=== PATIENT | female | born 1930 | race Caucasian/White ===

== ENCOUNTER → 2016-04-16 | Outpatient (CLI) | payer MEDICARE, OTHER ==
--- NOTE | 2016-04-16 16:33 | CT ---
EXAMINATION TYPE: CT chest wo con DATE OF EXAM: 04/16/2016 3:50 PM COMPARISON: Chest CT November 30, 2013 HISTORY: Patient complains of shortness of breath and fluid retention. CT DLP: 239.90 mGycm. Automated Exposure Control for Dose Reduction was Utilized. TECHNIQUE: CT scan of the thorax is performed without IV contrast. FINDINGS: LUNGS: Some posterior apical scarring bilaterally is redemonstrated. There is additional linear sca rring in the posterior aspect right upper lobe with some involvement of the right middle lobe redemon strated. No suspicious groundglass opacification or focal consolidation is seen. No pleural effusion or pneumothorax is seen bilaterally. There is no pleural effusion or pneumothorax seen. The tracheob ronchial tree is patent. MEDIASTINUM: Lack of IV contrast is noted to limit evaluation for mediastinal and especially hilar ad enopathy. There are no definitive greater than 1 cm noncalcified hilar or mediastinal lymph nodes. Th ere are calcified subcarinal subcentimeter lymph nodes redemonstrated Heart size is stable and upper limits of normal. There is tiny pericardial effusion or thickening redemonstrated felt stable. Focal coronary artery calcification proximal LAD on axial image 34 is redemonstrated. Mild calcified plaque in aortic arch and descending aorta is noted. OTHER: There is heterogeneous prominent right thyroid lobe with substernal extension redemonstrated. Left thyroid lobe is suspected surgically absent. Cortical thinning in both kidneys is seen. Cholecys tectomy clips are noted. Postsurgical change upper lumbar spine is partially imaged. IMPRESSION: Chronic parenchymal fibrosis bilaterally felt stable. No acute pulmonary process is evide nt.
== END ==
LOC: RADCTMAIN 15:21
PROVIDERS: ATTEND Internal Medicine Sleep Medicine
DX: J84.10 Pulmonary fibrosis, unspecified (principal)
CPT/HCPCS: 71250

== ENCOUNTER → 2016-04-17 | Outpatient (CLI) | payer MEDICARE, OTHER ==
--- NOTE | 2016-04-18 09:35 | P.ARTDOP ---
Arterial Doppler LOWER EXTREMITY ARTERIAL DOPPLER: DATE OF SERVICE: 04/17/2016 Reason for study: Bilateral leg swelling. Doppler waveforms: Multiphasic bilaterally throughout. Pulse volume recording: Normal configuration. Pressure gradients: None. Ankle-brachial indices: Greater than 1 bilaterally. Toe pressures: 126 on the right, 84 on the left Impression: Normal study.
== END | disposition home or self-care (01) ==
LOC: RADUSWWP 10:42
PROVIDERS: ATTEND Podiatrist Foot & Ankle Surgery
DX: I73.9 Peripheral vascular disease, unspecified (principal)
CPT/HCPCS: 93923

== ENCOUNTER → 2016-10-22 | Outpatient (CLI) | payer MEDICARE, OTHER ==
--- NOTE | 2016-10-22 15:02 | XR ---
EXAMINATION TYPE: XR forearm LT DATE OF EXAM: 10/22/2016 COMPARISON: NONE HISTORY: Pain the distal forearm Two views of the forearm demonstrate that the osseous structures appear to be intact and the joint sp aces appear to be preserved. There is no acute fracture or dislocation. There is severe narrowing o f the trapezial scaphoid joint. Narrowing the first carpal metacarpal joint. Diffuse osteopenia noted . Vascular calcification noted. IMPRESSION: 1. No acute fracture or dislocation
== END ==
LOC: RADXRMAIN 14:45
PROVIDERS: ATTEND Internal Medicine
DX: M79.672 Pain in left foot (principal)

== ENCOUNTER → 2016-11-08 | Outpatient (CLI) | payer MEDICARE, OTHER ==
[2016-11-08 13:30] LABS: Non-African American GFR(MDRD) 53 (>60 ml/min/1.73 sqM)
--- NOTE | 2016-11-08 17:05 | MR ---
EXAMINATION TYPE: MR lumbar spine wo/w con DATE OF EXAM: 11/08/2016 COMPARISON: 06/26/2013 HISTORY: back/sherrie hip pain TECHNIQUE: Multiplanar, multisequence images of the lumbar spine were acquired utilizing 7.0 mL intravenous Gada vist gadolinium contrast. Again susceptibility artifact from fusion hardware of the L1-L5 vertebra obscures visualization and l imits evaluation. Pedicular screws, fixation rods, laminectomy defects and spinous process resection are seen throughout the lumbar spine. Conus medullaris is obscured by susceptibility artifact. T1/T2 hyperintense sacral vertebral body hemangiomas are seen as well as vertebral body hemangioma T12. L1-L2: There appears to be a broad-based disc bulge resulting in at least mild bilateral neural david inal narrowing. L2-L3: A right eccentric broad-based disc bulge is seen creating moderate right and mild left neural foraminal narrowing. L3-L4: Right eccentric disc bulge create moderate right neural foraminal narrowing and mild left neur al foraminal narrowing. L4-L5: Intervertebral disc space cage is seen without disc space narrowing. L5-S1: Intervertebral disc spacer is thought to be present although partially obscured by susceptibil ity artifact. A recurrent right paracentral disc herniation extrudes caudally 6 mm and extends into t he right lateral recess and neural foramen creating severe neural foraminal narrowing. At least moder ate left neural foraminal narrowing is also seen. Enhancing epidural fibrosis extends from the L4-L5 interspace to the inferior portion of S1 measuring 1.2 x 4.1 x 2.2 cm in anterior posterior by craniocaudal by transverse dimension. This impresses upo n the distal nerve roots and distal thecal sac creating severe spinal canal stenosis at the level of L5-S1. It is difficult to appreciate whether this surrounds adjacent nerve roots due to obscuration b y susceptibility artifact. Moderate atrophy of the paraspinal musculature becomes more severe inferio rly. IMPRESSION: Limited exam due to extensive susceptibility artifact from fusion hardware throughout the lumbar spine. 1. Enhancing epidural fibrosis from the L4-L5 disc space to the inferior portion of S1 along the vent ral aspect of the thecal sac creating impression upon the distal nerve roots and thecal sac resulting in severe spinal canal stenosis at L5-S1. There is inability to determine whether this surrounds exi ting nerve roots as extensive susceptibility artifact is seen. 2. Recurrent right paracentral disc herniation at L5-S1 extrudes caudally 6 mm and extends into the r ight neural foramen creating severe neural foraminal stenosis impinging the L5 exiting nerve root. 3. Multilevel degenerative disc disease creating variable degrees of neural foraminal narrowing as de scribed above.
== END | disposition home or self-care (01) ==
LOC: RADMRIMAIN 12:52
PROVIDERS: ATTEND Internal Medicine
DX: M48.06 Spinal stenosis, lumbar region (principal); M99.73 Connective tissue and disc stenosis of intervertebral foramina of lumbar region; M51.27 Other intervertebral disc displacement, lumbosacral region; M51.36 Other intervertebral disc degeneration, lumbar region
CPT/HCPCS: 82565; 72158; 36415; A9581

== ENCOUNTER 2017-04-17 15:40 | Inpatient (IN) | payer MEDICARE, OTHER ==
[2017-04-17] MEDS ORDERED: SODIUM CHLORIDE 0.9% 500 ML IV STA (16:20)
[2017-04-17] MEDS ORDERED: ACETAMINOPHEN TAB 500 MG TAB PO STA (16:20)
[2017-04-17 16:33] LABS: Basophils # (A) 0.1 k/uL (0-0.2); Basophils % (A) 1 %; Eosinophils # (A) 0.3 k/uL (0-0.7); Eosinophils % (A) 2 %; HGB 12.5 gm/dL (11.4-16.0); Hypochromasia Slight; Lymphocytes % (A) 7 %; MCH 27.4 pg (25.0-35.0); Mean Platelet Volume 7.4; Monocytes # (A) 0.3 k/uL (0-1.0); Monocytes % (A) 2 %; Neutrophils # (A) 13.4 k/uL (1.3-7.7); Neutrophils % (A) 88 %; Platelet Count 497 k/uL (150-450); Poikilocytosis Slight; RBC 4.57 m/uL (3.80-5.40); WBC 15.2 k/uL (3.8-10.6)
[2017-04-17 16:42] LABS: Partial Thromboplastin Time 21.3 sec (22.0-30.0)
[2017-04-17 16:46] LABS: Albumin 3.4 g/dL (3.5-5.0); Calcium 9.6 mg/dL (8.4-10.2); Potassium 3.7 mmol/L (3.5-5.1); Total Bilirubin 0.6 mg/dL (0.2-1.3); Total Protein 6.7 g/dL (6.3-8.2)
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
[2017-04-17 17:09] LABS: Appearance,Urine Clear (Clear); Bilirubin,Urine Negative (Negative); Blood,Urine Negative (Negative); Color,Urine Yellow; Glucose,Urine (UA) Negative (Negative); Ketones,Urine Trace (Negative); Leukocyte Esterase,Urine Negative (Negative); Nitrite,Urine Negative (Negative); PH, Urine 6.5 (5.0-8.0); Protein,Urine Negative (Negative); Specific Gravity,Urine 1.006 (1.001-1.035); Urobilinogen,Urine <2.0 mg/dL (<2.0)
--- NOTE | 2017-04-17 17:30 | XR ---
EXAMINATION TYPE: XR chest 2V DATE OF EXAM: 04/17/2017 COMPARISON: Chest x-ray March 20, 2017 and older studies HISTORY: Chest pain per order. Weakness possible sepsis. TECHNIQUE: Frontal and lateral views of the chest are obtained. FINDINGS: Patient is rotated to right on current study making evaluation slightly suboptimal. There i s no new suspicious focal air space opacity, pleural effusion, or pneumothorax seen. The cardiac letty houette size is stable and mildly enlarged. There is partial visualization of surgical change in the lumbar spine. IMPRESSION: Mild cardiomegaly without acute pulmonary process. No significant change from most recent x-ray.
[2017-04-17] MEDS ORDERED: KETOROLAC 30 MG/ML 1 ML VIAL IVP STA (18:19)
--- NOTE | 2017-04-17 19:52 | CT ---
EXAMINATION TYPE: CT abdomen pelvis wo con DATE OF EXAM: 04/17/2017 HISTORY: Weakness and fever. CT DLP: 792 mGycm. Automated Exposure Control for Dose Reduction was Utilized. TECHNIQUE: CT scan of the abdomen and pelvis is performed without oral or IV contrast. COMPARISON: CT abdomen and pelvis August 06, 2013 FINDINGS: Within the limitations of a non-contrast study, the following observations are made. LUNG BASES: There is new patchy right basilar atelectasis. LIVER/GB: Cholecystectomy clips are redemonstrated. PANCREAS: No significant abnormality is seen. SPLEEN: No significant abnormality is seen. ADRENALS: No significant abnormality is seen. KIDNEYS: Some cortical thinning in both kidneys is seen. Concepcion catheter within bladder is present. BOWEL: Evaluation bowel suboptimal secondary to lack of enteric contrast. There is no suspicious smal l or large bowel dilatation. There are surgical sutures from proximal partial colectomy redemonstrate d. There is now irregular wall thickening near sutures at this level axial image 38 with suspected ad jacent adenopathy coronal image 27. Recurrent neoplasm needs to BE considered. Inflammatory change at this process is not excluded. Some diverticula are seen in the sigmoid colon. There is fluid noted i n the rectum. GENITAL ORGANS: Uterus is surgically absent. Scattered pelvic phleboliths are seen. LYMPH NODES: No greater than 1cm abdominal or pelvic lymph nodes are appreciated. Suspicious lymph no ping near colectomy changes. OSSEOUS STRUCTURES: There is redemonstration of long segment surgical change in the lumbar spine post erior interpedicular rods and screws. There are laminectomy defects and multilevel spinous process re section. OTHER: There is moderate to severe atherosclerotic change of aorta extending into small pelvic branch vessels. IMPRESSION: 1. At site of prior partial colectomy there is new irregular wall thickening with mild fat stranding and suspicious adjacent adenopathy, acute infectious process at this level or colitis could have this appearance. 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
[2017-04-17] MEDS ORDERED: cefTRIAXone IN SWFI 1,000 MG/10 ML SYRINGE IVP STA (20:53)
[2017-04-17] MEDS ORDERED: metroNIDAZOLE-NS PMX 500 MG in SALINE 1 100ML.BAG IVPB STA (20:54)
[2017-04-17] MEDS ORDERED: NALOXONE 0.4 MG/ML 1 ML VIAL IV PRN (21:07)
[2017-04-17] MEDS: SODIUM CHLORIDE 0.9% 1,000 ML IV SCH (21:17)
[2017-04-17 23:53] LABS: Glucose,Whole Blood 110 mg/dL (75-99)
[2017-04-18] MEDS: ACETAMINOPHEN TAB 325 MG TAB PO PRN ×3 (03:07→16:16)
[2017-04-18] MEDS: metroNIDAZOLE-NS PMX 500 MG in SALINE 1 100ML.BAG IVPB SCH ×3 (05:47→17:08)
[2017-04-18 07:31] LABS: Glucose,Whole Blood 95 mg/dL (75-99)
[2017-04-18] MEDS: cefTRIAXone IN SWFI 1,000 MG/10 ML SYRINGE IVP SCH (09:13)
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
[2017-04-18] MEDS: SODIUM CHLORIDE 0.9% 1,000 ML IV SCH (12:17)
[2017-04-18 12:43] LABS: Glucose,Whole Blood 98 mg/dL (75-99)
[2017-04-18] MEDS ORDERED: DIAZEPAM 5 MG TAB PO PRN (14:16)
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
[2017-04-18] MEDS: ONDANSETRON 4 MG/2 ML VIAL IVP PRN (17:08)
[2017-04-18] MEDS: INSULIN ASPART 100 UNIT/ML 1 ML 10 ML VIAL SQ SCH ×2 (17:18→22:45)
[2017-04-18 17:23] LABS: Glucose,Whole Blood 109 mg/dL (75-99)
[2017-04-18] MEDS ORDERED: BISACODYL 5 MG TABLET.DR PO STA (18:54)
[2017-04-18] MEDS ORDERED: PEG 3350-NA SULF,BICARB,CL/KCL 4,000 ML BOTTLE PO ONE (18:54)
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
[2017-04-18] MEDS: BUDESONIDE 0.25 MG/2 ML NEBU INHALATION SCH (19:27)
[2017-04-18] MEDS: FORMOTEROL FUMARATE 20 MCG/2 ML NEBU INHALATION SCH (19:27)
[2017-04-18] MEDS: HEPARIN SODIUM,PORCINE 5,000 UNIT/ML 1 ML VIAL SQ SCH (20:52)
[2017-04-18 21:41] LABS: Glucose,Whole Blood 83 mg/dL (75-99)
[2017-04-19] MEDS: ACETAMINOPHEN TAB 325 MG TAB PO PRN ×4 (00:35→23:06)
[2017-04-19] MEDS: metroNIDAZOLE-NS PMX 500 MG in SALINE 1 100ML.BAG IVPB SCH ×4 (01:36→18:57)
[2017-04-19] MEDS: DEXTROSE 5%-0.45% NACL 1,000 ML IV SCH ×2 (01:37→12:11)
[2017-04-19] MEDS: SODIUM CHLORIDE 0.9% 1,000 ML IV SCH ×2 (01:38→11:59)
[2017-04-19 05:49] LABS: Glucose,Whole Blood 104 mg/dL (75-99)
[2017-04-19 07:21] LABS: Glucose,Whole Blood 109 mg/dL (75-99)
[2017-04-19] MEDS: FORMOTEROL FUMARATE 20 MCG/2 ML NEBU INHALATION SCH ×2 (07:49→21:02)
[2017-04-19] MEDS: BUDESONIDE 0.25 MG/2 ML NEBU INHALATION SCH ×2 (07:49→21:01)
[2017-04-19 09:07] LABS: Anisocytosis Slight; Basophils % (A) 1 %; Eosinophils # (A) 0.3 k/uL (0-0.7); Eosinophils % (A) 5 %; HCT 28.6 % (34.0-46.0); Hypochromasia Slight; Lymphocytes # (A) 1.2 k/uL (1.0-4.8); Lymphocytes % (A) 17 %; MCH 27.6 pg (25.0-35.0); MCHC 32.7 g/dL (31.0-37.0); MCV 84.2 fL (80.0-100.0); Mean Platelet Volume 7.7; Monocytes # (A) 0.5 k/uL (0-1.0); Monocytes % (A) 7 %; Neutrophils # (A) 4.8 k/uL (1.3-7.7); Neutrophils % (A) 69 %; Platelet Count 355 k/uL (150-450); RDW 16.1 % (11.5-15.5); WBC 6.9 k/uL (3.8-10.6)
[2017-04-19 09:08] LABS: HGB 9.4 gm/dL (11.4-16.0)
[2017-04-19] MEDS: INSULIN ASPART 100 UNIT/ML 1 ML 10 ML VIAL SQ SCH ×4 (09:08→22:03)
[2017-04-19] MEDS: FUROSEMIDE 20 MG TAB PO SCH (09:12)
[2017-04-19] MEDS: PANTOPRAZOLE 40 MG TABLET PO SCH (09:12)
[2017-04-19] MEDS: HEPARIN SODIUM,PORCINE 5,000 UNIT/ML 1 ML VIAL SQ SCH ×2 (09:12→21:57)
[2017-04-19] MEDS: DICYCLOMINE 20 MG TAB PO SCH (09:12)
[2017-04-19] MEDS: MONTELUKAST 10 MG TAB PO SCH ×2 (09:12→09:18)
[2017-04-19] MEDS: METOPROLOL TARTRATE 12.5 MG TAB PO SCH (09:12)
[2017-04-19] MEDS: FOLIC ACID 1 MG TAB PO SCH ×2 (09:12→09:18)
[2017-04-19] MEDS: METHOTREXATE SODIUM 2.5 MG TAB PO SCH ×2 (09:12→09:14)
[2017-04-19] MEDS: cefTRIAXone IN SWFI 1,000 MG/10 ML SYRINGE IVP SCH (09:13)
[2017-04-19 09:41] LABS: ALT 26 U/L (9-52); AST 24 U/L (14-36); Albumin 2.2 g/dL (3.5-5.0); Alkaline Phosphatase 47 U/L (38-126); Anion Gap 5 mmol/L; Blood Urea Nitrogen 5 mg/dL (7-17); Calcium 8.2 mg/dL (8.4-10.2); Carbon Dioxide 25 mmol/L (22-30); Chloride 106 mmol/L (98-107); Glucose 101 mg/dL (74-99); Potassium 3.1 mmol/L (3.5-5.1); Sodium 136 mmol/L (137-145); Total Bilirubin 0.2 mg/dL (0.2-1.3); Total Protein 4.8 g/dL (6.3-8.2)
[2017-04-19] MEDS ORDERED: Potassium Replacement Protocol 1 EACH MISC MISCELLANE PRN (11:55)
[2017-04-19 12:17] LABS: Glucose,Whole Blood 165 mg/dL (75-99)
--- NOTE | 2017-04-19 13:46 | P.PN ---
Subjective Progress Note Date: 04/19/17 [facility] is covering for Dr. Lopez Patient is being seen examined and evaluated today on rounds. This patient is currently being worked up for her colitis and she does have a significant history for COPD and pulmonary fibrosis. Apparently she has had been having flares of her colitis more recently over the past few months. On examination the patient's resting in bed on room air. Patient does become short of breath with exertion and activity. She denies any cough or congestion at this time. Family is at bedside and is updated on plan of care. Patient is supposed to go for a colonoscopy today with surgical services. She continues on Rocephin and Flagyl. Her potassium this morning was noted to be 3.1 and has been replaced. Currently she is hemodynamically stable. Objective - Vital Signs Vital signs: Vital Signs Temp 99.0 F 04/19/17 07:00 Pulse 92 04/19/17 08:00 Resp 16 04/19/17 07:00 BP 137/62 04/19/17 07:00 Pulse Ox 94 L 04/19/17 07:00 Intake & Output 04/18/17 04/19/17 04/19/17 18:59 06:59 18:59 Output Total 500 Balance -500 Weight 59.5 kg Output: Urine 500 Other: Voiding Method Indwelling Catheter Indwelling Catheter # Voids 0 1 # Bowel Movements 2 - Exam GENERAL EXAM: Alert, comfortable in no apparent distress. HEAD: Normocephalic. EYES: Normal reaction of pupils, equal size. NOSE: Clear with pink turbinates. THROAT: No erythema or exudates. NECK: No masses, no JVD. CHEST: No chest wall deformity. LUNGS: Equal air entry with no crackles, wheeze, rhonchi or dullness. CVS: S1 and S2 normal with no audible mumurs, regular rhythm. ABDOMEN: No hepatosplenomegaly, normal bowel sounds, mild tenderness to palpitation EXTREMITIES: Trace edema noted, pedal pulses palpable. CENTRAL NERVOUS SYSTEM: No focal deficits, tone is normal in all 4 extremities. - Labs CBC & Chem 7: 04/19/17 08:24 04/19/17 08:24 Labs: Abnormal Lab Results - Last 24 Hours (Table) 04/18/17 04/19/17 04/19/17 Range/Units 17:09 05:47 07:18 RBC (3.80-5.40) m/uL Hgb (11.4-16.0) gm/dL Hct (34.0-46.0) % RDW (11.5-15.5) % Sodium (137-145) mmol/L Potassium (3.5-5.1) mmol/L BUN (7-17) mg/dL Glucose (74-99) mg/dL POC Glucose (mg/dL) 109 H 104 H 109 H (75-99) mg/dL Calcium (8.4-10.2) mg/dL Total Protein (6.3-8.2) g/dL Albumin (3.5-5.0) g/dL 04/19/17 04/19/17 04/19/17 Range/Units 08:24 08:24 12:10 RBC 3.40 L (3.80-5.40) m/uL Hgb 9.4 L D (11.4-16.0) gm/dL Hct 28.6 L (34.0-46.0) % RDW 16.1 H (11.5-15.5) % Sodium 136 L (137-145) mmol/L Potassium 3.1 L (3.5-5.1) mmol/L BUN 5 L (7-17) mg/dL Glucose 101 H (74-99) mg/dL POC Glucose (mg/dL) 165 H (75-99) mg/dL Calcium 8.2 L (8.4-10.2) mg/dL Total Protein 4.8 L (6.3-8.2) g/dL Albumin 2.2 L (3.5-5.0) g/dL Microbiology - Last 24 Hours (Table) 04/18/17 22:58 Stool Culture - Preliminary Stool 04/17/17 17:00 Urine Culture - Final Urine,Voided 04/17/17 16:20 Blood Culture - Preliminary Blood No Growth after 24 hours Assessment and Plan Assessment: Assessment Intermittent abdominal discomfort and pain and evidence of colitis versus mucosal wall thickening likely infectious or neoplastic process with prior history of colectomy Infectious colitis/C. difficile colitis, stool is been sent for C. difficile results are pending Neoplastic process/colon cancer workup and his progress patient has been recommended a colonoscopy she has Severe COPD related to chronic severe persistent asthma overall stable Chronic cough related to above and chronic asthma Advanced rheumatoid arthritis with some component of rheumatoid lung related to pulmonary fibrosis/interstitial lung disease Plan Patient will be going for colonoscopy today with surgical services. Medications have been reviewed and will be continued as ordered. Continue with pulmonary hygiene, coughing and deep breathing exercises, and supportive care. Supplemental oxygen to maintain oxygen saturations of 92% or better. Continue to monitor and replace electrolytes. Continue nebulizer treatments. GI and DVT prophylaxis. We will continue to monitor labs/results and adjust treatment as necessary. Further recommendations pending. We are covering for Dr. Lopez I performed an examination of the patient and discussed their management with the nurse practitioner. I have reviewed the nurse practitioner's note and agree with the documented findings and plan of care.
[2017-04-19] MEDS ORDERED: LACTATED RINGERS 1,000 ML IV ONE (13:54)
--- NOTE | 2017-04-19 13:55 | P.PN ---
Subjective Progress Note Date: 04/19/17 This is a 86-year-old female with a known past medical history of site COPD, diabetes mellitus, rheumatoid arthritis, lower extremity DVT, GERD, C. diff, recurrent episodes of urinary retention, diverticulosis and a recent admission at [facility] about 3 weeks ago for colitis. At that time she was treated with Flagyl. History was obtained from patient's daughter. Who reports that patient had shown improvement but once she finished the Flagyl her symptoms worsened again. She has been having journalized weakness nausea decrease in appetite and diarrhea. She also has been having fevers at home. She came back into the hospital for further evaluation. She was found have a temp of 102 white count 15.2 started on Rocephin and Flagyl. Computed tomography scan of the abdomen and pelvis shows at the site of prior partial colectomy there is new irregular wall thickening with mild fat stranding and suspicious adjacent adenopathy, acute infectious process at this level or colitis could have this appearance. 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 Per daughter patient does not have any prior history of cancer. She has had a bowel resection for a perforated diverticulitis. Dr. Silveira has been consulted for further evaluation. We'll check stool studies. Patient also is having evidence of urinary retention and Concepcion catheter was reinserted in the emergency room. She had recently been to see Dr. Murphy for the urinary retention at that time for catheter was removed. 04/19/2017 patient is scheduled for colonoscopy today with Dr. Silveira. Denies any nausea or vomiting. No blood in the stools. Denies any chest pain or shortness of breath. Does have some bruising and minimal swelling noted along the left arm from an old IV site. No hematoma. No tenderness. Objective - Vital Signs Vital signs: Vital Signs Temp 99.0 F 04/19/17 07:00 Pulse 92 04/19/17 08:00 Resp 16 04/19/17 07:00 BP 137/62 04/19/17 07:00 Pulse Ox 94 L 04/19/17 07:00 Intake & Output 04/18/17 04/19/17 04/19/17 18:59 06:59 18:59 Output Total 500 Balance -500 Weight 59.5 kg Output: Urine 500 Other: Voiding Method Indwelling Catheter Indwelling Catheter # Voids 0 1 # Bowel Movements 2 - Exam Head normocephalic Neck supple Lungs clear to auscultation bilaterally no wheezing or crackles Heart regular rate and rhythm S1-S2, no rub or gallop Abdomen is soft nontender nondistended positive bowel sounds no hepatosplenomegaly Extremities no edema of the lower extremities. Left arm minimal bruising and mild swelling at old IV site. Neuro alert and orientated to 3 - Labs CBC & Chem 7: 04/19/17 08:24 04/19/17 08:24 Labs: Abnormal Lab Results - Last 24 Hours (Table) 04/18/17 04/19/17 04/19/17 Range/Units 17:09 05:47 07:18 RBC (3.80-5.40) m/uL Hgb (11.4-16.0) gm/dL Hct (34.0-46.0) % RDW (11.5-15.5) % Sodium (137-145) mmol/L Potassium (3.5-5.1) mmol/L BUN (7-17) mg/dL Glucose (74-99) mg/dL POC Glucose (mg/dL) 109 H 104 H 109 H (75-99) mg/dL Calcium (8.4-10.2) mg/dL Total Protein (6.3-8.2) g/dL Albumin (3.5-5.0) g/dL 04/19/17 04/19/17 04/19/17 Range/Units 08:24 08:24 12:10 RBC 3.40 L (3.80-5.40) m/uL Hgb 9.4 L D (11.4-16.0) gm/dL Hct 28.6 L (34.0-46.0) % RDW 16.1 H (11.5-15.5) % Sodium 136 L (137-145) mmol/L Potassium 3.1 L (3.5-5.1) mmol/L BUN 5 L (7-17) mg/dL Glucose 101 H (74-99) mg/dL POC Glucose (mg/dL) 165 H (75-99) mg/dL Calcium 8.2 L (8.4-10.2) mg/dL Total Protein 4.8 L (6.3-8.2) g/dL Albumin 2.2 L (3.5-5.0) g/dL Microbiology - Last 24 Hours (Table) 04/18/17 22:58 Stool Culture - Preliminary Stool 04/17/17 17:00 Urine Culture - Final Urine,Voided 04/17/17 16:20 Blood Culture - Preliminary Blood No Growth after 24 hours Assessment and Plan Assessment: 1. Acute colitis with Abdominal pain with nausea, diarrhea, decreased appetite : Computed tomography scan of the abdomen showing evidence of at site of prior partial colectomy there is new irregular wall thickening with mild fat stranding and suspicious adjacent adenopathy acute infectious process at this level or colitis have this appearance. Also suspicion of neoplasm is suspected and follow-up colonoscopy after treatment is advised as noted on CAT scan. Dr. Silveira has been consulted. Patient has been started on Rocephin and Flagyl. Stool studies pending. Stool for C. diff negative. Patient had recent hospitalization at [facility] and had been on Flagyl treatment for about 12 days. Last colonoscopy in 2008 2. Sepsis with possible colitis present on admission. Patient is febrile with elevated white count. Continue with IV fluids and antibiotics. Blood culture negative so far 3. 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 Rheumatoid arthritis currently on methotrexate 5. Urinary retention Concepcion catheter reinserted in ER 6. Diabetes mellitus type 2: Poor oral intake blood sugars have been on the lower side. Hold oral hypoglycemics and place patient on sliding scale coverage 7. 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 I have reviewed the Physician General Duty Nurse's notes and agree with the documented findings and plan of care
[2017-04-19] MEDS ORDERED: PROPOFOL 10 MG/ML 20 ML VIAL IV ONE (14:13)
[2017-04-19] MEDS: POTASSIUM CHLORIDE 10 MEQ in SODIUM CHLORIDE 0.9% 100 ML IVPB SCH ×2 (15:11→18:28)
--- NOTE | 2017-04-19 15:15 | P.PCN ---
Date of Procedure: 04/19/17 Procedure(s) Performed: PREOPERATIVE DIAGNOSIS: Transverse colon lesion POSTOPERATIVE DIAGNOSIS: Transverse colon mass PROCEDURE: Colonoscopy with biopsy ANESTHESIA: MAC SURGEON: Mikie Silveira M.D. SPECIMENS: transverse colon mass ENDOSCOPIC PROCEDURE: The patient was placed on the endoscopy table in the left decubitus position. The Olympus colonoscope was inserted into the anus and passed under direct visualization to the ileocolonic anastomosis. As expected there was a neoplastic process in that location. It was difficult to say whether this was causing obstruction of the anastomotic site. Several biopsies of this neoplastic-appearing mass took place. The remainder of the transverse descending sigmoid and rectum appeared normal. There was mild left- sided diverticulosis. Digital rectal examination was normal. The patient was taken to the recovery room in stable condition per anesthesia guidelines. RECOMMENDATIONS: endoscopic findings discussed with the patient's family. They will consider operative resection.
[2017-04-19] MEDS ORDERED: LIDOCAINE 2% INJ 20 MG/ML SQ ONE (15:45)
--- NOTE | 2017-04-19 16:05 | IR ---
EXAMINATION TYPE: IR cvc insert >=5 years DATE OF EXAM: 04/19/2017 COMPARISON: NONE CLINICAL HISTORY: Needs long-term intravenous access for total parenteral nutrition PROCEDURE: After informed consent, the skin overlying the left basilic vein was localized with ultrasound and no robert to be compressible and patent. An ultrasound image was obtained and submitted on the patient's c duval. The overlying skin was prepped and draped and Lidocaine was used for local anesthesia. A skin romina was made with a scalpel. Access was gained to the vein under ultrasound guidance with a 21 gau ge needle and a 0.018 inch wire was advanced. Access site was dilated with Peel-Away sheath and cath eter tailored to the appropriate length and advanced such that the distal tip is at the cavoatrial ju nction. Spot image was obtained verifying placement. Catheter was fixed to the skin with suture and a sterile dressing was placed following hemostasis. Catheter was aspirated and flushed with saline. Patient was discharged in stable condition without complication. Maximal barrier technique is utili zed. Ultrasound image is documented on the chart. Ultrasound used with sterile technique. Fluoro time and fluoroscopic images submitted to document procedure: 33 intraoperative image, 0.3 min utes fluoroscopy time IMPRESSION: STATUS POST ULTRASOUND AND FLUOROSCOPIC GUIDED PICC LINE PLACEMENT, READY FOR USE. THIS PROCEDURE WAS PERFORMED BY THE UNDERSIGNED.
[2017-04-19] MEDS ORDERED: ALVIMOPAN 12 MG CAPSULE PO ONE (17:17)
[2017-04-19] MEDS ORDERED: Antibiotics per Pharmacy 1 EACH MISC MISCELLANE PRN (17:17)
[2017-04-19 17:21] LABS: Glucose,Whole Blood 84 mg/dL (75-99)
[2017-04-19] MEDS ORDERED: metroNIDAZOLE-NS PMX 500 MG in SALINE 1 100ML.BAG IVPB ONE (17:30)
[2017-04-19] MEDS ORDERED: ceFAZolin IN SWFI 2 GM/20 ML SYRINGE IVP ONE (17:30)
[2017-04-19 22:11] LABS: Glucose,Whole Blood 116 mg/dL (75-99)
[2017-04-19] MEDS ORDERED: NEOMYCIN 500 MG TAB PO SCH (23:00)
[2017-04-20] MEDS: metroNIDAZOLE-NS PMX 500 MG in SALINE 1 100ML.BAG IVPB SCH ×5 (00:51→22:59)
[2017-04-20] MEDS: SODIUM CHLORIDE 0.9% 1,000 ML IV SCH ×2 (04:07→18:20)
[2017-04-20] MEDS: DEXTROSE 5%-0.45% NACL 1,000 ML IV SCH (05:44)
[2017-04-20] MEDS: ACETAMINOPHEN TAB 325 MG TAB PO PRN ×3 (06:50→22:16)
[2017-04-20 07:24] LABS: Glucose,Whole Blood 103 mg/dL (75-99)
[2017-04-20 08:43] LABS: Anisocytosis Slight; Basophils # (A) 0.1 k/uL (0-0.2); Basophils % (A) 1 %; Eosinophils # (A) 0.4 k/uL (0-0.7); Eosinophils % (A) 8 %; HCT 30.7 % (34.0-46.0); HGB 9.6 gm/dL (11.4-16.0); Hypochromasia Slight; Lymphocytes # (A) 1.1 k/uL (1.0-4.8); Lymphocytes % (A) 22 %; MCH 26.6 pg (25.0-35.0); MCHC 31.3 g/dL (31.0-37.0); MCV 84.7 fL (80.0-100.0); Mean Platelet Volume 7.6; Monocytes # (A) 0.4 k/uL (0-1.0); Monocytes % (A) 9 %; Neutrophils # (A) 2.8 k/uL (1.3-7.7); Neutrophils % (A) 57 %; Platelet Count 341 k/uL (150-450); RBC 3.62 m/uL (3.80-5.40); RDW 16.1 % (11.5-15.5); WBC 4.8 k/uL (3.8-10.6)
[2017-04-20] MEDS: DICYCLOMINE 20 MG TAB PO SCH (08:48)
[2017-04-20] MEDS: HEPARIN SODIUM,PORCINE 5,000 UNIT/ML 1 ML VIAL SQ SCH ×2 (08:49→20:17)
[2017-04-20] MEDS: FOLIC ACID 1 MG TAB PO SCH (08:49)
[2017-04-20] MEDS: METOPROLOL TARTRATE 12.5 MG TAB PO SCH (08:49)
[2017-04-20] MEDS: PANTOPRAZOLE 40 MG TABLET PO SCH (08:49)
[2017-04-20] MEDS: INSULIN ASPART 100 UNIT/ML 1 ML 10 ML VIAL SQ SCH ×4 (08:49→23:03)
[2017-04-20] MEDS: FUROSEMIDE 20 MG TAB PO SCH (08:49)
[2017-04-20] MEDS: BUDESONIDE 0.25 MG/2 ML NEBU INHALATION SCH ×2 (08:50→20:39)
[2017-04-20] MEDS: FORMOTEROL FUMARATE 20 MCG/2 ML NEBU INHALATION SCH ×2 (08:51→20:39)
[2017-04-20] MEDS: MONTELUKAST 10 MG TAB PO SCH (08:52)
[2017-04-20 08:58] LABS: ALT 19 U/L (9-52); AST 18 U/L (14-36); Albumin 2.2 g/dL (3.5-5.0); Alkaline Phosphatase 44 U/L (38-126); Anion Gap 8 mmol/L; Blood Urea Nitrogen 3 mg/dL (7-17); Calcium 8.1 mg/dL (8.4-10.2); Carbon Dioxide 24 mmol/L (22-30); Chloride 107 mmol/L (98-107); Glucose 109 mg/dL (74-99); Potassium 3.3 mmol/L (3.5-5.1); Sodium 139 mmol/L (137-145); Total Bilirubin 0.2 mg/dL (0.2-1.3); Total Protein 4.9 g/dL (6.3-8.2)
[2017-04-20] MEDS: cefTRIAXone IN SWFI 1,000 MG/10 ML SYRINGE IVP SCH (08:58)
[2017-04-20 09:34] LABS: Phosphorus 3.1 mg/dL (2.5-4.5)
[2017-04-20] MEDS: POTASSIUM CHLORIDE 10 MEQ in SODIUM CHLORIDE 0.9% 100 ML IV SCH ×3 (10:23→13:13)
--- NOTE | 2017-04-20 12:25 | P.PN ---
Subjective Progress Note Date: 04/20/17 Patient is an 86-year-old white female who is status post colonoscopy by Dr. Henderson on04/19. She was noted to have a neoplastic process at the ileocolonic anastomosis. After discussion with the family she is being scheduled by Dr. Henderson for colon resection. At this time the patient is resting comfortably. Her daughter is at the bedside. Objective - Vital Signs Vital signs: Vital Signs Temp 97.0 F L 04/20/17 07:00 Pulse 74 04/20/17 07:00 Resp 18 04/20/17 08:00 BP 150/73 04/20/17 07:00 Pulse Ox 93 L 04/20/17 07:00 Intake & Output 04/19/17 04/20/17 04/20/17 18:59 06:59 18:59 Intake Total 200 200 540 Output Total 900 1802 Balance -700 -1602 540 Weight 59.5 kg Intake: IV 200 Oral 200 540 Output: Urine 900 1800 Straight 900 Stool 2 Other: Voiding Method Indwelling Catheter Indwelling Catheter Indwelling Catheter # Voids 0 # Bowel Movements 0 - Constitutional General appearance: Present: obese - Respiratory Details: Decreased breath sounds at the bases - Cardiovascular Rhythm: regular Heart sounds: normal: S1, S2 - Gastrointestinal General gastrointestinal: Present: normal bowel sounds, soft - Psychiatric Psychiatric: Present: A&O x's 3, appropriate affect - Labs CBC & Chem 7: 04/20/17 07:58 04/20/17 07:58 Labs: Abnormal Lab Results - Last 24 Hours (Table) 04/19/17 04/20/17 04/20/17 Range/Units 21:57 07:11 07:58 RBC 3.62 L (3.80-5.40) m/uL Hgb 9.6 L (11.4-16.0) gm/dL Hct 30.7 L (34.0-46.0) % RDW 16.1 H (11.5-15.5) % Potassium (3.5-5.1) mmol/L BUN (7-17) mg/dL Glucose (74-99) mg/dL POC Glucose (mg/dL) 116 H 103 H (75-99) mg/dL Calcium (8.4-10.2) mg/dL Total Protein (6.3-8.2) g/dL Albumin (3.5-5.0) g/dL 04/20/17 Range/Units 07:58 RBC (3.80-5.40) m/uL Hgb (11.4-16.0) gm/dL Hct (34.0-46.0) % RDW (11.5-15.5) % Potassium 3.3 L (3.5-5.1) mmol/L BUN 3 L (7-17) mg/dL Glucose 109 H (74-99) mg/dL POC Glucose (mg/dL) (75-99) mg/dL Calcium 8.1 L (8.4-10.2) mg/dL Total Protein 4.9 L (6.3-8.2) g/dL Albumin 2.2 L (3.5-5.0) g/dL Microbiology - Last 24 Hours (Table) 04/17/17 16:20 Blood Culture - Preliminary Blood No Growth after 48 hours 04/18/17 22:58 Stool for WBCs - Final Stool 04/18/17 22:58 Stool Culture - Preliminary Stool Assessment and Plan Assessment: The patient/plan: 1. 86-year-old with a newly diagnosed neoplasia at your with ileocolonic anastomosis 2. COPD 3. Rheumatoid arthritis 4. Diabetes type 2 Plan: Probable operative resection by Dr. Henderson in the near future.
--- NOTE | 2017-04-20 12:27 | P.PN ---
Subjective Progress Note Date: 04/20/17 This is a 86-year-old female with a known past medical history of site COPD, diabetes mellitus, rheumatoid arthritis, lower extremity DVT, GERD, C. diff, recurrent episodes of urinary retention, diverticulosis and a recent admission at [facility] about 3 weeks ago for colitis. At that time she was treated with Flagyl. History was obtained from patient's daughter. Who reports that patient had shown improvement but once she finished the Flagyl her symptoms worsened again. She has been having journalized weakness nausea decrease in appetite and diarrhea. She also has been having fevers at home. She came back into the hospital for further evaluation. She was found have a temp of 102 white count 15.2 started on Rocephin and Flagyl. Computed tomography scan of the abdomen and pelvis shows at the site of prior partial colectomy there is new irregular wall thickening with mild fat stranding and suspicious adjacent adenopathy, acute infectious process at this level or colitis could have this appearance. 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 Per daughter patient does not have any prior history of cancer. She has had a bowel resection for a perforated diverticulitis. Dr. Silveira has been consulted for further evaluation. We'll check stool studies. Patient also is having evidence of urinary retention and Concepcion catheter was reinserted in the emergency room. She had recently been to see Dr. Murphy for the urinary retention at that time for catheter was removed. 04/19/2017 patient is scheduled for colonoscopy today with Dr. Silveira. Denies any nausea or vomiting. No blood in the stools. Denies any chest pain or shortness of breath. Does have some bruising and minimal swelling noted along the left arm from an old IV site. No hematoma. No tenderness. On 04/20/2017 patient is alert and oriented 3 she is kept nothing by mouth patient and her daughter are aware of bronchoscopy results which revealed transverse colon mass, plan is for surgery on Saturday. Patient denies any nausea or vomiting no abdominal pain no diarrhea or constipation no blood in her stools at this time. Objective - Vital Signs Vital signs: Vital Signs Temp 97.0 F L 04/20/17 07:00 Pulse 74 04/20/17 07:00 Resp 18 04/20/17 08:00 BP 150/73 04/20/17 07:00 Pulse Ox 93 L 04/20/17 07:00 Intake & Output 04/19/17 04/20/17 04/20/17 18:59 06:59 18:59 Intake Total 200 200 540 Output Total 900 1802 Balance -700 -1602 540 Weight 59.5 kg Intake: IV 200 Oral 200 540 Output: Urine 900 1800 Straight 900 Stool 2 Other: Voiding Method Indwelling Catheter Indwelling Catheter Indwelling Catheter # Voids 0 # Bowel Movements 0 - Exam Head normocephalic and atraumatic Neck supple no JVD no goiter Lungs clear to auscultation bilaterally no wheezing or crackles Heart regular rate and rhythm S1-S2, no rub or gallop Abdomen is soft nontender nondistended positive bowel sounds no hepatosplenomegaly Extremities no edema of the lower extremities. Left arm minimal bruising and mild swelling at old IV site. Neuro alert and orientated to 3 - Labs CBC & Chem 7: 04/20/17 07:58 04/20/17 07:58 Labs: Abnormal Lab Results - Last 24 Hours (Table) 04/19/17 04/20/17 04/20/17 Range/Units 21:57 07:11 07:58 RBC 3.62 L (3.80-5.40) m/uL Hgb 9.6 L (11.4-16.0) gm/dL Hct 30.7 L (34.0-46.0) % RDW 16.1 H (11.5-15.5) % Potassium (3.5-5.1) mmol/L BUN (7-17) mg/dL Glucose (74-99) mg/dL POC Glucose (mg/dL) 116 H 103 H (75-99) mg/dL Calcium (8.4-10.2) mg/dL Total Protein (6.3-8.2) g/dL Albumin (3.5-5.0) g/dL 04/20/17 Range/Units 07:58 RBC (3.80-5.40) m/uL Hgb (11.4-16.0) gm/dL Hct (34.0-46.0) % RDW (11.5-15.5) % Potassium 3.3 L (3.5-5.1) mmol/L BUN 3 L (7-17) mg/dL Glucose 109 H (74-99) mg/dL POC Glucose (mg/dL) (75-99) mg/dL Calcium 8.1 L (8.4-10.2) mg/dL Total Protein 4.9 L (6.3-8.2) g/dL Albumin 2.2 L (3.5-5.0) g/dL Microbiology - Last 24 Hours (Table) 04/17/17 16:20 Blood Culture - Preliminary Blood No Growth after 48 hours 04/18/17 22:58 Stool for WBCs - Final Stool 04/18/17 22:58 Stool Culture - Preliminary Stool Assessment and Plan Assessment: 1. Acute colitis with Abdominal pain with nausea, diarrhea, decreased appetite : Computed tomography scan of the abdomen showing evidence of at site of prior partial colectomy there is new irregular wall thickening with mild fat stranding and suspicious adjacent adenopathy acute infectious process at this level or colitis have this appearance. Also suspicion of neoplasm is suspected and follow-up colonoscopy after treatment is advised as noted on CAT scan. Dr. Silveira has been consulted. Patient has been started on Rocephin and Flagyl. Stool studies pending. Stool for C. diff negative. Patient had recent hospitalization at [facility] and had been on Flagyl treatment for about 12 days. Colonoscopy yesterday by Dr. Silveira reveals transvers colon mass, plan is for surgery on Saturday 2. Sepsis with possible colitis present on admission. Patient is febrile with elevated white count. Continue with IV fluids and antibiotics. Blood culture negative so far 3. 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 Rheumatoid arthritis currently on methotrexate 5. Urinary retention Concepcion catheter reinserted in ER 6. Diabetes mellitus type 2: Poor oral intake blood sugars have been on the lower side. Hold oral hypoglycemics and place patient on sliding scale coverage 7. 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 PICC line was inserted and patient will start on TPN GI and DVT prophylaxis Pepcid and subcu heparin
[2017-04-20 12:34] LABS: Glucose,Whole Blood 265 mg/dL (75-99)
[2017-04-20] MEDS: MVI, ADULT NO.4 WITH VIT K 10 ML, TRACE (CONC-1ML/DOSE) 1 ML in AMIN 3.3%/DEX 9.8%/LIPI... IV SCH ×3 (13:15)
--- NOTE | 2017-04-20 17:25 | PN ---
PROGRESS NOTE DATE OF SERVICE: 04/20/2017 This patient continues to have some shortness of breath and wheezing and was diagnosed to have colon cancer, for which surgery is being considered on her at this time. On physical examination, blood pressure is 129/57, respiratory rate of 18, pulse rate of 72, temperature 96.1. Oxygen saturation on room air is 99%. HEENT is unremarkable. Chest reveals expiratory wheeze. Cardiovascular system reveals an S1, S2. Abdomen is soft. There is no edema. White count is 4.8, hemoglobin 9.6, sodium 139, potassium 3.3, chloride 107, bicarb 24, BUN 3, creatinine 0.62. IMPRESSION AT THIS TIME: 1. Colon cancer. 2. Chronic obstructive pulmonary disease. 3. Pulmonary fibrosis. 4. Rheumatoid arthritis. Continue on her current medications and breathing and nebulize treatments, which were reviewed. She may need perioperative steroids. We will follow her closely during her hospital stay. LESLEY / TEAGAN: [id number] /
[2017-04-20 18:06] LABS: Glucose,Whole Blood 233 mg/dL (75-99)
[2017-04-20 23:30] LABS: Glucose,Whole Blood 178 mg/dL (75-99)
[2017-04-21] MEDS: metroNIDAZOLE-NS PMX 500 MG in SALINE 1 100ML.BAG IVPB SCH ×3 (05:48→19:43)
[2017-04-21] MEDS: INSULIN ASPART 100 UNIT/ML 1 ML 10 ML VIAL SQ SCH ×3 (06:05→19:10)
[2017-04-21] MEDS: SODIUM CHLORIDE 0.9% 1,000 ML IV SCH ×2 (06:06→22:37)
[2017-04-21 06:23] LABS: Glucose,Whole Blood 179 mg/dL (75-99)
[2017-04-21] MEDS: BUDESONIDE 0.25 MG/2 ML NEBU INHALATION SCH ×2 (09:13→21:38)
[2017-04-21] MEDS: FORMOTEROL FUMARATE 20 MCG/2 ML NEBU INHALATION SCH ×2 (09:13→21:38)
[2017-04-21 10:09] LABS: Anisocytosis Slight; Basophils % (A) 0 %; Eosinophils # (A) 0.4 k/uL (0-0.7); Eosinophils % (A) 7 %; HCT 31.4 % (34.0-46.0); HGB 9.8 gm/dL (11.4-16.0); Hypochromasia Moderate; Lymphocytes # (A) 1.1 k/uL (1.0-4.8); Lymphocytes % (A) 17 %; MCH 26.5 pg (25.0-35.0); MCHC 31.3 g/dL (31.0-37.0); MCV 84.9 fL (80.0-100.0); Mean Platelet Volume 7.7; Monocytes # (A) 0.5 k/uL (0-1.0); Monocytes % (A) 7 %; Neutrophils # (A) 4.4 k/uL (1.3-7.7); Neutrophils % (A) 67 %; Platelet Count 332 k/uL (150-450); Poikilocytosis Slight; RDW 16.4 % (11.5-15.5); WBC 6.6 k/uL (3.8-10.6)
[2017-04-21 10:17] LABS: ALT 21 U/L (9-52); AST 16 U/L (14-36); Albumin 2.3 g/dL (3.5-5.0); Alkaline Phosphatase 52 U/L (38-126); Anion Gap 8 mmol/L; Blood Urea Nitrogen 3 mg/dL (7-17); Calcium 8.1 mg/dL (8.4-10.2); Carbon Dioxide 23 mmol/L (22-30); Chloride 107 mmol/L (98-107); Glucose 165 mg/dL (74-99); Magnesium 1.7 mg/dL (1.6-2.3); Phosphorus 2.6 mg/dL (2.5-4.5); Sodium 138 mmol/L (137-145); Total Bilirubin 0.1 mg/dL (0.2-1.3); Total Protein 5.1 g/dL (6.3-8.2)
[2017-04-21] MEDS: PANTOPRAZOLE 40 MG TABLET PO SCH (10:34)
[2017-04-21] MEDS: FOLIC ACID 1 MG TAB PO SCH (10:34)
[2017-04-21] MEDS: cefTRIAXone IN SWFI 1,000 MG/10 ML SYRINGE IVP SCH (10:34)
[2017-04-21] MEDS: METOPROLOL TARTRATE 12.5 MG TAB PO SCH (10:34)
[2017-04-21] MEDS: FUROSEMIDE 20 MG TAB PO SCH (10:34)
[2017-04-21] MEDS: MONTELUKAST 10 MG TAB PO SCH (10:34)
[2017-04-21] MEDS: DICYCLOMINE 20 MG TAB PO SCH (10:34)
[2017-04-21] MEDS: HEPARIN SODIUM,PORCINE 5,000 UNIT/ML 1 ML VIAL SQ SCH ×3 (10:36→20:50)
[2017-04-21] MEDS: ACETAMINOPHEN TAB 325 MG TAB PO PRN ×2 (10:40→19:14)
[2017-04-21] MEDS ORDERED: MAGNESIUM CITRATE 296 ML BOTTLE PO ONE ×2 (12:00)
[2017-04-21 12:13] LABS: Glucose,Whole Blood 209 mg/dL (75-99)
--- NOTE | 2017-04-21 12:46 | P.PN ---
Subjective Progress Note Date: 04/21/17 Patient is an 86-year-old white female who is status post colonoscopy by Dr. Henderson on04/19. She was noted to have a neoplastic process at the ileocolonic anastomosis. After discussion with the family she is being scheduled by Dr. Henderson for colon resection. At this time the patient is resting comfortably. Her son and [id number] are at the bedside. Objective - Vital Signs Vital signs: Vital Signs Temp 98.7 F 04/20/17 23:00 Pulse 92 04/21/17 09:32 Resp 20 04/20/17 23:00 BP 149/68 04/20/17 23:00 Pulse Ox 95 04/20/17 23:00 Intake & Output 04/20/17 04/21/17 04/21/17 17:59 06:59 18:59 Intake Total Output Total 500 Balance -500 Weight Intake: Oral Output: Urine 500 Straight Other: Voiding Method # Voids # Bowel Movements - Constitutional General appearance: Present: obese - Respiratory Details: Decreased breath sounds at the bases - Cardiovascular Heart sounds: normal: S1, S2 - Gastrointestinal General gastrointestinal: Present: normal bowel sounds, soft - Psychiatric Psychiatric: Present: appropriate affect - Labs CBC & Chem 7: 04/21/17 08:55 04/21/17 08:55 Labs: Abnormal Lab Results - Last 24 Hours (Table) 04/20/17 04/20/17 04/20/17 Range/Units 07:58 12:29 18:04 RBC (3.80-5.40) m/uL Hgb (11.4-16.0) gm/dL Hct (34.0-46.0) % RDW (11.5-15.5) % Potassium (3.5-5.1) mmol/L BUN (7-17) mg/dL Glucose (74-99) mg/dL POC Glucose (mg/dL) 265 H 233 H (75-99) mg/dL Calcium (8.4-10.2) mg/dL Total Bilirubin (0.2-1.3) mg/dL Total Protein (6.3-8.2) g/dL Albumin (3.5-5.0) g/dL Carcinoembryonic Ag 31.6 H (0.0-4.9) ng/mL 04/20/17 04/21/1718 Range/Units 22:55 06:01 08:55 RBC 3.70 L (3.80-5.40) m/uL Hgb 9.8 L (11.4-16.0) gm/dL Hct 31.4 L (34.0-46.0) % RDW 16.4 H (11.5-15.5) % Potassium (3.5-5.1) mmol/L BUN (7-17) mg/dL Glucose (74-99) mg/dL POC Glucose (mg/dL) 178 H 179 H (75-99) mg/dL Calcium (8.4-10.2) mg/dL Total Bilirubin (0.2-1.3) mg/dL Total Protein (6.3-8.2) g/dL Albumin (3.5-5.0) g/dL Carcinoembryonic Ag (0.0-4.9) ng/mL 04/21/17 04/21/17 Range/Units 08:55 12:05 RBC (3.80-5.40) m/uL Hgb (11.4-16.0) gm/dL Hct (34.0-46.0) % RDW (11.5-15.5) % Potassium 3.0 L* (3.5-5.1) mmol/L BUN 3 L (7-17) mg/dL Glucose 165 H (74-99) mg/dL POC Glucose (mg/dL) 209 H (75-99) mg/dL Calcium 8.1 L (8.4-10.2) mg/dL Total Bilirubin 0.1 L (0.2-1.3) mg/dL Total Protein 5.1 L (6.3-8.2) g/dL Albumin 2.3 L (3.5-5.0) g/dL Carcinoembryonic Ag (0.0-4.9) ng/mL Microbiology - Last 24 Hours (Table) 04/17/17 16:20 Blood Culture - Preliminary Blood No Growth after 72 hours 04/18/17 22:58 Stool Culture - Preliminary Stool Stacey albicans Assessment and Plan Assessment: The patient/plan: 1. 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 COPD 3. Rheumatoid arthritis 4. Diabetes type 2 Plan: Probable operative resection by Dr. Henderson in the near future.
--- NOTE | 2017-04-21 15:53 | P.PN ---
Subjective Progress Note Date: 04/21/17 This is a 86-year-old female with a known past medical history of site COPD, diabetes mellitus, rheumatoid arthritis, lower extremity DVT, GERD, C. diff, recurrent episodes of urinary retention, diverticulosis and a recent admission at [facility] about 3 weeks ago for colitis. At that time she was treated with Flagyl. History was obtained from patient's daughter. Who reports that patient had shown improvement but once she finished the Flagyl her symptoms worsened again. She has been having journalized weakness nausea decrease in appetite and diarrhea. She also has been having fevers at home. She came back into the hospital for further evaluation. She was found have a temp of 102 white count 15.2 started on Rocephin and Flagyl. Computed tomography scan of the abdomen and pelvis shows at the site of prior partial colectomy there is new irregular wall thickening with mild fat stranding and suspicious adjacent adenopathy, acute infectious process at this level or colitis could have this appearance. 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 Per daughter patient does not have any prior history of cancer. She has had a bowel resection for a perforated diverticulitis. Dr. Silveira has been consulted for further evaluation. We'll check stool studies. Patient also is having evidence of urinary retention and Concepcion catheter was reinserted in the emergency room. She had recently been to see Dr. Murphy for the urinary retention at that time for catheter was removed. 04/19/2017 patient is scheduled for colonoscopy today with Dr. Silveira. Denies any nausea or vomiting. No blood in the stools. Denies any chest pain or shortness of breath. Does have some bruising and minimal swelling noted along the left arm from an old IV site. No hematoma. No tenderness. On 04/20/2017 patient is alert and oriented 3 she is kept nothing by mouth patient and her daughter are aware of colonoscopy results which revealed transverse colon mass, plan is for surgery on Saturday. Patient denies any nausea or vomiting no abdominal pain no diarrhea or constipation no blood in her stools at this time. 04/21/2017 patient is alert and oriented 3 she is kept nothing by mouth patient and her daughter are aware of colonoscopy results which revealed transverse colon mass, plan is for surgery on Saturday. Patient is maintained on TPN, potassium is low at 3 today and this will be adjusted Objective - Vital Signs Vital signs: Vital Signs Temp 98.7 F 04/20/17 23:00 Pulse 92 04/21/17 09:32 Resp 20 04/20/17 23:00 BP 149/68 04/20/17 23:00 Pulse Ox 95 04/20/17 23:00 Intake & Output 04/20/17 04/21/17 04/21/17 17:59 06:59 18:59 Intake Total 240 Output Total 800 Balance -560 Weight Intake: Oral 240 Output: Urine 800 Straight Other: Voiding Method # Voids # Bowel Movements - Exam Head normocephalic and atraumatic Neck supple no JVD no goiter Lungs clear to auscultation bilaterally no wheezing or crackles Heart regular rate and rhythm S1-S2, no rub or gallop Abdomen is soft nontender nondistended positive bowel sounds no hepatosplenomegaly Extremities no edema of the lower extremities. Left arm minimal bruising and mild swelling at old IV site. Neuro alert and orientated to 3 - Labs CBC & Chem 7: 04/21/17 08:55 04/21/17 08:55 Labs: Abnormal Lab Results - Last 24 Hours (Table) 04/20/17 04/20/17 04/20/17 Range/Units 07:58 18:04 22:55 RBC (3.80-5.40) m/uL Hgb (11.4-16.0) gm/dL Hct (34.0-46.0) % RDW (11.5-15.5) % Potassium (3.5-5.1) mmol/L BUN (7-17) mg/dL Glucose (74-99) mg/dL POC Glucose (mg/dL) 233 H 178 H (75-99) mg/dL Calcium (8.4-10.2) mg/dL Total Bilirubin (0.2-1.3) mg/dL Total Protein (6.3-8.2) g/dL Albumin (3.5-5.0) g/dL Carcinoembryonic Ag 31.6 H (0.0-4.9) ng/mL 04/21/17 04/21/17 04/21/17 Range/Units 06:01 08:55 08:55 RBC 3.70 L (3.80-5.40) m/uL Hgb 9.8 L (11.4-16.0) gm/dL Hct 31.4 L (34.0-46.0) % RDW 16.4 H (11.5-15.5) % Potassium 3.0 L* (3.5-5.1) mmol/L BUN 3 L (7-17) mg/dL Glucose 165 H (74-99) mg/dL POC Glucose (mg/dL) 179 H (75-99) mg/dL Calcium 8.1 L (8.4-10.2) mg/dL Total Bilirubin 0.1 L (0.2-1.3) mg/dL Total Protein 5.1 L (6.3-8.2) g/dL Albumin 2.3 L (3.5-5.0) g/dL Carcinoembryonic Ag (0.0-4.9) ng/mL 04/21/17 Range/Units 12:05 RBC (3.80-5.40) m/uL Hgb (11.4-16.0) gm/dL Hct (34.0-46.0) % RDW (11.5-15.5) % Potassium (3.5-5.1) mmol/L BUN (7-17) mg/dL Glucose (74-99) mg/dL POC Glucose (mg/dL) 209 H (75-99) mg/dL Calcium (8.4-10.2) mg/dL Total Bilirubin (0.2-1.3) mg/dL Total Protein (6.3-8.2) g/dL Albumin (3.5-5.0) g/dL Carcinoembryonic Ag (0.0-4.9) ng/mL Microbiology - Last 24 Hours (Table) 04/18/17 22:58 Stool Culture - Preliminary Stool Stacey albicans 04/17/17 16:20 Blood Culture - Preliminary Blood No Growth after 72 hours Assessment and Plan Assessment: 1. Acute colitis with Abdominal pain with nausea, diarrhea, decreased appetite : Computed tomography scan of the abdomen showing evidence of at site of prior partial colectomy there is new irregular wall thickening with mild fat stranding and suspicious adjacent adenopathy acute infectious process at this level or colitis have this appearance. Also suspicion of neoplasm is suspected and follow-up colonoscopy after treatment is advised as noted on CAT scan. Dr. Silveira has been consulted. Patient has been started on Rocephin and Flagyl. Stool studies pending. Stool for C. diff negative. Patient had recent hospitalization at [facility] and had been on Flagyl treatment for about 12 days. Colonoscopy yesterday by Dr. Silveira reveals transvers colon mass, plan is for surgery on Saturday 2. Sepsis with possible colitis present on admission. Patient is febrile with elevated white count. Continue with IV fluids and antibiotics. Blood culture negative so far 3. 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 Rheumatoid arthritis currently on methotrexate 5. Urinary retention Concepcion catheter reinserted in ER 6. Diabetes mellitus type 2: Poor oral intake blood sugars have been on the lower side. Hold oral hypoglycemics and place patient on sliding scale coverage 7. 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 PICC line was inserted and patient will start on TPN GI and DVT prophylaxis Pepcid and subcu heparin
[2017-04-21] MEDS: MVI, ADULT NO.4 WITH VIT K 10 ML, TRACE (CONC-1ML/DOSE) 1 ML in AMIN 3.3%/DEX 9.8%/LIPI... IV SCH ×6 (16:59→17:22)
[2017-04-21] MEDS: POTASSIUM CHLORIDE 20 MEQ in SODIUM CHLORIDE 0.9% 100 ML IV SCH ×3 (17:03→22:37)
[2017-04-21] MEDS: MAGNESIUM SULFATE-D5W PMX 1 GM in DEXTROSE/WATER 1 100ML.BAG IVPB SCH ×2 (17:04→20:44)
[2017-04-21 17:56] LABS: Glucose,Whole Blood 265 mg/dL (75-99)
[2017-04-21] MEDS: NEOMYCIN 500 MG TAB PO SCH ×3 (19:09→22:41)
--- NOTE | 2017-04-21 21:59 | PN ---
PROGRESS NOTE DATE OF SERVICE: 04/21/17 She was seen on April 21, 2017. She continues to have shortness of breath and some wheezing. She is being prepped for possible colectomy. On physical examination her blood pressure is 113/59, respiratory rate of 16, pulse rate 83, temperature 99.2. HEENT is unremarkable. Chest reveals expiratory wheeze. Cardiovascular system reveals S1, S2. Abdomen is soft. There is no edema. White count of 6.6, hemoglobin 9.8. Sodium 138, potassium 3, chloride 107, bicarb 23, BUN 3, creatinine of 0.6. IMPRESSION: At this time is: 1. Colon cancer. 2. Chronic obstructive pulmonary disease and asthma with exacerbation. 3. Pulmonary fibrosis. 4. Rheumatoid arthritis. Continue nebulized medications. She may require perioperative steroids, but declines any at this time. Depending on how she does, we should make further changes to her care. We will follow closely during the perioperative period. MMAMANDAL / IJN: [id number] /
[2017-04-21] MEDS: ONDANSETRON 4 MG/2 ML VIAL IVP PRN (22:37)
[2017-04-22 00:11] LABS: Glucose,Whole Blood 265 mg/dL (75-99)
[2017-04-22] MEDS: metroNIDAZOLE-NS PMX 500 MG in SALINE 1 100ML.BAG IVPB SCH ×5 (00:13→23:49)
[2017-04-22] MEDS: INSULIN ASPART 100 UNIT/ML 1 ML 10 ML VIAL SQ SCH ×5 (00:14→20:45)
[2017-04-22] MEDS: POTASSIUM CHLORIDE 20 MEQ in SODIUM CHLORIDE 0.9% 100 ML IV SCH (02:47)
[2017-04-22 05:36] LABS: Glucose,Whole Blood 239 mg/dL (75-99)
[2017-04-22] MEDS ORDERED: ALVIMOPAN 12 MG CAPSULE PO ONE (06:00)
[2017-04-22] MEDS ORDERED: ceFAZolin IN SWFI 2 GM/20 ML SYRINGE IVP ONE (06:00)
[2017-04-22] MEDS: FORMOTEROL FUMARATE 20 MCG/2 ML NEBU INHALATION SCH ×2 (07:28→21:52)
[2017-04-22] MEDS: BUDESONIDE 0.25 MG/2 ML NEBU INHALATION SCH ×2 (07:28→21:52)
[2017-04-22 07:59] LABS: Anisocytosis Slight; Basophils % (A) 0 %; Eosinophils # (A) 0.5 k/uL (0-0.7); Eosinophils % (A) 6 %; HCT 30.1 % (34.0-46.0); HGB 9.9 gm/dL (11.4-16.0); Hypochromasia Slight; Lymphocytes # (A) 1.4 k/uL (1.0-4.8); Lymphocytes % (A) 17 %; MCH 27.7 pg (25.0-35.0); MCHC 32.8 g/dL (31.0-37.0); MCV 84.4 fL (80.0-100.0); Mean Platelet Volume 7.4; Monocytes # (A) 0.5 k/uL (0-1.0); Monocytes % (A) 6 %; Neutrophils # (A) 5.6 k/uL (1.3-7.7); Neutrophils % (A) 68 %; Platelet Count 331 k/uL (150-450); Poikilocytosis Slight; RBC 3.56 m/uL (3.80-5.40); RDW 16.5 % (11.5-15.5); WBC 8.2 k/uL (3.8-10.6)
[2017-04-22 08:14] LABS: ALT 20 U/L (9-52); AST 12 U/L (14-36); Albumin 2.2 g/dL (3.5-5.0); Alkaline Phosphatase 47 U/L (38-126); Anion Gap 5 mmol/L; Blood Urea Nitrogen 3 mg/dL (7-17); Calcium 8.2 mg/dL (8.4-10.2); Carbon Dioxide 24 mmol/L (22-30); Chloride 108 mmol/L (98-107); Glucose 243 mg/dL (74-99); Magnesium 2.7 mg/dL (1.6-2.3); Phosphorus 1.8 mg/dL (2.5-4.5); Potassium 3.5 mmol/L (3.5-5.1); Sodium 137 mmol/L (137-145); Total Bilirubin 0.2 mg/dL (0.2-1.3)
[2017-04-22] MEDS: ACETAMINOPHEN TAB 325 MG TAB PO PRN (08:43)
[2017-04-22] MEDS: PANTOPRAZOLE 40 MG TABLET PO SCH (08:45)
[2017-04-22] MEDS: FUROSEMIDE 20 MG TAB PO SCH (08:45)
[2017-04-22] MEDS: MONTELUKAST 10 MG TAB PO SCH (08:46)
[2017-04-22] MEDS: HEPARIN SODIUM,PORCINE 5,000 UNIT/ML 1 ML VIAL SQ SCH ×2 (08:46→11:58)
[2017-04-22] MEDS: METOPROLOL TARTRATE 12.5 MG TAB PO SCH (08:46)
[2017-04-22] MEDS: DICYCLOMINE 20 MG TAB PO SCH (08:47)
[2017-04-22] MEDS: FOLIC ACID 1 MG TAB PO SCH (08:48)
--- NOTE | 2017-04-22 10:28 | US ---
EXAMINATION TYPE: US venous doppler duplex UE LT DATE OF EXAM: 04/22/2017 COMPARISON: NONE CLINICAL HISTORY: Swelling. Swelling and discoloration in left arm for 1 week SIDE PERFORMED: Left *Scanned patient upright* Left Arm: Echogenic internal debris noted throughout proximal and mid subclavian vein around PICC krys e, diminished flow seen on the left. Axillary vein demonstrates compressibility and vascular flow. B rachial veins also appear patent with vascular flow and compressibility as to this the cephalic vein and basilic vein. Pulmonary veins are also unremarkable. Limited visibility of proximal subclavian vein and IJV due to positioning. Note is made of left upper extremity subcutaneous edema. IMPRESSION: Incompletely occlusive left deep venous thrombosis within the proximal and mid subclavian vein surrou nding the PICC line with upper extremity subcutaneous edema.
[2017-04-22] MEDS ORDERED: POTASSIUM CHLORIDE 20 MEQ in SODIUM CHLORIDE 0.9% 100 ML IVPB ONE ×2 (11:00→14:00)
--- NOTE | 2017-04-22 11:16 | P.PN ---
Subjective Progress Note Date: 04/22/17 This is a 86-year-old female with a known past medical history of site COPD, diabetes mellitus, rheumatoid arthritis, lower extremity DVT, GERD, C. diff, recurrent episodes of urinary retention, diverticulosis and a recent admission at [facility] about 3 weeks ago for colitis. At that time she was treated with Flagyl. History was obtained from patient's daughter. Who reports that patient had shown improvement but once she finished the Flagyl her symptoms worsened again. She has been having journalized weakness nausea decrease in appetite and diarrhea. She also has been having fevers at home. She came back into the hospital for further evaluation. She was found have a temp of 102 white count 15.2 started on Rocephin and Flagyl. Computed tomography scan of the abdomen and pelvis shows at the site of prior partial colectomy there is new irregular wall thickening with mild fat stranding and suspicious adjacent adenopathy, acute infectious process at this level or colitis could have this appearance. 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 Per daughter patient does not have any prior history of cancer. She has had a bowel resection for a perforated diverticulitis. Dr. Silveira has been consulted for further evaluation. We'll check stool studies. Patient also is having evidence of urinary retention and Concepcion catheter was reinserted in the emergency room. She had recently been to see Dr. Murphy for the urinary retention at that time for catheter was removed. 04/19/2017 patient is scheduled for colonoscopy today with Dr. Silveira. Denies any nausea or vomiting. No blood in the stools. Denies any chest pain or shortness of breath. Does have some bruising and minimal swelling noted along the left arm from an old IV site. No hematoma. No tenderness. 04/22/2017 patient is status post colonoscopy which had revealed a transverse colon mass. She is followed closely by surgery and is scheduled for bowel resection today. However, patient was found to have swelling in her left upper arm where the PICC line was placed on Saturday for TPN. She has some evidence of possible cellulitis near the PICC line site with's beginning of streaking down the back of her left arm. PICC line will be removed and tip will be sent for culture. Infectious disease consulted. Doppler exam to rule out DVT ordered. Surgical service has been notified. Patient is afebrile. White count normal. She denies any chest pain or shortness of breath. Denies any nausea or vomiting. Concepcion catheter in place Objective - Vital Signs Vital signs: Vital Signs Temp 98.3 F 04/22/17 07:00 Pulse 100 04/22/17 07:00 Resp 16 04/22/17 07:00 BP 151/76 04/22/17 07:00 Pulse Ox 95 04/22/17 07:00 Intake & Output 04/21/17 04/22/17 04/22/17 18:59 06:59 18:59 Intake Total 240 1644 Output Total 804 800 Balance -564 844 Weight 58 kg Intake: IV 1644 Magnesium Sulfate-D5w Pmx 100 1 gm In Dextrose/Water 1 100ml.bag @ 100 mls/hr IVPB Q1H KEITH Rx#: [id number] Mvi, Adult No.4 with Vit 744 K 10 ml Trace (Conc-1Ml/ Dose) 1 ml In Brandon 3.3%/ Dex 9.8%/Lipid/Lytes 1, 540 ml @ 62 mls/hr IV . Q24H KEITH Rx#:[id number] Potassium Chloride 20 meq 200 In Sodium Chloride 0.9% 100 ml @ 55 mls/hr IV Q2H KEITH Rx#:[id number] Potassium Chloride 20 meq 100 In Sodium Chloride 0.9% 100 ml @ 55 mls/hr IV Q2H KEITH Rx#:[id number] Sodium Chloride 0.9% 1, 300 000 ml @ 75 mls/hr IV . [id number] KEITH Rx#:[id number] metroNIDAZOLE-NS PMX 500 200 mg In Saline 1 100ml.bag @ 100 mls/hr IVPB Q6HR KEITH Rx#:[id number] Intake, IV Titration 0 Amount Mvi, Adult No.4 with Vit 0 K 10 ml Trace (Conc-1Ml/ Dose) 1 ml In Brandon 3.3%/ Dex 9.8%/Lipid/Lytes 1, 540 ml @ 30 mls/hr IV . Q24H KEITH Rx#:[id number] Oral 240 Output: Urine 800 800 Stool 4 Other: Voiding Method Indwelling Catheter Indwelling Catheter - Exam Head normocephalic Neck supple Lungs clear to auscultation bilaterally no wheezing or crackles Heart regular rate and rhythm S1-S2, no rub or gallop Abdomen is soft nontender nondistended positive bowel sounds no hepatosplenomegaly Extremities no edema of the lower extremities. Swelling of the left arm upper arm all he down to the hand. New PICC line there is some redness possible cellulitis-like changes and red streak down the back of the left arm. No drainage or pus noted at PICC site. Pitting edema Neuro alert and orientated to 3 - Labs CBC & Chem 7: 04/22/17 07:01 04/22/17 07:01 Labs: Abnormal Lab Results - Last 24 Hours (Table) 04/21/17 04/21/17 04/21/17 Range/Units 12:05 17:13 20:05 RBC (3.80-5.40) m/uL Hgb (11.4-16.0) gm/dL Hct (34.0-46.0) % RDW (11.5-15.5) % Potassium 3.0 L* (3.5-5.1) mmol/L Chloride (98-107) mmol/L BUN (7-17) mg/dL Glucose (74-99) mg/dL POC Glucose (mg/dL) 209 H 265 H (75-99) mg/dL Calcium (8.4-10.2) mg/dL Phosphorus (2.5-4.5) mg/dL Magnesium (1.6-2.3) mg/dL AST (14-36) U/L Total Protein (6.3-8.2) g/dL Albumin (3.5-5.0) g/dL 04/22/17 04/22/17 04/22/17 Range/Units 00:08 05:32 07:01 RBC 3.56 L (3.80-5.40) m/uL Hgb 9.9 L (11.4-16.0) gm/dL Hct 30.1 L (34.0-46.0) % RDW 16.5 H (11.5-15.5) % Potassium (3.5-5.1) mmol/L Chloride (98-107) mmol/L BUN (7-17) mg/dL Glucose (74-99) mg/dL POC Glucose (mg/dL) 265 H 239 H (75-99) mg/dL Calcium (8.4-10.2) mg/dL Phosphorus (2.5-4.5) mg/dL Magnesium (1.6-2.3) mg/dL AST (14-36) U/L Total Protein (6.3-8.2) g/dL Albumin (3.5-5.0) g/dL 04/22/17 Range/Units 07:01 RBC (3.80-5.40) m/uL Hgb (11.4-16.0) gm/dL Hct (34.0-46.0) % RDW (11.5-15.5) % Potassium (3.5-5.1) mmol/L Chloride 108 H (98-107) mmol/L BUN 3 L (7-17) mg/dL Glucose 243 H (74-99) mg/dL POC Glucose (mg/dL) (75-99) mg/dL Calcium 8.2 L (8.4-10.2) mg/dL Phosphorus 1.8 L (2.5-4.5) mg/dL Magnesium 2.7 H (1.6-2.3) mg/dL AST 12 L (14-36) U/L Total Protein 5.0 L (6.3-8.2) g/dL Albumin 2.2 L (3.5-5.0) g/dL Microbiology - Last 24 Hours (Table) 04/17/17 16:20 Blood Culture - Preliminary Blood No Growth after 96 hours 04/18/17 22:58 Stool Culture - Preliminary Stool Stacey albicans Assessment and Plan Assessment: 1. Acute colitis with Abdominal pain with nausea, diarrhea, decreased appetite : Computed tomography scan of the abdomen showing evidence of at site of prior partial colectomy there is new irregular wall thickening with mild fat stranding and suspicious adjacent adenopathy acute infectious process at this level or colitis have this appearance. Also suspicion of neoplasm is suspected and follow-up colonoscopy after treatment is advised as noted on CAT scan. Dr. Silveira has been consulted. Patient has been started on Rocephin and Flagyl. Stool culture is growing Stacey albicans. Stool for C. diff negative. Patient had recent hospitalization at [facility] and had been on Flagyl treatment for about 12 days. Last colonoscopy in 2008 Status post colonoscopy with concerns of a transverse colon mass. Patient is scheduled for surgery today 2. Sepsis with possible colitis present on admission. Patient is febrile with elevated white count. Continue with IV fluids and antibiotics. Blood culture negative so far 3. 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 Rheumatoid arthritis currently on methotrexate 5. Urinary retention Concepcion catheter reinserted in ER 6. Diabetes mellitus type 2: Continue sliding scale coverage 7. Hypokalemia: Resolved 8. Chronic pulmonary fibrosis followed by pulmonary service 9. Left arm swelling and possible cellulitis at PICC line site. PICC line removed. Tip sent for culture. Infectious disease consulted. Surgical service has been notified to see if bowel surgery needs to be placed on hold. Check Doppler of the upper extremity rule out DVT 10. Nutrition support. Patient will be switched over to PPN GI and DVT prophylaxis Pepcid and subcu heparin I performed an examination of the patient and discussed their management with the physician Certified Fire Investigator. I have reviewed the Physician Certified Fire Investigator's notes and agree with the documented findings and plan of care
[2017-04-22] MEDS: cefTRIAXone IN SWFI 1,000 MG/10 ML SYRINGE IVP SCH (11:48)
[2017-04-22 11:53] LABS: Glucose,Whole Blood 181 mg/dL (75-99)
[2017-04-22] MEDS ORDERED: VANCOMYCIN IV PER PHARMACY 1 EACH MISC MISCELLANE PRN (11:56)
[2017-04-22] MEDS ORDERED: SODIUM PHOSPHATE 10 MMOL in SODIUM CHLORIDE 0.9% 100 ML IVPB SCH (12:00)
--- NOTE | 2017-04-22 12:32 | P.PN ---
<Conchita Mckeonstewart Monsivais - Last Filed: 04/22/17 12:23> Subjective Progress Note Date: 04/22/17 86-year-old female seen and examined this morning. Nursing reports patient developed left upper arm swelling with redness positive tenderness warm to the touch onset past 48 hours patient is scheduled today for a bowel resection after a colonoscopy showed a transverse colon mass. Patient had a PICC line inserted on Saturday for TPN support. PICC line since has been removed ultrasound Doppler study left upper arm in summary the report reviewed indicated incompletely occlusive left DVT within the proximal and mid subclavian vein surrounding the PICC line insertion site with upper extremity subcutaneous edema Objective - Vital Signs Vital signs: Vital Signs Temp 98.3 F 04/22/17 07:00 Pulse 100 04/22/17 07:00 Resp 16 04/22/17 08:00 BP 151/76 04/22/17 07:00 Pulse Ox 95 04/22/17 07:00 Intake & Output 04/21/17 04/22/17 04/22/17 18:59 06:59 18:59 Intake Total 240 1644 Output Total 804 800 2 Balance -564 844 -2 Weight 58 kg Intake: IV 1644 Magnesium Sulfate-D5w Pmx 100 1 gm In Dextrose/Water 1 100ml.bag @ 100 mls/hr IVPB Q1H [facility] Rx#: [id number] Mvi, Adult No.4 with Vit 744 K 10 ml Trace (Conc-1Ml/ Dose) 1 ml In [place] 3.3%/ Dex 9.8%/Lipid/Lytes 1, 540 ml @ 62 mls/hr IV . Q24H [facility] Rx#:[id number] Potassium Chloride 20 meq 200 In Sodium Chloride 0.9% 100 ml @ 55 mls/hr IV Q2H [facility] Rx#:[id number] Potassium Chloride 20 meq 100 In Sodium Chloride 0.9% 100 ml @ 55 mls/hr IV Q2H [facility] Rx#:[id number] Sodium Chloride 0.9% 1, 300 000 ml @ 75 mls/hr IV . [id number] [facility] Rx#:[id number] metroNIDAZOLE-NS PMX 500 200 mg In Saline 1 100ml.bag @ 100 mls/hr IVPB Q6HR [facility] Rx#:[id number] Intake, IV Titration 0 Amount Mvi, Adult No.4 with Vit 0 K 10 ml Trace (Conc-1Ml/ Dose) 1 ml In Brandon 3.3%/ Dex 9.8%/Lipid/Lytes 1, 540 ml @ 30 mls/hr IV . Q24H [facility] Rx#:[id number] Oral 240 Output: Urine 800 800 Stool 4 2 Other: Voiding Method Indwelling Catheter Indwelling Catheter Indwelling Catheter - Constitutional Constitutional Comment(s): Physical exam 86-year-old female resting in bed states is anxious to have bowel surgery Lungs anterior diminished at the bases otherwise no wheezing rales or rhonchi no cough Heart S1-S2 audible and regular Abdomen soft nontender bowel tones present no nausea no vomiting Extremities the left upper extremity edematous warm positive tenderness streak noted in the back of the left arm. Palpable radial pulse. Lower extremities trace pedal edema - Labs CBC & Chem 7: 04/22/17 07:01 04/22/17 07:01 Labs: Abnormal Lab Results - Last 24 Hours (Table) 04/21/17 04/21/17 04/22/17 Range/Units 17:13 20:05 00:08 RBC (3.80-5.40) m/uL Hgb (11.4-16.0) gm/dL Hct (34.0-46.0) % RDW (11.5-15.5) % Potassium 3.0 L* (3.5-5.1) mmol/L Chloride (98-107) mmol/L BUN (7-17) mg/dL Glucose (74-99) mg/dL POC Glucose (mg/dL) 265 H 265 H (75-99) mg/dL Calcium (8.4-10.2) mg/dL Phosphorus (2.5-4.5) mg/dL Magnesium (1.6-2.3) mg/dL AST (14-36) U/L Total Protein (6.3-8.2) g/dL Albumin (3.5-5.0) g/dL 04/22/17 04/22/17 04/22/17 Range/Units 05:32 07:01 07:01 RBC 3.56 L (3.80-5.40) m/uL Hgb 9.9 L (11.4-16.0) gm/dL Hct 30.1 L (34.0-46.0) % RDW 16.5 H (11.5-15.5) % Potassium (3.5-5.1) mmol/L Chloride 108 H (98-107) mmol/L BUN 3 L (7-17) mg/dL Glucose 243 H (74-99) mg/dL POC Glucose (mg/dL) 239 H (75-99) mg/dL Calcium 8.2 L (8.4-10.2) mg/dL Phosphorus 1.8 L (2.5-4.5) mg/dL Magnesium 2.7 H (1.6-2.3) mg/dL AST 12 L (14-36) U/L Total Protein 5.0 L (6.3-8.2) g/dL Albumin 2.2 L (3.5-5.0) g/dL 04/22/17 Range/Units 11:47 RBC (3.80-5.40) m/uL Hgb (11.4-16.0) gm/dL Hct (34.0-46.0) % RDW (11.5-15.5) % Potassium (3.5-5.1) mmol/L Chloride (98-107) mmol/L BUN (7-17) mg/dL Glucose (74-99) mg/dL POC Glucose (mg/dL) 181 H (75-99) mg/dL Calcium (8.4-10.2) mg/dL Phosphorus (2.5-4.5) mg/dL Magnesium (1.6-2.3) mg/dL AST (14-36) U/L Total Protein (6.3-8.2) g/dL Albumin (3.5-5.0) g/dL Microbiology - Last 24 Hours (Table) 04/17/17 16:20 Blood Culture - Preliminary Blood No Growth after 96 hours 04/18/17 22:58 Stool Culture - Preliminary Stool Stacey albicans Assessment and Plan Assessment: Impression Present on admission abdominal pain nausea vomiting diarrhea suspect due to acute colitis Status post colonoscopy transverse colon mass noted History of severe COPD no evidence of an exacerbation Present on admission sepsis likely due to colitis New-onset left upper arm swelling possible DVT per ultrasound report Plan consult vascular for recommendations regarding left upper arm possible DVT We'll hold on starting IV heparin for now Further surgical recommendations pending after discussion with Dr. Yovany Keep nothing by mouth until decision is made will follow with you The above impression and plan of care have been discussed and directed by signing physician. Jalyn Mckeon nurse practitioner acting as scribe for signing physician. <Mikie Silveira - Last Filed: 04/22/17 15:17> Objective - Vital Signs Vital signs: Vital Signs Temp 98.3 F 04/22/17 07:00 Pulse 100 04/22/17 07:00 Resp 16 04/22/17 08:00 BP 151/76 04/22/17 07:00 Pulse Ox 95 04/22/17 07:00 Intake & Output 04/21/17 04/22/17 04/22/17 18:59 06:59 18:59 Intake Total 240 1644 100 Output Total 804 800 2 Balance -564 844 98 Weight 58 kg Intake: IV 1644 100 Magnesium Sulfate-D5w Pmx 100 1 gm In Dextrose/Water 1 100ml.bag @ 100 mls/hr IVPB Q1H [facility] Rx#: [id number] Mvi, Adult No.4 with Vit 744 K 10 ml Trace (Conc-1Ml/ Dose) 1 ml In [place] 3.3%/ Dex 9.8%/Lipid/Lytes 1, 540 ml @ 62 mls/hr IV . Q24H [facility] Rx#:[id number] Potassium Chloride 20 meq 200 In Sodium Chloride 0.9% 100 ml @ 55 mls/hr IV Q2H [facility] Rx#:[id number] Potassium Chloride 20 meq 100 In Sodium Chloride 0.9% 100 ml @ 55 mls/hr IV Q2H [facility] Rx#:[id number] Sodium Chloride 0.9% 1, 300 000 ml @ 75 mls/hr IV . [id number] [facility] Rx#:[id number] metroNIDAZOLE-NS PMX 500 200 100 mg In Saline 1 100ml.bag @ 100 mls/hr IVPB Q6HR [facility] Rx#:[id number] Intake, IV Titration 0 Amount Mvi, Adult No.4 with Vit 0 K 10 ml Trace (Conc-1Ml/ Dose) 1 ml In [place] 3.3%/ Dex 9.8%/Lipid/Lytes 1, 540 ml @ 30 mls/hr IV . Q24H [facility] Rx#:[id number] Oral 240 Output: Urine 800 800 Stool 4 2 Other: Voiding Method Indwelling Catheter Indwelling Catheter Indwelling Catheter - Labs CBC & Chem 7: 04/22/17 07:01 04/22/17 07:01 Labs: Abnormal Lab Results - Last 24 Hours (Table) 04/21/17 04/21/17 04/22/17 Range/Units 17:13 20:05 00:08 RBC (3.80-5.40) m/uL Hgb (11.4-16.0) gm/dL Hct (34.0-46.0) % RDW (11.5-15.5) % Potassium 3.0 L* (3.5-5.1) mmol/L Chloride (98-107) mmol/L BUN (7-17) mg/dL Glucose (74-99) mg/dL POC Glucose (mg/dL) 265 H 265 H (75-99) mg/dL Calcium (8.4-10.2) mg/dL Phosphorus (2.5-4.5) mg/dL Magnesium (1.6-2.3) mg/dL AST (14-36) U/L Total Protein (6.3-8.2) g/dL Albumin (3.5-5.0) g/dL 04/22/17 04/22/17 04/22/17 Range/Units 05:32 07:01 07:01 RBC 3.56 L (3.80-5.40) m/uL Hgb 9.9 L (11.4-16.0) gm/dL Hct 30.1 L (34.0-46.0) % RDW 16.5 H (11.5-15.5) % Potassium (3.5-5.1) mmol/L Chloride 108 H (98-107) mmol/L BUN 3 L (7-17) mg/dL Glucose 243 H (74-99) mg/dL POC Glucose (mg/dL) 239 H (75-99) mg/dL Calcium 8.2 L (8.4-10.2) mg/dL Phosphorus 1.8 L (2.5-4.5) mg/dL Magnesium 2.7 H (1.6-2.3) mg/dL AST 12 L (14-36) U/L Total Protein 5.0 L (6.3-8.2) g/dL Albumin 2.2 L (3.5-5.0) g/dL 04/22/17 Range/Units 11:47 RBC (3.80-5.40) m/uL Hgb (11.4-16.0) gm/dL Hct (34.0-46.0) % RDW (11.5-15.5) % Potassium (3.5-5.1) mmol/L Chloride (98-107) mmol/L BUN (7-17) mg/dL Glucose (74-99) mg/dL POC Glucose (mg/dL) 181 H (75-99) mg/dL Calcium (8.4-10.2) mg/dL Phosphorus (2.5-4.5) mg/dL Magnesium (1.6-2.3) mg/dL AST (14-36) U/L Total Protein (6.3-8.2) g/dL Albumin (3.5-5.0) g/dL Microbiology - Last 24 Hours (Table) 04/18/17 22:58 Stool Culture - Final Stool Stacey albicans 04/17/17 16:20 Blood Culture - Preliminary Blood No Growth after 96 hours Assessment and Plan Assessment: As above. Patient was found to have increased swelling left arm. Ultrasound was evaluated to rule out DVT and unfortunately does reveal a acute DVT in the proximal and mid subclavian vein. Her symptoms have improved since her arm has been elevated. Apparently her catheter was removed prior that because of concern for infection. Vascular surgery has been consulted. They're advising to hold off on our scheduled partial colectomy today. This was discussed with the patient and her daughter in detail. They are obviously somewhat discouraged by this. The patient currently states that she would like to go home and avoid any further treatment of her DVT or suspected colonic neoplasm. At this time will resume diet. Begin IV heparin. Await formal consultation by vascular and also hematology has been consulted. We'll follow. (1) Colitis Current Visit: Yes Status: Acute Code(s): K52.9 - NONINFECTIVE GASTROENTERITIS AND COLITIS, UNSPECIFIED SNOMED Code(s): 72674553
[2017-04-22] MEDS: MVI, ADULT NO.4 WITH VIT K 10 ML, TRACE (CONC-1ML/DOSE) 1 ML in AMIN 3.3%/DEX 9.8%/LIPI... IV SCH ×3 (12:42)
[2017-04-22] MEDS ORDERED: VANCOMYCIN 1,250 MG in SODIUM CHLORIDE 0.9% 250 ML IVPB ONE ×2 (13:00→14:00)
[2017-04-22] MEDS ORDERED: HEPARIN SODIUM,PORCINE 10,000 UNIT/ML 1 ML VIAL IV ONE (15:28)
[2017-04-22] MEDS ORDERED: HEPARIN SODIUM,PORCINE 5,000 UNIT/ML 1 ML VIAL IV PRN (15:28)
--- NOTE | 2017-04-22 15:33 | P.PN ---
Subjective Progress Note Date: 04/22/17 [facility] is covering for Dr. Lopez 04/19/17- Patient is being seen examined and evaluated today on rounds. This patient is currently being worked up for her colitis and she does have a significant history for COPD and pulmonary fibrosis. Apparently she has had been having flares of her colitis more recently over the past few months. On examination the patient's resting in bed on room air. Patient does become short of breath with exertion and activity. She denies any cough or congestion at this time. Family is at bedside and is updated on plan of care. Patient is supposed to go for a colonoscopy today with surgical services. She continues on Rocephin and Flagyl. Her potassium this morning was noted to be 3.1 and has been replaced. Currently she is hemodynamically stable. 04/20/17-04/21/17- Please see Dr. Samaria Singh notes 04/22/17- patient is being seen examined and evaluated on rounds. Patient is resting up in bed in room air. Did have a Left upper extremity US that showed an incomplete occlusive left DVT in the proximal and mid subclavian vein surrounding the PICC line. Vascular and hemo is on consult for the DVT. She did have a colonoscopy that did reveal a transverse colon mass and will possibly undergo surgery for removal and biopsy with Dr. Silveira, in the future. She is afebrile, no further complaints. Objective - Vital Signs Vital signs: Vital Signs Temp 98.3 F 04/22/17 07:00 Pulse 100 04/22/17 07:00 Resp 16 04/22/17 08:00 BP 151/76 04/22/17 07:00 Pulse Ox 95 04/22/17 07:00 Intake & Output 04/21/17 04/22/17 04/22/17 18:59 06:59 18:59 Intake Total 240 1644 100 Output Total 804 800 2 Balance -564 844 98 Weight 58 kg Intake: IV 1644 100 Magnesium Sulfate-D5w Pmx 100 1 gm In Dextrose/Water 1 100ml.bag @ 100 mls/hr IVPB Q1H [facility] Rx#: [id number] Mvi, Adult No.4 with Vit 744 K 10 ml Trace (Conc-1Ml/ Dose) 1 ml In [place] 3.3%/ Dex 9.8%/Lipid/Lytes 1, 540 ml @ 62 mls/hr IV . Q24H [facility] Rx#:[id number] Potassium Chloride 20 meq 200 In Sodium Chloride 0.9% 100 ml @ 55 mls/hr IV Q2H [facility] Rx#:[id number] Potassium Chloride 20 meq 100 In Sodium Chloride 0.9% 100 ml @ 55 mls/hr IV Q2H [facility] Rx#:[id number] Sodium Chloride 0.9% 1, 300 000 ml @ 75 mls/hr IV . [id number] [facility] Rx#:[id number] metroNIDAZOLE-NS PMX 500 200 100 mg In Saline 1 100ml.bag @ 100 mls/hr IVPB Q6HR [facility] Rx#:[id number] Intake, IV Titration 0 Amount Mvi, Adult No.4 with Vit 0 K 10 ml Trace (Conc-1Ml/ Dose) 1 ml In [place] 3.3%/ Dex 9.8%/Lipid/Lytes 1, 540 ml @ 30 mls/hr IV . Q24H [facility] Rx#:[id number] Oral 240 Output: Urine 800 800 Stool 4 2 Other: Voiding Method Indwelling Catheter Indwelling Catheter Indwelling Catheter - Exam GENERAL EXAM: Alert, comfortable in no apparent distress. HEAD: Normocephalic. EYES: Normal reaction of pupils, equal size. NOSE: Clear with pink turbinates. THROAT: No erythema or exudates. NECK: No masses, no JVD. CHEST: No chest wall deformity. LUNGS: Equal air entry with faint expiratory wheezes. Bases diminished CVS: S1 and S2 normal with no audible mumurs, regular rhythm. ABDOMEN: No hepatosplenomegaly, normal bowel sounds, mild tenderness to palpitation EXTREMITIES: Trace edema noted, pedal pulses palpable. LUE- edema and redness improving CENTRAL NERVOUS SYSTEM: No focal deficits, tone is normal in all 4 extremities. - Labs CBC & Chem 7: 04/22/17 07:01 04/22/17 07:01 Labs: Abnormal Lab Results - Last 24 Hours (Table) 04/21/17 04/21/17 04/22/17 Range/Units 17:13 20:05 00:08 RBC (3.80-5.40) m/uL Hgb (11.4-16.0) gm/dL Hct (34.0-46.0) % RDW (11.5-15.5) % Potassium 3.0 L* (3.5-5.1) mmol/L Chloride (98-107) mmol/L BUN (7-17) mg/dL Glucose (74-99) mg/dL POC Glucose (mg/dL) 265 H 265 H (75-99) mg/dL Calcium (8.4-10.2) mg/dL Phosphorus (2.5-4.5) mg/dL Magnesium (1.6-2.3) mg/dL AST (14-36) U/L Total Protein (6.3-8.2) g/dL Albumin (3.5-5.0) g/dL 04/22/17 04/22/17 04/22/17 Range/Units 05:32 07:01 07:01 RBC 3.56 L (3.80-5.40) m/uL Hgb 9.9 L (11.4-16.0) gm/dL Hct 30.1 L (34.0-46.0) % RDW 16.5 H (11.5-15.5) % Potassium (3.5-5.1) mmol/L Chloride 108 H (98-107) mmol/L BUN 3 L (7-17) mg/dL Glucose 243 H (74-99) mg/dL POC Glucose (mg/dL) 239 H (75-99) mg/dL Calcium 8.2 L (8.4-10.2) mg/dL Phosphorus 1.8 L (2.5-4.5) mg/dL Magnesium 2.7 H (1.6-2.3) mg/dL AST 12 L (14-36) U/L Total Protein 5.0 L (6.3-8.2) g/dL Albumin 2.2 L (3.5-5.0) g/dL 04/22/17 Range/Units 11:47 RBC (3.80-5.40) m/uL Hgb (11.4-16.0) gm/dL Hct (34.0-46.0) % RDW (11.5-15.5) % Potassium (3.5-5.1) mmol/L Chloride (98-107) mmol/L BUN (7-17) mg/dL Glucose (74-99) mg/dL POC Glucose (mg/dL) 181 H (75-99) mg/dL Calcium (8.4-10.2) mg/dL Phosphorus (2.5-4.5) mg/dL Magnesium (1.6-2.3) mg/dL AST (14-36) U/L Total Protein (6.3-8.2) g/dL Albumin (3.5-5.0) g/dL Microbiology - Last 24 Hours (Table) 04/18/17 22:58 Stool Culture - Final Stool Stacey albicans 04/17/17 16:20 Blood Culture - Preliminary Blood No Growth after 96 hours Assessment and Plan Assessment: Assessment Intermittent abdominal discomfort and pain and evidence of colitis versus mucosal wall thickening likely infectious or neoplastic process with prior history of colectomy Infectious colitis/C. difficile colitis, stool is been sent for C. 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 Patient refuses steroids at this time. Continue with pulmonary hygiene, coughing and deep breathing exercises, and supportive care. Supplemental oxygen to maintain oxygen saturations of 92% or better. Continue to monitor and replace electrolytes. Continue nebulizer treatments. GI and DVT prophylaxis. Vascular, hematology, and general surgical services on consult and appreciate recommendations. We will continue to monitor labs/results and adjust treatment as necessary. Further recommendations pending. We are covering for Dr. Lopez I performed an examination of the patient and discussed their management with the nurse practitioner. I have reviewed the nurse practitioner's note and agree with the documented findings and plan of care.
[2017-04-22 16:00] LABS: Anisocytosis Slight; Basophils % (A) 1 %; Eosinophils # (A) 0.6 k/uL (0-0.7); Eosinophils % (A) 7 %; HGB 9.7 gm/dL (11.4-16.0); Hypochromasia Moderate; Lymphocytes # (A) 1.8 k/uL (1.0-4.8); Lymphocytes % (A) 21 %; MCH 26.8 pg (25.0-35.0); MCHC 31.2 g/dL (31.0-37.0); MCV 85.7 fL (80.0-100.0); Mean Platelet Volume 7.6; Monocytes # (A) 0.7 k/uL (0-1.0); Monocytes % (A) 8 %; Neutrophils % (A) 59 %; Platelet Count 315 k/uL (150-450); Poikilocytosis Slight; RBC 3.62 m/uL (3.80-5.40); RDW 16.7 % (11.5-15.5); WBC 8.5 k/uL (3.8-10.6)
[2017-04-22 16:06] LABS: INR 1.1 (<1.2); Partial Thromboplastin Time 22.7 sec (22.0-30.0); Prothrombin Time 10.6 sec (9.0-12.0)
[2017-04-22] MEDS: SODIUM CHLORIDE 0.9% 1,000 ML IV SCH (16:20)
--- NOTE | 2017-04-22 16:34 | P.PCN ---
Description of Procedure: Diabetic ulcer left foot plantar aspect measurement is 0.8 x 1 x 0.1 Placement of total contact cast patient placed in supine position left foot ulcer has cleaned and area measurement is 0.8 x 1 x 0.1 silver supple applied to the wound and covered by the dressing which was secured with the tape then we placed a Brown socks covering the foot and the lower extremity for that today Placed covering the both medial and lateral malleoli and foot and the lower extremity which was also secured by the tape after that we placed a mesh stocking covering the foot and lower extremity and we removed the total cast which was emerged in water for then patient was placed in prone position and foot was kept at 90 starting from the foot and and covering the lower extremity when the cast was hardened we placed a walking shoe and patient are to the procedure well
[2017-04-22] MEDS: HEPARIN SOD,PORK IN 0.45% NACL 25,000 UNIT in 0.45% NACL 1 500ML.BAG IV SCH (17:14)
[2017-04-22 17:45] LABS: Glucose,Whole Blood 123 mg/dL (75-99)
[2017-04-22] MEDS: NYSTATIN 100,000 UNIT/ML SUSP 500,000 UNIT/5 ML CUP PO SCH (20:25)
[2017-04-22 20:38] LABS: Glucose,Whole Blood 149 mg/dL (75-99)
[2017-04-22] MEDS: SODIUM PHOSPHATE 10 MMOL in SODIUM CHLORIDE 0.9% 100 ML IVPB SCH ×2 (21:39→23:05)
[2017-04-22] MEDS: IPRATROPIUM-ALBUTEROL 3 ML NEB INHALATION SCH (22:12)
--- NOTE | 2017-04-22 23:15 | CONS ---
DATE OF CONSULTATION: 04/22/2017 This is a 86-year-old female, she has been admitted to Dr. 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 The patient was seen by Dr. Rosendo Silveira. The patient had a PICC line placed on the left arm and the patient developed some swelling of the left arm. Had a venous ultrasound showed partial occlusive disease involving the DVT of the left subclavian vein. The PICC line has been removed. EXAMINATION: Patient was seen in her room. The patient has mild left forearm cellulitis but there is no evidence of any vascular compromise. The brachial radial pulses are present. PLAN: Patient should be on heparin and left arm elevation. At this point, there is no role of tPA because there is no vascular compromise. I have discussed options in detail with Dr. Rosendo Silveira. If he wants to proceed with early surgery, then patient heparin should be stopped and postop we will continue with the heparin. I have discussed in detail with the daughter. Thank very much for this consult. MMODL / IJN: [id number] / ZEFERINO
--- NOTE | 2017-04-23 00:30 | CONS ---
CONSULTATION DATE OF SERVICE: 04/22/2017. REASON FOR CONSULTATION: Left upper extremity cellulitis and possible PICC line infection. HISTORY OF PRESENT ILLNESS: The patient is an 86-year-old female with a past medical history significant for COPD, diabetes, C difficile colitis was recently admitted at [facility] with symptoms of abdominal pain, nausea, vomiting. At that time, the patient had a CT abdomen and pelvis that did show some abnormality of the colon for which she was advised colonoscopy. However, the patient refused. Subsequently discharged home on oral antibiotic therapy. The patient presenting now to the [facility] ER on 04/17/2017 with symptoms of weakness. The pain has been going on for 2 days. The home care nurse noted the patient did have fever. The patient is also complaining of some suprapubic abdominal pain. With these symptoms, the patient was evaluated by the ER physician. CT of the abdomen and pelvis was done which did show any of the sutures at this level with adjacent adenopathy. General surgery has seen the patient and the patient did have a colonoscopy on the , which did show evidence of a transverse colon mass. Labs currently pending. She did have a PICC line placed for TPN this morning. She was noticed to have more swelling of her left upper extremity with some red streaks from the PICC line site with concern for the PICC line infection. The PICC line was discontinued, sample was sent for the culture. Infectious Disease was consulted for further recommendation regarding antibiotic therapy. The patient did mention that she had an IV placed on the dorsum of the left hand while she was in the ER and since then the area of the left arm is getting more swollen and red and after they placed the PICC line it has become more swollen with gradual swelling of the left arm over the last 2-3 days with more worsening today. She did have some pain associated with this swelling, more of a dull aching pain 3-4 out of 10 and no radiation. The patient denies any high-grade fever, rigors and chills. REVIEW OF SYSTEMS: Constitutional: Positive for weakness. However no fever has been recorded this admission. The patient did have fever of 101 to 102 on admission. Eyes: No complaint. ENT no complaint. Respiratory: Some shortness of breath. Cardiovascular no complaint. Genitourinary no complaint. GASTROINTESTINAL: As per HPI. Musculoskeletal no complaint. INTEGUMENTARY: As per HPI. Psychological: No complaint. Endocrine: No complaint. Neurological no complaint. PAST MEDICAL HISTORY: Significant for COPD, diabetes mellitus, asthma, gastroesophageal reflux disease, DVT, rheumatoid arthritis, osteoarthritis, pneumonia, hypothyroidism, hiatal hernia, C difficile colitis. PAST SURGICAL HISTORY: Appendectomy, back surgery, bowel resection, cholecystectomy, hysterectomy, bilateral cataract surgery. SOCIAL HISTORY: Remote history of smoking. Quit back in 1996. No drinking or drug use. FAMILY HISTORY: Mother with history of cancer. ALLERGIES: TO IODINATED CONTRAST, LEVOFLOXACIN, PENICILLIN, AND PROPOXYPHENE. MEDICATION: Medications include the patient currently on: 1. TPN. 2. She is on Protonix. 3. Zofran. 4. Nystatin oral suspension. 5. Narcan. 6. Singulair. 7. Flagyl. 8. Lopressor. 9. Methotrexate. 10.Lasix. 11.Folic acid. 12.Bentyl. 13.Rocephin 1 g daily. 14.Pulmicort. 15.DuoNeb. 16.Tylenol. PHYSICAL EXAMINATION: Blood pressure is 152/70 with a pulse of 69, temperature 98.2 she is 97% on room air. General description is an elderly female, lying in bed in no distress. No tachypnea or accessory muscle of respiration use. HEENT: Shows pallor, no scleral icterus. Oral mucosa membranes are moist. Neck: No significant erythema or thrush. Neck: Trachea central. No thyromegaly. Lungs unlabored breathing. Decreased breath sounds in the bases. No wheeze or crackle. Heart S1, S2. Regular rate and rhythm. ABDOMEN: Soft, mildly tender right lower quadrant area. No guarding. No rigidity. No organomegaly. Extremities are no edema of feet. Skin exam no rash or mass palpable. Examination left upper extremity system shows swelling compared to the right. Did have some bruises slightly warm, but no definite redness was noted. Neurological: The patient is awake, alert, oriented times three. Mood and affect normal. LABS: Hemoglobin is 9.7, white count of 8.5. BUN of 3, creatinine 0.85. Blood cultures this admission has been negative so far. Stool with Stacey albicans. DIAGNOSTIC IMPRESSION AND PLAN: 1. Patient with left upper extremity swelling and redness, could be more likely to underlying deep vein thrombosis. Clinical suspicion is low for underlying PICC line infection as the PICC line has been there almost two weeks, more of a mechanical obstruction seems to be like and no significant redness was noticed on examination. However, high side the patient for the PIC was discontinued infectious currently he gram-positive for not excluded though less likely in the process turning the hospital need to cover for the MRSA. 2. Patient admitted to the hospital with a fever with abdominal pain with concern for possible colitis. Pressure right now with evidence of transcolon mass for which the patient needs to have surgery. PLAN: 1. Blood cultures will be obtained to make sure no evidence of any bacteremia. 2. Vanc will be added while waiting for the culture to finalize. However, if the culture negative, we will of the vancomycin. 3. For possible intraabdominal source with initial presentation. Seems to be responding to Rocephin slightly, which will continue watching her clinical course closely. Plan of care discussed with the daughter as well as the nurse practitioner for the primary team. MMAMANDAL / DEEJAYN: [id number] /
[2017-04-23] MEDS: SODIUM PHOSPHATE 10 MMOL in SODIUM CHLORIDE 0.9% 100 ML IVPB SCH (01:28)
[2017-04-23] MEDS: SODIUM CHLORIDE 0.9% 1,000 ML IV SCH ×2 (03:19→12:02)
[2017-04-23] MEDS: metroNIDAZOLE-NS PMX 500 MG in SALINE 1 100ML.BAG IVPB SCH ×3 (05:51→17:59)
[2017-04-23] MEDS: VANCOMYCIN 1,000 MG in SODIUM CHLORIDE 0.9% 250 ML IVPB SCH ×2 (06:46→19:44)
[2017-04-23 06:58] LABS: Glucose,Whole Blood 116 mg/dL (75-99)
[2017-04-23] MEDS: INSULIN ASPART 100 UNIT/ML 1 ML 10 ML VIAL SQ SCH ×4 (07:29→21:35)
[2017-04-23] MEDS: ACETAMINOPHEN TAB 325 MG TAB PO PRN ×2 (07:34→16:03)
[2017-04-23] MEDS: PANTOPRAZOLE 40 MG TABLET PO SCH (07:34)
[2017-04-23] MEDS: NYSTATIN 100,000 UNIT/ML SUSP 500,000 UNIT/5 ML CUP PO SCH ×4 (07:34→21:36)
[2017-04-23] MEDS: MONTELUKAST 10 MG TAB PO SCH (07:34)
[2017-04-23] MEDS: FOLIC ACID 1 MG TAB PO SCH (07:35)
[2017-04-23] MEDS: FUROSEMIDE 20 MG TAB PO SCH (07:35)
[2017-04-23] MEDS: DICYCLOMINE 20 MG TAB PO SCH (07:35)
[2017-04-23] MEDS: METOPROLOL TARTRATE 12.5 MG TAB PO SCH (07:35)
[2017-04-23 08:34] LABS: Anion Gap 6 mmol/L; Blood Urea Nitrogen 3 mg/dL (7-17); Carbon Dioxide 25 mmol/L (22-30); Chloride 106 mmol/L (98-107); Glucose 116 mg/dL (74-99); Magnesium 2.2 mg/dL (1.6-2.3); Phosphorus 3.6 mg/dL (2.5-4.5); Potassium 3.4 mmol/L (3.5-5.1); Sodium 137 mmol/L (137-145)
[2017-04-23 08:38] LABS: Anisocytosis Slight; Basophils # (A) 0.1 k/uL (0-0.2); Basophils % (A) 1 %; Eosinophils # (A) 0.7 k/uL (0-0.7); Eosinophils % (A) 8 %; HGB 9.3 gm/dL (11.4-16.0); Hypochromasia Moderate; Lymphocytes # (A) 1.6 k/uL (1.0-4.8); Lymphocytes % (A) 18 %; MCH 26.7 pg (25.0-35.0); MCHC 31.2 g/dL (31.0-37.0); MCV 85.8 fL (80.0-100.0); Mean Platelet Volume 8.1; Monocytes # (A) 0.6 k/uL (0-1.0); Monocytes % (A) 7 %; Neutrophils # (A) 5.7 k/uL (1.3-7.7); Neutrophils % (A) 65 %; Platelet Count 323 k/uL (150-450); Poikilocytosis Slight; RDW 16.7 % (11.5-15.5); WBC 8.8 k/uL (3.8-10.6)
[2017-04-23] MEDS: IPRATROPIUM-ALBUTEROL 3 ML NEB INHALATION SCH ×3 (08:50→19:52)
[2017-04-23] MEDS: BUDESONIDE 0.25 MG/2 ML NEBU INHALATION SCH ×2 (08:50→19:52)
[2017-04-23] MEDS: FORMOTEROL FUMARATE 20 MCG/2 ML NEBU INHALATION SCH ×2 (08:50→19:52)
[2017-04-23] MEDS: cefTRIAXone IN SWFI 1,000 MG/10 ML SYRINGE IVP SCH (09:54)
[2017-04-23] MEDS ORDERED: POTASSIUM CHLORIDE ER 20 MEQ TAB.ER PO STA (10:42)
--- NOTE | 2017-04-23 10:45 | P.PN ---
Subjective Progress Note Date: 04/23/17 This is a 86-year-old female with a known past medical history of site COPD, diabetes mellitus, rheumatoid arthritis, lower extremity DVT, GERD, C. diff, recurrent episodes of urinary retention, diverticulosis and a recent admission at [facility] about 3 weeks ago for colitis. At that time she was treated with Flagyl. History was obtained from patient's daughter. Who reports that patient had shown improvement but once she finished the Flagyl her symptoms worsened again. She has been having journalized weakness nausea decrease in appetite and diarrhea. She also has been having fevers at home. She came back into the hospital for further evaluation. She was found have a temp of 102 white count 15.2 started on Rocephin and Flagyl. Computed tomography scan of the abdomen and pelvis shows at the site of prior partial colectomy there is new irregular wall thickening with mild fat stranding and suspicious adjacent adenopathy, acute infectious process at this level or colitis could have this appearance. 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 Per daughter patient does not have any prior history of cancer. She has had a bowel resection for a perforated diverticulitis. Dr. Silveira has been consulted for further evaluation. We'll check stool studies. Patient also is having evidence of urinary retention and Concepcion catheter was reinserted in the emergency room. She had recently been to see Dr. Murphy for the urinary retention at that time for catheter was removed. 04/19/2017 patient is scheduled for colonoscopy today with Dr. Silveira. Denies any nausea or vomiting. No blood in the stools. Denies any chest pain or shortness of breath. Does have some bruising and minimal swelling noted along the left arm from an old IV site. No hematoma. No tenderness. 04/22/2017 patient is status post colonoscopy which had revealed a transverse colon mass. She is followed closely by surgery and is scheduled for bowel resection today. However, patient was found to have swelling in her left upper arm where the PICC line was placed on Saturday for TPN. She has some evidence of possible cellulitis near the PICC line site with's beginning of streaking down the back of her left arm. PICC line will be removed and tip will be sent for culture. Infectious disease consulted. Doppler exam to rule out DVT ordered. Surgical service has been notified. Patient is afebrile. White count normal. She denies any chest pain or shortness of breath. Denies any nausea or vomiting. Concepcion catheter in place 04/23/2017 patient started on IV heparin yesterday for left arm DVT. PICC line was removed due to it causing cellulitis. PICC line tip culture and blood culture pending. Seen by infectious disease and they've added IV vancomycin. Her left arm is still swollen and red. Patient's abdominal surgery for the colon mass was canceled. At this time patient is stating she doesn't want anything further done. However, she is willing to listen to the consulting physicians further recommendations and then will decide if she wants anything else done. Objective - Vital Signs Vital signs: Vital Signs Temp 98.7 F 04/23/17 07:00 Pulse 88 04/23/17 09:07 Resp 16 04/23/17 07:00 BP 158/69 04/23/17 07:00 Pulse Ox 94 L 04/23/17 07:00 Intake & Output 04/22/17 04/23/17 04/23/17 18:59 06:59 18:59 Intake Total 100 1717 329.556 Output Total 902 400 Balance -802 1317 329.556 Weight 68.5 kg 68.5 kg Intake: IV 100 567 Heparin Sod,Pork in 0.45% 167 NaCl 25,000 unit In 0.45 % NaCl 1 500ml.bag @ 18 UNITS/KG/HR 20.88 mls/hr IV .[id number] KEITH Rx#: [id number] Sodium Phosphate 10 mmol 100 In Sodium Chloride 0.9% 100 ml @ 50 mls/hr IVPB Q2H KEITH Rx#:[id number] Sodium Phosphate 10 mmol 100 In Sodium Chloride 0.9% 100 ml @ 50 mls/hr IVPB Q2H KEITH Rx#:[id number] metroNIDAZOLE-NS PMX 500 100 200 mg In Saline 1 100ml.bag @ 100 mls/hr IVPB Q6HR KEITH Rx#:[id number] Intake, IV Titration 329.556 Amount Heparin Sod,Pork in 0.45% 329.556 NaCl 25,000 unit In 0.45 % NaCl 1 500ml.bag @ 18 UNITS/KG/HR 20.88 mls/hr IV .[id number] KEITH Rx#: [id number] Oral 1150 Output: Urine 900 400 Straight 900 400 Stool 2 Other: Voiding Method Indwelling Catheter Indwelling Catheter Indwelling Catheter # Voids 1 - Exam Head normocephalic Neck supple Lungs clear to auscultation bilaterally no wheezing or crackles Heart regular rate and rhythm S1-S2, no rub or gallop Abdomen is soft nontender nondistended positive bowel sounds no hepatosplenomegaly Extremities no edema of the lower extremities. Left arm is still swollen from bicep down to her fingertips. Arm is also warm to touch there is erythema noted along the biceps and into the forearm Neuro alert and orientated to 3 - Labs CBC & Chem 7: 04/23/17 07:55 04/23/17 07:55 Labs: Abnormal Lab Results - Last 24 Hours (Table) 04/22/17 04/22/17 04/22/17 Range/Units 11:47 15:37 17:40 RBC 3.62 L (3.80-5.40) m/uL Hgb 9.7 L (11.4-16.0) gm/dL Hct 31.0 L (34.0-46.0) % RDW 16.7 H (11.5-15.5) % APTT (22.0-30.0) sec Potassium (3.5-5.1) mmol/L BUN (7-17) mg/dL Glucose (74-99) mg/dL POC Glucose (mg/dL) 181 H 123 H (75-99) mg/dL Calcium (8.4-10.2) mg/dL 04/22/17 04/22/17 04/23/17 Range/Units 20:37 23:40 06:56 RBC (3.80-5.40) m/uL Hgb (11.4-16.0) gm/dL Hct (34.0-46.0) % RDW (11.5-15.5) % APTT 67.1 H (22.0-30.0) sec Potassium (3.5-5.1) mmol/L BUN (7-17) mg/dL Glucose (74-99) mg/dL POC Glucose (mg/dL) 149 H 116 H (75-99) mg/dL Calcium (8.4-10.2) mg/dL 03/04/23/17 04/23/17 Range/Units 07:55 07:55 07:55 RBC 3.50 L (3.80-5.40) m/uL Hgb 9.3 L (11.4-16.0) gm/dL Hct 30.0 L (34.0-46.0) % RDW 16.7 H (11.5-15.5) % APTT 51.1 H (22.0-30.0) sec Potassium 3.4 L (3.5-5.1) mmol/L BUN 3 L (7-17) mg/dL Glucose 116 H (74-99) mg/dL POC Glucose (mg/dL) (75-99) mg/dL Calcium 8.0 L (8.4-10.2) mg/dL Microbiology - Last 24 Hours (Table) 04/22/17 10:50 Catheter Tip Culture - Preliminary Catheter Tip 04/17/17 16:20 Blood Culture - Preliminary Blood No Growth after 120 hours 04/18/17 22:58 Stool Culture - Final Stool Stacey albicans Assessment and Plan Assessment: 1. Acute colitis with Abdominal pain with nausea, diarrhea, decreased appetite : Computed tomography scan of the abdomen showing evidence of at site of prior partial colectomy there is new irregular wall thickening with mild fat stranding and suspicious adjacent adenopathy acute infectious process at this level or colitis have this appearance. Also suspicion of neoplasm is suspected and follow-up colonoscopy after treatment is advised as noted on CAT scan. Dr. Silveira has been consulted. Patient has been started on Rocephin and Flagyl. Stool culture is growing Stacey albicans. Stool for C. diff negative. Patient had recent hospitalization at [facility] and had been on Flagyl treatment for about 12 days. Last colonoscopy in 2008 Status post colonoscopy with concerns of a transverse colon mass. Patient's surgery canceled yesterday due to developing a left arm DVT. CEA is elevated at 31.6. We'll await further surgical recommendations 2. Sepsis with possible colitis present on admission. Continue antibiotics 3. 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 Rheumatoid arthritis currently on methotrexate 5. Urinary retention Concepcion catheter reinserted in ER 6. Diabetes mellitus type 2: Continue sliding scale coverage 7. Hypokalemia: Resolved 8. Chronic pulmonary fibrosis followed by pulmonary service 9. New DVT of the left arm: Continue IV heparin. Patient has been seen by vascular service. Hematology also been consulted. Patient has had prior history of DVT in the leg. And issues with anemia while on anticoagulation 10. Nutrition support. Patient will be switched over to PPN 11. Potassium will give K-Dur 20 milliequivalents by mouth 1 12. Hypophosphatemia improved with supplement 13. Left arm cellulitis secondary to PICC line. Blood culture and PICC line tip culture pending. Seen by infectious disease and has been started on IV vancomycin GI and DVT prophylaxis Pepcid and subcu heparin I performed an examination of the patient and discussed their management with the physician Counter Clerk. I have reviewed the Physician Counter Clerk's notes and agree with the documented findings and plan of care
--- NOTE | 2017-04-23 10:46 | PN ---
PROGRESS NOTE DATE OF SERVICE: 04/23/2017. HISTORY: She has been hemodynamically stable. She has no chest pain. Her left arm continues to remain swollen. She has less shortness of breath. She has abdominal pain. PHYSICAL EXAMINATION: Her respiratory rate is 16, pulse rate 87, temperature 98.7, blood pressure 158/60, and O2 saturation on room air is 94%. HEENT reveals no new changes. Chest reveals occasional wheeze only on forced expiration. Cardiovascular, there is swelling of her left upper extremity. Cardiovascular system is S1, S2. Abdomen is soft. There is no pedal edema. Left arm shows occlusive left DVT within the proximal and mid subclavian vein surrounding the PICC line within the upper extremity with edema. IMPRESSION: 1. Asthma with recent exacerbation. 2. Left upper extremity deep venous thrombosis. 3. Colon cancer. The patient did not have a colectomy because of the around the PICC line. Continue her on her current medications which were reviewed. Her prognosis at this time is fair. MMODL / IJN: [id number] /
[2017-04-23 11:32] LABS: Glucose,Whole Blood 317 mg/dL (75-99)
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
--- NOTE | 2017-04-23 15:19 | P.PN ---
<Jalyn Mckeon Yodit - Last Filed: 04/23/17 15:07> Subjective Progress Note Date: 04/23/17 56-year-old female seen and examined. Daughter at bedside. The left arm elevated on a pillow less swelling noted. Patient stating she doesn't want to have any further workup done she is not interested in pursuing surgery at this time. She states she is tired and wants to go home. Patient is denying any abdominal pain . States no nausea vomiting bowel movement this morning IV heparin infusing Objective - Vital Signs Vital signs: Vital Signs Temp 98.7 F 04/23/17 07:00 Pulse 88 04/23/17 09:07 Resp 16 04/23/17 07:00 BP 158/69 04/23/17 07:00 Pulse Ox 94 L 04/23/17 07:00 Intake & Output 04/22/17 04/23/17 04/23/17 18:59 06:59 18:59 Intake Total 100 1717 329.556 Output Total 902 400 Balance -802 1317 329.556 Weight 68.5 kg 68.5 kg Intake: IV 100 567 Heparin Sod,Pork in 0.45% 167 NaCl 25,000 unit In 0.45 % NaCl 1 500ml.bag @ 18 UNITS/KG/HR 20.88 mls/hr IV .[id number] [facility] Rx#: [id number] Sodium Phosphate 10 mmol 100 In Sodium Chloride 0.9% 100 ml @ 50 mls/hr IVPB Q2H [facility] Rx#:[id number] Sodium Phosphate 10 mmol 100 In Sodium Chloride 0.9% 100 ml @ 50 mls/hr IVPB Q2H [facility] Rx#:[id number] metroNIDAZOLE-NS PMX 500 100 200 mg In Saline 1 100ml.bag @ 100 mls/hr IVPB Q6HR [facility] Rx#:[id number] Intake, IV Titration 329.556 Amount Heparin Sod,Pork in 0.45% 329.556 NaCl 25,000 unit In 0.45 % NaCl 1 500ml.bag @ 18 UNITS/KG/HR 20.88 mls/hr IV .[id number] [facility] Rx#: [id number] Oral 1150 Output: Urine 900 400 Straight 900 400 Stool 2 Other: Voiding Method Indwelling Catheter Indwelling Catheter Indwelling Catheter # Voids 1 - Exam Exam 86 -year-old female resting in bed pleasant oriented 3 Lungs adequate air movement bilaterally no shortness of breath Heart S1-S2 audible regular Abdomen soft not distended no facial grimacing with palpitation to the abdominal wall no nausea no vomiting indwelling Concepcion catheter in place Bowel tones present states no appetite Extremities the left upper arm elevated on a pillow palpable radial pulse warm to touch decrease edema noted bilateral lower extremities a trace pedal edema - Labs CBC & Chem 7: 04/23/17 07:55 04/23/17 07:55 Labs: Abnormal Lab Results - Last 24 Hours (Table) 04/22/17 04/22/17 04/22/17 Range/Units 15:37 17:40 20:37 RBC 3.62 L (3.80-5.40) m/uL Hgb 9.7 L (11.4-16.0) gm/dL Hct 31.0 L (34.0-46.0) % RDW 16.7 H (11.5-15.5) % APTT (22.0-30.0) sec Potassium (3.5-5.1) mmol/L BUN (7-17) mg/dL Glucose (74-99) mg/dL POC Glucose (mg/dL) 123 H 149 H (75-99) mg/dL Calcium (8.4-10.2) mg/dL 04/22/17 04/23/17 04/23/17 Range/Units 23:40 06:56 07:55 RBC (3.80-5.40) m/uL Hgb (11.4-16.0) gm/dL Hct (34.0-46.0) % RDW (11.5-15.5) % APTT 67.1 H (22.0-30.0) sec Potassium 3.4 L (3.5-5.1) mmol/L BUN 3 L (7-17) mg/dL Glucose 116 H (74-99) mg/dL POC Glucose (mg/dL) 116 H (75-99) mg/dL Calcium 8.0 L (8.4-10.2) mg/dL 04/23/17 04/23/17 04/23/17 Range/Units 07:55 07:55 11:29 RBC 3.50 L (3.80-5.40) m/uL Hgb 9.3 L (11.4-16.0) gm/dL Hct 30.0 L (34.0-46.0) % RDW 16.7 H (11.5-15.5) % APTT 51.1 H (22.0-30.0) sec Potassium (3.5-5.1) mmol/L BUN (7-17) mg/dL Glucose (74-99) mg/dL POC Glucose (mg/dL) 317 H (75-99) mg/dL Calcium (8.4-10.2) mg/dL Microbiology - Last 24 Hours (Table) 04/22/17 12:10 Blood Culture - Preliminary Blood No Growth after 24 hours 04/22/17 12:36 Blood Culture - Preliminary Blood No Growth after 24 hours 04/18/17 22:58 Stool Culture - Final Stool Stacey albicans 04/22/17 10:50 Catheter Tip Culture - Preliminary Catheter Tip 04/17/17 16:20 Blood Culture - Preliminary Blood No Growth after 120 hours Assessment and Plan Assessment: Impression Present on admission abdominal pain nausea vomiting diarrhea suspect due to acute colitis Status post colonoscopy transverse colon mass noted History of severe COPD no evidence of an exacerbation Present on admission sepsis likely due to colitis New-onset left upper arm swelling possible DVT per ultrasound report Plan Continue recommendations by hematology oncology Continue IV heparin drip Further surgical recommendations pending Follow-up on path report Await patient's decision and treatment options will follow with you The above impression and plan of care have been discussed and directed by signing physician. Jalyn Mckeon nurse practitioner acting as scribe for signing physician. <Mikie Silveira - Last Filed: 04/23/17 22:23> Objective - Vital Signs Vital signs: Vital Signs Temp 99.1 F 04/23/17 15:00 Pulse 84 04/23/17 20:06 Resp 18 04/23/17 15:00 BP 136/66 04/23/17 15:00 Pulse Ox 98 04/23/17 15:00 Intake & Output 04/23/17 04/23/17 04/24/17 06:59 18:59 06:59 Intake Total 1717 1266.400 Output Total 400 1000 Balance 1317 266.400 Weight 68.5 kg 68.5 kg Intake: IV 567 766.4 Heparin Sod,Pork in 0.45% 167 166.4 NaCl 25,000 unit In 0.45 % NaCl 1 500ml.bag @ 18 UNITS/KG/HR 20.88 mls/hr IV .[id number] [facility] Rx#: [id number] Sodium Chloride 0.9% 1, 600 000 ml @ 75 mls/hr IV . [id number] [facility] Rx#:[id number] Sodium Phosphate 10 mmol 100 In Sodium Chloride 0.9% 100 ml @ 50 mls/hr IVPB Q2H [facility] Rx#:[id number] Sodium Phosphate 10 mmol 100 In Sodium Chloride 0.9% 100 ml @ 50 mls/hr IVPB Q2H [facility] Rx#:[id number] metroNIDAZOLE-NS PMX 500 200 mg In Saline 1 100ml.bag @ 100 mls/hr IVPB Q6HR [facility] Rx#:[id number] Intake, IV Titration 500.000 Amount Heparin Sod,Pork in 0.45% 500.000 NaCl 25,000 unit In 0.45 % NaCl 1 500ml.bag @ 18 UNITS/KG/HR 20.88 mls/hr IV .[id number] [facility] Rx#: [id number] Oral 1150 Output: Urine 400 1000 Straight 400 Other: Voiding Method Indwelling Catheter Indwelling Catheter # Voids 1 - Labs CBC & Chem 7: 04/23/17 07:55 04/23/17 07:55 Labs: Abnormal Lab Results - Last 24 Hours (Table) 04/22/17 04/22/17 04/23/17 Range/Units 15:45 23:40 06:56 RBC (3.80-5.40) m/uL Hgb (11.4-16.0) gm/dL Hct (34.0-46.0) % RDW (11.5-15.5) % APTT 67.1 H (22.0-30.0) sec Potassium (3.5-5.1) mmol/L BUN (7-17) mg/dL Glucose (74-99) mg/dL POC Glucose (mg/dL) 116 H (75-99) mg/dL Calcium (8.4-10.2) mg/dL Stool Occult Blood Positive H (Negative) 04/23/17 04/23/17 04/23/17 Range/Units 07:55 07:55 07:55 RBC 3.50 L (3.80-5.40) m/uL Hgb 9.3 L (11.4-16.0) gm/dL Hct 30.0 L (34.0-46.0) % RDW 16.7 H (11.5-15.5) % APTT 51.1 H (22.0-30.0) sec Potassium 3.4 L (3.5-5.1) mmol/L BUN 3 L (7-17) mg/dL Glucose 116 H (74-99) mg/dL POC Glucose (mg/dL) (75-99) mg/dL Calcium 8.0 L (8.4-10.2) mg/dL Stool Occult Blood (Negative) 04/23/17 04/23/17 04/23/17 Range/Units 11:29 17:11 20:30 RBC (3.80-5.40) m/uL Hgb (11.4-16.0) gm/dL Hct (34.0-46.0) % RDW (11.5-15.5) % APTT (22.0-30.0) sec Potassium (3.5-5.1) mmol/L BUN (7-17) mg/dL Glucose (74-99) mg/dL POC Glucose (mg/dL) 317 H 225 H 227 H (75-99) mg/dL Calcium (8.4-10.2) mg/dL Stool Occult Blood (Negative) Microbiology - Last 24 Hours (Table) 04/17/17 16:20 Blood Culture - Final Blood No Growth after 144 hours 04/22/17 12:10 Blood Culture - Preliminary Blood No Growth after 24 hours 04/22/17 12:36 Blood Culture - Preliminary Blood No Growth after 24 hours 04/18/17 22:58 Stool Culture - Final Stool Stacey albicans 04/22/17 10:50 Catheter Tip Culture - Preliminary Catheter Tip Assessment and Plan Assessment: As above. Left arm is improving. She is tolerating diet currently. Transition from IV heparin to either oral anticoagulation or Lovenox. We'll continue to discuss options of partial colectomy in the next 1-2 weeks with the patient and family. Currently the patient is refusing any surgical intervention. (1) Colitis Current Visit: Yes Status: Acute Code(s): K52.9 - NONINFECTIVE GASTROENTERITIS AND COLITIS, UNSPECIFIED SNOMED Code(s): 68905478
[2017-04-23] MEDS: HEPARIN SOD,PORK IN 0.45% NACL 25,000 UNIT in 0.45% NACL 1 500ML.BAG IV SCH ×2 (16:02→19:31)
--- NOTE | 2017-04-23 16:10 | PN ---
PROGRESS NOTE DATE OF SERVICE: 04/23/2017. REASON FOR FOLLOW UP: 1. Left upper extremity cellulitis. 2. Possible colitis. INTERVAL HISTORY: The patient is afebrile. She is to be slightly upset as her surgery has been postponed because of the DVT in the left lower extremity. The patient denies having any chest pain, shortness of breath or cough. Some swelling in the left arm though redness slightly decreased. EXAMINATION: Blood pressure 158/69 with a pulse of 87, temperature 98.7, she is 94% on room air. General description is an elderly female lying in bed in no distress. RESPIRATORY SYSTEM: Unlabored breathing. Clear to auscultation anteriorly. HEART: S1, S2. Regular rate and rhythm. ABDOMEN: Soft, no tenderness. LEFT UPPER EXTREMITY: Some swelling. Very minimal redness. No drainage. LABS: Hemoglobin 9.8, white count 8.8 with a BUN of 30, creatinine 0.60. DIAGNOSTIC IMPRESSION AND PLAN: 1. Patient with left upper extremity swelling with minimal redness and concern for possible trach site infection. Clinically doubt the symptoms are mostly related to her DVT and the PICC line has been discontinued. Plan is to keep the patient on vancomycin while waiting for the culture to finalize. 2. Patient who did have a possible colitis on Rocephin and Flagyl to continue. Daughter present at bedside. Questions answered. MMODL / IJN: [id number] /
[2017-04-23 17:14] LABS: Glucose,Whole Blood 225 mg/dL (75-99)
[2017-04-23 20:31] LABS: Glucose,Whole Blood 227 mg/dL (75-99)
[2017-04-24] MEDS: metroNIDAZOLE-NS PMX 500 MG in SALINE 1 100ML.BAG IVPB SCH ×4 (00:26→17:56)
[2017-04-24] MEDS: ACETAMINOPHEN TAB 325 MG TAB PO PRN ×3 (02:41→22:31)
[2017-04-24 07:13] LABS: Glucose,Whole Blood 122 mg/dL (75-99)
[2017-04-24] MEDS: INSULIN ASPART 100 UNIT/ML 1 ML 10 ML VIAL SQ SCH ×4 (07:21→20:48)
[2017-04-24] MEDS: VANCOMYCIN 1,000 MG in SODIUM CHLORIDE 0.9% 250 ML IVPB SCH ×2 (07:31→19:29)
[2017-04-24 08:47] LABS: Anion Gap 6 mmol/L; Blood Urea Nitrogen 3 mg/dL (7-17); Calcium 8.2 mg/dL (8.4-10.2); Carbon Dioxide 22 mmol/L (22-30); Chloride 111 mmol/L (98-107); Glucose 115 mg/dL (74-99); Magnesium 1.9 mg/dL (1.6-2.3); Phosphorus 3.1 mg/dL (2.5-4.5); Potassium 3.2 mmol/L (3.5-5.1); Sodium 139 mmol/L (137-145)
[2017-04-24] MEDS: FUROSEMIDE 20 MG TAB PO SCH ×2 (08:48→08:49)
[2017-04-24] MEDS: DICYCLOMINE 20 MG TAB PO SCH (08:48)
[2017-04-24] MEDS: NYSTATIN 100,000 UNIT/ML SUSP 500,000 UNIT/5 ML CUP PO SCH ×4 (08:49→22:09)
[2017-04-24] MEDS: PANTOPRAZOLE 40 MG TABLET PO SCH (08:49)
[2017-04-24] MEDS: METOPROLOL TARTRATE 12.5 MG TAB PO SCH (08:49)
[2017-04-24] MEDS: FOLIC ACID 1 MG TAB PO SCH (08:49)
[2017-04-24] MEDS: MONTELUKAST 10 MG TAB PO SCH (08:50)
[2017-04-24 09:05] LABS: Anisocytosis Slight; Basophils % (A) 1 %; Eosinophils # (A) 0.5 k/uL (0-0.7); Eosinophils % (A) 8 %; HGB 8.9 gm/dL (11.4-16.0); Hypochromasia Moderate; Lymphocytes # (A) 1.6 k/uL (1.0-4.8); Lymphocytes % (A) 24 %; MCH 26.5 pg (25.0-35.0); MCHC 30.8 g/dL (31.0-37.0); MCV 86.1 fL (80.0-100.0); Mean Platelet Volume 8.1; Monocytes # (A) 0.8 k/uL (0-1.0); Monocytes % (A) 13 %; Neutrophils # (A) 3.4 k/uL (1.3-7.7); Neutrophils % (A) 52 %; Platelet Count 344 k/uL (150-450); Poikilocytosis Slight; RBC 3.36 m/uL (3.80-5.40); RDW 16.7 % (11.5-15.5); WBC 6.5 k/uL (3.8-10.6)
[2017-04-24] MEDS ORDERED: HEPARIN SODIUM,PORCINE 5,000 UNIT/ML 1 ML VIAL IV PRN ×2 (10:05→10:56)
--- NOTE | 2017-04-24 11:02 | P.PN ---
Subjective Progress Note Date: 04/24/17 This is a 86-year-old female with a known past medical history of site COPD, diabetes mellitus, rheumatoid arthritis, lower extremity DVT, GERD, C. diff, recurrent episodes of urinary retention, diverticulosis and a recent admission at [facility] about 3 weeks ago for colitis. At that time she was treated with Flagyl. History was obtained from patient's daughter. Who reports that patient had shown improvement but once she finished the Flagyl her symptoms worsened again. She has been having journalized weakness nausea decrease in appetite and diarrhea. She also has been having fevers at home. She came back into the hospital for further evaluation. She was found have a temp of 102 white count 15.2 started on Rocephin and Flagyl. Computed tomography scan of the abdomen and pelvis shows at the site of prior partial colectomy there is new irregular wall thickening with mild fat stranding and suspicious adjacent adenopathy, acute infectious process at this level or colitis could have this appearance. 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 Per daughter patient does not have any prior history of cancer. She has had a bowel resection for a perforated diverticulitis. Dr. Silveira has been consulted for further evaluation. We'll check stool studies. Patient also is having evidence of urinary retention and Concepcion catheter was reinserted in the emergency room. She had recently been to see Dr. Murphy for the urinary retention at that time for catheter was removed. 04/19/2017 patient is scheduled for colonoscopy today with Dr. Silveira. Denies any nausea or vomiting. No blood in the stools. Denies any chest pain or shortness of breath. Does have some bruising and minimal swelling noted along the left arm from an old IV site. No hematoma. No tenderness. On 04/20/2017 patient is alert and oriented 3 she is kept nothing by mouth patient and her daughter are aware of colonoscopy results which revealed transverse colon mass, plan is for surgery on Saturday. Patient denies any nausea or vomiting no abdominal pain no diarrhea or constipation no blood in her stools at this time. 04/21/2017 patient is alert and oriented 3 she is kept nothing by mouth patient and her daughter are aware of colonoscopy results which revealed transverse colon mass, plan is for surgery on Saturday. Patient is maintained on TPN, potassium is low at 3 today and this will be adjusted 04/22/2017 patient is status post colonoscopy which had revealed a transverse colon mass. She is followed closely by surgery and is scheduled for bowel resection today. However, patient was found to have swelling in her left upper arm where the PICC line was placed on Saturday for TPN. She has some evidence of possible cellulitis near the PICC line site with's beginning of streaking down the back of her left arm. PICC line will be removed and tip will be sent for culture. Infectious disease consulted. Doppler exam to rule out DVT ordered. Surgical service has been notified. Patient is afebrile. White count normal. She denies any chest pain or shortness of breath. Denies any nausea or vomiting. Concepcion catheter in place 04/23/2017 patient started on IV heparin yesterday for left arm DVT. PICC line was removed due to it causing cellulitis. PICC line tip culture and blood culture pending. Seen by infectious disease and they've added IV vancomycin. Her left arm is still swollen and red. Patient's abdominal surgery for the colon mass was canceled. At this time patient is stating she doesn't want anything further done. However, she is willing to listen to the consulting physicians further recommendations and then will decide if she wants anything else done. 04/24/2017 patient on IV heparin for left arm DVT. PICC line was removed. PICC line tip culture and blood culture pending. Seen by infectious disease and they 've added IV vancomycin. Her left arm is still swollen and red. Patient's abdominal surgery for the colon mass is being discussed between patient , her family and multiple specialist wi possible date on Saturday. Objective - Vital Signs Vital signs: Vital Signs Temp 98.9 F 04/24/17 07:00 Pulse 96 04/24/17 07:00 Resp 32 H 04/24/17 07:00 BP 175/64 04/24/17 07:00 Pulse Ox 94 L 04/24/17 07:00 Intake & Output 04/23/17 04/24/17 04/24/17 18:59 06:59 18:59 Intake Total 6240.197 4853 300.324 Output Total 1000 3900 Balance 266.400 -2550 300.324 Weight 68.5 kg 68.7 kg Intake: IV 766.4 760 Heparin Sod,Pork in 0.45% 166.4 160 NaCl 25,000 unit In 0.45 % NaCl 1 500ml.bag @ 18 UNITS/KG/HR 20.88 mls/hr IV .[id number] [facility] Rx#: [id number] Sodium Chloride 0.9% 1, 600 600 000 ml @ 75 mls/hr IV . [id number] [facility] Rx#:[id number] Intake, IV Titration 500.000 300.324 Amount Heparin Sod,Pork in 0.45% 500.000 300.324 NaCl 25,000 unit In 0.45 % NaCl 1 500ml.bag @ 18 UNITS/KG/HR 20.88 mls/hr IV .[id number] [facility] Rx#: [id number] Oral 590 Output: Urine 1000 3900 Straight 2600 Other: Voiding Method Indwelling Catheter Indwelling Catheter # Bowel Movements 1 - Exam Head normocephalic and atraumatic Neck supple no JVD no goiter Lungs clear to auscultation bilaterally no wheezing or crackles Heart regular rate and rhythm S1-S2, no rub or gallop Abdomen is soft nontender nondistended positive bowel sounds no hepatosplenomegaly Extremities no edema of the lower extremities. Left arm minimal bruising and mild swelling at old IV site. Neuro alert and orientated to 3 - Labs CBC & Chem 7: 04/24/17 07:59 04/24/17 07:59 Labs: Abnormal Lab Results - Last 24 Hours (Table) 04/22/17 04/23/17 04/23/17 Range/Units 15:45 11:29 17:11 RBC (3.80-5.40) m/uL Hgb (11.4-16.0) gm/dL Hct (34.0-46.0) % MCHC (31.0-37.0) g/dL RDW (11.5-15.5) % Potassium (3.5-5.1) mmol/L Chloride (98-107) mmol/L BUN (7-17) mg/dL Glucose (74-99) mg/dL POC Glucose (mg/dL) 317 H 225 H (75-99) mg/dL Calcium (8.4-10.2) mg/dL Stool Occult Blood Positive H (Negative) 04/23/17 04/24/17 04/24/17 Range/Units 20:30 07:12 07:59 RBC (3.80-5.40) m/uL Hgb (11.4-16.0) gm/dL Hct (34.0-46.0) % MCHC (31.0-37.0) g/dL RDW (11.5-15.5) % Potassium 3.2 L (3.5-5.1) mmol/L Chloride 111 H (98-107) mmol/L BUN 3 L (7-17) mg/dL Glucose 115 H (74-99) mg/dL POC Glucose (mg/dL) 227 H 122 H (75-99) mg/dL Calcium 8.2 L (8.4-10.2) mg/dL Stool Occult Blood (Negative) 04/24/17 Range/Units 07:59 RBC 3.36 L (3.80-5.40) m/uL Hgb 8.9 L (11.4-16.0) gm/dL Hct 29.0 L (34.0-46.0) % MCHC 30.8 L (31.0-37.0) g/dL RDW 16.7 H (11.5-15.5) % Potassium (3.5-5.1) mmol/L Chloride (98-107) mmol/L BUN (7-17) mg/dL Glucose (74-99) mg/dL POC Glucose (mg/dL) (75-99) mg/dL Calcium (8.4-10.2) mg/dL Stool Occult Blood (Negative) Microbiology - Last 24 Hours (Table) 04/17/17 16:20 Blood Culture - Final Blood No Growth after 144 hours 04/22/17 12:10 Blood Culture - Preliminary Blood No Growth after 24 hours 04/22/17 12:36 Blood Culture - Preliminary Blood No Growth after 24 hours 04/18/17 22:58 Stool Culture - Final Stool Stacey albicans 04/22/17 10:50 Catheter Tip Culture - Preliminary Catheter Tip Assessment and Plan Plan: 1. Acute colitis with Abdominal pain with nausea, diarrhea, decreased appetite : Computed tomography scan of the abdomen showing evidence of at site of prior partial colectomy there is new irregular wall thickening with mild fat stranding and suspicious adjacent adenopathy acute infectious process at this level or colitis have this appearance. Also suspicion of neoplasm is suspected and follow-up colonoscopy after treatment is advised as noted on CAT scan. Dr. Silveira has been consulted. Patient has been started on Rocephin and Flagyl. Stool culture is growing Stacey albicans. Stool for C. diff negative. Patient had recent hospitalization at [facility] and had been on Flagyl treatment for about 12 days. Last colonoscopy in 2008 Status post colonoscopy with concerns of a transverse colon mass. Patient's surgery canceled yesterday due to developing a left arm DVT. CEA is elevated at 31.6. We'll await further surgical recommendations and decision reguarding surgery. 2. Sepsis with possible colitis present on admission. Continue antibiotics 3. 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 Rheumatoid arthritis currently on methotrexate 5. Urinary retention Concepcion catheter reinserted in ER 6. Diabetes mellitus type 2: Continue sliding scale coverage 7. Hypokalemia: Resolved 8. Chronic pulmonary fibrosis followed by pulmonary service 9. New DVT of the left arm: Continue IV heparin. Patient has been seen by vascular service. Hematology also been consulted. Patient has had prior history of DVT in the leg. And issues with anemia while on anticoagulation 10. Nutrition support. Patient will be switched over to PPN 11. Potassium will give K-Dur 20 milliequivalents by mouth 1 12. Hypophosphatemia improved with supplement 13. Left arm cellulitis secondary to PICC line. Blood culture and PICC line tip culture pending. Seen by infectious disease and has been started on IV vancomycin GI and DVT prophylaxis Pepcid and IV heparin
[2017-04-24] MEDS: cefTRIAXone IN SWFI 1,000 MG/10 ML SYRINGE IVP SCH (11:07)
[2017-04-24] MEDS: FORMOTEROL FUMARATE 20 MCG/2 ML NEBU INHALATION SCH ×2 (11:14→22:06)
[2017-04-24] MEDS: BUDESONIDE 0.25 MG/2 ML NEBU INHALATION SCH ×2 (11:14→22:05)
[2017-04-24] MEDS: IPRATROPIUM-ALBUTEROL 3 ML NEB INHALATION SCH ×3 (11:14→22:06)
[2017-04-24 11:24] LABS: Glucose,Whole Blood 143 mg/dL (75-99)
--- NOTE | 2017-04-24 14:04 | P.PN ---
Subjective Progress Note Date: 04/24/17 [facility] is covering for Dr. Lopez 04/19/17- Patient is being seen examined and evaluated today on rounds. This patient is currently being worked up for her colitis and she does have a significant history for COPD and pulmonary fibrosis. Apparently she has had been having flares of her colitis more recently over the past few months. On examination the patient's resting in bed on room air. Patient does become short of breath with exertion and activity. She denies any cough or congestion at this time. Family is at bedside and is updated on plan of care. Patient is supposed to go for a colonoscopy today with surgical services. She continues on Rocephin and Flagyl. Her potassium this morning was noted to be 3.1 and has been replaced. Currently she is hemodynamically stable. 04/20/17-04/21/17- Please see Dr. Samaria Singh notes 04/22/17- patient is being seen examined and evaluated on rounds. Patient is resting up in bed in room air. Did have a Left upper extremity US that showed an incomplete occlusive left DVT in the proximal and mid subclavian vein surrounding the PICC line. Vascular and hemo is on consult for the DVT. She did have a colonoscopy that did reveal a transverse colon mass and will possibly undergo surgery for removal and biopsy with Dr. Silveira, in the future. She is afebrile, no further complaints. 04/23/17- Please see Dr. Suzi Singh notes 04/24/17- patient is being seen examined and evaluated today on rounds. Patient is resting up in bed on room air. Denies any shortness of breath cough or congestion at this time. Currently the patient is debating on whether she would like to go forth with the surgery or not. At this time no surgery is definitely planned. Patient continues on IV heparin for her left arm DVT. Her PICC line was removed and cultures are pending. Objective - Vital Signs Vital signs: Vital Signs Temp 98.9 F 04/24/17 07:00 Pulse 92 04/24/17 13:09 Resp 32 H 04/24/17 08:00 BP 175/64 04/24/17 07:00 Pulse Ox 94 L 04/24/17 07:00 Intake & Output 04/23/17 04/24/17 04/24/17 18:59 06:59 18:59 Intake Total 9063.103 2548 300.324 Output Total 1000 3900 1100 Balance 266.400 -2550 -799.676 Weight 68.5 kg 68.7 kg Intake: IV 766.4 760 Heparin Sod,Pork in 0.45% 166.4 160 NaCl 25,000 unit In 0.45 % NaCl 1 500ml.bag @ 18 UNITS/KG/HR 20.88 mls/hr IV .[id number] [facility] Rx#: [id number] Sodium Chloride 0.9% 1, 600 600 000 ml @ 75 mls/hr IV . [id number] [facility] Rx#:[id number] Intake, IV Titration 500.000 300.324 Amount Heparin Sod,Pork in 0.45% 500.000 300.324 NaCl 25,000 unit In 0.45 % NaCl 1 500ml.bag @ 18 UNITS/KG/HR 20.88 mls/hr IV .[id number] [facility] Rx#: [id number] Oral 590 Output: Urine 1000 3900 1100 Straight 2600 1100 Other: Voiding Method Indwelling Catheter Indwelling Catheter Indwelling Catheter # Bowel Movements 1 - Exam GENERAL EXAM: Alert, comfortable in no apparent distress. HEAD: Normocephalic. EYES: Normal reaction of pupils, equal size. NOSE: Clear with pink turbinates. THROAT: No erythema or exudates. NECK: No masses, no JVD. CHEST: No chest wall deformity. LUNGS: Equal air entry with few faint expiratory wheezes. Bases diminished CVS: S1 and S2 normal with no audible mumurs, regular rhythm. ABDOMEN: No hepatosplenomegaly, normal bowel sounds, mild tenderness to palpitation EXTREMITIES: Trace edema noted, pedal pulses palpable. LUE- edema and redness improving CENTRAL NERVOUS SYSTEM: No focal deficits, tone is normal in all 4 extremities. - Labs CBC & Chem 7: 04/24/17 07:59 04/24/17 07:59 Labs: Abnormal Lab Results - Last 24 Hours (Table) 04/22/17 04/23/17 04/23/17 Range/Units 15:45 17:11 20:30 RBC (3.80-5.40) m/uL Hgb (11.4-16.0) gm/dL Hct (34.0-46.0) % MCHC (31.0-37.0) g/dL RDW (11.5-15.5) % Potassium (3.5-5.1) mmol/L Chloride (98-107) mmol/L BUN (7-17) mg/dL Glucose (74-99) mg/dL POC Glucose (mg/dL) 225 H 227 H (75-99) mg/dL Calcium (8.4-10.2) mg/dL Stool Occult Blood Positive H (Negative) 04/24/17 04/24/17 04/24/17 Range/Units 07:12 07:59 07:59 RBC 3.36 L (3.80-5.40) m/uL Hgb 8.9 L (11.4-16.0) gm/dL Hct 29.0 L (34.0-46.0) % MCHC 30.8 L (31.0-37.0) g/dL RDW 16.7 H (11.5-15.5) % Potassium 3.2 L (3.5-5.1) mmol/L Chloride 111 H (98-107) mmol/L BUN 3 L (7-17) mg/dL Glucose 115 H (74-99) mg/dL POC Glucose (mg/dL) 122 H (75-99) mg/dL Calcium 8.2 L (8.4-10.2) mg/dL Stool Occult Blood (Negative) 04/24/17 Range/Units 11:23 RBC (3.80-5.40) m/uL Hgb (11.4-16.0) gm/dL Hct (34.0-46.0) % MCHC (31.0-37.0) g/dL RDW (11.5-15.5) % Potassium (3.5-5.1) mmol/L Chloride (98-107) mmol/L BUN (7-17) mg/dL Glucose (74-99) mg/dL POC Glucose (mg/dL) 143 H (75-99) mg/dL Calcium (8.4-10.2) mg/dL Stool Occult Blood (Negative) Microbiology - Last 24 Hours (Table) 04/17/17 16:20 Blood Culture - Final Blood No Growth after 144 hours 04/22/17 12:10 Blood Culture - Preliminary Blood No Growth after 24 hours 04/22/17 12:36 Blood Culture - Preliminary Blood No Growth after 24 hours 04/18/17 22:58 Stool Culture - Final Stool Stacey albicans 04/22/17 10:50 Catheter Tip Culture - Preliminary Catheter Tip Assessment and Plan Assessment: Assessment Intermittent abdominal discomfort and pain and evidence of colitis versus mucosal wall thickening likely infectious or neoplastic process with prior history of colectomy Infectious colitis/C. difficile colitis, stool is been sent for C. 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 We will sign off on the patient and will follow as needed. Please do not hesitate to contact us with any pulmonary issues. Medications have been reviewed and will be continued as ordered. Patient refuses steroids at this time. Continue with pulmonary hygiene , coughing and deep breathing exercises, and supportive care. Supplemental oxygen to maintain oxygen saturations of 92% or better. C Continue nebulizer treatments. GI and DVT prophylaxis. Vascular, hematology, and general surgical services on consult and appreciate recommendations. Patient is currently on decided on whether she would like to go forth with a possible surgery. From a pulmonary standpoint the patient is stable. We will sign off at this time and will follow-up with the patient only on an as-needed basis. We are covering for Dr. Lopez I performed an examination of the patient and discussed their management with the nurse practitioner. I have reviewed the nurse practitioner's note and agree with the documented findings and plan of care.
--- NOTE | 2017-04-24 17:12 | P.PN ---
Subjective Progress Note Date: 04/24/17 Principal diagnosis: Mixed adenoneuroendocrine carcinoma of the colon Patient seen today in follow-up, and daughter is at bedside. Patient's left upper extremity continues to be swollen, patient is able to move it with some discomfort, patient is not currently complaining of nausea, hunger, need to go to the bathroom or uncontrolled pain. Objective - Vital Signs Vital signs: Vital Signs Temp 98.9 F 04/24/17 07:00 Pulse 96 04/24/17 15:41 Resp 32 H 04/24/17 15:41 BP 175/64 04/24/17 07:00 Pulse Ox 94 L 04/24/17 07:00 Intake & Output 04/23/17 04/24/17 04/24/17 18:59 06:59 18:59 Intake Total 3110.875 6151 1175.324 Output Total 1000 3900 2100 Balance 266.400 -2991 -924.676 Weight 68.5 kg 68.7 kg Intake: IV 766.4 760 625 Heparin Sod,Pork in 0.45% 166.4 160 NaCl 25,000 unit In 0.45 % NaCl 1 500ml.bag @ 18 UNITS/KG/HR 20.88 mls/hr IV .[id number] [facility] Rx#: [id number] Sodium Chloride 0.9% 1, 600 600 525 000 ml @ 75 mls/hr IV . [id number] [facility] Rx#:[id number] metroNIDAZOLE-NS PMX 500 100 mg In Saline 1 100ml.bag @ 100 mls/hr IVPB Q6HR [facility] Rx#:[id number] Intake, IV Titration 500.000 550.324 Amount Heparin Sod,Pork in 0.45% 500.000 300.324 NaCl 25,000 unit In 0.45 % NaCl 1 500ml.bag @ 18 UNITS/KG/HR 20.88 mls/hr IV .[id number] [facility] Rx#: [id number] Vancomycin 1,000 mg In 250 Sodium Chloride 0.9% 250 ml @ 125 mls/hr IVPB Q12H [facility] Rx#:[id number] Oral 590 Output: Urine 1000 3900 2100 Straight 2600 2100 Other: Voiding Method Indwelling Catheter Indwelling Catheter Indwelling Catheter # Bowel Movements 1 - Constitutional General appearance: Present: no acute distress, obese - Integumentary Integumentary: Present: pale - Neurologic Neurologic: Present: CNII-XII intact - Musculoskeletal Musculoskeletal: Present: generalized weakness - Psychiatric Psychiatric Comment(s): patient is irritable, suspicious, accusatory, she does not appear to be appropriately processing the facts of her situation Psychiatric: Present: A&O x's 3 - Labs CBC & Chem 7: 04/24/17 07:59 04/24/17 07:59 Labs: Abnormal Lab Results - Last 24 Hours (Table) 04/22/17 04/23/17 04/23/17 Range/Units 15:45 17:11 20:30 RBC (3.80-5.40) m/uL Hgb (11.4-16.0) gm/dL Hct (34.0-46.0) % MCHC (31.0-37.0) g/dL RDW (11.5-15.5) % Potassium (3.5-5.1) mmol/L Chloride (98-107) mmol/L BUN (7-17) mg/dL Glucose (74-99) mg/dL POC Glucose (mg/dL) 225 H 227 H (75-99) mg/dL Calcium (8.4-10.2) mg/dL Stool Occult Blood Positive H (Negative) 04/24/17 04/24/17 04/24/17 Range/Units 07:12 07:59 07:59 RBC 3.36 L (3.80-5.40) m/uL Hgb 8.9 L (11.4-16.0) gm/dL Hct 29.0 L (34.0-46.0) % MCHC 30.8 L (31.0-37.0) g/dL RDW 16.7 H (11.5-15.5) % Potassium 3.2 L (3.5-5.1) mmol/L Chloride 111 H (98-107) mmol/L BUN 3 L (7-17) mg/dL Glucose 115 H (74-99) mg/dL POC Glucose (mg/dL) 122 H (75-99) mg/dL Calcium 8.2 L (8.4-10.2) mg/dL Stool Occult Blood (Negative) 04/24/17 Range/Units 11:23 RBC (3.80-5.40) m/uL Hgb (11.4-16.0) gm/dL Hct (34.0-46.0) % MCHC (31.0-37.0) g/dL RDW (11.5-15.5) % Potassium (3.5-5.1) mmol/L Chloride (98-107) mmol/L BUN (7-17) mg/dL Glucose (74-99) mg/dL POC Glucose (mg/dL) 143 H (75-99) mg/dL Calcium (8.4-10.2) mg/dL Stool Occult Blood (Negative) Microbiology - Last 24 Hours (Table) 04/22/17 12:10 Blood Culture - Preliminary Blood No Growth after 48 hours 04/22/17 12:36 Blood Culture - Preliminary Blood No Growth after 48 hours 04/22/17 10:50 Catheter Tip Culture - Final Catheter Tip 04/17/17 16:20 Blood Culture - Final Blood No Growth after 144 hours Assessment and Plan (1) Deep vein thrombosis (DVT) of left upper extremity Narrative/Plan: patient currently remains on a heparin drip. Current Visit: Yes Status: Acute Priority: High Code(s): I82.622 - ACUTE EMBOLISM AND THROMBOSIS OF DEEP VEINS OF L UP EXTREM SNOMED Code(s): 795931961 (2) Colonic mass Current Visit: Yes Status: Acute Priority: High Code(s): K63.9 - DISEASE OF INTESTINE, UNSPECIFIED SNOMED Code(s): 040106880 (3) Adenocarcinoma with neuroendocrine differentiation Narrative/Plan: Malignant diagnosis of adenoneuroendocrine carcinoma was discussed with patient and her daughter. Recommendation is for patient to proceed with resection as these types of tumors are typically slow growing and can many times be cured with just surgery. Patient is feeling very frustrated that surgery that was planned for Saturday has been delayed. It was explained to patient that the delay was due to the new finding of a blood clot and the need for anticoagulation immediately for treatment. Patient is at this time refusing surgery. If patient chooses against surgery Dr. Richter discussed complications of not treating the tumor including, but not limited to, progressive/symptomatic anemia, bowel obstruction, or bowel perforation. He also would recommend not anticoagulating for her blood clot if she does not proceed with surgery as she will be at a significantly high risk of bleeding from the tumor. If patient opts out of surgery it was recommended to her and her daughter that she be discharged under the care of hospice since patient does not want to be hospitalized. All of their questions were answered to the best of Dr. Dann correa. Patient and her family will make further decisions and communicate them to the medical staff. Current Visit: Yes Status: Acute Priority: High Code(s): C7A.1 - MALIGNANT POORLY DIFFERENTIATED NEUROENDOCRINE TUMORS SNOMED Code(s): 882546943
[2017-04-24 17:18] LABS: Glucose,Whole Blood 162 mg/dL (75-99)
--- NOTE | 2017-04-24 17:22 | P.PN ---
Subjective Progress Note Date: 04/24/17 Principal diagnosis: Colon mass Patient appears better today. Denies abdominal pain. Tolerating some diet although not eating much currently. 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 No nausea or vomiting. Left arm swelling improved. Remains on IV heparin. She was seen by oncology today. She is now more agreeable to the option of surgical resection. Objective - Vital Signs Vital signs: Vital Signs Temp 98.9 F 04/24/17 07:00 Pulse 96 04/24/17 15:41 Resp 32 H 04/24/17 15:41 BP 175/64 04/24/17 07:00 Pulse Ox 94 L 04/24/17 07:00 Intake & Output 04/23/17 04/24/17 04/24/17 18:59 06:59 18:59 Intake Total 3281.282 7942 1175.324 Output Total 1000 3900 2100 Balance 266.400 -255 -924.676 Weight 68.5 kg 68.7 kg Intake: IV 766.4 760 625 Heparin Sod,Pork in 0.45% 166.4 160 NaCl 25,000 unit In 0.45 % NaCl 1 500ml.bag @ 18 UNITS/KG/HR 20.88 mls/hr IV .[id number] [facility] Rx#: [id number] Sodium Chloride 0.9% 1, 600 600 525 000 ml @ 75 mls/hr IV . [id number] [facility] Rx#:[id number] metroNIDAZOLE-NS PMX 500 100 mg In Saline 1 100ml.bag @ 100 mls/hr IVPB Q6HR [facility] Rx#:[id number] Intake, IV Titration 500.000 550.324 Amount Heparin Sod,Pork in 0.45% 500.000 300.324 NaCl 25,000 unit In 0.45 % NaCl 1 500ml.bag @ 18 UNITS/KG/HR 20.88 mls/hr IV .[id number] [facility] Rx#: [id number] Vancomycin 1,000 mg In 250 Sodium Chloride 0.9% 250 ml @ 125 mls/hr IVPB Q12H [facility] Rx#:[id number] Oral 590 Output: Urine 1000 3900 2100 Straight 2600 2100 Other: Voiding Method Indwelling Catheter Indwelling Catheter Indwelling Catheter # Bowel Movements 1 - Exam Abdomen: Soft, nontender, nondistended - Labs CBC & Chem 7: 04/24/17 07:59 04/24/17 07:59 Labs: Abnormal Lab Results - Last 24 Hours (Table) 04/22/17 04/23/17 04/24/17 Range/Units 15:45 20:30 07:12 RBC (3.80-5.40) m/uL Hgb (11.4-16.0) gm/dL Hct (34.0-46.0) % MCHC (31.0-37.0) g/dL RDW (11.5-15.5) % Potassium (3.5-5.1) mmol/L Chloride (98-107) mmol/L BUN (7-17) mg/dL Glucose (74-99) mg/dL POC Glucose (mg/dL) 227 H 122 H (75-99) mg/dL Calcium (8.4-10.2) mg/dL Stool Occult Blood Positive H (Negative) 04/24/17 04/24/17 04/24/17 Range/Units 07:59 07:59 11:23 RBC 3.36 L (3.80-5.40) m/uL Hgb 8.9 L (11.4-16.0) gm/dL Hct 29.0 L (34.0-46.0) % MCHC 30.8 L (31.0-37.0) g/dL RDW 16.7 H (11.5-15.5) % Potassium 3.2 L (3.5-5.1) mmol/L Chloride 111 H (98-107) mmol/L BUN 3 L (7-17) mg/dL Glucose 115 H (74-99) mg/dL POC Glucose (mg/dL) 143 H (75-99) mg/dL Calcium 8.2 L (8.4-10.2) mg/dL Stool Occult Blood (Negative) Microbiology - Last 24 Hours (Table) 04/22/17 12:10 Blood Culture - Preliminary Blood No Growth after 48 hours 04/22/17 12:36 Blood Culture - Preliminary Blood No Growth after 48 hours 04/22/17 10:50 Catheter Tip Culture - Final Catheter Tip 04/17/17 16:20 Blood Culture - Final Blood No Growth after 144 hours Assessment and Plan (1) Adenocarcinoma with neuroendocrine differentiation Narrative/Plan: Pathology findings discussed with the patient and family. The patient is now agreeable to proceeding with surgery if it is performed this coming Saturday. I informed the patient and her daughter that I am out of town after tomorrow afternoon. The patient is agreeable to having the surgery performed by a different general surgeon. I spoke with Dr. Blanca who agreed to schedule her for surgical resection on Saturday. We'll start clear liquids tomorrow. Will start bowel prep tomorrow. Risks of the surgery were again discussed in detail with the added risk at this time of pulmonary embolism and respiratory failure as a result of the recent findings of acute DVT. Additionally there will be a slightly increased risk of bleeding given the fact she will be placed back on anticoagulation postoperatively. They're agreeable and wish to proceed. Current Visit: Yes Status: Acute Priority: High Code(s): C7A.1 - MALIGNANT POORLY DIFFERENTIATED NEUROENDOCRINE TUMORS SNOMED Code(s): 626345656
[2017-04-24] MEDS ORDERED: VANCOMYCIN TROUGH DUE 1 EACH MISC MISCELLANE ONE (18:00)
[2017-04-24] MEDS: ONDANSETRON 4 MG/2 ML VIAL IVP PRN (19:29)
[2017-04-24 20:34] LABS: Glucose,Whole Blood 123 mg/dL (75-99)
--- NOTE | 2017-04-24 21:38 | PN ---
PROGRESS NOTE DATE OF SERVICE: 04/24/2017 REASON FOR FOLLOWUP: 1. Left lower extremity cellulitis. 2. Colitis. INTERVAL HISTORY: The patient is afebrile. She is breathing comfortably. Left arm swelling and redness have improved. Denies having any chest pain, shortness of breath or cough. No abdominal pain or diarrhea. PHYSICAL EXAMINATION: Blood pressure 175/64 with a pulse of 96, temperature of 98.9. She is 94% on room air. General description is an elderly female up in the chair in no distress. RESPIRATORY SYSTEM: Unlabored breathing. Clear to auscultation. No wheeze or crackle. HEART: S1, S2. Regular rate and rhythm. ABDOMEN: Soft. No tenderness. Left arm has some swelling but no redness. LABS: Hemoglobin 8.9, white count 6.5. BUN of 3, creatinine 0.58. Blood culture has been negative. Catheter tip culture so far negative. DIAGNOSTIC IMPRESSION AND PLAN: 1. Patient with left arm swelling and redness, multifactorial underlying DVT cellulitis, overall responding to the vancomycin. The cultures remain negative. Will discontinue vancomycin after 5 days' dose. 2. Patient with evidence of colitis with a question of possible malignancy, for surgery on Saturday. Currently on Rocephin and Flagyl. That will be continued. Continue supportive care. Daughter was present at the bedside. Her questions were answered. MMODL / IJN: [id number] /
[2017-04-25] MEDS: metroNIDAZOLE-NS PMX 500 MG in SALINE 1 100ML.BAG IVPB SCH ×4 (00:37→17:47)
[2017-04-25] MEDS: HEPARIN SOD,PORK IN 0.45% NACL 25,000 UNIT in 0.45% NACL 1 500ML.BAG IV SCH (02:00)
[2017-04-25] MEDS: SODIUM CHLORIDE 0.9% 1,000 ML IV SCH ×3 (05:35→12:53)
[2017-04-25] MEDS: IPRATROPIUM-ALBUTEROL 3 ML NEB INHALATION SCH ×2 (06:54→13:12)
[2017-04-25] MEDS: FORMOTEROL FUMARATE 20 MCG/2 ML NEBU INHALATION SCH ×2 (06:54→19:26)
[2017-04-25] MEDS: BUDESONIDE 0.25 MG/2 ML NEBU INHALATION SCH ×2 (06:54→19:26)
[2017-04-25 07:16] LABS: Glucose,Whole Blood 106 mg/dL (75-99)
[2017-04-25 07:46] LABS: Anisocytosis Slight; Basophils % (A) 1 %; Eosinophils # (A) 0.5 k/uL (0-0.7); Eosinophils % (A) 7 %; HCT 28.7 % (34.0-46.0); HGB 9.2 gm/dL (11.4-16.0); Hypochromasia Slight; Lymphocytes # (A) 1.8 k/uL (1.0-4.8); Lymphocytes % (A) 28 %; MCHC 32.1 g/dL (31.0-37.0); MCV 83.9 fL (80.0-100.0); Mean Platelet Volume 7.6; Monocytes # (A) 0.7 k/uL (0-1.0); Monocytes % (A) 12 %; Neutrophils # (A) 3.1 k/uL (1.3-7.7); Neutrophils % (A) 49 %; Platelet Count 372 k/uL (150-450); Poikilocytosis Slight; RBC 3.43 m/uL (3.80-5.40); RDW 16.4 % (11.5-15.5); WBC 6.4 k/uL (3.8-10.6)
[2017-04-25] MEDS: VANCOMYCIN 1,000 MG in SODIUM CHLORIDE 0.9% 250 ML IVPB SCH ×2 (07:47→20:06)
[2017-04-25] MEDS: INSULIN ASPART 100 UNIT/ML 1 ML 10 ML VIAL SQ SCH ×4 (07:53→21:15)
[2017-04-25] MEDS: ACETAMINOPHEN TAB 325 MG TAB PO PRN (08:00)
[2017-04-25] MEDS: PANTOPRAZOLE 40 MG TABLET PO SCH (08:01)
[2017-04-25] MEDS: NYSTATIN 100,000 UNIT/ML SUSP 500,000 UNIT/5 ML CUP PO SCH ×4 (08:01→21:19)
[2017-04-25] MEDS: DICYCLOMINE 20 MG TAB PO SCH (08:01)
[2017-04-25] MEDS: METOPROLOL TARTRATE 12.5 MG TAB PO SCH (08:01)
[2017-04-25] MEDS: MONTELUKAST 10 MG TAB PO SCH (08:01)
[2017-04-25] MEDS: FOLIC ACID 1 MG TAB PO SCH (08:01)
[2017-04-25 08:25] LABS: Anion Gap 6 mmol/L; Blood Urea Nitrogen 3 mg/dL (7-17); Calcium 8.4 mg/dL (8.4-10.2); Carbon Dioxide 26 mmol/L (22-30); Chloride 107 mmol/L (98-107); Glucose 101 mg/dL (74-99); Magnesium 1.9 mg/dL (1.6-2.3); Phosphorus 3.1 mg/dL (2.5-4.5); Sodium 139 mmol/L (137-145)
[2017-04-25 08:30] LABS: Potassium 2.9 mmol/L (3.5-5.1)
[2017-04-25] MEDS: cefTRIAXone IN SWFI 1,000 MG/10 ML SYRINGE IVP SCH (10:25)
[2017-04-25] MEDS: traMADol 50 MG TAB PO PRN (11:16)
--- NOTE | 2017-04-25 11:27 | P.PN ---
Subjective Progress Note Date: 04/25/17 This is a 86-year-old female with a known past medical history of site COPD, diabetes mellitus, rheumatoid arthritis, lower extremity DVT, GERD, C. diff, recurrent episodes of urinary retention, diverticulosis and a recent admission at [facility] about 3 weeks ago for colitis. At that time she was treated with Flagyl. History was obtained from patient's daughter. Who reports that patient had shown improvement but once she finished the Flagyl her symptoms worsened again. She has been having journalized weakness nausea decrease in appetite and diarrhea. She also has been having fevers at home. She came back into the hospital for further evaluation. She was found have a temp of 102 white count 15.2 started on Rocephin and Flagyl. Computed tomography scan of the abdomen and pelvis shows at the site of prior partial colectomy there is new irregular wall thickening with mild fat stranding and suspicious adjacent adenopathy, acute infectious process at this level or colitis could have this appearance. 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 Per daughter patient does not have any prior history of cancer. She has had a bowel resection for a perforated diverticulitis. Dr. Silveira has been consulted for further evaluation. We'll check stool studies. Patient also is having evidence of urinary retention and Concepcion catheter was reinserted in the emergency room. She had recently been to see Dr. Murphy for the urinary retention at that time for catheter was removed. 04/19/2017 patient is scheduled for colonoscopy today with Dr. Silveira. Denies any nausea or vomiting. No blood in the stools. Denies any chest pain or shortness of breath. Does have some bruising and minimal swelling noted along the left arm from an old IV site. No hematoma. No tenderness. 04/22/2017 patient is status post colonoscopy which had revealed a transverse colon mass. She is followed closely by surgery and is scheduled for bowel resection today. However, patient was found to have swelling in her left upper arm where the PICC line was placed on Saturday for TPN. She has some evidence of possible cellulitis near the PICC line site with's beginning of streaking down the back of her left arm. PICC line will be removed and tip will be sent for culture. Infectious disease consulted. Doppler exam to rule out DVT ordered. Surgical service has been notified. Patient is afebrile. White count normal. She denies any chest pain or shortness of breath. Denies any nausea or vomiting. Concepcion catheter in place 04/23/2017 patient started on IV heparin yesterday for left arm DVT. PICC line was removed due to it causing cellulitis. PICC line tip culture and blood culture pending. Seen by infectious disease and they've added IV vancomycin. Her left arm is still swollen and red. Patient's abdominal surgery for the colon mass was canceled. At this time patient is stating she doesn't want anything further done. However, she is willing to listen to the consulting physicians further recommendations and then will decide if she wants anything else done. 04/25/2017 patient is complaining of left ankle pain. She denies any injury. She doesn't may be her rheumatoid arthritis. She does have Ultram if needed. She is scheduled for surgery regarding the colon mass tomorrow. She reports having bowel movements. Denies any chest pain or shortness of breath. She is very weak and requires assistance to get to the restroom Objective - Vital Signs Vital signs: Vital Signs Temp 99.3 F 04/25/17 07:00 Pulse 87 04/25/17 07:00 Resp 16 04/25/17 07:00 BP 169/74 04/25/17 07:00 Pulse Ox 92 L 04/25/17 07:00 Intake & Output 04/24/17 04/25/17 04/25/17 18:59 06:59 18:59 Intake Total 1368.364 596.636 125.667 Output Total 2100 2201 Balance -731.636 -1604.364 125.667 Weight 68.6 kg Intake: IV 625 Sodium Chloride 0.9% 1, 525 000 ml @ 75 mls/hr IV . [id number] KEITH Rx#:[id number] metroNIDAZOLE-NS PMX 500 100 mg In Saline 1 100ml.bag @ 100 mls/hr IVPB Q6HR KEITH Rx#:[id number] Intake, IV Titration 743.364 6.636 125.667 Amount Heparin Sod,Pork in 0.45% 493.364 6.636 125.667 NaCl 25,000 unit In 0.45 % NaCl 1 500ml.bag @ 18 UNITS/KG/HR 20.88 mls/hr IV .[id number] KEITH Rx#: [id number] Vancomycin 1,000 mg In 250 Sodium Chloride 0.9% 250 ml @ 125 mls/hr IVPB Q12H KEITH Rx#:[id number] Oral 590 Output: Urine 2100 2200 Straight 2100 1300 Stool 1 Other: Voiding Method Indwelling Catheter Indwelling Catheter Indwelling Catheter - Exam Head normocephalic Neck supple Lungs clear to auscultation bilaterally no wheezing or crackles Heart regular rate and rhythm S1-S2, no rub or gallop Abdomen is soft nontender nondistended positive bowel sounds no hepatosplenomegaly Extremities no edema of the lower extremities. Left arm swelling and redness decreasing. Left ankle no redness minimal swelling noted. No tenderness with palpation Neuro alert and orientated to 3 - Labs CBC & Chem 7: 04/25/17 06:56 04/25/17 06:56 Labs: Abnormal Lab Results - Last 24 Hours (Table) 04/24/17 04/24/17 04/24/17 Range/Units 11:23 17:16 17:50 RBC (3.80-5.40) m/uL Hgb (11.4-16.0) gm/dL Hct (34.0-46.0) % RDW (11.5-15.5) % APTT 80.4 H (22.0-30.0) sec Potassium (3.5-5.1) mmol/L BUN (7-17) mg/dL Glucose (74-99) mg/dL POC Glucose (mg/dL) 143 H 162 H (75-99) mg/dL 04/24/17 04/25/17 04/25/17 Range/Units 20:33 01:20 06:56 RBC (3.80-5.40) m/uL Hgb (11.4-16.0) gm/dL Hct (34.0-46.0) % RDW (11.5-15.5) % APTT 56.5 H (22.0-30.0) sec Potassium 2.9 L* (3.5-5.1) mmol/L BUN 3 L (7-17) mg/dL Glucose 101 H (74-99) mg/dL POC Glucose (mg/dL) 123 H (75-99) mg/dL 04/25/17 04/25/17 04/25/17 Range/Units 06:56 06:56 07:14 RBC 3.43 L (3.80-5.40) m/uL Hgb 9.2 L (11.4-16.0) gm/dL Hct 28.7 L (34.0-46.0) % RDW 16.4 H (11.5-15.5) % APTT 58.4 H (22.0-30.0) sec Potassium (3.5-5.1) mmol/L BUN (7-17) mg/dL Glucose (74-99) mg/dL POC Glucose (mg/dL) 106 H (75-99) mg/dL Microbiology - Last 24 Hours (Table) 04/22/17 12:10 Blood Culture - Preliminary Blood No Growth after 48 hours 04/22/17 12:36 Blood Culture - Preliminary Blood No Growth after 48 hours 04/22/17 10:50 Catheter Tip Culture - Final Catheter Tip Assessment and Plan Assessment: 1. Acute colitis with Abdominal pain with nausea, diarrhea, decreased appetite : Computed tomography scan of the abdomen showing evidence of at site of prior partial colectomy there is new irregular wall thickening with mild fat stranding and suspicious adjacent adenopathy acute infectious process at this level or colitis have this appearance. Also suspicion of neoplasm is suspected and follow-up colonoscopy after treatment is advised as noted on CAT scan. Dr. Silveira has been consulted. Patient has been started on Rocephin and Flagyl. Stool culture is growing Stacey albicans. Stool for C. diff negative. Patient had recent hospitalization at [facility] and had been on Flagyl treatment for about 12 days. Last colonoscopy in 2008 Status post colonoscopy with concerns of a transverse colon mass. CEA is elevated at 31.6. Patient is scheduled for surgery tomorrow regarding the colon mass 2. Sepsis with possible colitis present on admission. Continue antibiotics 3. 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 Rheumatoid arthritis currently on methotrexate 5. Urinary retention Concepcion catheter reinserted in ER 6. Diabetes mellitus type 2: Continue sliding scale coverage 7. Hypokalemia: Resolved 8. Chronic pulmonary fibrosis followed by pulmonary service 9. New DVT of the left arm: Continue IV heparin. Patient seen by vascular surgery and hematology 10. Nutrition support. Patient will be switched over to PPN 11. Potassium will give K-Dur 20 milliequivalents by mouth 1 12. Hypophosphatemia improved with supplement 13. Left arm cellulitis secondary to PICC line. Blood culture and PICC line tip culture are negative. Continue IV vancomycin. Infectious disease following 14. Left ankle pain check uric acid level. Continue with the Ultram as needed GI and DVT prophylaxis Pepcid and IV heparin I performed an examination of the patient and discussed their management with the physician [employer]. I have reviewed the Physician [employer]'s notes and agree with the documented findings and plan of care
[2017-04-25 11:31] LABS: Glucose,Whole Blood 121 mg/dL (75-99)
[2017-04-25] MEDS ORDERED: Potassium Replacement Protocol 1 EACH MISC MISCELLANE PRN (12:30)
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
[2017-04-25] MEDS ORDERED: PEG 3350-NA SULF,BICARB,CL/KCL 4,000 ML BOTTLE PO ONE (14:00)
[2017-04-25] MEDS: POTASSIUM CHLORIDE ER 20 MEQ TAB.ER PO SCH ×4 (14:09→22:23)
[2017-04-25] MEDS ORDERED: POTASSIUM CHLORIDE ER 20 MEQ TAB.ER PO STA (14:52)
--- NOTE | 2017-04-25 16:02 | P.PN ---
Subjective Progress Note Date: 04/25/17 Principal diagnosis: Colon mass Patient without new complaints. Tolerating diet. Starting her bowel prep today. Potassium was noted to be low today and is being supplemented. Repeat potassium later today. Objective - Vital Signs Vital signs: Vital Signs Temp 99.3 F 04/25/17 07:00 Pulse 87 04/25/17 07:00 Resp 16 04/25/17 07:00 BP 169/74 04/25/17 07:00 Pulse Ox 92 L 04/25/17 07:00 Intake & Output 04/24/17 04/25/17 04/25/17 18:59 06:59 18:59 Intake Total 1368.364 596.636 125.667 Output Total 2100 2201 1000 Balance -731.636 -1604.364 -874.333 Weight 68.6 kg Intake: IV 625 Sodium Chloride 0.9% 1, 525 000 ml @ 75 mls/hr IV . [id number] KEITH Rx#:[id number] metroNIDAZOLE-NS PMX 500 100 mg In Saline 1 100ml.bag @ 100 mls/hr IVPB Q6HR KEITH Rx#:[id number] Intake, IV Titration 743.364 6.636 125.667 Amount Heparin Sod,Pork in 0.45% 493.364 6.636 125.667 NaCl 25,000 unit In 0.45 % NaCl 1 500ml.bag @ 18 UNITS/KG/HR 20.88 mls/hr IV .[id number] KEITH Rx#: [id number] Vancomycin 1,000 mg In 250 Sodium Chloride 0.9% 250 ml @ 125 mls/hr IVPB Q12H KEITH Rx#:[id number] Oral 590 Output: Urine 2100 2200 1000 Straight 2100 1300 1000 Stool 1 Other: Voiding Method Indwelling Catheter Indwelling Catheter Indwelling Catheter - Exam Abdomen: Soft, nontender, nondistended - Labs CBC & Chem 7: 04/25/17 06:56 04/25/17 06:56 Labs: Abnormal Lab Results - Last 24 Hours (Table) 04/24/17 04/24/17 04/24/17 Range/Units 17:16 17:50 20:33 RBC (3.80-5.40) m/uL Hgb (11.4-16.0) gm/dL Hct (34.0-46.0) % RDW (11.5-15.5) % APTT 80.4 H (22.0-30.0) sec Potassium (3.5-5.1) mmol/L BUN (7-17) mg/dL Glucose (74-99) mg/dL POC Glucose (mg/dL) 162 H 123 H (75-99) mg/dL Uric Acid (3.7-7.4) mg/dL 04/25/17 04/25/17 04/25/17 Range/Units 01:20 06:56 06:56 RBC 3.43 L (3.80-5.40) m/uL Hgb 9.2 L (11.4-16.0) gm/dL Hct 28.7 L (34.0-46.0) % RDW 16.4 H (11.5-15.5) % APTT 56.5 H (22.0-30.0) sec Potassium 2.9 L* (3.5-5.1) mmol/L BUN 3 L (7-17) mg/dL Glucose 101 H (74-99) mg/dL POC Glucose (mg/dL) (75-99) mg/dL Uric Acid (3.7-7.4) mg/dL 04/25/17 04/25/17 04/25/17 Range/Units 06:56 06:56 07:14 RBC (3.80-5.40) m/uL Hgb (11.4-16.0) gm/dL Hct (34.0-46.0) % RDW (11.5-15.5) % APTT 58.4 H (22.0-30.0) sec Potassium (3.5-5.1) mmol/L BUN (7-17) mg/dL Glucose (74-99) mg/dL POC Glucose (mg/dL) 106 H (75-99) mg/dL Uric Acid 2.2 L (3.7-7.4) mg/dL 04/25/17 Range/Units 11:17 RBC (3.80-5.40) m/uL Hgb (11.4-16.0) gm/dL Hct (34.0-46.0) % RDW (11.5-15.5) % APTT (22.0-30.0) sec Potassium (3.5-5.1) mmol/L BUN (7-17) mg/dL Glucose (74-99) mg/dL POC Glucose (mg/dL) 121 H (75-99) mg/dL Uric Acid (3.7-7.4) mg/dL Microbiology - Last 24 Hours (Table) 04/22/17 12:10 Blood Culture - Preliminary Blood No Growth after 72 hours 04/22/17 12:36 Blood Culture - Preliminary Blood No Growth after 72 hours 04/22/17 10:50 Catheter Tip Culture - Final Catheter Tip Assessment and Plan (1) Adenocarcinoma with neuroendocrine differentiation Narrative/Plan: Bowel prep today. Dr. Blanca Will proceed with partial colonic resection tomorrow. Repeat potassium later today. Current Visit: Yes Status: Acute Priority: High Code(s): C7A.1 - MALIGNANT POORLY DIFFERENTIATED NEUROENDOCRINE TUMORS SNOMED Code(s): 457933731
[2017-04-25 17:28] LABS: Glucose,Whole Blood 110 mg/dL (75-99)
--- NOTE | 2017-04-25 19:03 | PN ---
PROGRESS NOTE DATE OF SERVICE: 04/25/2017. REASON FOR FOLLOWUP: 1. Left lower extremity cellulitis. 2. Colitis. INTERVAL HISTORY: The patient is afebrile. Overall redness to left upper extremity much improved. Did have some swelling though swelling has decreased as well. Denies any pain in left lower extremity. No chest pain, shortness of breath or cough. Abdominal pain has improved. No nausea, vomiting, or any diarrhea. EXAMINATION: Blood pressure 155/93 with a pulse of 85, temperature of 99. She is 95% on room air. General description is an elderly female up in the bed in no distress. RESPIRATORY SYSTEM: Unlabored breathing. Clear to auscultation. No wheeze or crackle. HEART: S1, S2. Regular rate and rhythm: Left upper extremity with some swelling, but no redness. LAB: Blood cultures have been negative. Catheter culture negative. DIAGNOSTIC IMPRESSION AND PLAN: 1. Patient with a left upper extremity swelling and a question of mild cellulitis adequately treated. Blood culture negative. Discontinue the vancomycin to decrease risk of nephrotoxicity. 2. Patient with colitis. Surgery is tomorrow. Continue patient on Rocephin and Flagyl at this point. Continue supportive care. MMODL / IJN: [id number] /
[2017-04-25] MEDS: ONDANSETRON 4 MG/2 ML VIAL IVP PRN (20:07)
[2017-04-25 21:04] LABS: Glucose,Whole Blood 118 mg/dL (75-99)
[2017-04-26] MEDS ORDERED: POTASSIUM CHLORIDE ER 20 MEQ TAB.ER PO STA (00:32)
[2017-04-26] MEDS: metroNIDAZOLE-NS PMX 500 MG in SALINE 1 100ML.BAG IVPB SCH ×5 (01:09→23:59)
[2017-04-26] MEDS: SODIUM CHLORIDE 0.9% 1,000 ML IV SCH ×2 (01:10→08:30)
[2017-04-26] MEDS: HEPARIN SOD,PORK IN 0.45% NACL 25,000 UNIT in 0.45% NACL 1 500ML.BAG IV SCH (06:15)
[2017-04-26 07:23] LABS: Anisocytosis Slight; HCT 29.8 % (34.0-46.0); HGB 9.7 gm/dL (11.4-16.0); Hypochromasia Moderate; MCH 27.2 pg (25.0-35.0); MCHC 32.4 g/dL (31.0-37.0); Mean Platelet Volume 7.7; Platelet Count 382 k/uL (150-450); Poikilocytosis Slight; RBC 3.55 m/uL (3.80-5.40); RDW 16.4 % (11.5-15.5); WBC 6.6 k/uL (3.8-10.6)
[2017-04-26 07:54] LABS: Glucose,Whole Blood 87 mg/dL (75-99)
[2017-04-26 08:02] LABS: Anion Gap 8 mmol/L; Blood Urea Nitrogen 3 mg/dL (7-17); Calcium 8.4 mg/dL (8.4-10.2); Carbon Dioxide 23 mmol/L (22-30); Chloride 108 mmol/L (98-107); Glucose 85 mg/dL (74-99); Magnesium 1.7 mg/dL (1.6-2.3); Phosphorus 2.6 mg/dL (2.5-4.5); Sodium 139 mmol/L (137-145)
[2017-04-26] MEDS: INSULIN ASPART 100 UNIT/ML 1 ML 10 ML VIAL SQ SCH ×4 (08:03→22:52)
[2017-04-26] MEDS: VANCOMYCIN 1,000 MG in SODIUM CHLORIDE 0.9% 250 ML IVPB SCH (08:15)
[2017-04-26] MEDS: cefTRIAXone IN SWFI 1,000 MG/10 ML SYRINGE IVP SCH (08:27)
[2017-04-26] MEDS: DICYCLOMINE 20 MG TAB PO SCH (08:30)
[2017-04-26] MEDS: FOLIC ACID 1 MG TAB PO SCH (08:30)
[2017-04-26] MEDS: PANTOPRAZOLE 40 MG TABLET PO SCH (08:30)
[2017-04-26] MEDS: FUROSEMIDE 20 MG TAB PO SCH (08:30)
[2017-04-26] MEDS: METOPROLOL TARTRATE 12.5 MG TAB PO SCH (08:31)
[2017-04-26] MEDS: NYSTATIN 100,000 UNIT/ML SUSP 500,000 UNIT/5 ML CUP PO SCH ×4 (08:32→23:54)
[2017-04-26] MEDS: MONTELUKAST 10 MG TAB PO SCH (08:32)
[2017-04-26] MEDS: BUDESONIDE 0.25 MG/2 ML NEBU INHALATION SCH ×2 (09:21→20:16)
[2017-04-26] MEDS: FORMOTEROL FUMARATE 20 MCG/2 ML NEBU INHALATION SCH ×2 (09:22→20:16)
[2017-04-26 10:00] LABS: Lymphocytes # (M) 1.39 k/uL (1.0-4.8); Monocytes # (M) 0.86 k/uL (0-1.0); Neutrophils # (M) 4.16 k/uL (1.3-7.7); Neutrophils % (M) 63 %; Nucleated Red Blood Cells 0 /100 WBC (0-0); Total Cells Counted 100
[2017-04-26 10:01] LABS: Polychromasia Present
--- NOTE | 2017-04-26 10:42 | P.PN ---
Subjective Progress Note Date: 04/26/17 This is a 86-year-old female with a known past medical history of site COPD, diabetes mellitus, rheumatoid arthritis, lower extremity DVT, GERD, C. diff, recurrent episodes of urinary retention, diverticulosis and a recent admission at [facility] about 3 weeks ago for colitis. At that time she was treated with Flagyl. History was obtained from patient's daughter. Who reports that patient had shown improvement but once she finished the Flagyl her symptoms worsened again. She has been having journalized weakness nausea decrease in appetite and diarrhea. She also has been having fevers at home. She came back into the hospital for further evaluation. She was found have a temp of 102 white count 15.2 started on Rocephin and Flagyl. Computed tomography scan of the abdomen and pelvis shows at the site of prior partial colectomy there is new irregular wall thickening with mild fat stranding and suspicious adjacent adenopathy, acute infectious process at this level or colitis could have this appearance. 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 Per daughter patient does not have any prior history of cancer. She has had a bowel resection for a perforated diverticulitis. Dr. Silveira has been consulted for further evaluation. We'll check stool studies. Patient also is having evidence of urinary retention and Concepcion catheter was reinserted in the emergency room. She had recently been to see Dr. Murphy for the urinary retention at that time for catheter was removed. 04/19/2017 patient is scheduled for colonoscopy today with Dr. Silveira. Denies any nausea or vomiting. No blood in the stools. Denies any chest pain or shortness of breath. Does have some bruising and minimal swelling noted along the left arm from an old IV site. No hematoma. No tenderness. 04/22/2017 patient is status post colonoscopy which had revealed a transverse colon mass. She is followed closely by surgery and is scheduled for bowel resection today. However, patient was found to have swelling in her left upper arm where the PICC line was placed on Saturday for TPN. She has some evidence of possible cellulitis near the PICC line site with's beginning of streaking down the back of her left arm. PICC line will be removed and tip will be sent for culture. Infectious disease consulted. Doppler exam to rule out DVT ordered. Surgical service has been notified. Patient is afebrile. White count normal. She denies any chest pain or shortness of breath. Denies any nausea or vomiting. Concepcion catheter in place 04/23/2017 patient started on IV heparin yesterday for left arm DVT. PICC line was removed due to it causing cellulitis. PICC line tip culture and blood culture pending. Seen by infectious disease and they've added IV vancomycin. Her left arm is still swollen and red. Patient's abdominal surgery for the colon mass was canceled. At this time patient is stating she doesn't want anything further done. However, she is willing to listen to the consulting physicians further recommendations and then will decide if she wants anything else done. 04/25/2017 patient is complaining of left ankle pain. She denies any injury. She doesn't may be her rheumatoid arthritis. She does have Ultram if needed. She is scheduled for surgery regarding the colon mass tomorrow. She reports having bowel movements. Denies any chest pain or shortness of breath. She is very weak and requires assistance to get to the restroom 04/26/2017 patient lying in bed comfortably. No new complaints. She is scheduled for surgery this afternoon. Hemoglobin is up to 9.7. Potassium was corrected yesterday. Infectious disease has discontinue the IV vancomycin. Denies any chest pain or shortness breath. Denies any nausea vomiting. Reports having bowel movements. Objective - Vital Signs Vital signs: Vital Signs Temp 98.0 F 04/26/17 07:00 Pulse 82 04/26/17 09:41 Resp 18 04/26/17 07:00 BP 183/84 04/26/17 07:00 Pulse Ox 94 L 04/26/17 09:24 Intake & Output 04/25/17 04/26/17 04/26/17 18:59 06:59 18:59 Intake Total 735.408 1804.333 Output Total 1000 1300 600 Balance -136.333 314.333 -600 Weight 69.5 kg Intake: IV 738 450 Heparin Sod,Pork in 0.45% 138 NaCl 25,000 unit In 0.45 % NaCl 1 500ml.bag @ 18 UNITS/KG/HR 20.88 mls/hr IV .[id number] [facility] Rx#: [id number] Sodium Chloride 0.9% 1, 600 450 000 ml @ 75 mls/hr IV . [id number] [facility] Rx#:[id number] Intake, IV Titration 125.667 374.333 Amount Heparin Sod,Pork in 0.45% 125.667 374.333 NaCl 25,000 unit In 0.45 % NaCl 1 500ml.bag @ 18 UNITS/KG/HR 20.88 mls/hr IV .[id number] [facility] Rx#: [id number] Oral 590 Lipid 200 metroNIDAZOLE-NS PMX 500 200 mg In Saline 1 100ml.bag @ 100 mls/hr IVPB Q6HR [facility] Rx#:[id number] Output: Urine 1000 1300 600 Straight 1000 600 Other: Voiding Method Indwelling Catheter Indwelling Catheter # Bowel Movements 5 - Exam Head normocephalic Neck supple Lungs clear to auscultation bilaterally no wheezing or crackles Heart regular rate and rhythm S1-S2, no rub or gallop Abdomen is soft nontender nondistended positive bowel sounds no hepatosplenomegaly Extremities no edema of the lower extremities. Left arm swelling and redness decreasing. Left ankle no redness minimal swelling noted. No tenderness with palpation Neuro alert and orientated to 3 - Labs CBC & Chem 7: 04/26/17 06:48 04/26/17 06:48 Labs: Abnormal Lab Results - Last 24 Hours (Table) 04/25/17 04/25/17 04/25/17 Range/Units 06:56 11:17 17:26 RBC (3.80-5.40) m/uL Hgb (11.4-16.0) gm/dL Hct (34.0-46.0) % RDW (11.5-15.5) % APTT (22.0-30.0) sec Potassium (3.5-5.1) mmol/L Chloride (98-107) mmol/L BUN (7-17) mg/dL POC Glucose (mg/dL) 121 H 110 H (75-99) mg/dL Uric Acid 2.2 L (3.7-7.4) mg/dL 04/25/17 04/25/17 04/26/17 Range/Units 19:51 21:02 06:48 RBC (3.80-5.40) m/uL Hgb (11.4-16.0) gm/dL Hct (34.0-46.0) % RDW (11.5-15.5) % APTT (22.0-30.0) sec Potassium 3.1 L (3.5-5.1) mmol/L Chloride 108 H (98-107) mmol/L BUN 3 L (7-17) mg/dL POC Glucose (mg/dL) 118 H (75-99) mg/dL Uric Acid (3.7-7.4) mg/dL 04/26/17 04/26/17 Range/Units 06:48 06:48 RBC 3.55 L (3.80-5.40) m/uL Hgb 9.7 L (11.4-16.0) gm/dL Hct 29.8 L (34.0-46.0) % RDW 16.4 H (11.5-15.5) % APTT 50.1 H (22.0-30.0) sec Potassium (3.5-5.1) mmol/L Chloride (98-107) mmol/L BUN (7-17) mg/dL POC Glucose (mg/dL) (75-99) mg/dL Uric Acid (3.7-7.4) mg/dL Microbiology - Last 24 Hours (Table) 04/22/17 12:10 Blood Culture - Preliminary Blood No Growth after 72 hours 04/22/17 12:36 Blood Culture - Preliminary Blood No Growth after 72 hours Assessment and Plan Assessment: 1. Acute colitis with Abdominal pain with nausea, diarrhea, decreased appetite : Computed tomography scan of the abdomen showing evidence of at site of prior partial colectomy there is new irregular wall thickening with mild fat stranding and suspicious adjacent adenopathy acute infectious process at this level or colitis have this appearance. Also suspicion of neoplasm is suspected and follow-up colonoscopy after treatment is advised as noted on CAT scan. Dr. Silveira has been consulted. Patient has been started on Rocephin and Flagyl. Stool culture is growing Stacey albicans. Stool for C. diff negative. Patient had recent hospitalization at [facility] and had been on Flagyl treatment for about 12 days. Last colonoscopy in 2008 Status post colonoscopy with concerns of a transverse colon mass. CEA is elevated at 31.6. Patient is scheduled for surgery today 2. Sepsis with possible colitis present on admission. Continue antibiotics with Rocephin and Flagyl. Infectious disease following 3. 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 Rheumatoid arthritis currently on methotrexate 5. Urinary retention Concepcion catheter reinserted in ER 6. Diabetes mellitus type 2: Continue sliding scale coverage 7. Hypokalemia: Resolved 8. Chronic pulmonary fibrosis followed by pulmonary service 9. New DVT of the left arm: Continue IV heparin. Patient seen by vascular surgery and hematology 10. Left arm cellulitis secondary to PICC line. Blood culture and PICC line tip culture are negative. Seen by infectious disease. IV vancomycin discontinued. Cellulitis is improving 14. Left ankle pain. Uric acid level checked low. Continue ultram. Likely related to her rheumatoid arthritis. No new injury. GI and DVT prophylaxis Pepcid and IV heparin I performed an examination of the patient and discussed their management with the physician Computer Systems Support Specialist. I have reviewed the Physician Computer Systems Support Specialist's notes and agree with the documented findings and plan of care
[2017-04-26 11:30] LABS: Glucose,Whole Blood 105 mg/dL (75-99)
--- NOTE | 2017-04-26 13:56 | PN ---
PROGRESS NOTE DATE OF SERVICE: 04/26/2017 REASON FOR FOLLOWUP: 1. Colitis. 2. Left upper extremity cellulitis. INTERVAL HISTORY: The patient is afebrile. She is breathing comfortably. She is currently waiting for surgery this afternoon. No chest pain, shortness of breath or cough. PHYSICAL EXAMINATION: On examination, blood pressure is 164/76, pulse of 82, temperature of 98.7. She is 94% on room air. General description is an elderly female, lying in bed in no distress. RESPIRATORY SYSTEM: Unlabored breathing, clear to auscultation anteriorly. HEART: S1, S2. Regular rate and rhythm. ABDOMEN: Soft. There is no tenderness. LABS: Hemoglobin is 9.7, white count 6.6 with a BUN of 30, creatinine 0.61. Blood culture has been negative. Catheter tip culture negative. DIAGNOSTIC IMPRESSION AND PLAN: 1. Patient left upper extremity cellulitis with no evidence of any bacteremia or a PICC line infection that has been discontinued. Vancomycin was discontinued yesterday. We will monitor patient closely. Keep the left arm elevated. 2. Patient with colitis, possible , for surgery this afternoon. Keep the patient on Rocephin and Flagyl. Family present at bedside. Their questions were answered. MMODL / IJN: [id number] /
[2017-04-26] MEDS ORDERED: IV FLUID CONTINUATION 1,000 ML IV ONE (14:31)
[2017-04-26] MEDS: ONDANSETRON 4 MG/2 ML VIAL IVP PRN (14:43)
[2017-04-26] MEDS ORDERED: SODIUM CHLORIDE 0.9% 1,000 ML IV ONE (15:06)
[2017-04-26] MEDS ORDERED: SUCCINYLCHOLINE CHLORIDE 100 MG/5 ML SYR IV ONE (16:02)
[2017-04-26] MEDS ORDERED: LIDOCAINE 1% INJ 10MG/ML (20 ML MDV) ONE (16:02)
[2017-04-26] MEDS ORDERED: fentaNYL (PF) 50 MCG/ML 2 ML AMP ONE (16:02)
[2017-04-26] MEDS ORDERED: ROCURONIUM BROMIDE 10 MG/ML 10 ML VIAL IV ONE (16:02)
[2017-04-26] MEDS ORDERED: NEOSTIGMINE 1 MG/ML 10 ML VIAL ONE (16:02)
[2017-04-26] MEDS ORDERED: ePHEDrine SULFATE/0.9% NACL/PF 50 MG/5 ML SYRINGE IV ONE (16:02)
[2017-04-26] MEDS ORDERED: PROPOFOL 10 MG/ML 20 ML VIAL IV ONE (16:02)
[2017-04-26] MEDS ORDERED: GLYCOPYRROLATE 0.2 MG/ML 2 ML VIAL ONE (16:02)
--- NOTE | 2017-04-26 17:02 | P.OP ---
Date of Procedure: 04/26/17 Preoperative Diagnosis: Colonic tumor Postoperative Diagnosis: Transverse colon tumor pathology pending Procedure(s) Performed: Repair of incarcerated incisional hernia Transverse colectomy with ileocolonic stenosis Partial omentectomy Anesthesia: BENEDICTO Surgeon: Helder Blanca Estimated Blood Loss (ml): 50 Pathology: other (Ileocolonic anastomosis, mesentery, omentum) Description of Procedure: Patient's placed on the operating table in the supine position. She received general anesthesia. Her abdomen was prepped and draped usual sterile fashion. The abdomen was entered through a midline incision. At the umbilicus there is evidence of a incisional hernia. The hernia contained some incarcerated omentum. This was transected with the LigaSure device. The abdomen was explored and there was a large mass in the mid transverse colon at the previous ileocolonic anastomosis. The mass was penetrating towards the mesentery and there was some small bowel adherent to this. The small bowel was dissected free. At this point the ileum was transected GI stapler. And then the transverse colon was transected with a GI stapler. Using LigaSure device the mesentery of the colon and small bowel was divided. And then a [id number] functional end-to-end stapled anastomosis was created using the LISA and TA stapler. A 3-0 GI silk suture was placed the crotch stitch. The abdomen was irrigated there is no bleeding seen. The fascia was closed with looped #1 PDS suture. Skin was closed priti. The prevena dressing was applied
[2017-04-26 17:24] LABS: Glucose,Whole Blood 95 mg/dL (75-99)
[2017-04-26] MEDS ORDERED: ONDANSETRON 4 MG/2 ML VIAL IVP ONE (17:49)
[2017-04-26] MEDS ORDERED: MORPHINE SULFATE 4 MG/ML SYRINGE IVP ONE (17:50)
[2017-04-26] MEDS ORDERED: fentaNYL (PF) 50 MCG/ML 2 ML AMP IVP ONE (18:17)
[2017-04-26] MEDS: D5-0.45% NACL WITH KCL 20MEQ/L 1,000 ML IV SCH (19:13)
[2017-04-26 19:59] LABS: Glucose,Whole Blood 103 mg/dL (75-99)
[2017-04-26] MEDS: MORPHINE SULFATE 4 MG/ML SYRINGE IV PRN (20:04)
[2017-04-27] MEDS: MORPHINE SULFATE 4 MG/ML SYRINGE IV PRN ×2 (05:14→08:26)
[2017-04-27] MEDS: metroNIDAZOLE-NS PMX 500 MG in SALINE 1 100ML.BAG IVPB SCH ×4 (05:16→23:44)
[2017-04-27 07:17] LABS: Glucose,Whole Blood 259 mg/dL (75-99)
[2017-04-27] MEDS: FORMOTEROL FUMARATE 20 MCG/2 ML NEBU INHALATION SCH ×2 (07:40→20:33)
[2017-04-27] MEDS: BUDESONIDE 0.25 MG/2 ML NEBU INHALATION SCH ×2 (07:40→20:33)
[2017-04-27] MEDS: METHOTREXATE SODIUM 2.5 MG TAB PO SCH (07:50)
[2017-04-27] MEDS: DICYCLOMINE 20 MG TAB PO SCH (07:53)
[2017-04-27] MEDS: ALVIMOPAN 12 MG CAPSULE PO SCH ×3 (07:53→22:26)
[2017-04-27] MEDS: MONTELUKAST 10 MG TAB PO SCH (07:53)
[2017-04-27] MEDS: FUROSEMIDE 20 MG TAB PO SCH (07:53)
[2017-04-27] MEDS: METOPROLOL TARTRATE 12.5 MG TAB PO SCH (07:53)
[2017-04-27] MEDS: FOLIC ACID 1 MG TAB PO SCH (07:53)
[2017-04-27] MEDS: NYSTATIN 100,000 UNIT/ML SUSP 500,000 UNIT/5 ML CUP PO SCH ×4 (07:54→22:26)
[2017-04-27] MEDS: PANTOPRAZOLE 40 MG TABLET PO SCH (07:55)
[2017-04-27] MEDS: cefTRIAXone IN SWFI 1,000 MG/10 ML SYRINGE IVP SCH (07:55)
[2017-04-27] MEDS: SODIUM CHLORIDE 0.9% 1,000 ML IV SCH ×2 (07:56→11:46)
[2017-04-27] MEDS: INSULIN ASPART 100 UNIT/ML 1 ML 10 ML VIAL SQ SCH ×4 (08:09→22:25)
[2017-04-27] MEDS ORDERED: MORPHINE SULFATE 4 MG/ML SYRINGE IVP PRN (10:14)
--- NOTE | 2017-04-27 10:37 | P.PN ---
Progress Note - Text Progress Note Date: 04/27/17 The patient is postoperative day 1 from exploratory laparotomy with partial colectomy and ileocolonic anastomosis for recurrent colon cancer. The patient is resting comfortably in bed. She does not appear to be in any distress. On exam her vital signs appear stable. Her abdomen soft incision site is clean dry and intact. Status post partial colectomy. Patient will remain on clear liquid diet.
[2017-04-27 11:17] LABS: Glucose,Whole Blood 270 mg/dL (75-99)
[2017-04-27] MEDS: D5-0.45% NACL WITH KCL 20MEQ/L 1,000 ML IV SCH ×3 (13:23→18:10)
--- NOTE | 2017-04-27 14:23 | P.PN ---
Subjective Progress Note Date: 04/27/17 Patient is awake and alert. Her pain is well-controlled. She was able to tolerate liquid diet with no difficulty. Objective - Vital Signs Vital signs: Vital Signs Temp 100.0 F H 04/27/17 08:15 Pulse 110 H 04/27/17 08:15 Resp 16 04/27/17 08:15 BP 164/83 04/27/17 08:15 Pulse Ox 96 04/27/17 08:15 Intake & Output 04/26/17 04/27/17 04/27/17 18:59 06:59 18:59 Intake Total 1400 Output Total 1454 736 3485 Balance 225 -300 -1300 Weight 69.5 kg 69.2 kg Intake: IV 1150 Sodium Chloride 0.9% 1, 150 000 ml @ 75 mls/hr IV . [id number] [facility] Rx#:[id number] Intake, IV Titration 250 Amount Vancomycin 1,000 mg In 250 Sodium Chloride 0.9% 250 ml @ 125 mls/hr IVPB Q12H [facility] Rx#:[id number] Output: Urine 3872 414 3466 Straight 600 300 300 Estimated Blood Loss 50 Other: Voiding Method Indwelling Catheter Indwelling Catheter Indwelling Catheter - Exam General: The patient is awake and alert, in no distress Eye: there is normal conjunctiva bilaterally. Neck: The neck is supple, there is no JVD. Cardiovascular: Normal S1-S2, no S3-S4, no murmurs. Respiratory: Lungs clear to auscultation bilaterally Gastrointestinal: Abdomen is soft, nontender Musculoskeletal: There is no pedal edema. Neurological:. Speech is normal. Skin: Skin is warm and dry - Labs CBC & Chem 7: 04/26/17 06:48 04/26/17 06:48 Labs: Abnormal Lab Results - Last 24 Hours (Table) 04/26/17 04/26/17 04/27/17 Range/Units 06:48 19:58 07:15 POC Glucose (mg/dL) 103 H 259 H (75-99) mg/dL Albumin 2.1 L (3.5-5.0) g/dL 04/27/17 Range/Units 11:16 POC Glucose (mg/dL) 270 H (75-99) mg/dL Albumin (3.5-5.0) g/dL Microbiology - Last 24 Hours (Table) 04/22/17 12:10 Blood Culture - Preliminary Blood No Growth after 96 hours 04/22/17 12:36 Blood Culture - Preliminary Blood No Growth after 96 hours Assessment and Plan Assessment: 1. Acute colitis with Abdominal pain: Status post repair of incarcerated incisional hernia, transverse colectomy, and partial omentectomy on 04/26/17. Continue postoperative care. Gen. surgery following closely. Maintained on broad-spectrum antibiotic. Infectious disease. Status post colonoscopy with concerns of a transverse colon mass. CEA is elevated at 31.6. Pathology pending 2. Sepsis with possible colitis present on admission. Continue antibiotics with Rocephin and Flagyl. Infectious disease following 3. 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 Rheumatoid arthritis currently on methotrexate 5. Urinary retention Concepcion catheter reinserted in ER 6. Diabetes mellitus type 2: Continue sliding scale coverage 7. Hypokalemia: Resolved 8. Chronic pulmonary fibrosis followed by pulmonary service 9. New DVT of the left arm: Continue IV heparin. Patient seen by vascular surgery and hematology 10. Left arm cellulitis secondary to PICC line. Blood culture and PICC line tip culture are negative. Seen by infectious disease. IV vancomycin discontinued. Cellulitis is improving
[2017-04-27] MEDS: HEPARIN SOD,PORK IN 0.45% NACL 25,000 UNIT in 0.45% NACL 1 500ML.BAG IV SCH (16:59)
[2017-04-27 17:18] LABS: Glucose,Whole Blood 255 mg/dL (75-99)
[2017-04-27 20:16] LABS: Glucose,Whole Blood 245 mg/dL (75-99)
--- NOTE | 2017-04-27 21:41 | PN ---
PROGRESS NOTE DATE OF SERVICE: 04/27/2017. REASON FOR FOLLOWUP: 1. Postop fevers. 2. Left upper extremity cellulitis. INTERVAL HISTORY: The patient has been taken to OR yesterday afternoon, where the patient did have a laparotomy. She is status post colectomy and colonic anastomosis and repair of incarcerated abdominal hernia. The patient had tolerated the procedure; however, has been running low-grade fever this morning of 100 with 100.7 in the evening. The patient seemed to be slightly lethargic, but hemodynamically stable. No nausea, no vomiting or any worsening abdominal pain. EXAMINATION: Showed blood pressure 141/56 with a pulse of 110, temperature of 100.7 axillary. She is 100% on 4L nasal cannula. General description is an elderly female lying in bed in no distress. RESPIRATORY SYSTEM: Unlabored breathing. Decreased breath sounds in the bases. No wheeze. HEART: S1, S2. Regular rate and rhythm. ABDOMEN: Soft, slightly distended. No guarding or rigidity. LEFT LOWER EXTREMITY: Swelling, but no redness. LABS: Hemoglobin 9.8, white count of 6.6. BUN of 3, creatinine 0.61. DIAGNOSTIC IMPRESSION AND PLAN: 1. Patient with left lower extremity cellulitis, adequately treated. 2. Patient now with a postoperative fever in a patient who was noticed to have incarcerated incisional hernia, status post repair with a large transverse colon tumor, had anastomosis tried penetrating to the mesentery, status post transverse colectomy with a question of possible secondary peritonitis at this time. 3. We will obtain blood cultures, check a urine culture and antibiotic by addition of cefepime and discontinuation of Rocephin. Continue the Flagyl suggesting clinical response as well as culture. Continue supportive care. MMODL / IJN: [id number] /
[2017-04-27] MEDS: CEFEPIME 2 GM in SODIUM CHLORIDE 0.9% 50 ML IVPB SCH (22:24)
[2017-04-27] MEDS: MORPHINE SULFATE 4 MG/ML SYRINGE IVP PRN (23:13)
[2017-04-28] MEDS ORDERED: HEPARIN SODIUM,PORCINE 5,000 UNIT/ML 1 ML VIAL IV PRN (02:05)
[2017-04-28 02:59] LABS: Anisocytosis Slight; Basophils # (A) 0.1 k/uL (0-0.2); Basophils % (A) 0 %; Eosinophils # (A) 0.1 k/uL (0-0.7); Eosinophils % (A) 1 %; HCT 31.7 % (34.0-46.0); HGB 10.1 gm/dL (11.4-16.0); Hypochromasia Moderate; Lymphocytes # (A) 1.2 k/uL (1.0-4.8); Lymphocytes % (A) 9 %; MCH 27.1 pg (25.0-35.0); MCHC 31.9 g/dL (31.0-37.0); MCV 84.7 fL (80.0-100.0); Mean Platelet Volume 7.7; Monocytes % (A) 7 %; Neutrophils # (A) 11.3 k/uL (1.3-7.7); Neutrophils % (A) 80 %; Platelet Count 388 k/uL (150-450); Poikilocytosis Slight; RBC 3.74 m/uL (3.80-5.40); RDW 16.5 % (11.5-15.5); WBC 14.1 k/uL (3.8-10.6)
[2017-04-28 03:05] LABS: INR 1.4 (<1.2); Prothrombin Time 13.5 sec (9.0-12.0)
[2017-04-28 03:10] LABS: ALT 15 U/L (9-52); AST 9 U/L (14-36); Albumin 2.1 g/dL (3.5-5.0); Alkaline Phosphatase 41 U/L (38-126); Anion Gap 6 mmol/L; Blood Urea Nitrogen 3 mg/dL (7-17); Calcium 8.6 mg/dL (8.4-10.2); Carbon Dioxide 24 mmol/L (22-30); Chloride 102 mmol/L (98-107); Glucose 250 mg/dL (74-99); Potassium 3.4 mmol/L (3.5-5.1); Sodium 132 mmol/L (137-145); Total Bilirubin 0.3 mg/dL (0.2-1.3); Total Protein 4.9 g/dL (6.3-8.2)
[2017-04-28] MEDS: MORPHINE SULFATE 4 MG/ML SYRINGE IVP PRN ×4 (03:42→17:07)
[2017-04-28 04:04] LABS: Appearance,Urine Cloudy (Clear); Bacteria,Urine Occasional /hpf; Bilirubin,Urine Negative (Negative); Blood,Urine Negative (Negative); Budding Yeast,Urine Moderate /hpf; Color,Urine Yellow; Glucose,Urine (UA) 4+ (Negative); Granular Casts,Urine 357 /lpf (0); Hyaline Casts,Urine 10 /lpf (0-2); Ketones,Urine Trace (Negative); Leukocyte Esterase,Urine Negative (Negative); Mucus,Urine Few /hpf; Nitrite,Urine Negative (Negative); Protein,Urine Trace (Negative); RBC,Urine 1 /hpf (0-5); Specific Gravity,Urine 1.016 (1.001-1.035); Urobilinogen,Urine <2.0 mg/dL (<2.0); WBC,Urine 3 /hpf (0-5)
[2017-04-28] MEDS: metroNIDAZOLE-NS PMX 500 MG in SALINE 1 100ML.BAG IVPB SCH ×3 (06:13→17:05)
[2017-04-28 07:14] LABS: Glucose,Whole Blood 252 mg/dL (75-99)
[2017-04-28] MEDS: FORMOTEROL FUMARATE 20 MCG/2 ML NEBU INHALATION SCH ×2 (07:26→19:10)
[2017-04-28] MEDS: BUDESONIDE 0.25 MG/2 ML NEBU INHALATION SCH ×2 (07:26→19:10)
[2017-04-28] MEDS: ACETAMINOPHEN TAB 325 MG TAB PO PRN (08:23)
[2017-04-28] MEDS ORDERED: ACETAMINOPHEN SUPPOSITORY 650 MG SUPP RECTAL STA (08:29)
[2017-04-28] MEDS: CEFEPIME 2 GM in SODIUM CHLORIDE 0.9% 50 ML IVPB SCH ×2 (09:00→20:28)
[2017-04-28] MEDS: FOLIC ACID 1 MG TAB PO SCH (09:26)
[2017-04-28] MEDS: PANTOPRAZOLE 40 MG TABLET PO SCH (09:26)
[2017-04-28] MEDS: METOPROLOL TARTRATE 12.5 MG TAB PO SCH (09:27)
[2017-04-28] MEDS: NYSTATIN 100,000 UNIT/ML SUSP 500,000 UNIT/5 ML CUP PO SCH ×4 (09:27→20:28)
[2017-04-28] MEDS: MONTELUKAST 10 MG TAB PO SCH (09:27)
[2017-04-28] MEDS: FUROSEMIDE 20 MG TAB PO SCH (09:27)
[2017-04-28] MEDS: ALVIMOPAN 12 MG CAPSULE PO SCH ×2 (09:27→20:28)
[2017-04-28] MEDS: traMADol 50 MG TAB PO PRN (09:28)
[2017-04-28] MEDS: D5-0.45% NACL WITH KCL 20MEQ/L 1,000 ML IV SCH ×2 (10:41→10:50)
[2017-04-28] MEDS ORDERED: LACTATED RINGERS 1,000 ML IV SCH (10:45)
[2017-04-28] MEDS: INSULIN ASPART 100 UNIT/ML 1 ML 10 ML VIAL SQ SCH ×4 (10:45→20:44)
--- NOTE | 2017-04-28 11:23 | P.PN ---
Subjective Progress Note Date: 04/28/17 Principal diagnosis: Colon cancer The patient's complaints of incisional pain. Apparently her morphine was causing significant sedation. The patient morphine was decreased to 1 mg every 3 hours. Objective - Vital Signs Vital signs: Vital Signs Temp 101.3 F H 04/28/17 08:34 Pulse 114 H 04/28/17 08:34 Resp 16 04/28/17 08:34 BP 170/86 04/28/17 08:34 Pulse Ox 98 04/28/17 08:34 Intake & Output 04/27/17 04/28/17 04/28/17 18:59 06:59 18:59 Intake Total 0.387 218.4 Output Total 1501 200 Balance -1500.613 18.4 Weight 69 kg Intake: Intake, IV Titration 0.387 218.4 Amount Heparin Sod,Pork in 0.45% 0.387 218.4 NaCl 25,000 unit In 0.45 % NaCl 1 500ml.bag @ 18 UNITS/KG/HR 20.88 mls/hr IV .[id number] [facility] Rx#: [id number] Output: Urine 1500 200 Straight 500 200 Stool 1 Other: Voiding Method Indwelling Catheter - Constitutional General appearance: Present: cooperative - Cardiovascular Rhythm: regular - Gastrointestinal Gastrointestinal Comment(s): Abdomen soft. Incision sites clean dry and intact. - Labs CBC & Chem 7: 04/28/17 02:50 04/28/17 02:50 Labs: Abnormal Lab Results - Last 24 Hours (Table) 04/27/17 04/27/17 04/27/17 Range/Units 17:15 20:05 23:08 WBC (3.8-10.6) k/uL RBC (3.80-5.40) m/uL Hgb (11.4-16.0) gm/dL Hct (34.0-46.0) % RDW (11.5-15.5) % Neutrophils # (1.3-7.7) k/uL PT (9.0-12.0) sec INR (<1.2) APTT 39.0 H (22.0-30.0) sec Sodium (137-145) mmol/L Potassium (3.5-5.1) mmol/L BUN (7-17) mg/dL Glucose (74-99) mg/dL POC Glucose (mg/dL) 255 H 245 H (75-99) mg/dL AST (14-36) U/L Total Protein (6.3-8.2) g/dL Albumin (3.5-5.0) g/dL Urine Appearance (Clear) Urine Protein (Negative) Urine Glucose (UA) (Negative) Urine Ketones (Negative) Urine Bacteria (None) /hpf Hyaline Casts (0-2) /lpf Urine Mucus (None) /hpf Urine Yeast (Budding) (None) /hpf 04/28/17 04/28/17 04/28/17 Range/Units 02:50 02:50 02:50 WBC 14.1 H (3.8-10.6) k/uL RBC 3.74 L (3.80-5.40) m/uL Hgb 10.1 L (11.4-16.0) gm/dL Hct 31.7 L (34.0-46.0) % RDW 16.5 H (11.5-15.5) % Neutrophils # 11.3 H (1.3-7.7) k/uL PT 13.5 H (9.0-12.0) sec INR 1.4 H (<1.2) APTT 45.0 H (22.0-30.0) sec Sodium 132 L (137-145) mmol/L Potassium 3.4 L (3.5-5.1) mmol/L BUN 3 L (7-17) mg/dL Glucose 250 H (74-99) mg/dL POC Glucose (mg/dL) (75-99) mg/dL AST 9 L (14-36) U/L Total Protein 4.9 L (6.3-8.2) g/dL Albumin 2.1 L (3.5-5.0) g/dL Urine Appearance (Clear) Urine Protein (Negative) Urine Glucose (UA) (Negative) Urine Ketones (Negative) Urine Bacteria (None) /hpf Hyaline Casts (0-2) /lpf Urine Mucus (None) /hpf Urine Yeast (Budding) (None) /hpf 04/28/17 04/28/17 04/28/17 Range/Units 03:53 07:13 09:05 WBC (3.8-10.6) k/uL RBC (3.80-5.40) m/uL Hgb (11.4-16.0) gm/dL Hct (34.0-46.0) % RDW (11.5-15.5) % Neutrophils # (1.3-7.7) k/uL PT (9.0-12.0) sec INR (<1.2) APTT 49.1 H (22.0-30.0) sec Sodium (137-145) mmol/L Potassium (3.5-5.1) mmol/L BUN (7-17) mg/dL Glucose (74-99) mg/dL POC Glucose (mg/dL) 252 H (75-99) mg/dL AST (14-36) U/L Total Protein (6.3-8.2) g/dL Albumin (3.5-5.0) g/dL Urine Appearance Cloudy H (Clear) Urine Protein Trace H (Negative) Urine Glucose (UA) 4+ H (Negative) Urine Ketones Trace H (Negative) Urine Bacteria Occasional H (None) /hpf Hyaline Casts 10 H (0-2) /lpf Urine Mucus Few H (None) /hpf Urine Yeast (Budding) Moderate H (None) /hpf Microbiology - Last 24 Hours (Table) 04/22/17 12:10 Blood Culture - Preliminary Blood No Growth after 120 hours 04/22/17 12:36 Blood Culture - Preliminary Blood No Growth after 120 hours Assessment and Plan Assessment: Status post exploratory laparotomy with partial colectomy and ileocolonic anastomosis. Patient will have her morphine increased slightly. She has a low- grade temperature. I have been asked the nurses to encourage pulmonary toilet. She'll be watched closely.
[2017-04-28] MEDS: ONDANSETRON 4 MG/2 ML VIAL IVP PRN (14:30)
--- NOTE | 2017-04-28 15:01 | P.PN ---
Subjective Patient is still complaining of abdominal pain today. She appeared to be uncomfortable. Her daughter is concerned about her getting high doses of morphine as patient is getting knocked out. She is having poor by mouth intake. No other events overnight. Objective - Vital Signs Vital signs: Vital Signs Temp 99.6 F 04/28/17 12:00 Pulse 114 H 04/28/17 08:34 Resp 16 04/28/17 08:34 BP 156/62 04/28/17 12:00 Pulse Ox 98 04/28/17 08:34 Intake & Output 04/27/17 04/28/17 04/28/17 18:59 06:59 18:59 Intake Total 0.387 218.4 Output Total 1501 200 1 Balance -1500.613 18.4 -1 Weight 69 kg Intake: Intake, IV Titration 0.387 218.4 Amount Heparin Sod,Pork in 0.45% 0.387 218.4 NaCl 25,000 unit In 0.45 % NaCl 1 500ml.bag @ 18 UNITS/KG/HR 20.88 mls/hr IV .[id number] [facility] Rx#: [id number] Output: Urine 1500 200 Straight 500 200 Stool 1 1 Other: Voiding Method Indwelling Catheter Indwelling Catheter - Exam General: The patient is awake and alert, in no distress Eye: there is normal conjunctiva bilaterally. Neck: The neck is supple, there is no JVD. Cardiovascular: Normal S1-S2, no S3-S4, no murmurs. Respiratory: Lungs clear to auscultation bilaterally Gastrointestinal: Abdomen is soft, there is moderate tenderness to palpation throughout the abdomen Musculoskeletal: There is no pedal edema. Neurological:. Speech is normal. Skin: Skin is warm and dry - Labs CBC & Chem 7: 04/28/17 02:50 04/28/17 02:50 Labs: Abnormal Lab Results - Last 24 Hours (Table) 04/27/17 04/27/17 04/27/17 Range/Units 17:15 20:05 23:08 WBC (3.8-10.6) k/uL RBC (3.80-5.40) m/uL Hgb (11.4-16.0) gm/dL Hct (34.0-46.0) % RDW (11.5-15.5) % Neutrophils # (1.3-7.7) k/uL PT (9.0-12.0) sec INR (<1.2) APTT 39.0 H (22.0-30.0) sec Sodium (137-145) mmol/L Potassium (3.5-5.1) mmol/L BUN (7-17) mg/dL Glucose (74-99) mg/dL POC Glucose (mg/dL) 255 H 245 H (75-99) mg/dL AST (14-36) U/L Total Protein (6.3-8.2) g/dL Albumin (3.5-5.0) g/dL Urine Appearance (Clear) Urine Protein (Negative) Urine Glucose (UA) (Negative) Urine Ketones (Negative) Urine Bacteria (None) /hpf Hyaline Casts (0-2) /lpf Urine Mucus (None) /hpf Urine Yeast (Budding) (None) /hpf 04/28/17 04/28/17 04/28/17 Range/Units 02:50 02:50 02:50 WBC 14.1 H (3.8-10.6) k/uL RBC 3.74 L (3.80-5.40) m/uL Hgb 10.1 L (11.4-16.0) gm/dL Hct 31.7 L (34.0-46.0) % RDW 16.5 H (11.5-15.5) % Neutrophils # 11.3 H (1.3-7.7) k/uL PT 13.5 H (9.0-12.0) sec INR 1.4 H (<1.2) APTT 45.0 H (22.0-30.0) sec Sodium 132 L (137-145) mmol/L Potassium 3.4 L (3.5-5.1) mmol/L BUN 3 L (7-17) mg/dL Glucose 250 H (74-99) mg/dL POC Glucose (mg/dL) (75-99) mg/dL AST 9 L (14-36) U/L Total Protein 4.9 L (6.3-8.2) g/dL Albumin 2.1 L (3.5-5.0) g/dL Urine Appearance (Clear) Urine Protein (Negative) Urine Glucose (UA) (Negative) Urine Ketones (Negative) Urine Bacteria (None) /hpf Hyaline Casts (0-2) /lpf Urine Mucus (None) /hpf Urine Yeast (Budding) (None) /hpf 04/28/17 04/28/17 04/28/17 Range/Units 03:53 07:13 09:05 WBC (3.8-10.6) k/uL RBC (3.80-5.40) m/uL Hgb (11.4-16.0) gm/dL Hct (34.0-46.0) % RDW (11.5-15.5) % Neutrophils # (1.3-7.7) k/uL PT (9.0-12.0) sec INR (<1.2) APTT 49.1 H (22.0-30.0) sec Sodium (137-145) mmol/L Potassium (3.5-5.1) mmol/L BUN (7-17) mg/dL Glucose (74-99) mg/dL POC Glucose (mg/dL) 252 H (75-99) mg/dL AST (14-36) U/L Total Protein (6.3-8.2) g/dL Albumin (3.5-5.0) g/dL Urine Appearance Cloudy H (Clear) Urine Protein Trace H (Negative) Urine Glucose (UA) 4+ H (Negative) Urine Ketones Trace H (Negative) Urine Bacteria Occasional H (None) /hpf Hyaline Casts 10 H (0-2) /lpf Urine Mucus Few H (None) /hpf Urine Yeast (Budding) Moderate H (None) /hpf Microbiology - Last 24 Hours (Table) 04/22/17 12:10 Blood Culture - Final Blood No Growth after 144 hours 04/22/17 12:36 Blood Culture - Final Blood No Growth after 144 hours 04/28/17 03:53 Urine Culture - Preliminary Urine,Catheterized Assessment and Plan Assessment: 1. Acute colitis with Abdominal pain: Status post repair of incarcerated incisional hernia, transverse colectomy, and partial omentectomy on 04/26/17. Continue postoperative care. Gen. surgery following closely. Maintained on broad-spectrum antibiotic. Infectious disease. Status post colonoscopy with concerns of a transverse colon mass. CEA is elevated at 31.6. Pathology pending 2. Sepsis with possible colitis present on admission. Continue antibiotics with Rocephin and Flagyl. Infectious disease following 3. 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 Rheumatoid arthritis currently on methotrexate 5. Urinary retention Concepcion catheter reinserted in ER 6. Diabetes mellitus type 2: Continue sliding scale coverage 7. Hypokalemia: Resolved 8. Chronic pulmonary fibrosis followed by pulmonary service 9. New DVT of the left arm: Continue IV heparin. Patient seen by vascular surgery and hematology 10. Left arm cellulitis secondary to PICC line. Blood culture and PICC line tip culture are negative. Seen by infectious disease. IV vancomycin discontinued. Cellulitis is improving
[2017-04-28] MEDS: HEPARIN SOD,PORK IN 0.45% NACL 25,000 UNIT in 0.45% NACL 1 500ML.BAG IV SCH (16:14)
[2017-04-28] MEDS ORDERED: FUROSEMIDE 10 MG/ML 2 ML VIAL IV STA (16:18)
[2017-04-28] MEDS: LACTATED RINGERS 1,000 ML IV SCH (17:04)
[2017-04-28] MEDS ORDERED: MORPHINE SULFATE/PF 10MG/10ML VL IVP PRN ×2 (17:39→17:40)
[2017-04-28] MEDS: FLUCONAZOLE IN NACL,ISO-OSM 200 MG in SALINE 1 100ML.BAG IVPB SCH (17:56)
[2017-04-28] MEDS ORDERED: WARFARIN 5 MG TAB PO ONE (18:00)
[2017-04-28 18:29] LABS: Glucose,Whole Blood 226 mg/dL (75-99)
[2017-04-28 20:18] LABS: Glucose,Whole Blood 210 mg/dL (75-99)
--- NOTE | 2017-04-28 23:00 | PN ---
PROGRESS NOTE DATE OF SERVICE: 04/28/2017. REASON FOR FOLLOWUP: Postop fever, possible UTI. INTERVAL HISTORY: The patient did spike a fever of 101.3 degrees Fahrenheit this morning. The patient has been complaining of some incisional pain for which her pain medication has been adjusted. The patient is breathing comfortably. No cough. No nausea, vomiting. EXAMINATION: Blood pressure 144/79 with a pulse of 88, temperature 97.2, T-max 101.3, she is 98% 3 L nasal cannula. GENERAL DESCRIPTION: An elderly female lying in bed in no distress. RESPIRATORY SYSTEM: Unlabored breathing with decreased breath sounds at the bases. No wheeze. HEART: S1, S2 regular rate and rhythm. ABDOMEN: Soft no distention, no guarding or rigidity. She did have a wound VAC on the incision. EXTREMITIES: Trace edema of feet. LABS: Hemoglobin is 10.1, white count 14.1 with BUN of 3, creatinine 0.60. Urine did show some moderate yeast. DIAGNOSTIC IMPRESSION AND PLAN: Patient with postop fever, question related to her catheter, which is supposed to be discontinued later this evening after she received a dose of Lasix. Urine showing a yeast. Diflucan will be added. Continue the patient on cefepime and Flagyl while waiting for the condition to stabilize and cultures to finalize. Daughter was present at bedside. Questions answered. MMODL / IJN: [id number] /
[2017-04-29] MEDS: metroNIDAZOLE-NS PMX 500 MG in SALINE 1 100ML.BAG IVPB SCH ×5 (00:24→23:11)
[2017-04-29] MEDS: traMADol 50 MG TAB PO PRN ×3 (00:24→23:11)
[2017-04-29 07:49] LABS: Glucose,Whole Blood 139 mg/dL (75-99)
[2017-04-29] MEDS: CEFEPIME 2 GM in SODIUM CHLORIDE 0.9% 50 ML IVPB SCH ×2 (07:49→21:17)
[2017-04-29 07:55] LABS: Anisocytosis Slight; Basophils # (A) 0.1 k/uL (0-0.2); Basophils % (A) 1 %; Eosinophils # (A) 0.5 k/uL (0-0.7); Eosinophils % (A) 4 %; HCT 28.1 % (34.0-46.0); HGB 8.9 gm/dL (11.4-16.0); Hypochromasia Moderate; Lymphocytes # (A) 1.6 k/uL (1.0-4.8); Lymphocytes % (A) 14 %; MCH 26.5 pg (25.0-35.0); MCHC 31.6 g/dL (31.0-37.0); Mean Platelet Volume 7.6; Monocytes % (A) 9 %; Neutrophils # (A) 8.2 k/uL (1.3-7.7); Neutrophils % (A) 70 %; Platelet Count 350 k/uL (150-450); Poikilocytosis Slight; RBC 3.34 m/uL (3.80-5.40); RDW 16.6 % (11.5-15.5); WBC 11.8 k/uL (3.8-10.6)
[2017-04-29 07:57] LABS: ALT 19 U/L (9-52); AST 12 U/L (14-36); Alkaline Phosphatase 36 U/L (38-126); Anion Gap 6 mmol/L; Blood Urea Nitrogen 7 mg/dL (7-17); Calcium 8.5 mg/dL (8.4-10.2); Carbon Dioxide 27 mmol/L (22-30); Chloride 101 mmol/L (98-107); Glucose 146 mg/dL (74-99); Sodium 134 mmol/L (137-145); Total Bilirubin 0.3 mg/dL (0.2-1.3); Total Protein 4.6 g/dL (6.3-8.2)
[2017-04-29] MEDS ORDERED: POTASSIUM CHLORIDE ER 20 MEQ TAB.ER PO STA (08:23)
[2017-04-29] MEDS: ALVIMOPAN 12 MG CAPSULE PO SCH ×2 (08:57→21:21)
[2017-04-29] MEDS: PANTOPRAZOLE 40 MG TABLET PO SCH (08:57)
[2017-04-29] MEDS: FLUCONAZOLE IN NACL,ISO-OSM 200 MG in SALINE 1 100ML.BAG IVPB SCH (08:57)
[2017-04-29] MEDS: FORMOTEROL FUMARATE 20 MCG/2 ML NEBU INHALATION SCH ×2 (09:19→20:40)
[2017-04-29] MEDS: BUDESONIDE 0.25 MG/2 ML NEBU INHALATION SCH ×2 (09:20→20:25)
[2017-04-29] MEDS: INSULIN ASPART 100 UNIT/ML 1 ML 10 ML VIAL SQ SCH ×4 (09:55→21:17)
--- NOTE | 2017-04-29 10:33 | P.PN ---
Subjective Progress Note Date: 04/29/17 86 show female seen and examined this morning daughter at bedside patient had an episode urinary retention last evening Concepcion catheter reinserted. Daughter states that the patient's passing gas heparin drip infusing Provera wound system to surgical site. Patient is arousable to verbal stimuli this morning daughter states that she feels sedation is contributed to the morphine. 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 pathology pending Objective - Vital Signs Vital signs: Vital Signs Temp 97.8 F 04/28/17 23:03 Pulse 88 04/29/17 09:29 Resp 18 04/29/17 09:19 BP 130/65 04/28/17 23:03 Pulse Ox 97 04/29/17 09:19 Intake & Output 04/28/17 04/29/17 04/29/17 18:59 06:59 18:59 Intake Total 281.213 Output Total 1027 2500 Balance -745.787 -2500 Weight 74.5 kg Intake: Intake, IV Titration 281.213 Amount Heparin Sod,Pork in 0.45% 281.213 NaCl 25,000 unit In 0.45 % NaCl 1 500ml.bag @ 18 UNITS/KG/HR 20.88 mls/hr IV .[id number] [facility] Rx#: [id number] Output: Urine 1025 2500 Straight 1300 Stool 2 Other: Voiding Method Indwelling Catheter Indwelling Catheter Indwelling Catheter # Voids 1 - Exam Physical exam 86-year-old female open size to verbal stimuli cooperative Lungs diminished at the bases otherwise adequate air movement Heart S1-S2 audible regular Abdomen surgical incision sites dry Provera wound system in place soft not distended few hypoactive bowel tones noted indwelling Concepcion catheter in place no stool Extremities bilateral arms elevated on pillow decrease edema. Venodyne's on to bilateral lower extremities will move the lower extremities to simple commands - Labs CBC & Chem 7: 04/29/17 06:59 04/29/17 06:59 Labs: Abnormal Lab Results - Last 24 Hours (Table) 04/28/17 04/28/17 04/29/17 Range/Units 18:28 20:16 06:59 WBC 11.8 H (3.8-10.6) k/uL RBC 3.34 L (3.80-5.40) m/uL Hgb 8.9 L (11.4-16.0) gm/dL Hct 28.1 L (34.0-46.0) % RDW 16.6 H (11.5-15.5) % Neutrophils # 8.2 H (1.3-7.7) k/uL APTT (22.0-30.0) sec Sodium (137-145) mmol/L Potassium (3.5-5.1) mmol/L Glucose (74-99) mg/dL POC Glucose (mg/dL) 226 H 210 H (75-99) mg/dL AST (14-36) U/L Alkaline Phosphatase (38-126) U/L Total Protein (6.3-8.2) g/dL Albumin (3.5-5.0) g/dL 04/29/17 04/29/17 04/29/17 Range/Units 06:59 06:59 07:44 WBC (3.8-10.6) k/uL RBC (3.80-5.40) m/uL Hgb (11.4-16.0) gm/dL Hct (34.0-46.0) % RDW (11.5-15.5) % Neutrophils # (1.3-7.7) k/uL APTT 37.6 H (22.0-30.0) sec Sodium 134 L (137-145) mmol/L Potassium 3.0 L* (3.5-5.1) mmol/L Glucose 146 H (74-99) mg/dL POC Glucose (mg/dL) 139 H (75-99) mg/dL AST 12 L (14-36) U/L Alkaline Phosphatase 36 L (38-126) U/L Total Protein 4.6 L (6.3-8.2) g/dL Albumin 2.0 L (3.5-5.0) g/dL Microbiology - Last 24 Hours (Table) 04/27/17 23:08 Blood Culture - Preliminary Blood No Growth after 24 hours 04/27/17 22:33 Blood Culture - Preliminary Blood No Growth after 24 hours 04/22/17 12:10 Blood Culture - Final Blood No Growth after 144 hours 04/22/17 12:36 Blood Culture - Final Blood No Growth after 144 hours 04/28/17 03:53 Urine Culture - Preliminary Urine,Catheterized Assessment and Plan Assessment: Impression Present on admission abdominal pain nausea vomiting diarrhea suspect due to acute colitis Status post colonoscopy transverse colon mass noted History of severe COPD no evidence of an exacerbation Present on admission sepsis likely due to colitis New-onset left upper arm swelling possible DVT per ultrasound report Debilitated Postop April 26 repair of incarcerated incisional hernia, transverse colectomy with ileocolonic stenosis, partial omentectomy for transverse colon tumor Postop urinary retention and indwelling Concepcion catheter reinserted Poor caloric intake Plan Continue postop surgical care PT OT eval Continue recommendations by hematology oncology Continue IV heparin drip Further surgical recommendations pending Follow-up on path report will follow with you Start PPN Progress note dictated for Dr. gu The above impression and plan of care have been discussed and directed by signing physician. Jalyn Mckeon nurse practitioner acting as scribe for signing physician.
[2017-04-29] MEDS: MONTELUKAST 10 MG TAB PO SCH (10:47)
[2017-04-29] MEDS: NYSTATIN 100,000 UNIT/ML SUSP 500,000 UNIT/5 ML CUP PO SCH ×4 (10:47→21:21)
[2017-04-29] MEDS: FUROSEMIDE 20 MG TAB PO SCH (10:47)
[2017-04-29] MEDS: FOLIC ACID 1 MG TAB PO SCH (10:47)
[2017-04-29] MEDS: METOPROLOL TARTRATE 12.5 MG TAB PO SCH (10:47)
[2017-04-29] MEDS ORDERED: HEPARIN SODIUM,PORCINE 5,000 UNIT/ML 1 ML VIAL IV PRN (11:11)
[2017-04-29 12:21] LABS: Glucose,Whole Blood 154 mg/dL (75-99)
--- NOTE | 2017-04-29 13:20 | P.PN ---
Progress Note - Text Progress Note Date: 04/29/17 Patient underwent partial colectomy on Saturday. Over the weekend having some postoperative discomfort. Remaining somewhat sleepy. No appetite. Clinical scenario discussed with the patient's daughter. We'll allow Dr. Blanca to continue postoperative follow-up.
[2017-04-29] MEDS: ACETAMINOPHEN TAB 325 MG TAB PO PRN (13:22)
[2017-04-29] MEDS ORDERED: MORPHINE ORAL SOLN 10 MG/5 ML CUP PO PRN ×2 (13:30→13:31)
--- NOTE | 2017-04-29 15:35 | P.PN ---
Subjective Progress Note Date: 04/29/17 This is a 86-year-old female with a known past medical history of site COPD, diabetes mellitus, rheumatoid arthritis, lower extremity DVT, GERD, C. diff, recurrent episodes of urinary retention, diverticulosis and a recent admission at [facility] about 3 weeks ago for colitis. At that time she was treated with Flagyl. History was obtained from patient's daughter. Who reports that patient had shown improvement but once she finished the Flagyl her symptoms worsened again. She has been having journalized weakness nausea decrease in appetite and diarrhea. She also has been having fevers at home. She came back into the hospital for further evaluation. She was found have a temp of 102 white count 15.2 started on Rocephin and Flagyl. Computed tomography scan of the abdomen and pelvis shows at the site of prior partial colectomy there is new irregular wall thickening with mild fat stranding and suspicious adjacent adenopathy, acute infectious process at this level or colitis could have this appearance. 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 Per daughter patient does not have any prior history of cancer. She has had a bowel resection for a perforated diverticulitis. Dr. Silveira has been consulted for further evaluation. We'll check stool studies. Patient also is having evidence of urinary retention and Concepcion catheter was reinserted in the emergency room. She had recently been to see Dr. Murphy for the urinary retention at that time for catheter was removed. 04/19/2017 patient is scheduled for colonoscopy today with Dr. Silveira. Denies any nausea or vomiting. No blood in the stools. Denies any chest pain or shortness of breath. Does have some bruising and minimal swelling noted along the left arm from an old IV site. No hematoma. No tenderness. 04/22/2017 patient is status post colonoscopy which had revealed a transverse colon mass. She is followed closely by surgery and is scheduled for bowel resection today. However, patient was found to have swelling in her left upper arm where the PICC line was placed on Saturday for TPN. She has some evidence of possible cellulitis near the PICC line site with's beginning of streaking down the back of her left arm. PICC line will be removed and tip will be sent for culture. Infectious disease consulted. Doppler exam to rule out DVT ordered. Surgical service has been notified. Patient is afebrile. White count normal. She denies any chest pain or shortness of breath. Denies any nausea or vomiting. Concepcion catheter in place 04/23/2017 patient started on IV heparin yesterday for left arm DVT. PICC line was removed due to it causing cellulitis. PICC line tip culture and blood culture pending. Seen by infectious disease and they've added IV vancomycin. Her left arm is still swollen and red. Patient's abdominal surgery for the colon mass was canceled. At this time patient is stating she doesn't want anything further done. However, she is willing to listen to the consulting physicians further recommendations and then will decide if she wants anything else done. 04/25/2017 patient is complaining of left ankle pain. She denies any injury. She doesn't may be her rheumatoid arthritis. She does have Ultram if needed. She is scheduled for surgery regarding the colon mass tomorrow. She reports having bowel movements. Denies any chest pain or shortness of breath. She is very weak and requires assistance to get to the restroom 04/26/2017 patient lying in bed comfortably. No new complaints. She is scheduled for surgery this afternoon. Hemoglobin is up to 9.7. Potassium was corrected yesterday. Infectious disease has discontinue the IV vancomycin. Denies any chest pain or shortness breath. Denies any nausea vomiting. Reports having bowel movements. 04/29/2017 patient sleeping comfortably but arousable. Answered daughter's questions at bedside. Patient did have a temp of 101.3 and tachycardia yesterday. Infectious disease has adjusted antibiotics. Repeat urinalysis did show budding yeast. She is currently on Diflucan cefepime and Flagyl. White count has decreased from 14.1-11.88. Hemoglobin has dropped from 10.1-8.9. Potassium is being replaced. She's been able to eat small amounts. She is passing gas. No nausea or vomiting. Objective - Vital Signs Vital signs: Vital Signs Temp 97.8 F 04/28/17 23:03 Pulse 88 04/29/17 09:29 Resp 18 04/29/17 09:19 BP 130/65 04/28/17 23:03 Pulse Ox 97 04/29/17 09:19 Intake & Output 04/28/17 04/29/17 04/29/17 18:59 06:59 18:59 Intake Total 281.213 Output Total 1027 2500 Balance -745.787 -2500 Weight 74.5 kg 74.5 kg Intake: Intake, IV Titration 281.213 Amount Heparin Sod,Pork in 0.45% 281.213 NaCl 25,000 unit In 0.45 % NaCl 1 500ml.bag @ 18 UNITS/KG/HR 20.88 mls/hr IV .[id number] COUNTS INCLUDE 234 BEDS AT THE [facility] Rx#: [id number] Output: Urine 1025 2500 Straight 1300 Stool 2 Other: Voiding Method Indwelling Catheter Indwelling Catheter Indwelling Catheter # Voids 1 - Exam Head normocephalic Neck supple Lungs clear to auscultation bilaterally no wheezing or crackles Heart regular rate and rhythm S1-S2, no rub or gallop Abdomen is soft nontender nondistended positive bowel sounds no hepatosplenomegaly Extremities no edema of the lower extremities. Left arm swelling and redness decreasing. Neuro sleeping but arousable - Labs CBC & Chem 7: 04/29/17 06:59 04/29/17 06:59 Labs: Abnormal Lab Results - Last 24 Hours (Table) 04/28/17 04/28/17 04/29/17 Range/Units 18:28 20:16 06:59 WBC 11.8 H (3.8-10.6) k/uL RBC 3.34 L (3.80-5.40) m/uL Hgb 8.9 L (11.4-16.0) gm/dL Hct 28.1 L (34.0-46.0) % RDW 16.6 H (11.5-15.5) % Neutrophils # 8.2 H (1.3-7.7) k/uL APTT (22.0-30.0) sec Sodium (137-145) mmol/L Potassium (3.5-5.1) mmol/L Glucose (74-99) mg/dL POC Glucose (mg/dL) 226 H 210 H (75-99) mg/dL AST (14-36) U/L Alkaline Phosphatase (38-126) U/L Total Protein (6.3-8.2) g/dL Albumin (3.5-5.0) g/dL 04/29/17 04/29/17 04/29/17 Range/Units 06:59 06:59 07:44 WBC (3.8-10.6) k/uL RBC (3.80-5.40) m/uL Hgb (11.4-16.0) gm/dL Hct (34.0-46.0) % RDW (11.5-15.5) % Neutrophils # (1.3-7.7) k/uL APTT 37.6 H (22.0-30.0) sec Sodium 134 L (137-145) mmol/L Potassium 3.0 L* (3.5-5.1) mmol/L Glucose 146 H (74-99) mg/dL POC Glucose (mg/dL) 139 H (75-99) mg/dL AST 12 L (14-36) U/L Alkaline Phosphatase 36 L (38-126) U/L Total Protein 4.6 L (6.3-8.2) g/dL Albumin 2.0 L (3.5-5.0) g/dL 04/29/17 Range/Units 12:19 WBC (3.8-10.6) k/uL RBC (3.80-5.40) m/uL Hgb (11.4-16.0) gm/dL Hct (34.0-46.0) % RDW (11.5-15.5) % Neutrophils # (1.3-7.7) k/uL APTT (22.0-30.0) sec Sodium (137-145) mmol/L Potassium (3.5-5.1) mmol/L Glucose (74-99) mg/dL POC Glucose (mg/dL) 154 H (75-99) mg/dL AST (14-36) U/L Alkaline Phosphatase (38-126) U/L Total Protein (6.3-8.2) g/dL Albumin (3.5-5.0) g/dL Microbiology - Last 24 Hours (Table) 04/28/17 03:53 Urine Culture - Final Urine,Catheterized 04/27/17 23:08 Blood Culture - Preliminary Blood No Growth after 24 hours 04/27/17 22:33 Blood Culture - Preliminary Blood No Growth after 24 hours 04/22/17 12:10 Blood Culture - Final Blood No Growth after 144 hours 04/22/17 12:36 Blood Culture - Final Blood No Growth after 144 hours Assessment and Plan Assessment: 1. Acute colitis with Abdominal pain:Status post repair of incarcerated incisional hernia, transverse colectomy, and partial omentectomy on 04/26/17. Continue postoperative care. Gen. surgery following closely. Maintained on broad-spectrum antibiotic. Infectious disease. CEA elevated at 31.6. Followed by surgical service. Diet per surgical service. Pain medications adjusted per surgical service 2. Sepsis with possible colitis present on admission. Continue antibiotics. Infectious disease following 3. 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 Rheumatoid arthritis currently on methotrexate 5. Urinary retention Concepcion catheter reinserted in ER 6. Diabetes mellitus type 2: Continue sliding scale coverage 7. Hypokalemia: Potassium being replaced 8. Chronic pulmonary fibrosis followed by pulmonary service 9. New DVT of the left arm: Continue IV heparin. Await hematology recommendations for oral anticoagulation 10. Left arm cellulitis: Resolved 11. Fever spike to tachycardia repeat urinalysis showing yeast Diflucan added per infectious disease. Patient afebrile today. White count has decreased from 14.1-11.8 GI and DVT prophylaxis Pepcid and IV heparin Encouraged increased activity. Continue to work with physical therapy I performed an examination of the patient and discussed their management with the physician Neurodiagnostic Technologist. I have reviewed the Physician Neurodiagnostic Technologist's notes and agree with the documented findings and plan of care
[2017-04-29 17:59] LABS: Glucose,Whole Blood 200 mg/dL (75-99)
--- NOTE | 2017-04-29 19:05 | P.PN ---
Subjective Progress Note Date: 04/28/17 (Late entry note) Principal diagnosis: Acute colitis, colon mass, left upper extremity DVT, status post transverse colectomy with ileal colonic stenosis and repair of incarcerated incisional hernia partial omentectomy of transverse colon tumor, protein calorie malnourishment, severe COPD emphysema and chronic persistent asthma 04/28/2017, patient seen and evaluated examined during the rounds, complaining of some abdominal discomfort overall doing well patient has been getting morphine with which he has been confused now being taken off of morphine Objective - Vital Signs Vital signs: Vital Signs Temp 97.8 F 04/28/17 23:03 Pulse 88 04/29/17 09:29 Resp 18 04/29/17 15:41 BP 130/65 04/28/17 23:03 Pulse Ox 97 04/29/17 09:19 Intake & Output 04/28/17 04/29/17 04/29/17 18:59 06:59 18:59 Intake Total 281.213 456.808 Output Total 1027 2500 2 Balance -745.787 -2500 454.808 Weight 74.5 kg 74.5 kg Intake: Intake, IV Titration 281.213 456.808 Amount Heparin Sod,Pork in 0.45% 281.213 456.808 NaCl 25,000 unit In 0.45 % NaCl 1 500ml.bag @ 18 UNITS/KG/HR 20.88 mls/hr IV .[id number] [facility] Rx#: [id number] Output: Urine 1025 2500 Straight 1300 Stool 2 2 Other: Voiding Method Indwelling Catheter Indwelling Catheter Indwelling Catheter # Voids 1 - Exam 86-year-old female open size to verbal stimuli cooperative HEENT unremarkable, Neck supple neck veins are prominent but no significant jugular vein is distention carotid bruit Lungs diminished at the bases otherwise adequate air movement Heart S1-S2 audible regular Abdomen surgical incision sites dry Provera wound system in place soft not distended few hypoactive bowel tones noted indwelling Concepcion catheter in place no stool Extremities bilateral arms elevated on pillow decrease edema. Venodyne's on to bilateral lower extremities will move the lower extremities to simple commands - Labs CBC & Chem 7: 04/29/17 06:59 04/29/17 06:59 Labs: Abnormal Lab Results - Last 24 Hours (Table) 04/28/17 04/29/17 04/29/17 Range/Units 20:16 06:59 06:59 WBC 11.8 H (3.8-10.6) k/uL RBC 3.34 L (3.80-5.40) m/uL Hgb 8.9 L (11.4-16.0) gm/dL Hct 28.1 L (34.0-46.0) % RDW 16.6 H (11.5-15.5) % Neutrophils # 8.2 H (1.3-7.7) k/uL APTT (22.0-30.0) sec Sodium 134 L (137-145) mmol/L Potassium 3.0 L* (3.5-5.1) mmol/L Glucose 146 H (74-99) mg/dL POC Glucose (mg/dL) 210 H (75-99) mg/dL AST 12 L (14-36) U/L Alkaline Phosphatase 36 L (38-126) U/L Total Protein 4.6 L (6.3-8.2) g/dL Albumin 2.0 L (3.5-5.0) g/dL 18 04/29/17 04/29/17 Range/Units 06:59 07:44 12:19 WBC (3.8-10.6) k/uL RBC (3.80-5.40) m/uL Hgb (11.4-16.0) gm/dL Hct (34.0-46.0) % RDW (11.5-15.5) % Neutrophils # (1.3-7.7) k/uL APTT 37.6 H (22.0-30.0) sec Sodium (137-145) mmol/L Potassium (3.5-5.1) mmol/L Glucose (74-99) mg/dL POC Glucose (mg/dL) 139 H 154 H (75-99) mg/dL AST (14-36) U/L Alkaline Phosphatase (38-126) U/L Total Protein (6.3-8.2) g/dL Albumin (3.5-5.0) g/dL 04/29/17 04/29/17 Range/Units 17:31 17:55 WBC (3.8-10.6) k/uL RBC (3.80-5.40) m/uL Hgb (11.4-16.0) gm/dL Hct (34.0-46.0) % RDW (11.5-15.5) % Neutrophils # (1.3-7.7) k/uL APTT >200.0 H* (22.0-30.0) sec Sodium (137-145) mmol/L Potassium (3.5-5.1) mmol/L Glucose (74-99) mg/dL POC Glucose (mg/dL) 200 H (75-99) mg/dL AST (14-36) U/L Alkaline Phosphatase (38-126) U/L Total Protein (6.3-8.2) g/dL Albumin (3.5-5.0) g/dL Microbiology - Last 24 Hours (Table) 04/28/17 03:53 Urine Culture - Final Urine,Catheterized 04/27/17 23:08 Blood Culture - Preliminary Blood No Growth after 24 hours 04/27/17 22:33 Blood Culture - Preliminary Blood No Growth after 24 hours Assessment and Plan Assessment: Intermittent abdominal discomfort and pain and evidence of colitis versus mucosal wall thickening likely infectious or neoplastic process with prior history of colectomy, status post repair of incarcerated incisional hernia, transverse colectomy with ileal colonic stenosis and partial omentum ectomy Severe COPD related to chronic severe persistent asthma overall stable Chronic cough related to above and chronic asthma Advanced rheumatoid arthritis with some component of rheumatoid lung related to pulmonary fibrosis/interstitial lung disease Plan: Agree with gentle rehydration Would recommend bronchodilators in the form of nebulizer therapy with Pulmicort 2 times a day and as needed better to agonist and anti-cholinergic Will avoid broad-spectrum antibiotics for lungs and IV steroids As always feel patient involving us in care of patient follow this patient with you Time with Patient: Greater than 30
--- NOTE | 2017-04-29 19:08 | P.PN ---
Subjective Progress Note Date: 04/29/17 Principal diagnosis: Acute colitis, colon mass, left upper extremity DVT, status post transverse colectomy with ileal colonic stenosis and repair of incarcerated incisional hernia partial omentectomy of transverse colon tumor, protein calorie malnourishment, severe COPD emphysema and chronic persistent asthma 04/28/2017, patient seen and evaluated examined during the rounds, complaining of some abdominal discomfort overall doing well patient has been getting morphine with which he has been confused now being taken off of morphine 04/29/2017, patient seen and evaluated examined during the rounds clinically doing relatively better more evident awake and alert resting at this point in time care plan discussed with the daughter present at bedside at length overall respiratory status stable hemodynamic status stable Objective - Vital Signs Vital signs: Vital Signs Temp 97.8 F 04/28/17 23:03 Pulse 88 04/29/17 09:29 Resp 18 04/29/17 15:41 BP 130/65 04/28/17 23:03 Pulse Ox 97 04/29/17 09:19 Intake & Output 04/29/17 04/29/17 04/30/17 06:59 18:59 06:59 Intake Total 456.808 Output Total 2500 2 Balance -2500 454.808 Weight 74.5 kg 74.5 kg Intake: Intake, IV Titration 456.808 Amount Heparin Sod,Pork in 0.45% 456.808 NaCl 25,000 unit In 0.45 % NaCl 1 500ml.bag @ 18 UNITS/KG/HR 20.88 mls/hr IV .[id number] [facility] Rx#: [id number] Output: Urine 2500 Straight 1300 Stool 2 Other: Voiding Method Indwelling Catheter Indwelling Catheter - Exam 86-year-old female open size to verbal stimuli cooperative HEENT unremarkable, Neck supple neck veins are prominent but no significant jugular vein is distention carotid bruit Lungs diminished at the bases otherwise adequate air movement Heart S1-S2 audible regular Abdomen surgical incision sites dry Provera wound system in place soft not distended few hypoactive bowel tones noted indwelling Concepcion catheter in place no stool Extremities bilateral arms elevated on pillow decrease edema. Venodyne's on to bilateral lower extremities will move the lower extremities to simple commands - Labs CBC & Chem 7: 04/29/17 06:59 04/29/17 06:59 Labs: Abnormal Lab Results - Last 24 Hours (Table) 04/28/17 04/29/17 04/29/17 Range/Units 20:16 06:59 06:59 WBC 11.8 H (3.8-10.6) k/uL RBC 3.34 L (3.80-5.40) m/uL Hgb 8.9 L (11.4-16.0) gm/dL Hct 28.1 L (34.0-46.0) % RDW 16.6 H (11.5-15.5) % Neutrophils # 8.2 H (1.3-7.7) k/uL APTT (22.0-30.0) sec Sodium 134 L (137-145) mmol/L Potassium 3.0 L* (3.5-5.1) mmol/L Glucose 146 H (74-99) mg/dL POC Glucose (mg/dL) 210 H (75-99) mg/dL AST 12 L (14-36) U/L Alkaline Phosphatase 36 L (38-126) U/L Total Protein 4.6 L (6.3-8.2) g/dL Albumin 2.0 L (3.5-5.0) g/dL 04/29/17 04/29/17 04/29/17 Range/Units 06:59 07:44 12:19 WBC (3.8-10.6) k/uL RBC (3.80-5.40) m/uL Hgb (11.4-16.0) gm/dL Hct (34.0-46.0) % RDW (11.5-15.5) % Neutrophils # (1.3-7.7) k/uL APTT 37.6 H (22.0-30.0) sec Sodium (137-145) mmol/L Potassium (3.5-5.1) mmol/L Glucose (74-99) mg/dL POC Glucose (mg/dL) 139 H 154 H (75-99) mg/dL AST (14-36) U/L Alkaline Phosphatase (38-126) U/L Total Protein (6.3-8.2) g/dL Albumin (3.5-5.0) g/dL 04/29/17 04/29/17 Range/Units 17:31 17:55 WBC (3.8-10.6) k/uL RBC (3.80-5.40) m/uL Hgb (11.4-16.0) gm/dL Hct (34.0-46.0) % RDW (11.5-15.5) % Neutrophils # (1.3-7.7) k/uL APTT >200.0 H* (22.0-30.0) sec Sodium (137-145) mmol/L Potassium (3.5-5.1) mmol/L Glucose (74-99) mg/dL POC Glucose (mg/dL) 200 H (75-99) mg/dL AST (14-36) U/L Alkaline Phosphatase (38-126) U/L Total Protein (6.3-8.2) g/dL Albumin (3.5-5.0) g/dL Microbiology - Last 24 Hours (Table) 04/28/17 03:53 Urine Culture - Final Urine,Catheterized 04/27/17 23:08 Blood Culture - Preliminary Blood No Growth after 24 hours 04/27/17 22:33 Blood Culture - Preliminary Blood No Growth after 24 hours Assessment and Plan Assessment: Severe hypokalemia Deep venous thrombosis of left upper extremity on IV heparin which is being adjusted at as per PTT Intermittent abdominal discomfort and pain and evidence of colitis versus mucosal wall thickening likely infectious or neoplastic process with prior history of colectomy, status post repair of incarcerated incisional hernia, transverse colectomy with ileal colonic stenosis and partial omentum ectomy Severe COPD related to chronic severe persistent asthma overall stable Chronic cough related to above and chronic asthma Advanced rheumatoid arthritis with some component of rheumatoid lung related to pulmonary fibrosis/interstitial lung disease Plan: Agree with gentle rehydration Would recommend bronchodilators in the form of nebulizer therapy with Pulmicort 2 times a day and as needed better to agonist and anti-cholinergic Will avoid broad-spectrum antibiotics for lungs and IV steroids As always feel patient involving us in care of patient follow this patient with you Time with Patient: Greater than 30
[2017-04-29 20:16] LABS: Glucose,Whole Blood 180 mg/dL (75-99)
[2017-04-29] MEDS: HEPARIN SOD,PORK IN 0.45% NACL 25,000 UNIT in 0.45% NACL 1 500ML.BAG IV SCH (21:22)
--- NOTE | 2017-04-29 23:55 | PN ---
PROGRESS NOTE DATE OF SERVICE: 04/29/2017. REASON FOR FOLLOWUP: 1. Postop fever. 2. Possible catheter associated UTI. INTERVAL HISTORY: The patient's overall fever pattern has improved but 101.3. Concepcion catheter has to be reinserted as the patient retention 900 mL of the urine. The patient slightly lethargic and weak. Unable to provide any history. No nausea, vomiting, or any new symptoms per the daughter who has been present at the bedside. EXAMINATION: Blood pressure is 130/65 with a pulse of 91, temperature 98. She is 93% 3 L nasal cannula. General description is an elderly female lying in bed in no distress. RESPIRATORY SYSTEM: Unlabored breathing with decreased breath sounds at bases. No wheeze. HEART: S1, S2. Regular rate and rhythm. . LABS: Hemoglobin 8.9, white count of 11.8, BUN of , creatinine 0.54. Urine culture pending. DIAGNOSTIC IMPRESSION AND PLAN: Patient with fever urine did show significant yeast. has been discontinued. We will keep the patient on the Diflucan . Continue supportive care. MMODL / IJN: [id number] /
[2017-04-30] MEDS: LACTATED RINGERS 1,000 ML IV SCH ×2 (00:42→04:56)
[2017-04-30 02:29] LABS: Anisocytosis Slight; Basophils # (A) 0.1 k/uL (0-0.2); Basophils % (A) 1 %; Eosinophils # (A) 0.4 k/uL (0-0.7); Eosinophils % (A) 4 %; HCT 27.7 % (34.0-46.0); HGB 8.8 gm/dL (11.4-16.0); Hypochromasia Slight; Lymphocytes # (A) 1.8 k/uL (1.0-4.8); Lymphocytes % (A) 17 %; MCH 26.7 pg (25.0-35.0); MCHC 31.9 g/dL (31.0-37.0); MCV 83.6 fL (80.0-100.0); Mean Platelet Volume 8.4; Monocytes % (A) 10 %; Neutrophils % (A) 66 %; Platelet Count 400 k/uL (150-450); Poikilocytosis Slight; RBC 3.31 m/uL (3.80-5.40); RDW 16.7 % (11.5-15.5); WBC 10.6 k/uL (3.8-10.6)
[2017-04-30] MEDS: ACETAMINOPHEN TAB 325 MG TAB PO PRN ×2 (02:35→15:23)
[2017-04-30 03:01] LABS: ALT 20 U/L (9-52); AST 10 U/L (14-36); Albumin 2.1 g/dL (3.5-5.0); Alkaline Phosphatase 38 U/L (38-126); Anion Gap 4 mmol/L; Blood Urea Nitrogen 10 mg/dL (7-17); Calcium 8.4 mg/dL (8.4-10.2); Carbon Dioxide 29 mmol/L (22-30); Chloride 100 mmol/L (98-107); Glucose 217 mg/dL (74-99); Sodium 133 mmol/L (137-145); Total Bilirubin 0.3 mg/dL (0.2-1.3); Total Protein 4.8 g/dL (6.3-8.2)
[2017-04-30 03:16] LABS: Potassium 2.7 mmol/L (3.5-5.1)
[2017-04-30] MEDS ORDERED: Potassium Replacement Protocol 1 EACH MISC MISCELLANE PRN (03:18)
[2017-04-30] MEDS: POTASSIUM CHLORIDE 10 MEQ in SODIUM CHLORIDE 0.9% 100 ML IV SCH ×3 (03:55→05:58)
[2017-04-30] MEDS: FORMOTEROL FUMARATE 20 MCG/2 ML NEBU INHALATION SCH ×2 (07:49→19:58)
[2017-04-30] MEDS: BUDESONIDE 0.25 MG/2 ML NEBU INHALATION SCH ×2 (07:49→19:58)
[2017-04-30 08:21] LABS: Glucose,Whole Blood 174 mg/dL (75-99)
[2017-04-30] MEDS ORDERED: POTASSIUM CHLORIDE ER 20 MEQ TAB.ER PO STA (08:31)
[2017-04-30] MEDS ORDERED: POTASSIUM CHLORIDE 20 MEQ in SODIUM CHLORIDE 0.9% 100 ML IVPB STA (08:36)
[2017-04-30] MEDS: traMADol 50 MG TAB PO PRN ×2 (08:57→19:20)
[2017-04-30] MEDS: metroNIDAZOLE-NS PMX 500 MG in SALINE 1 100ML.BAG IVPB SCH ×2 (08:59→12:36)
[2017-04-30] MEDS: INSULIN ASPART 100 UNIT/ML 1 ML 10 ML VIAL SQ SCH ×4 (09:00→22:37)
[2017-04-30] MEDS: PANTOPRAZOLE 40 MG TABLET PO SCH (09:01)
[2017-04-30] MEDS: ALVIMOPAN 12 MG CAPSULE PO SCH ×2 (09:02→19:20)
[2017-04-30] MEDS: FOLIC ACID 1 MG TAB PO SCH (09:03)
[2017-04-30] MEDS: MONTELUKAST 10 MG TAB PO SCH (09:05)
[2017-04-30] MEDS: METOPROLOL TARTRATE 12.5 MG TAB PO SCH (09:05)
[2017-04-30] MEDS: NYSTATIN 100,000 UNIT/ML SUSP 500,000 UNIT/5 ML CUP PO SCH ×4 (09:05→22:38)
[2017-04-30 09:41] LABS: Magnesium 1.8 mg/dL (1.6-2.3)
[2017-04-30 09:45] LABS: Potassium 2.9 mmol/L (3.5-5.1)
[2017-04-30] MEDS ORDERED: HEPARIN SODIUM,PORCINE 5,000 UNIT/ML 1 ML VIAL IV STA (10:49)
[2017-04-30] MEDS: HEPARIN SOD,PORK IN 0.45% NACL 25,000 UNIT in 0.45% NACL 1 500ML.BAG IV SCH (10:53)
[2017-04-30 11:15] LABS: Glucose,Whole Blood 209 mg/dL (75-99)
[2017-04-30] MEDS: FUROSEMIDE 20 MG TAB PO SCH (11:16)
[2017-04-30] MEDS: CEFEPIME 2 GM in SODIUM CHLORIDE 0.9% 50 ML IVPB SCH (12:35)
[2017-04-30] MEDS: FLUCONAZOLE IN NACL,ISO-OSM 200 MG in SALINE 1 100ML.BAG IVPB SCH (12:35)
--- NOTE | 2017-04-30 12:42 | P.PN ---
Subjective Progress Note Date: 04/30/17 This is a 86-year-old female with a known past medical history of site COPD, diabetes mellitus, rheumatoid arthritis, lower extremity DVT, GERD, C. diff, recurrent episodes of urinary retention, diverticulosis and a recent admission at [facility] about 3 weeks ago for colitis. At that time she was treated with Flagyl. History was obtained from patient's daughter. Who reports that patient had shown improvement but once she finished the Flagyl her symptoms worsened again. She has been having journalized weakness nausea decrease in appetite and diarrhea. She also has been having fevers at home. She came back into the hospital for further evaluation. She was found have a temp of 102 white count 15.2 started on Rocephin and Flagyl. Computed tomography scan of the abdomen and pelvis shows at the site of prior partial colectomy there is new irregular wall thickening with mild fat stranding and suspicious adjacent adenopathy, acute infectious process at this level or colitis could have this appearance. 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 Per daughter patient does not have any prior history of cancer. She has had a bowel resection for a perforated diverticulitis. Dr. Silveira has been consulted for further evaluation. We'll check stool studies. Patient also is having evidence of urinary retention and Concepcion catheter was reinserted in the emergency room. She had recently been to see Dr. Murphy for the urinary retention at that time for catheter was removed. 04/19/2017 patient is scheduled for colonoscopy today with Dr. Silveira. Denies any nausea or vomiting. No blood in the stools. Denies any chest pain or shortness of breath. Does have some bruising and minimal swelling noted along the left arm from an old IV site. No hematoma. No tenderness. 04/22/2017 patient is status post colonoscopy which had revealed a transverse colon mass. She is followed closely by surgery and is scheduled for bowel resection today. However, patient was found to have swelling in her left upper arm where the PICC line was placed on Saturday for TPN. She has some evidence of possible cellulitis near the PICC line site with's beginning of streaking down the back of her left arm. PICC line will be removed and tip will be sent for culture. Infectious disease consulted. Doppler exam to rule out DVT ordered. Surgical service has been notified. Patient is afebrile. White count normal. She denies any chest pain or shortness of breath. Denies any nausea or vomiting. Concepcion catheter in place 04/23/2017 patient started on IV heparin yesterday for left arm DVT. PICC line was removed due to it causing cellulitis. PICC line tip culture and blood culture pending. Seen by infectious disease and they've added IV vancomycin. Her left arm is still swollen and red. Patient's abdominal surgery for the colon mass was canceled. At this time patient is stating she doesn't want anything further done. However, she is willing to listen to the consulting physicians further recommendations and then will decide if she wants anything else done. 04/25/2017 patient is complaining of left ankle pain. She denies any injury. She doesn't may be her rheumatoid arthritis. She does have Ultram if needed. She is scheduled for surgery regarding the colon mass tomorrow. She reports having bowel movements. Denies any chest pain or shortness of breath. She is very weak and requires assistance to get to the restroom 04/26/2017 patient lying in bed comfortably. No new complaints. She is scheduled for surgery this afternoon. Hemoglobin is up to 9.7. Potassium was corrected yesterday. Infectious disease has discontinue the IV vancomycin. Denies any chest pain or shortness breath. Denies any nausea vomiting. Reports having bowel movements. 04/29/2017 patient sleeping comfortably but arousable. Answered daughter's questions at bedside. Patient did have a temp of 101.3 and tachycardia yesterday. Infectious disease has adjusted antibiotics. Repeat urinalysis did show budding yeast. She is currently on Diflucan cefepime and Flagyl. White count has decreased from 14.1-11.88. Hemoglobin has dropped from 10.1-8.9. Potassium is being replaced. She's been able to eat small amounts. She is passing gas. No nausea or vomiting. 04/30/2017 patient sitting up at bedside chair. She is awake but sleepy and weak. White count has improved some from 11.8 to 10.6. Case discussed with hematology and they're recommending Eliquis for the DVT. Awaiting insurance coverage. Patient has been afebrile yesterday and this morning. Infectious disease following. She is tolerating diet. Did have a bowel movement. She is able to stand for a few minutes at bedside. Receiving potassium supplement for potassium 2.7. Having difficulty with IV access. We'll await further consulting physician recommendations about oral antibiotics and checking into the Eliquis Objective - Vital Signs Vital signs: Vital Signs Temp 97.9 F 04/30/17 08:33 Pulse 94 04/30/17 08:33 Resp 18 04/30/17 08:33 BP 173/75 04/30/17 08:33 Pulse Ox 98 04/30/17 08:33 Intake & Output 04/29/17 04/30/17 04/30/17 18:59 06:59 18:59 Intake Total 500.000 1.972 217.887 Output Total 2 Balance 498.000 1.972 217.887 Weight 74.5 kg 75.5 kg Intake: Intake, IV Titration 500.000 1.972 217.887 Amount Heparin Sod,Pork in 0.45% 500.000 1.972 217.887 NaCl 25,000 unit In 0.45 % NaCl 1 500ml.bag @ 18 UNITS/KG/HR 20.88 mls/hr IV .[id number] [facility] Rx#: [id number] Output: Stool 2 Other: Voiding Method Indwelling Catheter Indwelling Catheter - Exam Head normocephalic Neck supple Lungs clear to auscultation bilaterally no wheezing or crackles Heart regular rate and rhythm S1-S2, no rub or gallop Abdomen is soft nontender nondistended positive bowel sounds no hepatosplenomegaly Extremities no edema of the lower extremities. Left arm swelling and redness decreasing. Neuro sleeping but arousable. Able to answer questions. More awake today than yesterday - Labs CBC & Chem 7: 04/30/17 02:16 04/30/17 09:09 Labs: Abnormal Lab Results - Last 24 Hours (Table) 04/29/17 04/29/17 04/29/17 Range/Units 17:31 17:55 20:13 RBC (3.80-5.40) m/uL Hgb (11.4-16.0) gm/dL Hct (34.0-46.0) % RDW (11.5-15.5) % APTT >200.0 H* (22.0-30.0) sec Sodium (137-145) mmol/L Potassium (3.5-5.1) mmol/L Glucose (74-99) mg/dL POC Glucose (mg/dL) 200 H 180 H (75-99) mg/dL AST (14-36) U/L Total Protein (6.3-8.2) g/dL Albumin (3.5-5.0) g/dL 04/30/17 04/30/17 04/30/17 Range/Units 02:16 02:16 02:16 RBC 3.31 L (3.80-5.40) m/uL Hgb 8.8 L (11.4-16.0) gm/dL Hct 27.7 L (34.0-46.0) % RDW 16.7 H (11.5-15.5) % APTT 56.3 H (22.0-30.0) sec Sodium 133 L (137-145) mmol/L Potassium 2.7 L* (3.5-5.1) mmol/L Glucose 217 H (74-99) mg/dL POC Glucose (mg/dL) (75-99) mg/dL AST 10 L (14-36) U/L Total Protein 4.8 L (6.3-8.2) g/dL Albumin 2.1 L (3.5-5.0) g/dL 04/30/17 04/30/17 04/30/17 Range/Units 08:19 09:09 11:13 RBC (3.80-5.40) m/uL Hgb (11.4-16.0) gm/dL Hct (34.0-46.0) % RDW (11.5-15.5) % APTT (22.0-30.0) sec Sodium (137-145) mmol/L Potassium 2.9 L* (3.5-5.1) mmol/L Glucose (74-99) mg/dL POC Glucose (mg/dL) 174 H 209 H (75-99) mg/dL AST (14-36) U/L Total Protein (6.3-8.2) g/dL Albumin (3.5-5.0) g/dL Microbiology - Last 24 Hours (Table) 04/29/17 09:11 Blood Culture - Preliminary Blood No Growth after 24 hours 04/27/17 23:08 Blood Culture - Preliminary Blood No Growth after 48 hours 04/27/17 22:33 Blood Culture - Preliminary Blood No Growth after 48 hours 04/28/17 03:53 Urine Culture - Final Urine,Catheterized Assessment and Plan Assessment: 1. Acute colitis with Abdominal pain:Status post repair of incarcerated incisional hernia, transverse colectomy, and partial omentectomy on 04/26/17. Continue postoperative care. General surgery following closely. Maintained on broad-spectrum antibiotic. Infectious disease. CEA elevated at 31.6. Followed by surgical service. Diet per surgical service. Pain medications adjusted per surgical service. Pathology report pending 2. Sepsis with possible colitis present on admission. Continue antibiotics. Infectious disease following 3. 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 Rheumatoid arthritis currently on methotrexate 5. Urinary retention Concepcion catheter reinserted in ER 6. Diabetes mellitus type 2: Continue sliding scale coverage 7. Hypokalemia: Potassium being replaced 8. Chronic pulmonary fibrosis followed by pulmonary service 9. New DVT of the left arm: Continue IV heparin. Discussed with hematology nurse practitioner. Checking to see if Eliquis is covered by insurance 10. Left arm cellulitis: Resolved 11. Yeast present in the urine currently on Diflucan. Infectious disease following GI and DVT prophylaxis Pepcid and IV heparin Encouraged increased activity. Continue to work with physical therapy I performed an examination of the patient and discussed their management with the physician Lpn Care Manager. I have reviewed the Physician Lpn Care Manager's notes and agree with the documented findings and plan of care
--- NOTE | 2017-04-30 12:44 | PN ---
PROGRESS NOTE DATE OF SERVICE: 04/30/2017 REASON FOR FOLLOWUP: 1. Postop fever. 2. Urinary tract infection. INTERVAL HISTORY: The patient overall fever pattern has improved. No fever last 24 hours. The patient is breathing comfortably. remains to be poor. No nausea, no vomiting. The patient did have poor IV access and RN is requesting to be switched to a oral antibiotic therapy. PHYSICAL EXAMINATION: On examination, blood pressure is 170/74 with a pulse of 94, temperature 97.9. She is 98% on room air. General description is an elderly female lying in bed in no distress. RESPIRATORY SYSTEM: Unlabored breathing, clear to auscultation anteriorly. HEART: S1, S2. Regular rate and rhythm. ABDOMEN: Soft, no tenderness. LABS: Hemoglobin 8.8, white count 10.6 with a BUN of 10, creatinine 0.60. DIAGNOSTIC IMPRESSION AND PLAN: Patient with postop fever, surgery for the tumor at the previous anastomosis site, status post right colectomy source could be more likely a urinary tract infection. Plan at this time is to switch antibiotic therapy to oral Diflucan. Cefepime and Flagyl will be discontinued short course of oral Ceftin and Flagyl. Continue supportive care. MMODL / IJN: [id number] /
--- NOTE | 2017-04-30 13:20 | CDI ---
Last Revision, January 2017 Documentation Clarification Form Date: 04/30/17 From: Melita Dao RN, CCDS Admit Date: 04/17/2017 9:14:00 PM Patient Name: Cecilia Sapp Visit Number: [id number] Discharge Date: ATTENTION: The Clinical Documentation Specialists (CDI) and [facility] Coding Staff appreciate your assistance in clarifying documentation. Please respond to the clarification below the line at the bottom and electronically sign. The CDI & [facility] Coding staff will review the response and follow-up if needed. Please note: Queries are made part of the Legal Health Record. If you have any questions, please contact the author of this message via ITS. Dr. Avi Montanez/Geraldine Pa PA-C Malnutrition has been documented in progress notes on 04/28/17 -03/01/17 History/Risk Factors: Urinary retention, Asthma, COPD, Diabetes mellitus, DVT, Clinical Indicators: Present with intermittent abdominal discomfort and pain. She has been having generalized weakness, nausea, decrease in appetite and diarrhea. Shes been able to eat small amounts. Labs: Albumin 2.0, Total Protein 4.6 Current BMI: 28.6 Insufficient energy intake: Yes Weight Loss: Poor intake, 6.2 % wt loss x1 month Treatment: Dietary Consult: Yes: malnutrition, chronic, moderate Supplements: Ensure Monitor I/O Lab monitoring: In your professional opinion, can you please clarify if these findings signify one of the following conditions? Mild Protein-Calorie Malnutrition Moderate Protein-Calorie Malnutrition Severe Protein-Calorie Malnutrition Other condition, please specify Unable to determine Please continue to document in your progress notes and discharge summary in order to capture severity of illness and risk of mortality. Include clinical findings that support your diagnosis. Severe protein calorie malnutrition present MTDD
--- NOTE | 2017-04-30 14:56 | P.PN ---
Subjective Progress Note Date: 04/30/17 86 show female seen and examined resting in bed daughter at bedside. Patient remains sleepy. Nursing reports it takes the assist of 2 to sit patient up on the edge of the bed able to stand for a few minutes with assistance. The discharge plan in progress. Patient reportedly is tolerating a clear liquid diet with no nausea no vomiting. Reportedly passing gas and had a bowel movement. 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 Objective - Vital Signs Vital signs: Vital Signs Temp 97.4 F L 04/30/17 14:39 Pulse 85 04/30/17 14:39 Resp 18 04/30/17 14:39 BP 150/70 04/30/17 14:39 Pulse Ox 99 04/30/17 14:39 Intake & Output 04/29/17 04/30/17 04/30/17 18:59 06:59 18:59 Intake Total 500.000 1.972 217.887 Output Total 2 Balance 498.000 1.972 217.887 Weight 74.5 kg 75.5 kg Intake: Intake, IV Titration 500.000 1.972 217.887 Amount Heparin Sod,Pork in 0.45% 500.000 1.972 217.887 NaCl 25,000 unit In 0.45 % NaCl 1 500ml.bag @ 18 UNITS/KG/HR 20.88 mls/hr IV .[id number] [facility] Rx#: [id number] Output: Stool 2 Other: Voiding Method Indwelling Catheter Indwelling Catheter Indwelling Catheter - Exam Exam Abdomen surgical incision sites dry Provera wound system in place soft not distended few hypoactive bowel tones noted indwelling Concepcion catheter in place nursing reports 1 stool Extremities bilateral arms elevated on pillow decrease edema. Venodyne's on to bilateral lower extremities will move the lower extremities to simple commands - Labs CBC & Chem 7: 04/30/17 02:16 04/30/17 09:09 Labs: Abnormal Lab Results - Last 24 Hours (Table) 04/29/17 04/29/17 04/29/17 Range/Units 17:31 17:55 20:13 RBC (3.80-5.40) m/uL Hgb (11.4-16.0) gm/dL Hct (34.0-46.0) % RDW (11.5-15.5) % APTT >200.0 H* (22.0-30.0) sec Sodium (137-145) mmol/L Potassium (3.5-5.1) mmol/L Glucose (74-99) mg/dL POC Glucose (mg/dL) 200 H 180 H (75-99) mg/dL AST (14-36) U/L Total Protein (6.3-8.2) g/dL Albumin (3.5-5.0) g/dL 04/30/17 04/30/17 04/30/17 Range/Units 02:16 02:16 02:16 RBC 3.31 L (3.80-5.40) m/uL Hgb 8.8 L (11.4-16.0) gm/dL Hct 27.7 L (34.0-46.0) % RDW 16.7 H (11.5-15.5) % APTT 56.3 H (22.0-30.0) sec Sodium 133 L (137-145) mmol/L Potassium 2.7 L* (3.5-5.1) mmol/L Glucose 217 H (74-99) mg/dL POC Glucose (mg/dL) (75-99) mg/dL AST 10 L (14-36) U/L Total Protein 4.8 L (6.3-8.2) g/dL Albumin 2.1 L (3.5-5.0) g/dL 04/30/17 04/30/17 04/30/17 Range/Units 08:19 09:09 11:13 RBC (3.80-5.40) m/uL Hgb (11.4-16.0) gm/dL Hct (34.0-46.0) % RDW (11.5-15.5) % APTT (22.0-30.0) sec Sodium (137-145) mmol/L Potassium 2.9 L* (3.5-5.1) mmol/L Glucose (74-99) mg/dL POC Glucose (mg/dL) 174 H 209 H (75-99) mg/dL AST (14-36) U/L Total Protein (6.3-8.2) g/dL Albumin (3.5-5.0) g/dL Microbiology - Last 24 Hours (Table) 04/29/17 09:11 Blood Culture - Preliminary Blood No Growth after 24 hours 04/27/17 23:08 Blood Culture - Preliminary Blood No Growth after 48 hours 04/27/17 22:33 Blood Culture - Preliminary Blood No Growth after 48 hours 04/28/17 03:53 Urine Culture - Final Urine,Catheterized Assessment and Plan Assessment: Impression Present on admission abdominal pain nausea vomiting diarrhea suspect due to acute colitis Status post colonoscopy transverse colon mass noted History of severe COPD no evidence of an exacerbation Present on admission sepsis likely due to colitis New-onset left upper arm swelling possible DVT per ultrasound report Debilitated Postop April 26 repair of incarcerated incisional hernia, transverse colectomy with ileocolonic stenosis, partial omentectomy for transverse colon tumor Postop urinary retention indwelling Concepcion catheter reinserted Mild protein calorie malnutrition suspect due to Poor caloric intake Hypokalemia Plan Potassium replaced monitor labs Continue postop surgical care PT OT eval Continue recommendations by hematology oncology Continue IV heparin drip Further surgical recommendations pending Follow-up on path report will follow with you Start PPN Progress note dictated for Dr. gu The above impression and plan of care have been discussed and directed by signing physician. Jalyn Mckeon nurse practitioner acting as scribe for signing physician.
[2017-04-30] MEDS: APIXABAN 5 MG TAB PO SCH ×2 (15:18→19:21)
[2017-04-30] MEDS: metroNIDAZOLE 500 MG TAB PO SCH ×2 (15:19→19:21)
[2017-04-30] MEDS: IPRATROPIUM-ALBUTEROL 3 ML NEB INHALATION PRN (15:34)
[2017-04-30 17:37] LABS: Glucose,Whole Blood 270 mg/dL (75-99)
[2017-04-30 17:37] LABS: Glucose,Whole Blood 211 mg/dL (75-99)
--- NOTE | 2017-04-30 18:01 | P.PN ---
Subjective Progress Note Date: 04/30/17 Principal diagnosis: Acute colitis, colon mass, left upper extremity DVT, status post transverse colectomy with ileal colonic stenosis and repair of incarcerated incisional hernia partial omentectomy of transverse colon tumor, protein calorie malnourishment, severe COPD emphysema and chronic persistent asthma 04/28/2017, patient seen and evaluated examined during the rounds, complaining of some abdominal discomfort overall doing well patient has been getting morphine with which he has been confused now being taken off of morphine 04/29/2017, patient seen and evaluated examined during the rounds clinically doing relatively better more evident awake and alert resting at this point in time care plan discussed with the daughter present at bedside at length overall respiratory status stable hemodynamic status stable 04/30/2017, patient seen and evaluated examined during the rounds clinically doing well awake and alert breathing comfortably resting now other [place] complains of present swelling in the left upper extremity is slightly better patient's remains anticoagulated with IV heparin, overall plan is to place patient on and requests once cleared by surgery and insurance companies, and labs are reviewed medications reviewed as well, care plan discussed with primary service Objective - Vital Signs Vital signs: Vital Signs Temp 97.4 F L 04/30/17 14:39 Pulse 88 04/30/17 15:45 Resp 18 04/30/17 14:39 BP 150/70 04/30/17 14:39 Pulse Ox 99 04/30/17 14:39 Intake & Output 04/29/17 04/30/17 04/30/17 18:59 06:59 18:59 Intake Total 500.000 1.972 217.887 Output Total 2 Balance 498.000 1.972 217.887 Weight 74.5 kg 75.5 kg Intake: Intake, IV Titration 500.000 1.972 217.887 Amount Heparin Sod,Pork in 0.45% 500.000 1.972 217.887 NaCl 25,000 unit In 0.45 % NaCl 1 500ml.bag @ 18 UNITS/KG/HR 20.88 mls/hr IV .[id number] [facility] Rx#: [id number] Output: Stool 2 Other: Voiding Method Indwelling Catheter Indwelling Catheter Indwelling Catheter # Bowel Movements 3 - Exam 86-year-old female open size to verbal stimuli cooperative HEENT unremarkable, Neck supple neck veins are prominent but no significant jugular vein is distention carotid bruit Lungs diminished at the bases otherwise adequate air movement Heart S1-S2 audible regular Abdomen surgical incision sites dry Provera wound system in place soft not distended few hypoactive bowel tones noted indwelling Concepcion catheter in place no stool Extremities bilateral arms elevated on pillow decrease edema. Venodyne's on to bilateral lower extremities will move the lower extremities to simple commands - Labs CBC & Chem 7: 04/30/17 02:16 04/30/17 15:34 Labs: Abnormal Lab Results - Last 24 Hours (Table) 04/29/17 04/29/17 04/29/17 Range/Units 17:31 17:55 20:13 RBC (3.80-5.40) m/uL Hgb (11.4-16.0) gm/dL Hct (34.0-46.0) % RDW (11.5-15.5) % APTT >200.0 H* (22.0-30.0) sec Sodium (137-145) mmol/L Potassium (3.5-5.1) mmol/L Glucose (74-99) mg/dL POC Glucose (mg/dL) 200 H 180 H (75-99) mg/dL AST (14-36) U/L Total Protein (6.3-8.2) g/dL Albumin (3.5-5.0) g/dL 04/30/17 04/30/17 04/30/17 Range/Units 02:16 02:16 02:16 RBC 3.31 L (3.80-5.40) m/uL Hgb 8.8 L (11.4-16.0) gm/dL Hct 27.7 L (34.0-46.0) % RDW 16.7 H (11.5-15.5) % APTT 56.3 H (22.0-30.0) sec Sodium 133 L (137-145) mmol/L Potassium 2.7 L* (3.5-5.1) mmol/L Glucose 217 H (74-99) mg/dL POC Glucose (mg/dL) (75-99) mg/dL AST 10 L (14-36) U/L Total Protein 4.8 L (6.3-8.2) g/dL Albumin 2.1 L (3.5-5.0) g/dL 04/30/17 04/30/17 04/30/17 Range/Units 08:19 09:09 11:13 RBC (3.80-5.40) m/uL Hgb (11.4-16.0) gm/dL Hct (34.0-46.0) % RDW (11.5-15.5) % APTT (22.0-30.0) sec Sodium (137-145) mmol/L Potassium 2.9 L* (3.5-5.1) mmol/L Glucose (74-99) mg/dL POC Glucose (mg/dL) 174 H 209 H (75-99) mg/dL AST (14-36) U/L Total Protein (6.3-8.2) g/dL Albumin (3.5-5.0) g/dL 04/30/17 04/30/17 Range/Units 17:33 17:35 RBC (3.80-5.40) m/uL Hgb (11.4-16.0) gm/dL Hct (34.0-46.0) % RDW (11.5-15.5) % APTT (22.0-30.0) sec Sodium (137-145) mmol/L Potassium (3.5-5.1) mmol/L Glucose (74-99) mg/dL POC Glucose (mg/dL) 270 H 211 H (75-99) mg/dL AST (14-36) U/L Total Protein (6.3-8.2) g/dL Albumin (3.5-5.0) g/dL Microbiology - Last 24 Hours (Table) 04/29/17 09:11 Blood Culture - Preliminary Blood No Growth after 24 hours 04/27/17 23:08 Blood Culture - Preliminary Blood No Growth after 48 hours 04/27/17 22:33 Blood Culture - Preliminary Blood No Growth after 48 hours Assessment and Plan Assessment: Severe hypokalemia resolving improved significantly Deep venous thrombosis of left upper extremity on IV heparin which is being adjusted at as per PTT Intermittent abdominal discomfort and pain and evidence of colitis versus mucosal wall thickening likely infectious or neoplastic process status post colectomy, status post repair of incarcerated incisional hernia, transverse colectomy with ileal colonic stenosis and partial omentum ectomy Severe COPD related to chronic severe persistent asthma overall stable Chronic cough related to above and chronic asthma 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
[2017-04-30] MEDS: CEFUROXIME 250 MG TAB PO SCH (19:21)
[2017-04-30 20:18] LABS: Glucose,Whole Blood 218 mg/dL (75-99)
[2017-04-30] MEDS ORDERED: APIXABAN 5 MG TAB PO SCH (21:00)
[2017-05-01] MEDS: traMADol 50 MG TAB PO PRN (05:54)
[2017-05-01 07:36] LABS: Glucose,Whole Blood 170 mg/dL (75-99)
[2017-05-01 08:11] LABS: Anisocytosis Slight; Basophils % (A) 0 %; Eosinophils # (A) 0.4 k/uL (0-0.7); Eosinophils % (A) 4 %; HCT 29.5 % (34.0-46.0); Hypochromasia Moderate; Lymphocytes # (A) 1.2 k/uL (1.0-4.8); Lymphocytes % (A) 11 %; MCH 25.7 pg (25.0-35.0); MCHC 30.5 g/dL (31.0-37.0); MCV 84.4 fL (80.0-100.0); Mean Platelet Volume 8.3; Monocytes % (A) 9 %; Neutrophils # (A) 8.1 k/uL (1.3-7.7); Neutrophils % (A) 74 %; Platelet Count 433 k/uL (150-450); Poikilocytosis Slight; RDW 16.8 % (11.5-15.5); WBC 10.9 k/uL (3.8-10.6)
[2017-05-01] MEDS: INSULIN ASPART 100 UNIT/ML 1 ML 10 ML VIAL SQ SCH ×4 (08:35→21:16)
[2017-05-01] MEDS: PANTOPRAZOLE 40 MG TABLET PO SCH (08:35)
[2017-05-01] MEDS: ALVIMOPAN 12 MG CAPSULE PO SCH ×2 (08:36→20:31)
[2017-05-01] MEDS: CEFUROXIME 250 MG TAB PO SCH ×2 (08:37→20:31)
[2017-05-01] MEDS: FLUCONAZOLE 100 MG TAB PO SCH (08:37)
[2017-05-01] MEDS: FUROSEMIDE 20 MG TAB PO SCH (08:37)
[2017-05-01] MEDS: FOLIC ACID 1 MG TAB PO SCH (08:37)
[2017-05-01] MEDS: APIXABAN 5 MG TAB PO SCH ×2 (08:37→20:31)
[2017-05-01] MEDS: NYSTATIN 100,000 UNIT/ML SUSP 500,000 UNIT/5 ML CUP PO SCH ×4 (08:38→21:16)
[2017-05-01] MEDS: metroNIDAZOLE 500 MG TAB PO SCH ×3 (08:38→21:16)
[2017-05-01] MEDS: MONTELUKAST 10 MG TAB PO SCH (08:38)
[2017-05-01] MEDS: METOPROLOL TARTRATE 12.5 MG TAB PO SCH (08:38)
[2017-05-01 08:54] LABS: ALT 19 U/L (9-52); AST 8 U/L (14-36); Albumin 2.1 g/dL (3.5-5.0); Alkaline Phosphatase 46 U/L (38-126); Anion Gap 5 mmol/L; Blood Urea Nitrogen 8 mg/dL (7-17); Calcium 8.6 mg/dL (8.4-10.2); Carbon Dioxide 28 mmol/L (22-30); Chloride 102 mmol/L (98-107); Glucose 173 mg/dL (74-99); Potassium 3.3 mmol/L (3.5-5.1); Sodium 135 mmol/L (137-145); Total Bilirubin 0.2 mg/dL (0.2-1.3); Total Protein 4.9 g/dL (6.3-8.2)
[2017-05-01] MEDS: IPRATROPIUM-ALBUTEROL 3 ML NEB INHALATION PRN (09:08)
[2017-05-01] MEDS: BUDESONIDE 0.25 MG/2 ML NEBU INHALATION SCH ×2 (09:08→19:05)
[2017-05-01] MEDS: FORMOTEROL FUMARATE 20 MCG/2 ML NEBU INHALATION SCH ×2 (09:08→19:05)
[2017-05-01] MEDS: POTASSIUM CHLORIDE ER 20 MEQ TAB.ER PO SCH ×2 (10:23→11:32)
[2017-05-01] MEDS: ONDANSETRON 4 MG/2 ML VIAL IVP PRN (10:46)
[2017-05-01] MEDS: ACETAMINOPHEN TAB 325 MG TAB PO PRN ×2 (11:31→20:30)
[2017-05-01 12:08] LABS: Glucose,Whole Blood 199 mg/dL (75-99)
--- NOTE | 2017-05-01 13:14 | P.PN ---
Subjective Progress Note Date: 05/01/17 86-year-old female seen and examined at bedside more lethargic difficult to arouse this morning daughter at bedside continues to have poor caloric intake will not open eyes does not follow simple commands daughter is expressing concerns about the decline in her mentation. 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 pending Objective - Vital Signs Vital signs: Vital Signs Temp 99.9 F H 05/01/17 08:16 Pulse 100 05/01/17 09:27 Resp 16 05/01/17 09:27 BP 173/79 05/01/17 08:16 Pulse Ox 100 05/01/17 09:08 Intake & Output 04/30/17 05/01/17 05/01/17 18:59 06:59 18:59 Intake Total 217.887 Output Total 1300 301 Balance -1082.113 -301 Weight 75.8 kg Intake: Intake, IV Titration 217.887 Amount Heparin Sod,Pork in 0.45% 217.887 NaCl 25,000 unit In 0.45 % NaCl 1 500ml.bag @ 18 UNITS/KG/HR 20.88 mls/hr IV .[id number] [facility] Rx#: [id number] Output: Urine 1300 300 Stool 1 Other: Voiding Method Indwelling Catheter Indwelling Catheter Indwelling Catheter # Bowel Movements 3 - Exam Exam Abdomen surgical incision sites dry Provera wound system in place surgical dressing site dry soft not distended few hypoactive bowel tones noted indwelling Concepcion catheter in place nursing reports no stool this morning poor caloric intake needs total assist for diet no nausea no vomiting patient reportedly has been refusing diet - Labs CBC & Chem 7: 05/01/17 07:24 05/01/17 07:24 Labs: Abnormal Lab Results - Last 24 Hours (Table) 04/30/17 04/30/17 04/30/17 Range/Units 17:33 17:35 20:16 WBC (3.8-10.6) k/uL RBC (3.80-5.40) m/uL Hgb (11.4-16.0) gm/dL Hct (34.0-46.0) % MCHC (31.0-37.0) g/dL RDW (11.5-15.5) % Neutrophils # (1.3-7.7) k/uL Sodium (137-145) mmol/L Potassium (3.5-5.1) mmol/L Glucose (74-99) mg/dL POC Glucose (mg/dL) 270 H 211 H 218 H (75-99) mg/dL AST (14-36) U/L Total Protein (6.3-8.2) g/dL Albumin (3.5-5.0) g/dL 05/01/17 05/01/17 05/01/17 Range/Units 07:24 07:24 07:35 WBC 10.9 H (3.8-10.6) k/uL RBC 3.50 L (3.80-5.40) m/uL Hgb 9.0 L (11.4-16.0) gm/dL Hct 29.5 L (34.0-46.0) % MCHC 30.5 L (31.0-37.0) g/dL RDW 16.8 H (11.5-15.5) % Neutrophils # 8.1 H (1.3-7.7) k/uL Sodium 135 L (137-145) mmol/L Potassium 3.3 L (3.5-5.1) mmol/L Glucose 173 H (74-99) mg/dL POC Glucose (mg/dL) 170 H (75-99) mg/dL AST 8 L (14-36) U/L Total Protein 4.9 L (6.3-8.2) g/dL Albumin 2.1 L (3.5-5.0) g/dL 05/01/17 Range/Units 12:05 WBC (3.8-10.6) k/uL RBC (3.80-5.40) m/uL Hgb (11.4-16.0) gm/dL Hct (34.0-46.0) % MCHC (31.0-37.0) g/dL RDW (11.5-15.5) % Neutrophils # (1.3-7.7) k/uL Sodium (137-145) mmol/L Potassium (3.5-5.1) mmol/L Glucose (74-99) mg/dL POC Glucose (mg/dL) 199 H (75-99) mg/dL AST (14-36) U/L Total Protein (6.3-8.2) g/dL Albumin (3.5-5.0) g/dL Microbiology - Last 24 Hours (Table) 04/29/17 09:11 Blood Culture - Preliminary Blood No Growth after 48 hours 04/27/17 23:08 Blood Culture - Preliminary Blood No Growth after 72 hours 04/27/17 22:33 Blood Culture - Preliminary Blood No Growth after 72 hours Assessment and Plan Assessment: Impression Present on admission abdominal pain nausea vomiting diarrhea suspect due to acute colitis Status post colonoscopy transverse colon mass noted History of severe COPD no evidence of an exacerbation Present on admission sepsis likely due to colitis New-onset left upper arm swelling possible DVT per ultrasound report Debilitated Postop April 26 repair of incarcerated incisional hernia, transverse colectomy with ileocolonic stenosis, partial omentectomy for transverse colon tumor Postop urinary retention indwelling Concepcion catheter reinserted Mild protein calorie malnutrition suspect due to Poor caloric intake Hypokalemia Encephalopathy unclear etiology suspect metabolic Plan Potassium replaced monitor labs Continue postop surgical care PT OT eval Consult neurology for encephalopathy worsening Continue elquis 10mg twice a day Further surgical recommendations pending Follow-up on path report will follow with you Progress note dictated for Dr. gu The above impression and plan of care have been discussed and directed by signing physician. Jalyn Mckeon nurse practitioner acting as scribe for signing physician.
[2017-05-01 17:10] LABS: Glucose,Whole Blood 144 mg/dL (75-99)
--- NOTE | 2017-05-01 17:11 | P.PN ---
Subjective Progress Note Date: 05/01/17 This is a 86-year-old female with a known past medical history of site COPD, diabetes mellitus, rheumatoid arthritis, lower extremity DVT, GERD, C. diff, recurrent episodes of urinary retention, diverticulosis and a recent admission at [facility] about 3 weeks ago for colitis. At that time she was treated with Flagyl. History was obtained from patient's daughter. Who reports that patient had shown improvement but once she finished the Flagyl her symptoms worsened again. She has been having journalized weakness nausea decrease in appetite and diarrhea. She also has been having fevers at home. She came back into the hospital for further evaluation. She was found have a temp of 102 white count 15.2 started on Rocephin and Flagyl. Computed tomography scan of the abdomen and pelvis shows at the site of prior partial colectomy there is new irregular wall thickening with mild fat stranding and suspicious adjacent adenopathy, acute infectious process at this level or colitis could have this appearance. 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 Per daughter patient does not have any prior history of cancer. She has had a bowel resection for a perforated diverticulitis. Dr. Silveira has been consulted for further evaluation. We'll check stool studies. Patient also is having evidence of urinary retention and Concepcion catheter was reinserted in the emergency room. She had recently been to see Dr. Murphy for the urinary retention at that time for catheter was removed. 04/19/2017 patient is scheduled for colonoscopy today with Dr. Silveira. Denies any nausea or vomiting. No blood in the stools. Denies any chest pain or shortness of breath. Does have some bruising and minimal swelling noted along the left arm from an old IV site. No hematoma. No tenderness. On 04/20/2017 patient is alert and oriented 3 she is kept nothing by mouth patient and her daughter are aware of colonoscopy results which revealed transverse colon mass, plan is for surgery on Saturday. Patient denies any nausea or vomiting no abdominal pain no diarrhea or constipation no blood in her stools at this time. 04/21/2017 patient is alert and oriented 3 she is kept nothing by mouth patient and her daughter are aware of colonoscopy results which revealed transverse colon mass, plan is for surgery on Saturday. Patient is maintained on TPN, potassium is low at 3 today and this will be adjusted 04/22/2017 patient is status post colonoscopy which had revealed a transverse colon mass. She is followed closely by surgery and is scheduled for bowel resection today. However, patient was found to have swelling in her left upper arm where the PICC line was placed on Saturday for TPN. She has some evidence of possible cellulitis near the PICC line site with's beginning of streaking down the back of her left arm. PICC line will be removed and tip will be sent for culture. Infectious disease consulted. Doppler exam to rule out DVT ordered. Surgical service has been notified. Patient is afebrile. White count normal. She denies any chest pain or shortness of breath. Denies any nausea or vomiting. Concepcion catheter in place 04/23/2017 patient started on IV heparin yesterday for left arm DVT. PICC line was removed due to it causing cellulitis. PICC line tip culture and blood culture pending. Seen by infectious disease and they've added IV vancomycin. Her left arm is still swollen and red. Patient's abdominal surgery for the colon mass was canceled. At this time patient is stating she doesn't want anything further done. However, she is willing to listen to the consulting physicians further recommendations and then will decide if she wants anything else done. 04/24/2017 patient on IV heparin for left arm DVT. PICC line was removed. PICC line tip culture and blood culture pending. Seen by infectious disease and they 've added IV vancomycin. Her left arm is still swollen and red. Patient's abdominal surgery for the colon mass is being discussed between patient , her family and multiple specialist [facility] possible date on Saturday. 04/25/2017 patient is complaining of left ankle pain. She denies any injury. She doesn't may be her rheumatoid arthritis. She does have Ultram if needed. She is scheduled for surgery regarding the colon mass tomorrow. She reports having bowel movements. Denies any chest pain or shortness of breath. She is very weak and requires assistance to get to the restroom 04/26/2017 patient lying in bed comfortably. No new complaints. She is scheduled for surgery this afternoon. Hemoglobin is up to 9.7. Potassium was corrected yesterday. Infectious disease has discontinue the IV vancomycin. Denies any chest pain or shortness breath. Denies any nausea vomiting. Reports having bowel movements. 04/29/2017 patient sleeping comfortably but arousable. Answered daughter's questions at bedside. Patient did have a temp of 101.3 and tachycardia yesterday. Infectious disease has adjusted antibiotics. Repeat urinalysis did show budding yeast. She is currently on Diflucan cefepime and Flagyl. White count has decreased from 14.1-11.88. Hemoglobin has dropped from 10.1-8.9. Potassium is being replaced. She's been able to eat small amounts. She is passing gas. No nausea or vomiting. 04/30/2017 patient sitting up at bedside chair. She is awake but sleepy and weak. White count has improved some from 11.8 to 10.6. Case discussed with hematology and they're recommending Eliquis for the DVT. Awaiting insurance coverage. Patient has been afebrile yesterday and this morning. Infectious disease following. She is tolerating diet. Did have a bowel movement. She is able to stand for a few minutes at bedside. Receiving potassium supplement for potassium 2.7. Having difficulty with IV access. We'll await further consulting physician recommendations about oral antibiotics and checking into the Eliquis On 05/01/2017 patient is alert, somnolent, responsive to stimuli, answers questions appropriately, white blood count 10.9 hemoglobin 9.0 potassium level is 3.3 Temperature 98.8, patient denies any pain or discomfort, has been taking oral liquids, scheduled to have soft diet this evening, patient has been somnolent most of the time, all narcotics has been withheld. Objective - Vital Signs Vital signs: Vital Signs Temp 98.8 F 05/01/17 15:23 Pulse 97 05/01/17 15:23 Resp 28 H 05/01/17 15:23 BP 144/67 05/01/17 15:23 Pulse Ox 97 05/01/17 15:23 Intake & Output 04/30/17 05/01/17 05/01/17 18:59 06:59 18:59 Intake Total 217.887 Output Total 1300 301 Balance -1082.113 -301 Weight 75.8 kg Intake: Intake, IV Titration 217.887 Amount Heparin Sod,Pork in 0.45% 217.887 NaCl 25,000 unit In 0.45 % NaCl 1 500ml.bag @ 18 UNITS/KG/HR 20.88 mls/hr IV .[id number] [facility] Rx#: [id number] Output: Urine 1300 300 Stool 1 Other: Voiding Method Indwelling Catheter Indwelling Catheter Indwelling Catheter # Bowel Movements 3 - Exam Head normocephalic and atraumatic Neck supple no JVD no goiter Lungs clear to auscultation bilaterally no wheezing or crackles Heart regular rate and rhythm S1-S2, no rub or gallop Abdomen is soft nontender nondistended positive bowel sounds no hepatosplenomegaly Extremities no edema of the lower extremities. Left arm minimal bruising and mild swelling at old IV site. - Labs CBC & Chem 7: 05/01/17 07:24 05/01/17 07:24 Labs: Abnormal Lab Results - Last 24 Hours (Table) 04/30/17 04/30/17 04/30/17 Range/Units 17:33 17:35 20:16 WBC (3.8-10.6) k/uL RBC (3.80-5.40) m/uL Hgb (11.4-16.0) gm/dL Hct (34.0-46.0) % MCHC (31.0-37.0) g/dL RDW (11.5-15.5) % Neutrophils # (1.3-7.7) k/uL Sodium (137-145) mmol/L Potassium (3.5-5.1) mmol/L Glucose (74-99) mg/dL POC Glucose (mg/dL) 270 H 211 H 218 H (75-99) mg/dL AST (14-36) U/L Total Protein (6.3-8.2) g/dL Albumin (3.5-5.0) g/dL 05/01/17 05/01/17 05/01/17 Range/Units 07:24 07:24 07:35 WBC 10.9 H (3.8-10.6) k/uL RBC 3.50 L (3.80-5.40) m/uL Hgb 9.0 L (11.4-16.0) gm/dL Hct 29.5 L (34.0-46.0) % MCHC 30.5 L (31.0-37.0) g/dL RDW 16.8 H (11.5-15.5) % Neutrophils # 8.1 H (1.3-7.7) k/uL Sodium 135 L (137-145) mmol/L Potassium 3.3 L (3.5-5.1) mmol/L Glucose 173 H (74-99) mg/dL POC Glucose (mg/dL) 170 H (75-99) mg/dL AST 8 L (14-36) U/L Total Protein 4.9 L (6.3-8.2) g/dL Albumin 2.1 L (3.5-5.0) g/dL 05/01/17 Range/Units 12:05 WBC (3.8-10.6) k/uL RBC (3.80-5.40) m/uL Hgb (11.4-16.0) gm/dL Hct (34.0-46.0) % MCHC (31.0-37.0) g/dL RDW (11.5-15.5) % Neutrophils # (1.3-7.7) k/uL Sodium (137-145) mmol/L Potassium (3.5-5.1) mmol/L Glucose (74-99) mg/dL POC Glucose (mg/dL) 199 H (75-99) mg/dL AST (14-36) U/L Total Protein (6.3-8.2) g/dL Albumin (3.5-5.0) g/dL Microbiology - Last 24 Hours (Table) 04/29/17 09:11 Blood Culture - Preliminary Blood No Growth after 48 hours 04/27/17 23:08 Blood Culture - Preliminary Blood No Growth after 72 hours 04/27/17 22:33 Blood Culture - Preliminary Blood No Growth after 72 hours Assessment and Plan Plan: 1. Acute colitis with Abdominal pain:Status post repair of incarcerated incisional hernia, transverse colectomy, and partial omentectomy on 04/26/17. Continue postoperative care. General surgery following closely. Maintained on broad-spectrum antibiotic. Infectious disease. CEA elevated at 31.6. Followed by surgical service. Diet per surgical service. Pain medications adjusted per surgical service. Pathology report pending 2. Sepsis with possible colitis present on admission. Continue antibiotics. Infectious disease following 3. 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 Rheumatoid arthritis currently on methotrexate 5. Urinary retention Concepcion catheter reinserted in ER 6. Diabetes mellitus type 2: Continue sliding scale coverage 7. Hypokalemia: Potassium being replaced 8. Chronic pulmonary fibrosis followed by pulmonary service 9. New DVT of the left arm: Continue IV heparin. Discussed with hematology nurse practitioner. Checking to see if Eliquis is covered by insurance 10. Left arm cellulitis: Resolved 11. Yeast present in the urine currently on Diflucan. Infectious disease following GI and DVT prophylaxis Pepcid and IV heparin Encouraged increased activity. Continue to work with physical therapy
[2017-05-01 19:57] LABS: Glucose,Whole Blood 118 mg/dL (75-99)
--- NOTE | 2017-05-01 20:26 | P.PN ---
Subjective Progress Note Date: 05/01/17 Principal diagnosis: Acute colitis, colon mass, left upper extremity DVT, status post transverse colectomy with ileal colonic stenosis and repair of incarcerated incisional hernia partial omentectomy of transverse colon tumor, protein calorie malnourishment, severe COPD emphysema and chronic persistent asthma 04/28/2017, patient seen and evaluated examined during the rounds, complaining of some abdominal discomfort overall doing well patient has been getting morphine with which he has been confused now being taken off of morphine 04/29/2017, patient seen and evaluated examined during the rounds clinically doing relatively better more evident awake and alert resting at this point in time care plan discussed with the daughter present at bedside at length overall respiratory status stable hemodynamic status stable 04/30/2017, patient seen and evaluated examined during the rounds clinically doing well awake and alert breathing comfortably resting now other [place] complains of present swelling in the left upper extremity is slightly better patient's remains anticoagulated with IV heparin, overall plan is to place patient on and requests once cleared by surgery and insurance companies, and labs are reviewed medications reviewed as well, care plan discussed with primary service 05/01/2017, patient seen eval examined during the rounds she remains somnolent and lethargic but slightly more arousable today neurology has been consulted for sleepiness and increased lethargy patient has been advised for clear liquid diet from respiratory standpoint doing relatively well breathing comfortably no obvious distress has been noted daughter is present at the bedside care plan discussed with her at length, and labs reviewed medications reviewed as well Objective - Vital Signs Vital signs: Vital Signs Temp 98.8 F 05/01/17 15:23 Pulse 98 05/01/17 19:21 Resp 28 H 05/01/17 15:23 BP 144/67 05/01/17 15:23 Pulse Ox 97 05/01/17 19:08 Intake & Output 05/01/17 05/01/17 05/02/17 06:59 18:59 06:59 Output Total 301 Balance -301 Weight 75.8 kg Output: Urine 300 Stool 1 Other: Voiding Method Indwelling Catheter Indwelling Catheter - Exam 86-year-old female open eyes to verbal stimuli cooperative HEENT unremarkable, Neck supple neck veins are prominent but no significant jugular vein is distention carotid bruit Lungs diminished at the bases otherwise adequate air movement Heart S1-S2 audible regular Abdomen surgical incision sites dry Provera wound system in place soft not distended few hypoactive bowel tones noted indwelling Concepcion catheter in place no stool Extremities bilateral arms elevated on pillow decrease edema. Venodyne's on to bilateral lower extremities will move the lower extremities to simple commands - Labs CBC & Chem 7: 05/01/17 07:24 05/01/17 07:24 Labs: Abnormal Lab Results - Last 24 Hours (Table) 05/01/17 05/01/17 05/01/17 Range/Units 07:24 07:24 07:35 WBC 10.9 H (3.8-10.6) k/uL RBC 3.50 L (3.80-5.40) m/uL Hgb 9.0 L (11.4-16.0) gm/dL Hct 29.5 L (34.0-46.0) % MCHC 30.5 L (31.0-37.0) g/dL RDW 16.8 H (11.5-15.5) % Neutrophils # 8.1 H (1.3-7.7) k/uL Sodium 135 L (137-145) mmol/L Potassium 3.3 L (3.5-5.1) mmol/L Glucose 173 H (74-99) mg/dL POC Glucose (mg/dL) 170 H (75-99) mg/dL AST 8 L (14-36) U/L Total Protein 4.9 L (6.3-8.2) g/dL Albumin 2.1 L (3.5-5.0) g/dL 05/01/17 05/01/17 05/01/17 Range/Units 12:05 17:08 19:55 WBC (3.8-10.6) k/uL RBC (3.80-5.40) m/uL Hgb (11.4-16.0) gm/dL Hct (34.0-46.0) % MCHC (31.0-37.0) g/dL RDW (11.5-15.5) % Neutrophils # (1.3-7.7) k/uL Sodium (137-145) mmol/L Potassium (3.5-5.1) mmol/L Glucose (74-99) mg/dL POC Glucose (mg/dL) 199 H 144 H 118 H (75-99) mg/dL AST (14-36) U/L Total Protein (6.3-8.2) g/dL Albumin (3.5-5.0) g/dL Microbiology - Last 24 Hours (Table) 04/29/17 09:11 Blood Culture - Preliminary Blood No Growth after 48 hours 04/27/17 23:08 Blood Culture - Preliminary Blood No Growth after 72 hours 04/27/17 22:33 Blood Culture - Preliminary Blood No Growth after 72 hours Assessment and Plan Assessment: Severe hypokalemia resolving improved significantly Deep venous thrombosis of left upper extremity on IV heparin which is being adjusted at as per PTT Intermittent abdominal discomfort and pain and evidence of colitis versus mucosal wall thickening likely infectious or neoplastic process status post colectomy, status post repair of incarcerated incisional hernia, transverse colectomy with ileal colonic stenosis and partial omentum ectomy Severe COPD related to chronic severe persistent asthma overall stable Chronic cough related to above and chronic asthma 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
[2017-05-01] MEDS: LACTATED RINGERS 1,000 ML IV SCH (21:16)
--- NOTE | 2017-05-01 22:36 | PN ---
PROGRESS NOTE DATE OF SERVICE: 05/01/2017 REASON FOR FOLLOWUP: Catheter-associated urinary tract infection and postoperative fever. INTERVAL HISTORY: The patient overall feels better and has improved. However, the patient's mentation remains on the low side. She remains weak, lethargic, with poor oral intake. No nausea or vomiting has been noted or any diarrhea. PHYSICAL EXAMINATION: Blood pressure 144/67 with a pulse of 97, temperature of 98. She is 97% on 3 L nasal cannula. General description is an elderly female lying in bed in no distress. RESPIRATORY SYSTEM: Unlabored breathing with decreased breath sounds in the bases. No wheeze. HEART: S1, S2. Regular rate and rhythm. ABDOMEN: Soft. No tenderness. LABS: Hemoglobin 9.0, white count 10.9 with a BUN of 8, creatinine 0.53. Repeat cultures have been negative so far. DIAGNOSTIC IMPRESSION AND PLAN: Patient with a postoperative fever, possible catheter-associated urinary tract infection, as the patient did have positive urine showing budding yeast. Currently the patient is on oral Diflucan continue for a short course. Continue supportive care. MMODL / IJN: [id number] /
[2017-05-02 07:30] LABS: Glucose,Whole Blood 106 mg/dL (75-99)
[2017-05-02] MEDS: BUDESONIDE 0.25 MG/2 ML NEBU INHALATION SCH ×2 (07:34→19:31)
[2017-05-02] MEDS: FORMOTEROL FUMARATE 20 MCG/2 ML NEBU INHALATION SCH ×2 (07:34→19:31)
[2017-05-02 08:16] LABS: Anisocytosis Slight; Basophils # (A) 0.1 k/uL (0-0.2); Basophils % (A) 1 %; Eosinophils # (A) 0.6 k/uL (0-0.7); Eosinophils % (A) 7 %; HCT 28.5 % (34.0-46.0); HGB 8.8 gm/dL (11.4-16.0); Hypochromasia Moderate; Lymphocytes # (A) 1.4 k/uL (1.0-4.8); Lymphocytes % (A) 16 %; MCH 25.9 pg (25.0-35.0); MCHC 30.9 g/dL (31.0-37.0); MCV 83.9 fL (80.0-100.0); Mean Platelet Volume 8.2; Monocytes # (A) 0.7 k/uL (0-1.0); Monocytes % (A) 8 %; Neutrophils # (A) 5.5 k/uL (1.3-7.7); Neutrophils % (A) 65 %; Platelet Count 443 k/uL (150-450); Poikilocytosis Slight; RDW 16.9 % (11.5-15.5); WBC 8.5 k/uL (3.8-10.6)
[2017-05-02] MEDS: MONTELUKAST 10 MG TAB PO SCH (08:50)
[2017-05-02] MEDS: FUROSEMIDE 20 MG TAB PO SCH (08:50)
[2017-05-02] MEDS: metroNIDAZOLE 500 MG TAB PO SCH ×2 (08:50→16:54)
[2017-05-02] MEDS: APIXABAN 5 MG TAB PO SCH (08:50)
[2017-05-02] MEDS: FOLIC ACID 1 MG TAB PO SCH (08:50)
[2017-05-02] MEDS: ALVIMOPAN 12 MG CAPSULE PO SCH (08:50)
[2017-05-02] MEDS: FLUCONAZOLE 100 MG TAB PO SCH (08:50)
[2017-05-02] MEDS: METOPROLOL TARTRATE 12.5 MG TAB PO SCH (08:50)
[2017-05-02] MEDS: NYSTATIN 100,000 UNIT/ML SUSP 500,000 UNIT/5 ML CUP PO SCH ×3 (08:51→19:02)
[2017-05-02] MEDS: PANTOPRAZOLE 40 MG TABLET PO SCH (08:51)
[2017-05-02] MEDS: CEFUROXIME 250 MG TAB PO SCH (08:51)
[2017-05-02 08:55] LABS: ALT 19 U/L (9-52); AST 11 U/L (14-36); Alkaline Phosphatase 43 U/L (38-126); Anion Gap 6 mmol/L; Blood Urea Nitrogen 9 mg/dL (7-17); Calcium 8.7 mg/dL (8.4-10.2); Carbon Dioxide 28 mmol/L (22-30); Chloride 101 mmol/L (98-107); Glucose 106 mg/dL (74-99); Potassium 3.2 mmol/L (3.5-5.1); Sodium 135 mmol/L (137-145); Total Bilirubin 0.3 mg/dL (0.2-1.3); Total Protein 4.7 g/dL (6.3-8.2)
[2017-05-02] MEDS: traMADol 50 MG TAB PO PRN ×2 (08:55→17:42)
[2017-05-02] MEDS: INSULIN ASPART 100 UNIT/ML 1 ML 10 ML VIAL SQ SCH ×3 (09:09→17:52)
[2017-05-02 09:25] VITALS: RESP 18
--- NOTE | 2017-05-02 09:31 | CONS ---
CONSULTATION DATE OF CONSULTATION: 05/01/2017 CHIEF COMPLAINT: Weakness. HISTORY OF PRESENT ILLNESS: Mrs. Sapp is a pleasant 86-year-old, female, who is being evaluated by the Neurology Service per the request of Dr. Blanca and Dr. Montanez for weakness and altered mental status. The patient has been having gastrointestinal issues for the past several weeks. She was recently admitted for 3 weeks at [facility] [place] with treatments for colitis. She was treated with Flagyl for a few weeks and her symptoms were not improving. She was significantly getting weaker with reduced oral intake. A CT scan of the abdomen was done at that time along with a colonoscopy according to the patient's daughter. She was found to have a tumor which was surgically resected. The patient's mental status did not improve and yesterday there was talk about possible hospice care. Today, the patient is much more awake and oriented to person and place. She has severe weakness that is generalized. According to the daughter, the patient's baseline a few weeks ago is that she is able to ambulate using a walker and is semi-independent. At the time of my evaluation, the patient is lying in her bed and appears to be in no acute distress. She complains of severe generalized weakness. She denies any numbness or tingling. She does complain of a severe pain in bilateral feet and ankles which is chronic for her. She rates this pain at 9/10 in intensity. In reviewing her chart, she was also recently diagnosed with a deep venous thrombosis involving her right upper extremity. Her CBC today showed mild leukocytosis at 10.9 and anemia with a hemoglobin of 9.0 and hematocrit of 29%. Her comprehensive metabolic profile showed no significant abnormalities. Her renal function is normal. PAST MEDICAL HISTORY: Asthma, chronic obstructive pulmonary disease, diabetes, deep venous thrombosis, gastroesophageal reflux disease, arthritis, hypothyroidism, history of thyroidectomy, diverticulosis, recently resected colon mass, hiatal hernia. History of C. difficile colitis, history of appendectomy, thyroidectomy, spine surgery, recent bowel resection, cholecystectomy, hysterectomy, cataract surgery. SOCIAL HISTORY: The patient is a former smoker. There is no history of any alcohol or drug use. FAMILY HISTORY: Positive for cancer. HOME MEDICATIONS: Reviewed in the chart. ALLERGIES: IV DYE, LEVAQUIN, LATEX, PENICILLIN, DARVON, CIPRO, DARVOCET, EGGS. REVIEW OF SYSTEM: CONSTITUTIONAL: Positive for fatigue. EYES: Positive for chronic diminished vision. ENT: Positive for chronic hearing loss. CARDIOVASCULAR: As mentioned above. RESPIRATORY: Positive for occasional shortness of breath. NEUROLOGICAL: As mentioned above. GASTROINTESTINAL: As mentioned above. GENITOURINARY: Positive for urinary retention. PSYCHIATRIC: Negative. MUSCULOSKELETAL: As mentioned above. DERMATOLOGICAL: Negative. ENDOCRINE: Positive for hypothyroidism and diabetes. PHYSICAL EXAM: Vital Signs show a temperature of 98.0, pulse 100, respiration 28, blood pressure 144/67. GENERAL APPEARANCE: The patient is a well-developed, elderly female who appears to be in no acute distress. HEENT: Normocephalic, atraumatic, no facial asymmetry is seen. NECK: Supple with no masses felt. CARDIOVASCULAR: Regular rate and rhythm. ABDOMEN: Tenderness to palpation is felt. Extremities showed edema with no clubbing seen. NEUROLOGICAL EXAM: The patient is slightly drowsy. She is oriented to person and place. She could not recall the year. Her strength is 2/5 in all 4 distal extremities and 0/5 proximally. Sensory exam was normal to light touch in all 4 extremities. No facial asymmetry is seen on cranial nerve testing. IMPRESSION: 1. Generalized weakness. 2. Critical illness polyneuropathy. 3. Altered mental status. 4. Anemia. 5. Recent upper extremity deep venous thrombosis. RECOMMENDATION: The patient's weakness is generalized and severe, and is more affecting her proximal extremities than distal. These findings are consistent with critical illness neuropathy. The patient would benefit from IVIG. Unfortunately, this is contraindicated due to her recent deep venous thrombosis. Continue physical therapy. As for her altered mental status, this is significantly improved today as she is quite oriented except for the year. She answers all questions appropriately. If the patient gets transferred for inpatient rehab, consider plasmapheresis since IVIG is contraindicated. Continue the rest of your current workup and management. I will continue to follow with you. Further recommendations to follow. Thank you for allowing me to participate in the care of your patient. If you have any questions, please feel free to contact me. LESLEY / TEAGAN: [id number] / MTDD
[2017-05-02] MEDS ORDERED: Potassium Replacement Protocol 1 EACH MISC MISCELLANE PRN (09:32)
[2017-05-02] MEDS ORDERED: POTASSIUM CHLORIDE 10 MEQ in WATER FOR INJECTION 1 100ML.BAG IVPB SCH (10:00)
[2017-05-02 10:59] VITALS: BMI 28.6
[2017-05-02] MEDS: POTASSIUM CHLORIDE 10 MEQ in SODIUM CHLORIDE 0.9% 100 ML IVPB SCH ×2 (11:16→12:38)
[2017-05-02 11:21] LABS: Glucose,Whole Blood 235 mg/dL (75-99)
--- NOTE | 2017-05-02 12:10 | P.PN ---
Subjective Progress Note Date: 05/02/17 This is a 86-year-old female with a known past medical history of site COPD, diabetes mellitus, rheumatoid arthritis, lower extremity DVT, GERD, C. diff, recurrent episodes of urinary retention, diverticulosis and a recent admission at [facility] about 3 weeks ago for colitis. At that time she was treated with Flagyl. History was obtained from patient's daughter. Who reports that patient had shown improvement but once she finished the Flagyl her symptoms worsened again. She has been having journalized weakness nausea decrease in appetite and diarrhea. She also has been having fevers at home. She came back into the hospital for further evaluation. She was found have a temp of 102 white count 15.2 started on Rocephin and Flagyl. Computed tomography scan of the abdomen and pelvis shows at the site of prior partial colectomy there is new irregular wall thickening with mild fat stranding and suspicious adjacent adenopathy, acute infectious process at this level or colitis could have this appearance. 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 Per daughter patient does not have any prior history of cancer. She has had a bowel resection for a perforated diverticulitis. Dr. Silveira has been consulted for further evaluation. We'll check stool studies. Patient also is having evidence of urinary retention and Concepcion catheter was reinserted in the emergency room. She had recently been to see Dr. Murphy for the urinary retention at that time for catheter was removed. 04/19/2017 patient is scheduled for colonoscopy today with Dr. Silveira. Denies any nausea or vomiting. No blood in the stools. Denies any chest pain or shortness of breath. Does have some bruising and minimal swelling noted along the left arm from an old IV site. No hematoma. No tenderness. 04/22/2017 patient is status post colonoscopy which had revealed a transverse colon mass. She is followed closely by surgery and is scheduled for bowel resection today. However, patient was found to have swelling in her left upper arm where the PICC line was placed on Saturday for TPN. She has some evidence of possible cellulitis near the PICC line site with's beginning of streaking down the back of her left arm. PICC line will be removed and tip will be sent for culture. Infectious disease consulted. Doppler exam to rule out DVT ordered. Surgical service has been notified. Patient is afebrile. White count normal. She denies any chest pain or shortness of breath. Denies any nausea or vomiting. Concepcion catheter in place 04/23/2017 patient started on IV heparin yesterday for left arm DVT. PICC line was removed due to it causing cellulitis. PICC line tip culture and blood culture pending. Seen by infectious disease and they've added IV vancomycin. Her left arm is still swollen and red. Patient's abdominal surgery for the colon mass was canceled. At this time patient is stating she doesn't want anything further done. However, she is willing to listen to the consulting physicians further recommendations and then will decide if she wants anything else done. 04/25/2017 patient is complaining of left ankle pain. She denies any injury. She doesn't may be her rheumatoid arthritis. She does have Ultram if needed. She is scheduled for surgery regarding the colon mass tomorrow. She reports having bowel movements. Denies any chest pain or shortness of breath. She is very weak and requires assistance to get to the restroom 04/26/2017 patient lying in bed comfortably. No new complaints. She is scheduled for surgery this afternoon. Hemoglobin is up to 9.7. Potassium was corrected yesterday. Infectious disease has discontinue the IV vancomycin. Denies any chest pain or shortness breath. Denies any nausea vomiting. Reports having bowel movements. 04/29/2017 patient sleeping comfortably but arousable. Answered daughter's questions at bedside. Patient did have a temp of 101.3 and tachycardia yesterday. Infectious disease has adjusted antibiotics. Repeat urinalysis did show budding yeast. She is currently on Diflucan cefepime and Flagyl. White count has decreased from 14.1-11.88. Hemoglobin has dropped from 10.1-8.9. Potassium is being replaced. She's been able to eat small amounts. She is passing gas. No nausea or vomiting. 04/30/2017 patient sitting up at bedside chair. She is awake but sleepy and weak. White count has improved some from 11.8 to 10.6. Case discussed with hematology and they're recommending Eliquis for the DVT. Awaiting insurance coverage. Patient has been afebrile yesterday and this morning. Infectious disease following. She is tolerating diet. Did have a bowel movement. She is able to stand for a few minutes at bedside. Receiving potassium supplement for potassium 2.7. Having difficulty with IV access. We'll await further consulting physician recommendations about oral antibiotics and checking into the Eliquis 05/02/2017 patient is sleeping comfortably. Arousable. Daughter at bedside. Reports that her mom was able to be breakfast and is talking earlier this morning. However she gets worn out easily and has been sleeping a lot. Objective - Vital Signs Vital signs: Vital Signs Temp 98.3 F 05/02/17 09:24 Pulse 116 H 05/02/17 09:24 Resp 18 05/02/17 09:24 BP 148/70 05/02/17 09:24 Pulse Ox 90 L 05/02/17 09:24 Intake & Output 05/01/17 05/02/17 05/02/17 18:59 06:59 18:59 Output Total 950 502 Balance -950 -502 Weight 75.8 kg 75.8 kg Output: Urine 950 500 Straight 950 500 Stool 2 Other: Voiding Method Indwelling Catheter Indwelling Catheter Indwelling Catheter - Exam Head normocephalic Neck supple Lungs clear to auscultation bilaterally no wheezing or crackles Heart regular rate and rhythm S1-S2, no rub or gallop Abdomen is soft nontender nondistended positive bowel sounds no hepatosplenomegaly Extremities no edema of the lower extremities. Left arm swelling and redness decreasing. Neuro sleeping but arousable. Able to answer questions. - Labs CBC & Chem 7: 05/02/17 07:56 05/02/17 07:56 Labs: Abnormal Lab Results - Last 24 Hours (Table) 05/01/17 05/01/17 05/01/17 Range/Units 12:05 17:08 19:55 RBC (3.80-5.40) m/uL Hgb (11.4-16.0) gm/dL Hct (34.0-46.0) % MCHC (31.0-37.0) g/dL RDW (11.5-15.5) % Sodium (137-145) mmol/L Potassium (3.5-5.1) mmol/L Glucose (74-99) mg/dL POC Glucose (mg/dL) 199 H 144 H 118 H (75-99) mg/dL AST (14-36) U/L Total Protein (6.3-8.2) g/dL Albumin (3.5-5.0) g/dL 05/02/17 05/02/17 05/02/17 Range/Units 07:27 07:56 07:56 RBC 3.40 L (3.80-5.40) m/uL Hgb 8.8 L (11.4-16.0) gm/dL Hct 28.5 L (34.0-46.0) % MCHC 30.9 L (31.0-37.0) g/dL RDW 16.9 H (11.5-15.5) % Sodium 135 L (137-145) mmol/L Potassium 3.2 L (3.5-5.1) mmol/L Glucose 106 H (74-99) mg/dL POC Glucose (mg/dL) 106 H (75-99) mg/dL AST 11 L (14-36) U/L Total Protein 4.7 L (6.3-8.2) g/dL Albumin 2.0 L (3.5-5.0) g/dL 05/02/17 Range/Units 11:05 RBC (3.80-5.40) m/uL Hgb (11.4-16.0) gm/dL Hct (34.0-46.0) % MCHC (31.0-37.0) g/dL RDW (11.5-15.5) % Sodium (137-145) mmol/L Potassium (3.5-5.1) mmol/L Glucose (74-99) mg/dL POC Glucose (mg/dL) 235 H (75-99) mg/dL AST (14-36) U/L Total Protein (6.3-8.2) g/dL Albumin (3.5-5.0) g/dL Microbiology - Last 24 Hours (Table) 04/29/17 09:11 Blood Culture - Preliminary Blood No Growth after 72 hours 04/27/17 23:08 Blood Culture - Preliminary Blood No Growth after 96 hours 04/27/17 22:33 Blood Culture - Preliminary Blood No Growth after 96 hours Assessment and Plan Assessment: 1. Acute colitis with Abdominal pain:Status post repair of incarcerated incisional hernia, transverse colectomy, and partial omentectomy on 04/26/17. Continue postoperative care. General surgery following closely. Maintained on broad-spectrum antibiotic. Infectious disease. CEA elevated at 31.6. 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 Sepsis with possible colitis present on admission. Continue antibiotics. Infectious disease following 3. 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 Rheumatoid arthritis currently on methotrexate 5. Urinary retention Concepcion catheter reinserted in ER 6. Diabetes mellitus type 2: Continue sliding scale coverage 7. Hypokalemia: Patient requiring potassium supplement again. She is on a daily dose of Lasix will add a daily dose of K-Dur 20 milliequivalents daily 8. Chronic pulmonary fibrosis followed by pulmonary service 9. New DVT of the left arm: continue Eliquis 10 mg by mouth twice a day for 7 days and then decrease to 5 mg by mouth twice a day 10. Left arm cellulitis: Resolved 11. Catheter associated UTI with yeast: Continue Diflucan. Followed by infectious disease GI and DVT prophylaxis Pepcid and IV heparin Encouraged increased activity. Continue to work with physical therapy I performed an examination of the patient and discussed their management with the physician Wagon Driller. I have reviewed the Physician Wagon Driller's notes and agree with the documented findings and plan of care
[2017-05-02] MEDS: ACETAMINOPHEN TAB 325 MG TAB PO PRN (13:11)
--- NOTE | 2017-05-02 13:22 | P.PN ---
Subjective Progress Note Date: 05/02/17 86-year-old female seen and examined at bedside. Daughter at bedside. Patient is increasingly more awake and alert this morning will open eyes to verbal stimuli. Then falls back to sleep. Continues to experience generalized weakness. Daughter states patient did eat a small amount this morning. Patient has not received any analgesics for pain control. Per daughter report patient has verbalized last evening wanting to be left alone Did review the consultation note from neurology's impression is generalized weakness altered mental status critical illness polyneuropathy. They indicated the patient would benefit from IVIG unfortunately contraindicated due to the patient's recent DVT. Consider plasmapheresis per Dr. munoz recommendations postop April 26 repair of incarcerated incisional hernia, transverse colectomy with ileal ileocolonic stenosis, partial omentectomy for a transverse colon tumor pathology report reviewed the primary tumor invades the visceral carcinoma Objective - Vital Signs Vital signs: Vital Signs Temp 98.3 F 05/02/17 09:24 Pulse 116 H 05/02/17 09:24 Resp 18 05/02/17 09:24 BP 148/70 05/02/17 09:24 Pulse Ox 90 L 05/02/17 09:24 Intake & Output 05/01/17 05/02/17 05/02/17 18:59 06:59 18:59 Output Total 950 502 Balance -950 -502 Weight 75.8 kg 75.8 kg Output: Urine 950 500 Straight 950 500 Stool 2 Other: Voiding Method Indwelling Catheter Indwelling Catheter Indwelling Catheter - Exam Exam Abdomen surgical incision sites dry Provera wound system in place surgical dressing site dry soft not distended few hypoactive bowel tones noted indwelling Concepcion catheter in place incontinent 2 bowel movements this morning no facial grimacing with palpitation to the abdominal wall - Labs CBC & Chem 7: 05/02/17 07:56 05/02/17 07:56 Labs: Abnormal Lab Results - Last 24 Hours (Table) 05/01/17 05/01/17 05/02/17 Range/Units 17:08 19:55 07:27 RBC (3.80-5.40) m/uL Hgb (11.4-16.0) gm/dL Hct (34.0-46.0) % MCHC (31.0-37.0) g/dL RDW (11.5-15.5) % Sodium (137-145) mmol/L Potassium (3.5-5.1) mmol/L Glucose (74-99) mg/dL POC Glucose (mg/dL) 144 H 118 H 106 H (75-99) mg/dL AST (14-36) U/L Total Protein (6.3-8.2) g/dL Albumin (3.5-5.0) g/dL 05/02/17 05/02/17 05/02/17 Range/Units 07:56 07:56 11:05 RBC 3.40 L (3.80-5.40) m/uL Hgb 8.8 L (11.4-16.0) gm/dL Hct 28.5 L (34.0-46.0) % MCHC 30.9 L (31.0-37.0) g/dL RDW 16.9 H (11.5-15.5) % Sodium 135 L (137-145) mmol/L Potassium 3.2 L (3.5-5.1) mmol/L Glucose 106 H (74-99) mg/dL POC Glucose (mg/dL) 235 H (75-99) mg/dL AST 11 L (14-36) U/L Total Protein 4.7 L (6.3-8.2) g/dL Albumin 2.0 L (3.5-5.0) g/dL Microbiology - Last 24 Hours (Table) 04/29/17 09:11 Blood Culture - Preliminary Blood No Growth after 72 hours 04/27/17 23:08 Blood Culture - Preliminary Blood No Growth after 96 hours 04/27/17 22:33 Blood Culture - Preliminary Blood No Growth after 96 hours Assessment and Plan Assessment: Impression Present on admission abdominal pain nausea vomiting diarrhea suspect due to acute colitis Status post colonoscopy transverse colon mass noted History of severe COPD no evidence of an exacerbation Present on admission sepsis likely due to colitis New-onset left upper arm swelling possible DVT per ultrasound report Debilitated Postop April 26 repair of incarcerated incisional hernia, transverse colectomy with ileocolonic stenosis, partial omentectomy for transverse colon tumor Postop urinary retention indwelling Concepcion catheter reinserted Mild protein calorie malnutrition suspect due to Poor caloric intake Hypokalemia Encephalopathy unclear etiology suspect metabolic 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 gu The above impression and plan of care have been discussed and directed by signing physician. Jalyn Mckeon nurse practitioner acting as scribe for signing physician.
--- NOTE | 2017-05-02 15:18 | P.PN ---
Subjective Progress Note Date: 05/02/17 Principal diagnosis: Weakness Is a pleasant 86-year-old female being evaluated by the neurology service for weakness and altered mental status. In the last few weeks she had been having significant gastrointestinal issues. She was being treated for colitis. Her symptoms worsened. A CT and colonoscopy detected a mass which was removed. She had some significant mental status changes which have significantly improved. However, she was left with severe with generalized weakness. She is also complaining of severe pain in her feet and ankles and arms. She was recently diagnosed with a DVT of the right upper extremity. 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 Treatment of choice for this is IVIG. However, this treatment is contraindicated in patients with DVT. The next treatment of choice is plasmapheresis. This was recommended and a transfer is in the process to initiate this treatment. The time of my exam she is resting comfortably in bed and reports having pain due in her arms and legs. Objective - Vital Signs Vital signs: Vital Signs Temp 98.3 F 05/02/17 09:24 Pulse 116 H 05/02/17 09:24 Resp 18 05/02/17 09:24 BP 148/70 05/02/17 09:24 Pulse Ox 90 L 05/02/17 09:24 Intake & Output 05/01/17 05/02/17 05/02/17 18:59 06:59 18:59 Output Total 950 902 Balance -950 -902 Weight 75.8 kg 75.8 kg Output: Urine 950 900 Straight 950 500 Stool 2 Other: Voiding Method Indwelling Catheter Indwelling Catheter Indwelling Catheter - Constitutional General appearance: Present: cooperative - EENT Eyes: Present: EOMI, PERRLA. Absent: abnormal pupil, ptosis ENT: Present: hard of hearing - Neck Neck: Present: normal ROM. Absent: rigidity - Respiratory Respiratory: negative: prolonged expiration, prolonged inspiration - Cardiovascular Rhythm: regular - Gastrointestinal General gastrointestinal: Absent: distended, tenderness - Neurologic Neurologic Comment(s): The patient is alert awake and oriented 2. She has a normal sensory exam normal for extremities. Her strength remains 2 out of 5 in all 4 extremities distally, but minimal strength proximally. There is no facial asymmetry. No tremors or seizure-like activities are seen. Speech and language are normal. - Labs CBC & Chem 7: 05/02/17 07:56 05/02/17 07:56 Labs: Abnormal Lab Results - Last 24 Hours (Table) 05/01/17 05/01/17 05/02/17 Range/Units 17:08 19:55 07:27 RBC (3.80-5.40) m/uL Hgb (11.4-16.0) gm/dL Hct (34.0-46.0) % MCHC (31.0-37.0) g/dL RDW (11.5-15.5) % Sodium (137-145) mmol/L Potassium (3.5-5.1) mmol/L Glucose (74-99) mg/dL POC Glucose (mg/dL) 144 H 118 H 106 H (75-99) mg/dL AST (14-36) U/L Total Protein (6.3-8.2) g/dL Albumin (3.5-5.0) g/dL 05/02/17 05/02/17 05/02/17 Range/Units 07:56 07:56 11:05 RBC 3.40 L (3.80-5.40) m/uL Hgb 8.8 L (11.4-16.0) gm/dL Hct 28.5 L (34.0-46.0) % MCHC 30.9 L (31.0-37.0) g/dL RDW 16.9 H (11.5-15.5) % Sodium 135 L (137-145) mmol/L Potassium 3.2 L (3.5-5.1) mmol/L Glucose 106 H (74-99) mg/dL POC Glucose (mg/dL) 235 H (75-99) mg/dL AST 11 L (14-36) U/L Total Protein 4.7 L (6.3-8.2) g/dL Albumin 2.0 L (3.5-5.0) g/dL Microbiology - Last 24 Hours (Table) 04/29/17 09:11 Blood Culture - Preliminary Blood No Growth after 72 hours 04/27/17 23:08 Blood Culture - Preliminary Blood No Growth after 96 hours 04/27/17 22:33 Blood Culture - Preliminary Blood No Growth after 96 hours Assessment and Plan (1) Critical illness polyneuropathy Current Visit: Yes Status: Suspected Code(s): G62.81 - CRITICAL ILLNESS POLYNEUROPATHY SNOMED Code(s): 335584390 (2) Generalized weakness Current Visit: Yes Status: Acute Code(s): R53.1 - WEAKNESS SNOMED Code(s) : 38596089 (3) Altered mental status Current Visit: Yes Status: Acute Code(s): R41.82 - ALTERED MENTAL STATUS, UNSPECIFIED SNOMED Code(s): 254763519 (4) Deep vein thrombosis (DVT) of left upper extremity Current Visit: Yes Status: Acute Priority: High Code(s): I82.622 - ACUTE EMBOLISM AND THROMBOSIS OF DEEP VEINS OF L UP EXTREM SNOMED Code(s): 667944791 (5) Adenocarcinoma with neuroendocrine differentiation Current Visit: Yes Status: Acute Priority: High Code(s): C7A.1 - MALIGNANT POORLY DIFFERENTIATED NEUROENDOCRINE TUMORS SNOMED Code(s): 638425279 Plan: Again, the patient's clinical picture is that of critical illness polyneuropathy. IVIG is contraindicated due to her DVT. Plasmapheresis would be the next option, and the patient is being prepared to transfer to a facility that may be able to provide this. No further neurological workup is needed at this time. I have performed a history and physical on the above patient. I have reviewed the above note, and agree.
[2017-05-02 15:24] VITALS: PULSE 116
[2017-05-02 16:10] VITALS: BP 152/70; TEMP 98.5
--- NOTE | 2017-05-02 16:10 | P.DS ---
Providers Date of admission: 04/17/17 21:14 Expected date of discharge: 05/02/17 Attending physician: Avi Montanez Consults: 04/17/17 21:07 Consult Physician Stat Consulting Provider: Mikie Silveira Consult Reason/Comments: colitis Do you want consulting provider notified?: Yes 04/22/17 10:14 Consult Physician Stat Consulting Provider: Adis Barahona Consult Reason/Comments: Questionable cellulitis left arm Do you want consulting provider notified?: Yes 04/22/17 12:14 Consult Physician Routine Consulting Provider: Compa Pedroza Consult Reason/Comments: questionable left arm DVT Do you want consulting provider notified?: Yes 04/22/17 14:39 Consult Physician Routine Consulting Provider: Shyla Ferro Consult Reason/Comments: possible DVT of the left arm Do you want consulting provider notified?: Yes 04/25/17 13:16 Consult Physician Routine Consulting Provider: Helder Blanca Consult Reason/Comments: Obstructing colon mass Do you want consulting provider notified?: Already Contacted 05/01/17 12:58 Consult Physician Stat Consulting Provider: Bryan Morel Consult Reason/Comments: Encephalopathy worsening Do you want consulting provider notified?: Yes Primary care physician: Avi Montanez [facility] Course: Discharge diagnosis 1. Acute colitis with Abdominal pain:Status post repair of incarcerated incisional hernia, transverse colectomy, and partial omentectomy on 04/26/17. Continue postoperative care. General surgery following closely. Followed by Infectious disease. Continue Ceftin and Flagyl. CEA elevated at 31.6. 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 Sepsis with possible colitis present on admission. Continue antibiotics. Infectious disease following 3. Critical illness polyneuropathy: Evaluated by neurology. They are recommending plasmapheresis in which patient will require transfer to [facility] for this treatment. Patient is not a candidate for the IVIG because of her DVT in the left arm 3. 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 Rheumatoid arthritis currently on methotrexate 5. Urinary retention Concepcion catheter reinserted in ER 6. Diabetes mellitus type 2: Continue sliding scale coverage 7. Hypokalemia: Patient requiring potassium supplement again. She is on a daily dose of Lasix will add a daily dose of K-Dur 20 milliequivalents daily 8. Chronic pulmonary fibrosis followed by pulmonary service 9. New DVT of the left arm: continue Eliquis 10 mg by mouth twice a day for 7 days and then decrease to 5 mg by mouth twice a day. Patient has received 4 doses of the Eliquis 10 mg 10. Left arm cellulitis: Resolved 11. Catheter associated UTI with yeast: Continue Diflucan. Followed by infectious disease Hospital course This is a 86-year-old female with a known past medical history of site COPD, diabetes mellitus, rheumatoid arthritis, lower extremity DVT, GERD, C. diff, recurrent episodes of urinary retention, diverticulosis and a recent admission at [facility] about 3 weeks ago for colitis. At that time she was treated with Flagyl. History was obtained from patient's daughter. Who reports that patient had shown improvement but once she finished the Flagyl her symptoms worsened again. She has been having journalized weakness nausea decrease in appetite and diarrhea. She also has been having fevers at home. She came back into the hospital for further evaluation. She was found have a temp of 102 white count 15.2 started on Rocephin and Flagyl. Computed tomography scan of the abdomen and pelvis shows at the site of prior partial colectomy there is new irregular wall thickening with mild fat stranding and suspicious adjacent adenopathy, acute infectious process at this level or colitis could have this appearance. 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 Per daughter patient does not have any prior history of cancer. She has had a bowel resection for a perforated diverticulitis. Dr. Silveira has been consulted for further evaluation. We'll check stool studies. Patient also is having evidence of urinary retention and Concepcion catheter was reinserted in the emergency room. She had recently been to see Dr. Murphy for the urinary retention at that time for catheter was removed. Patient was seen by surgical service and underwent a colonoscopy which had revealed a transverse colon mass. She then underwent repair of incarcerated incisional hernia, transverse colectomy, and partial omentectomy on 04/26/17. Pathology report did come back with a mixed adenoneurondocrine carcinoma with lymph node involvement. Patient will need a follow-up with oncology. Patient has had complications during this admission with urinary retention and evidence of a catheter associated UTI. Urinalysis growing yeast has been on Diflucan infectious disease is following. She had sepsis present on admission due to the acute colitis and is currently still on Ceftin and Flagyl. She developed a left arm DVT. Started on IV heparin. PICC line was removed from that arm. Was seen by hematology and they recommended patient to be placed on Eliquis. Since surgery patient has had severe weakness and lethargy. Pain medications were decreased and discontinued. She started to become more awake but is still very sleepy. She is also very weak and cannot stand. She was evaluated by our and neurology service. They diagnosed her with critical illness polyneuropathy. Initially they recommended the IVIG treatment however, patient has a DVT and is unable to proceed with this treatment. Therefore they are recommending the plasmapheresis which is not offered at our facility. Patient will be transferred to [facility] to undergo plasmapheresis treatment. Patient and daughter are agreeable to this transfer. [facility] has accepted the transfer. Patient is medical stable for transfer I performed an examination of the patient and discussed their management with the physician Tax Lawyer. I have reviewed the Physician Tax Lawyer's notes and agree with the documented findings and plan of care Patient Condition at Discharge: Stable Plan - Discharge Summary Discharge Rx Participant: No New Discharge Prescriptions: New Alvimopan [Entereg] 12 mg PO BID capsule Apixaban [Eliquis] 10 mg PO BID tab Cefuroxime [Ceftin] 500 mg PO BID tab Fluconazole [Diflucan] 100 mg PO DAILY tab Ipratropium-Albuterol Nebulize [Duoneb 0.5 mg-3 mg/3 ml Soln] 3 ml INHALATION RT-TID PRN ampul.neb PRN Reason: Shortness Of Breath Or Wheezing metroNIDAZOLE [Flagyl] 500 mg PO TID tab Nystatin 100,000 Unit/ml Susp [Mycostatin Oral Susp] 500,000 unit PO QID cup Potassium Chloride ER [K-Dur 20] 20 meq PO DAILY tab.er.prt traMADol HCl [Ultram] 50 mg PO TID PRN tab PRN Reason: Moderate Pain Continue Montelukast [Singulair] 10 mg PO DAILY Folic Acid 1 mg PO DAILY Linagliptin/Metformin HCl [Jentadueto 2.5 mg-500 mg Tab] 1 tab PO DAILY Arformoterol Tartrate [Brovana] 15 mcg INHALATION RT-BID Metoprolol Tartrate [Lopressor] 12.5 mg PO DAILY #30 tab Glimepiride [Amaryl] 1 mg PO DAILY PRN PRN Reason: blood sugar > 130 Furosemide [Lasix] 20 mg PO DAILY Methotrexate Sodium [Methotrexate] 12.5 mg PO FR Diazepam [Valium] 5 mg PO HS PRN PRN Reason: Insomnia Colace 50mg 50 mg PO DAILY Budesonide [Pulmicort] 0.25 mg INHALATION RT-BID Acetaminophen Tab [Tylenol] 325 mg PO QID PRN PRN Reason: Pain Control Dicyclomine [Bentyl] 20 mg PO DAILY Discharge Medication List Folic Acid 1 mg PO DAILY 09/10/13 [History] Linagliptin/Metformin HCl [Jentadueto 2.5 mg-500 mg Tab] 1 tab PO DAILY [History] Montelukast [Singulair] 10 mg PO DAILY 09/10/13 [History] Arformoterol Tartrate [Brovana] 15 mcg INHALATION RT-BID 12/26/13 [History] Metoprolol Tartrate [Lopressor] 12.5 mg PO DAILY #30 tab 01/07/14 [Rx] Furosemide [Lasix] 20 mg PO DAILY 04/05/15 [History] Glimepiride [Amaryl] 1 mg PO DAILY PRN 04/05/15 [History] Methotrexate Sodium [Methotrexate] 12.5 mg PO FR 04/05/15 [History] Acetaminophen Tab [Tylenol] 325 mg PO QID PRN 03/18/17 [History] Budesonide [Pulmicort] 0.25 mg INHALATION RT-BID 03/18/17 [History] Colace 50mg 50 mg PO DAILY 03/18/17 [History] Diazepam [Valium] 5 mg PO HS PRN 03/18/17 [History] Dicyclomine [Bentyl] 20 mg PO DAILY 04/17/17 [History] Alvimopan [Entereg] 12 mg PO BID capsule 05/02/17 [Rx] Apixaban [Eliquis] 10 mg PO BID tab 05/02/17 [Rx] Cefuroxime [Ceftin] 500 mg PO BID tab 05/02/17 [Rx] Fluconazole [Diflucan] 100 mg PO DAILY tab 05/02/17 [Rx] Ipratropium-Albuterol Nebulize [Duoneb 0.5 mg-3 mg/3 ml Soln] 3 ml INHALATION RT -TID PRN ampul.neb 05/02/17 [Rx] Nystatin 100,000 Unit/ml Susp [Mycostatin Oral Susp] 500,000 unit PO QID cup [Rx] Potassium Chloride ER [K-Dur 20] 20 meq PO DAILY tab.er.prt 05/02/17 [Rx] metroNIDAZOLE [Flagyl] 500 mg PO TID tab 05/02/17 [Rx] traMADol HCl [Ultram] 50 mg PO TID PRN tab 05/02/17 [Rx] Follow up Appointment(s)/Referral(s): [facility], [NON-STAFF] - 1 Week Avi Montanez MD [Primary Care Provider] - 1-2 days Patient Instructions/Handouts: Infectious Colitis (GEN) Activity/Diet/Wound Care/Special Instructions: Cardiac, diabetic diet. Activity as tolerated. Fall precautions. Transfer to [facility] for plasmapheresis Discharge Disposition: OTHER INSTITUTION NOT DEFINED
[2017-05-02] MEDS ORDERED: MORPHINE SULFATE/PF 10MG/10ML VL IVP STA (16:54)
--- NOTE | 2017-05-02 17:01 | P.PN ---
Subjective Progress Note Date: 05/02/17 Principal diagnosis: Acute colitis, colon mass, left upper extremity DVT, status post transverse colectomy with ileal colonic stenosis and repair of incarcerated incisional hernia partial omentectomy of transverse colon tumor, protein calorie malnourishment, severe COPD emphysema and chronic persistent asthma 04/28/2017, patient seen and evaluated examined during the rounds, complaining of some abdominal discomfort overall doing well patient has been getting morphine with which he has been confused now being taken off of morphine 04/29/2017, patient seen and evaluated examined during the rounds clinically doing relatively better more evident awake and alert resting at this point in time care plan discussed with the daughter present at bedside at length overall respiratory status stable hemodynamic status stable 04/30/2017, patient seen and evaluated examined during the rounds clinically doing well awake and alert breathing comfortably resting now other [place] complains of present swelling in the left upper extremity is slightly better patient's remains anticoagulated with IV heparin, overall plan is to place patient on and requests once cleared by surgery and insurance companies, and labs are reviewed medications reviewed as well, care plan discussed with primary service 05/01/2017, patient seen eval examined during the rounds she remains somnolent and lethargic but slightly more arousable today neurology has been consulted for sleepiness and increased lethargy patient has been advised for clear liquid diet from respiratory standpoint doing relatively well breathing comfortably no obvious distress has been noted daughter is present at the bedside care plan discussed with her at length, and labs reviewed medications reviewed as well 05/02/2017, patient seen eval reexamined during the rounds daughter is present at bedside patient is relatively more awake and arousable opens eyes follow simple commands respiratory status stable patient denies any pain, patient is undergoing physical therapy, labs from today reviewed, medications reviewed, borderline hyperkalemia hypernatremia is seen, patient is on the electrolyte replacement protocol, culture results reviewed including blood culture urine culture no growth so far Objective - Vital Signs Vital signs: Vital Signs Temp 98.5 F 05/02/17 15:00 Pulse 116 H 05/02/17 15:23 Resp 18 05/02/17 15:23 BP 152/70 05/02/17 15:00 Pulse Ox 98 05/02/17 15:00 Intake & Output 05/01/17 05/02/17 05/02/17 18:59 06:59 18:59 Output Total 950 1806 Balance -950 -1806 Weight 75.8 kg 75.8 kg Output: Urine 950 1800 Straight 950 1000 Stool 6 Other: Voiding Method Indwelling Catheter Indwelling Catheter Indwelling Catheter # Voids 1 - Exam 86-year-old female open eyes to verbal stimuli cooperative HEENT unremarkable, Neck supple neck veins are prominent but no significant jugular vein is distention carotid bruit Lungs diminished at the bases otherwise adequate air movement Heart S1-S2 audible regular Abdomen surgical incision sites dry Provera wound system in place soft not distended few hypoactive bowel tones noted indwelling Concepcion catheter in place no stool Extremities bilateral arms elevated on pillow decrease edema. Venodyne's on to bilateral lower extremities will move the lower extremities to simple commands Mental status appears to have slightly improved as she is opening her eyes following simple commands - Labs CBC & Chem 7: 05/02/17 07:56 05/02/17 07:56 Labs: Abnormal Lab Results - Last 24 Hours (Table) 05/01/17 05/01/17 05/02/17 Range/Units 17:08 19:55 07:27 RBC (3.80-5.40) m/uL Hgb (11.4-16.0) gm/dL Hct (34.0-46.0) % MCHC (31.0-37.0) g/dL RDW (11.5-15.5) % Sodium (137-145) mmol/L Potassium (3.5-5.1) mmol/L Glucose (74-99) mg/dL POC Glucose (mg/dL) 144 H 118 H 106 H (75-99) mg/dL AST (14-36) U/L Total Protein (6.3-8.2) g/dL Albumin (3.5-5.0) g/dL 05/02/17 05/02/17 05/02/17 Range/Units 07:56 07:56 11:05 RBC 3.40 L (3.80-5.40) m/uL Hgb 8.8 L (11.4-16.0) gm/dL Hct 28.5 L (34.0-46.0) % MCHC 30.9 L (31.0-37.0) g/dL RDW 16.9 H (11.5-15.5) % Sodium 135 L (137-145) mmol/L Potassium 3.2 L (3.5-5.1) mmol/L Glucose 106 H (74-99) mg/dL POC Glucose (mg/dL) 235 H (75-99) mg/dL AST 11 L (14-36) U/L Total Protein 4.7 L (6.3-8.2) g/dL Albumin 2.0 L (3.5-5.0) g/dL Microbiology - Last 24 Hours (Table) 04/29/17 09:11 Blood Culture - Preliminary Blood No Growth after 72 hours 04/27/17 23:08 Blood Culture - Preliminary Blood No Growth after 96 hours 04/27/17 22:33 Blood Culture - Preliminary Blood No Growth after 96 hours Assessment and Plan Assessment: Severe hypokalemia Hyponatremia Protein calorie malnourishment Deep venous thrombosis of left upper extremity on IV heparin which is being adjusted at as per PTT Intermittent abdominal discomfort and pain and evidence of colitis versus mucosal wall thickening likely infectious or neoplastic process status post colectomy, status post repair of incarcerated incisional hernia, transverse colectomy with ileal colonic stenosis and partial omentum ectomy Severe COPD related to chronic severe persistent asthma overall stable Chronic cough related to above and chronic asthma Advanced rheumatoid arthritis with some component of rheumatoid lung related to pulmonary fibrosis/interstitial lung disease Plan: Agree with gentle rehydration Would recommend bronchodilators in the form of nebulizer therapy with Pulmicort 2 times a day and as needed better to agonist and anti-cholinergic Will avoid broad-spectrum antibiotics for lungs and IV steroids, however can be continued for colitis as per infectious disease recommendation Agree with the Eliquis for 3-6 months As always feel patient involving us in care of patient follow this patient with you Increase activity as tolerated optimize nutritional support will follow Time with Patient: Greater than 30
[2017-05-02 17:37] LABS: Glucose,Whole Blood 176 mg/dL (75-99)
--- NOTE | 2017-05-02 22:13 | PN ---
PROGRESS NOTE DATE OF SERVICE: 05/02/2012. REASON FOR FOLLOW UP: Postop fevers likely catheter associated UTI and colitis. INTERVAL HISTORY: The patient is seen on rounds this morning where the patient has been afebrile. Her overall oral intake remains to be poor. No nausea, no vomiting has been noticed or any diarrhea. The patient remains to be lethargic. EXAMINATION: Blood pressure is 152/70 with a pulse of 100, temperature 98.5, she is 98% on room air. General description is an elderly female lying in bed in no distress. Respiratory system: Unlabored breathing, clear to auscultation anteriorly. Heart S1, S2. Regular rate and rhythm. Abdomen soft, no tenderness. LABS: BUN of 9, creatinine 0.59, hemoglobin is 8.2, white count 8.5. DIAGNOSTIC IMPRESSION AND PLAN: Patient with a postop fevers with question of source urinary. The patient did have underlying colitis, currently on oral Diflucan, Cipro and Flagyl, to continue for about 5 more days. The patient currently considered for transfer to the for critical illness polyneuropathy per Neurology. Daughter was present at bedside. Questions were answered. MMODL / IJN: [id number] /
[2017-05-03] MEDS ORDERED: POTASSIUM CHLORIDE ER 20 MEQ TAB.ER PO SCH (09:00)
== END 2017-05-02 19:51 | disposition short-term general hospital (02) | DRG 853 ==
LOC: EC 15:40 → 4MS4W 21:14 → 5ONC 04-21 18:16
PROVIDERS: ADMIT Internal Medicine; ATTEND Internal Medicine
PROC: 0DBL8ZX Excision of Transverse Colon, Via Natural or Artificial Opening Endoscopic, Diagnostic (ICD-10-PCS; principal; 2017-04-19 07:55)
PROC: 0DTL0ZZ Resection of Transverse Colon, Open Approach (ICD-10-PCS; 2017-04-26)
PROC: 0WQF0ZZ Repair Abdominal Wall, Open Approach (ICD-10-PCS; 2017-04-26)
PROC: 0DBU0ZZ Excision of Omentum, Open Approach (ICD-10-PCS; 2017-04-26)
DX: A41.9 Sepsis, unspecified organism (principal); G93.41 Metabolic encephalopathy; G62.81 Critical illness polyneuropathy; I82.622 Acute embolism and thrombosis of deep veins of left upper extremity; C77.2 Secondary and unspecified malignant neoplasm of intra-abdominal lymph nodes; I82.B12 Acute embolism and thrombosis of left subclavian vein; J43.9 Emphysema, unspecified; L03.114 Cellulitis of left upper limb; K43.0 Incisional hernia with obstruction, without gangrene; E87.1 Hypo-osmolality and hyponatremia; J45.51 Severe persistent asthma with (acute) exacerbation; C18.9 Malignant neoplasm of colon, unspecified; B37.49 Other urogenital candidiasis; E44.1 Mild protein-calorie malnutrition; E83.39 Other disorders of phosphorus metabolism; D64.9 Anemia, unspecified; E11.9 Type 2 diabetes mellitus without complications; E87.6 Hypokalemia; E89.0 Postprocedural hypothyroidism; H91.91 Unspecified hearing loss, right ear; J84.10 Pulmonary fibrosis, unspecified; K21.9 Gastro-esophageal reflux disease without esophagitis; K59.00 Constipation, unspecified; M05.10 Rheumatoid lung disease with rheumatoid arthritis of unspecified site; Y84.6 Urinary catheterization as the cause of abnormal reaction of the patient, or of later complication, without mention of misadventure at the time of the procedure; Z53.9 Procedure and treatment not carried out, unspecified reason; Z79.01 Long term (current) use of anticoagulants; Z79.899 Other long term (current) drug therapy; Z80.9 Family history of malignant neoplasm, unspecified; Z86.19 Personal history of other infectious and parasitic diseases; Z86.718 Personal history of other venous thrombosis and embolism; Z87.891 Personal history of nicotine dependence; Z90.710 Acquired absence of both cervix and uterus; Z91.041 Radiographic dye allergy status; K52.9 Noninfective gastroenteritis and colitis, unspecified; R50.82 Postprocedural fever
CPT/HCPCS: 36415; 36569; 45380; 71046; 74176; 76937; 77001; 80048; 80053; 80202; 81001; 81003; 82040; 82272; 82330; 82378; 83605; 83735; 84100; 84132; 84478; 84550; 85025; 85610; 85730; 86850; 86900; 86901; 87040; 87045; 87046; 87070; 87086; 87324; 87328; 87329; 87502; 88305; 88309; 88341; 88342; 89055; 93005; 94640; 94760; 96361; 96365; 96375; 99285

== ENCOUNTER 2017-05-11 08:37 | Inpatient (IN) | payer MEDICARE, OTHER ==
[2017-05-11] MEDS ORDERED: SODIUM CHLORIDE 0.9% 1,000 ML IV ONE ×2 (08:55→08:57)
[2017-05-11] MEDS ORDERED: cefTRIAXone IN SWFI 2,000 MG/20 ML SYRINGE IVP STA (08:57)
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
[2017-05-11 09:40] LABS: Anisocytosis Slight; Basophils % (A) 0 %; Eosinophils # (A) 0.7 k/uL (0-0.7); Eosinophils % (A) 8 %; HCT 31.2 % (34.0-46.0); HGB 9.8 gm/dL (11.4-16.0); Hypochromasia Moderate; Lymphocytes # (A) 1.2 k/uL (1.0-4.8); Lymphocytes % (A) 14 %; MCH 25.7 pg (25.0-35.0); MCHC 31.3 g/dL (31.0-37.0); Mean Platelet Volume 7.3; Monocytes # (A) 0.5 k/uL (0-1.0); Monocytes % (A) 6 %; Neutrophils # (A) 6.4 k/uL (1.3-7.7); Neutrophils % (A) 71 %; Platelet Count 601 k/uL (150-450); Poikilocytosis Slight; RDW 16.5 % (11.5-15.5); WBC 9.1 k/uL (3.8-10.6)
[2017-05-11 09:41] LABS: Appearance,Urine Turbid (Clear); Bacteria,Urine Many /hpf; Bilirubin,Urine Negative (Negative); Blood,Urine Moderate (Negative); Color,Urine Yellow; Glucose,Urine (UA) Negative (Negative); Ketones,Urine Trace (Negative); Leukocyte Esterase,Urine Small (Negative); Nitrite,Urine Negative (Negative); PH, Urine 6.5 (5.0-8.0); Protein,Urine Trace (Negative); RBC,Urine >182 /hpf (0-5); Squamous Epithelial Cell,Urine 11 /hpf (0-4); Urobilinogen,Urine <2.0 mg/dL (<2.0)
[2017-05-11 09:42] LABS: Specific Gravity,Urine 1.012 (1.001-1.035)
[2017-05-11 09:45] LABS: ALT 19 U/L (9-52); AST 21 U/L (14-36); Albumin 2.4 g/dL (3.5-5.0); Alkaline Phosphatase 68 U/L (38-126); Anion Gap 11 mmol/L; Blood Urea Nitrogen 7 mg/dL (7-17); Calcium 8.8 mg/dL (8.4-10.2); Carbon Dioxide 24 mmol/L (22-30); Chloride 99 mmol/L (98-107); Glucose 110 mg/dL (74-99); Potassium 3.4 mmol/L (3.5-5.1); Sodium 134 mmol/L (137-145); Total Bilirubin 0.4 mg/dL (0.2-1.3); Total Protein 5.8 g/dL (6.3-8.2)
[2017-05-11 09:56] LABS: Creatine Kinase 24 U/L (30-135)
[2017-05-11 10:09] LABS: Creatine Kinase MB 1.1 ng/mL (0.0-2.4); Troponin I <0.012 ng/mL (0.000-0.034)
--- NOTE | 2017-05-11 10:44 | CT ---
EXAMINATION TYPE: CT brain wo con DATE OF EXAM: 05/11/2017 COMPARISON: Previous study dated 09/27/2010. HISTORY: Patient shows signs of altered mental status and weakness. CT DLP: 738.2 mGycm Automated exposure control for dose reduction was used. FINDINGS: There are generalized changes of sulcal prominence and ventriculomegaly, compatible with atrophic akosua nge. There is diffuse white matter lucency, compatible with chronic white matter ischemic change. The re is no acute focal lesion, mass effect or midline shift identified. I do not see evidence of intrac ranial blood. There are vascular calcifications. There is chronic underaeration of the right mastoid air cells. Visualized portions of the paranasal s inuses are clear. The bony calvarium is intact. IMPRESSION: 1. NO ACUTE INTRACRANIAL ABNORMALITY. 2. MILD ATROPHIC CHANGE. 3. CHRONIC WHITE MATTER ISCHEMIC CHANGE. 4. 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
[2017-05-11] MEDS ORDERED: NALOXONE 0.4 MG/ML 1 ML VIAL IV PRN (11:17)
[2017-05-11] MEDS ORDERED: DIAZEPAM 5 MG TAB PO PRN (11:20)
[2017-05-11] MEDS ORDERED: ACETAMINOPHEN TAB 325 MG TAB PO PRN (11:20)
[2017-05-11] MEDS ORDERED: GLIMEPIRIDE 1 MG TAB PO PRN (11:20)
[2017-05-11] MEDS ORDERED: IPRATROPIUM-ALBUTEROL 3 ML NEB INHALATION PRN (11:20)
[2017-05-11 11:26] LABS: INR 1.3 (<1.2); Partial Thromboplastin Time 25.2 sec (22.0-30.0); Prothrombin Time 12.3 sec (9.0-12.0)
--- NOTE | 2017-05-11 11:51 | XR ---
EXAMINATION TYPE: XR chest 2V DATE OF EXAM: 05/11/2017 HISTORY: altered mental status. REFERENCE: Previous study dated 04/17/2017. FINDINGS: There has been a previous interpedicular fusion of the lumbar spine. There is some left basilar airspace disease. There is some thickening of the major fissure on the rig ht. There is mild cardiomegaly. There is apparent elevation of the right hemidiaphragm. This is more prominent than on the previous examination. I could not exclude some subpulmonic fluid. IMPRESSION: 1. MILD CARDIOMEGALY. 2. MILD LEFT BASILAR AIRSPACE DISEASE. 3. THICKENING OF THE MAJOR FISSURE ON THE RIGHT. 4. ELEVATION RIGHT HEMIDIAPHRAGM IS MORE PROMINENT ON THE PREVIOUS STUDY. I COULD NOT EXCLUDE SOME MATA BPULMONIC FLUID.
[2017-05-11 12:45] VITALS: BMI 25.4
[2017-05-11 12:48] LABS: Glucose,Whole Blood 102 mg/dL (75-99)
[2017-05-11] MEDS: ENOXAPARIN 80 MG/0.8 ML SYRINGE SQ SCH (13:48)
[2017-05-11] MEDS: INSULIN ASPART 100 UNIT/ML 1 ML 10 ML VIAL SQ SCH ×3 (13:48→21:41)
[2017-05-11] MEDS: NYSTATIN 100,000 UNIT/ML SUSP 500,000 UNIT/5 ML CUP PO SCH ×3 (13:49→21:48)
[2017-05-11] MEDS: traMADol 50 MG TAB PO PRN ×2 (14:11→19:27)
[2017-05-11] MEDS ORDERED: Potassium Replacement Protocol 1 EACH MISC MISCELLANE PRN (14:56)
[2017-05-11] MEDS ORDERED: Magnesium Replacement Protocol 1 EACH MISC MISCELLANE PRN (14:57)
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
[2017-05-11 17:18] LABS: Glucose,Whole Blood 103 mg/dL (75-99)
[2017-05-11] MEDS: POTASSIUM CHLORIDE ER 20 MEQ TAB.ER PO SCH (17:22)
[2017-05-11] MEDS: MAGNESIUM SULFATE-D5W PMX 1 GM in DEXTROSE/WATER 1 100ML.BAG IVPB SCH ×2 (17:22→18:31)
[2017-05-11] MEDS: metroNIDAZOLE 500 MG TAB PO SCH ×2 (17:23→21:43)
[2017-05-11] MEDS: BUDESONIDE 0.25 MG/2 ML NEBU INHALATION SCH (20:05)
[2017-05-11] MEDS: FORMOTEROL FUMARATE 20 MCG/2 ML NEBU INHALATION SCH (20:05)
[2017-05-11 20:42] LABS: Glucose,Whole Blood 149 mg/dL (75-99)
[2017-05-11 23:21] LABS: Hemoglobin A1C 6.3 % (4.0-6.0)
[2017-05-12] MEDS: traMADol 50 MG TAB PO PRN ×4 (05:15→23:22)
[2017-05-12 06:36] LABS: Anisocytosis Slight; Basophils % (A) 0 %; Eosinophils # (A) 0.8 k/uL (0-0.7); Eosinophils % (A) 8 %; HCT 27.8 % (34.0-46.0); HGB 8.9 gm/dL (11.4-16.0); Hypochromasia Marked; Lymphocytes # (A) 1.4 k/uL (1.0-4.8); Lymphocytes % (A) 15 %; MCH 26.3 pg (25.0-35.0); MCHC 32.2 g/dL (31.0-37.0); MCV 81.8 fL (80.0-100.0); Mean Platelet Volume 7.4; Monocytes # (A) 0.7 k/uL (0-1.0); Monocytes % (A) 8 %; Neutrophils # (A) 6.2 k/uL (1.3-7.7); Neutrophils % (A) 66 %; Platelet Count 713 k/uL (150-450); Poikilocytosis Slight; RDW 16.6 % (11.5-15.5); WBC 9.4 k/uL (3.8-10.6)
[2017-05-12 06:40] LABS: Blood Urea Nitrogen 7 mg/dL (7-17); Calcium 8.6 mg/dL (8.4-10.2); Carbon Dioxide 24 mmol/L (22-30); Glucose 104 mg/dL (74-99); Magnesium 2.3 mg/dL (1.6-2.3)
[2017-05-12 06:53] LABS: Anion Gap 10 mmol/L; Chloride 102 mmol/L (98-107); Potassium 3.6 mmol/L (3.5-5.1); Sodium 136 mmol/L (137-145)
[2017-05-12 07:12] LABS: Glucose,Whole Blood 129 mg/dL (75-99)
[2017-05-12] MEDS: BUDESONIDE 0.25 MG/2 ML NEBU INHALATION SCH ×2 (08:06→19:17)
[2017-05-12] MEDS: FORMOTEROL FUMARATE 20 MCG/2 ML NEBU INHALATION SCH ×2 (08:06→19:17)
[2017-05-12] MEDS ORDERED: SODIUM CHLORIDE 0.9% 500 ML IV ONE (08:33)
[2017-05-12] MEDS: INSULIN ASPART 100 UNIT/ML 1 ML 10 ML VIAL SQ SCH ×4 (08:50→21:29)
[2017-05-12] MEDS ORDERED: LINAGLIPTIN 5 MG TABLET PO SCH (09:00)
[2017-05-12] MEDS ORDERED: metFORMIN 500 MG TAB PO SCH (09:00)
[2017-05-12] MEDS: cefTRIAXone IN SWFI 1,000 MG/10 ML SYRINGE IVP SCH (09:33)
[2017-05-12] MEDS: ENOXAPARIN 80 MG/0.8 ML SYRINGE SQ SCH (09:35)
[2017-05-12] MEDS: metroNIDAZOLE 500 MG TAB PO SCH ×3 (10:10→21:31)
[2017-05-12] MEDS: NYSTATIN 100,000 UNIT/ML SUSP 500,000 UNIT/5 ML CUP PO SCH ×4 (10:10→21:31)
[2017-05-12] MEDS: DOCUSATE 100 MG CAP PO SCH (11:59)
[2017-05-12] MEDS: FUROSEMIDE 20 MG TAB PO SCH (12:01)
[2017-05-12] MEDS: FLUCONAZOLE 100 MG TAB PO SCH (12:01)
[2017-05-12] MEDS: METOPROLOL TARTRATE 12.5 MG TAB PO SCH (12:01)
[2017-05-12] MEDS: DICYCLOMINE 20 MG TAB PO SCH (12:01)
[2017-05-12] MEDS: MONTELUKAST 10 MG TAB PO SCH (12:02)
[2017-05-12] MEDS: POTASSIUM CHLORIDE ER 20 MEQ TAB.ER PO SCH (12:02)
[2017-05-12] MEDS: FOLIC ACID 1 MG TAB PO SCH (12:02)
[2017-05-12 12:04] LABS: Glucose,Whole Blood 123 mg/dL (75-99)
--- NOTE | 2017-05-12 14:13 | P.PN ---
Progress Note - Text Progress Note Date: 05/12/17 Patient seen and evaluated. Family at bedside. Patient was transferred from [facility] to [facility] for plasmapheresis per report from her family as patient is minimally verbal. Patient stayed 1 week at [facility] without plasmapheresis or need for it. Patient was just recently discharged on Saturday now 2 days ago. She was at home for less than 24 hours where she was found urinating on herself. Patient was brought back to her local hospital at [facility] and found to have urinary tract infection. Incidentally, patient has not had follow-up with oncology doctors or surgeon regarding her pathology report. Patient has generalized weakness otherwise. Also moderate swelling noted along the left upper extremity. No reports of abdominal pain. Abdominal incision and intact with priti without sign of infection. Dr. Blanca to resume care tomorrow.
--- NOTE | 2017-05-12 14:29 | P.PN ---
Subjective Progress Note Date: 05/12/17 Patient was transferred to telemetry floor this morning. She was found to be more tachycardic and was having decreased urine output. Patient is lethargic and hardly arousable. She is not able to answer basic questions. Her daughter at bedside. She was given IV fluid bolus this morning and remained hemodynamically stable. Objective - Vital Signs Vital signs: Vital Signs Temp 98.1 F 05/12/17 11:28 Pulse 103 H 05/12/17 11:28 Resp 18 05/12/17 11:28 BP 157/73 05/12/17 11:28 Pulse Ox 96 05/12/17 11:28 Intake & Output 05/11/17 05/12/17 05/12/17 18:59 06:59 18:59 Intake Total 700 Output Total 2400 625 Balance -2400 -625 700 Weight 58.96 kg Intake: Intake, IV Titration 700 Amount Sodium Chloride 0.9% 1, 200 000 ml @ 50 mls/hr IV . Q20H ONE Rx#:[id number] Sodium Chloride 0.9% 500 500 ml @ 999 mls/hr IV .Q31M ONE Rx#:[id number] Output: Urine 2400 625 Straight 1200 Other: Voiding Method Indwelling Catheter Indwelling Catheter Indwelling Catheter # Bowel Movements 0 - Exam General: The patient is lethargic but easily arousable. She appears chronically ill. Eye: there is normal conjunctiva bilaterally. Neck: The neck is supple, there is no JVD. Cardiovascular: Normal S1-S2, no S3-S4, no murmurs. Respiratory: Lungs clear to auscultation bilaterally Gastrointestinal: Abdomen is soft, midline incision with priti in place Musculoskeletal: There is no pedal edema. Left upper extremity appeared edematous and swollen Skin: Skin is warm and dry - Labs CBC & Chem 7: 05/12/17 06:18 05/12/17 06:18 Labs: Abnormal Lab Results - Last 24 Hours (Table) 05/11/17 05/11/17 05/12/17 Range/Units 17:14 20:41 06:18 RBC (3.80-5.40) m/uL Hgb (11.4-16.0) gm/dL Hct (34.0-46.0) % RDW (11.5-15.5) % Plt Count (150-450) k/uL Eosinophils # (0-0.7) k/uL Sodium 136 L (137-145) mmol/L Creatinine 0.50 L (0.52-1.04) mg/dL Glucose 104 H (74-99) mg/dL POC Glucose (mg/dL) 103 H 149 H (75-99) mg/dL 05/12/17 05/12/17 05/12/17 Range/Units 06:18 07:02 11:55 RBC 3.40 L (3.80-5.40) m/uL Hgb 8.9 L (11.4-16.0) gm/dL Hct 27.8 L (34.0-46.0) % RDW 16.6 H (11.5-15.5) % Plt Count 713 H (150-450) k/uL Eosinophils # 0.8 H (0-0.7) k/uL Sodium (137-145) mmol/L Creatinine (0.52-1.04) mg/dL Glucose (74-99) mg/dL POC Glucose (mg/dL) 129 H 123 H (75-99) mg/dL Microbiology - Last 24 Hours (Table) 05/11/17 09:20 Blood Culture - Preliminary Blood No Growth after 24 hours 05/11/17 13:00 Urine Culture - Preliminary Urine,Voided Assessment and Plan Assessment: 1. Obstructive uropathy status post Concepcion catheter insertion with greater than 1000 mL of urine on presentation 2. Catheter associated urinary tract infection currently on IV ceftriaxone awaiting urine culture. Blood culture negative to date 3. Recently diagnosed adenocarcinoma of the colon status post transverse colectomy: We will consult general surgery and oncology for further evaluation 4. Severe physical and medical debility, PT/OT consultation 5. Underlying rheumatoid arthritis 6. Underlying COPD with no evidence of exacerbation 7. PICC line induced DVT of the left subclavian vein maintain on anticoagulation with Lovenox 8. Severe sepsis without septic shock would continue gentle IV fluid hydration Today, I discussed goals of care with patient and her daughter. We discussed her guarded prognosis and very poor overall medical condition. Patient's and her daughter are agreeable for DO NOT RESUSCITATE/DO NOT INTUBATE.
[2017-05-12] MEDS: MORPHINE SULF 5MG/10ML VL IVP PRN ×2 (14:34→21:35)
[2017-05-12 17:29] LABS: Glucose,Whole Blood 113 mg/dL (75-99)
[2017-05-12 21:12] LABS: Glucose,Whole Blood 103 mg/dL (75-99)
[2017-05-13] MEDS: MORPHINE SULF 5MG/10ML VL IVP PRN ×6 (04:01→21:12)
[2017-05-13 06:04] LABS: Anisocytosis Slight; Basophils % (A) 0 %; Eosinophils # (A) 0.5 k/uL (0-0.7); Eosinophils % (A) 7 %; HCT 26.6 % (34.0-46.0); HGB 8.5 gm/dL (11.4-16.0); Hypochromasia Moderate; Lymphocytes # (A) 1.5 k/uL (1.0-4.8); Lymphocytes % (A) 19 %; MCH 25.6 pg (25.0-35.0); Mean Platelet Volume 7.7; Monocytes # (A) 0.7 k/uL (0-1.0); Monocytes % (A) 9 %; Neutrophils # (A) 4.8 k/uL (1.3-7.7); Neutrophils % (A) 61 %; Platelet Count 528 k/uL (150-450); Poikilocytosis Moderate; RBC 3.33 m/uL (3.80-5.40); RDW 16.4 % (11.5-15.5); WBC 7.9 k/uL (3.8-10.6)
[2017-05-13 06:21] LABS: Anion Gap 8 mmol/L; Blood Urea Nitrogen 5 mg/dL (7-17); Carbon Dioxide 29 mmol/L (22-30); Chloride 98 mmol/L (98-107); Glucose 101 mg/dL (74-99); Sodium 135 mmol/L (137-145)
[2017-05-13 06:26] LABS: Potassium 2.6 mmol/L (3.5-5.1)
[2017-05-13] MEDS: INSULIN ASPART 100 UNIT/ML 1 ML 10 ML VIAL SQ SCH ×4 (06:45→20:19)
[2017-05-13 06:58] LABS: Glucose,Whole Blood 116 mg/dL (75-99)
[2017-05-13] MEDS ORDERED: Potassium Replacement Protocol 1 EACH MISC MISCELLANE PRN (07:00)
[2017-05-13] MEDS ORDERED: POTASSIUM CHLORIDE 10 MEQ in WATER FOR INJECTION 1 100ML.BAG IVPB SCH (07:00)
[2017-05-13] MEDS: FORMOTEROL FUMARATE 20 MCG/2 ML NEBU INHALATION SCH ×2 (07:36→20:28)
[2017-05-13] MEDS: BUDESONIDE 0.25 MG/2 ML NEBU INHALATION SCH ×2 (07:36→20:27)
[2017-05-13] MEDS ORDERED: POTASSIUM CHLORIDE ER 20 MEQ TAB.ER PO SCH (08:00)
[2017-05-13] MEDS: DOCUSATE 100 MG CAP PO SCH (08:13)
[2017-05-13] MEDS: metroNIDAZOLE 500 MG TAB PO SCH ×3 (08:14→21:13)
[2017-05-13] MEDS: MONTELUKAST 10 MG TAB PO SCH (08:14)
[2017-05-13] MEDS: FUROSEMIDE 20 MG TAB PO SCH (08:14)
[2017-05-13] MEDS: METOPROLOL TARTRATE 12.5 MG TAB PO SCH (08:14)
[2017-05-13] MEDS: FLUCONAZOLE 100 MG TAB PO SCH (08:14)
[2017-05-13] MEDS: NYSTATIN 100,000 UNIT/ML SUSP 500,000 UNIT/5 ML CUP PO SCH ×5 (08:15→20:21)
[2017-05-13] MEDS: traMADol 50 MG TAB PO PRN (08:36)
[2017-05-13] MEDS: POTASSIUM CHLORIDE 10 MEQ in WATER FOR INJECTION 1 100ML.BAG IVPB SCH ×5 (09:05→20:26)
[2017-05-13] MEDS: cefTRIAXone IN SWFI 1,000 MG/10 ML SYRINGE IVP SCH (09:28)
[2017-05-13] MEDS: ENOXAPARIN 80 MG/0.8 ML SYRINGE SQ SCH ×2 (09:30→12:13)
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
[2017-05-13] MEDS: ONDANSETRON 4 MG/2 ML VIAL IVP PRN (11:05)
[2017-05-13 11:11] LABS: Glucose,Whole Blood 128 mg/dL (75-99)
[2017-05-13] MEDS ORDERED: HYDROcodone/APAP 5-325MG 1 EACH TAB PO PRN (12:05)
[2017-05-13] MEDS: FOLIC ACID 1 MG TAB PO SCH (12:09)
[2017-05-13] MEDS: DICYCLOMINE 20 MG TAB PO SCH (12:09)
[2017-05-13] MEDS: POTASSIUM CHLORIDE ER 20 MEQ TAB.ER PO SCH (12:09)
--- NOTE | 2017-05-13 12:51 | P.PN ---
Subjective Progress Note Date: 05/13/17 This is a 86-year-old female with very complex past medical history noted below who came into the emergency room brought in by her daughter as she was unable to take care of her. He should have had a prolonged hospitalization recently and underwent a transverse colectomy on was found to have underlying carcinoma of the colon. Patient was subsequently transferred to [facility] with suspicion of critical illness poly-neuropathy and was evaluated at [facility] but did not meet the criteria. She did not receive plasmapheresis. Patient was discharged home and her daughter told me that she was unable to take care of her at home. Patient is significantly weak and essentially bedbound. Her Concepcion catheter was discontinued prior to discharge and today she was found to have thousand mL of urine retention with catheter associated UTI. She is currently admitted to the hospital. She is lethargic this morning but she was easily arousable. She was only oriented to herself. 05/13/2017 patient is lying in bed. Has very little strength in hand internal medicine physician or to move her legs. She is awake and alert and orientated to 3. Reports that she has pain throughout her body. Ultram is not working. And morphine is making her sleep and confusing her. We'll add Central. Also patient complaining of nausea and dry heaves. Zofran and Protonix were ordered. Awaiting hematology evaluation. Patient is having soft stools no diarrhea. Patient has Concepcion catheter for urinary retention. Denies any chest pain or shortness of breath. Objective - Vital Signs Vital signs: Vital Signs Temp 98.0 F 05/13/17 11:15 Pulse 93 05/13/17 11:17 Resp 16 05/13/17 11:15 BP 160/75 05/13/17 11:15 Pulse Ox 94 L 05/13/17 11:15 Intake & Output 05/12/17 05/13/17 05/13/17 18:59 06:59 18:59 Intake Total 700 350 Output Total 1000 1700 Balance -300 -1350 Intake: Intake, IV Titration 700 350 Amount Sodium Chloride 0.9% 1, 200 350 000 ml @ 50 mls/hr IV . Q20H ONE Rx#:[id number] Sodium Chloride 0.9% 500 500 ml @ 999 mls/hr IV .Q31M ONE Rx#:[id number] Output: Urine 1000 1700 Uretheral (Concepcion) 1300 Other: Voiding Method Indwelling Catheter Indwelling Catheter Indwelling Catheter # Bowel Movements 0 - Exam Head normocephalic Neck supple Lungs clear to auscultation bilaterally no wheezing or crackles Heart regular rate and rhythm S1-S2, no rub or gallop Abdomen is soft nontender nondistended positive bowel sounds no hepatosplenomegaly Extremities no edema Neuro alert and orientated to 3. Significant weakness throughout body. Hand coil strapper equal but very weak bilaterally. Significant left arm swelling. No cellulitis. Lower extremity weakness bilaterally. Patient has difficulty extending or flexing her feet. - Labs CBC & Chem 7: 05/13/17 05:32 05/13/17 05:32 Labs: Abnormal Lab Results - Last 24 Hours (Table) 05/11/17 05/12/17 05/12/17 Range/Units 10:52 17:19 20:52 RBC (3.80-5.40) m/uL Hgb (11.4-16.0) gm/dL Hct (34.0-46.0) % RDW (11.5-15.5) % Plt Count (150-450) k/uL Sodium (137-145) mmol/L Potassium (3.5-5.1) mmol/L BUN (7-17) mg/dL Creatinine (0.52-1.04) mg/dL Glucose (74-99) mg/dL POC Glucose (mg/dL) 113 H 103 H (75-99) mg/dL Hemoglobin A1c 6.3 H (4.0-6.0) % Calcium (8.4-10.2) mg/dL 05/13/17 05/13/17 05/13/17 Range/Units 05:32 05:32 06:45 RBC 3.33 L (3.80-5.40) m/uL Hgb 8.5 L (11.4-16.0) gm/dL Hct 26.6 L (34.0-46.0) % RDW 16.4 H (11.5-15.5) % Plt Count 528 H (150-450) k/uL Sodium 135 L (137-145) mmol/L Potassium 2.6 L* (3.5-5.1) mmol/L BUN 5 L (7-17) mg/dL Creatinine 0.48 L (0.52-1.04) mg/dL Glucose 101 H (74-99) mg/dL POC Glucose (mg/dL) 116 H (75-99) mg/dL Hemoglobin A1c (4.0-6.0) % Calcium 8.0 L (8.4-10.2) mg/dL 05/13/17 Range/Units 11:09 RBC (3.80-5.40) m/uL Hgb (11.4-16.0) gm/dL Hct (34.0-46.0) % RDW (11.5-15.5) % Plt Count (150-450) k/uL Sodium (137-145) mmol/L Potassium (3.5-5.1) mmol/L BUN (7-17) mg/dL Creatinine (0.52-1.04) mg/dL Glucose (74-99) mg/dL POC Glucose (mg/dL) 128 H (75-99) mg/dL Hemoglobin A1c (4.0-6.0) % Calcium (8.4-10.2) mg/dL Microbiology - Last 24 Hours (Table) 05/11/17 09:20 Blood Culture - Preliminary Blood No Growth after 48 hours 05/11/17 13:00 Urine Culture - Final Urine,Voided 05/12/17 06:18 Blood Culture - Preliminary Blood No Growth after 24 hours Assessment and Plan Assessment: 1. Catheter associated urinary tract infection currently on IV ceftriaxone awaiting urine culture. Blood culture negative to date. 2. Urinary retention status post Concepcion catheter insertion with greater than 1000 mL of urine on presentation 3. Recently diagnosed adenocarcinoma of the colon status post transverse colectomy: Awaiting oncology and surgical evaluation 4. Severe physical and medical debility, PT/OT consultation 5. Underlying rheumatoid arthritis 6. Underlying COPD with no evidence of exacerbation 7. PICC line induced DVT of the left subclavian vein maintain on anticoagulation with Lovenox. Adjust Lovenox dose to 60 mg subcu every 12 hours 8. Severe sepsis without septic shock would continue gentle IV fluid hydration 9. Pain management: Add Central 5/325 every 4 hours as needed 10. Essential hypertension with evidence of accelerated hypertension. May be pain induced. Repeat blood pressures this morning after meds show improvement. Also adjusting pain medications. Continue to monitor and will make further adjustments in medications as needed 11. Hypokalemia patient receiving potassium supplement. magnesium 1.8 12. Nausea and dry heaves. Add Zofran and IV Protonix 13. Metabolic encephalopathy present on admission likely related to patient's UTI with sepsis GI prophylaxis IV Protonix and DVT prophylaxis Lovenox Physical therapy I performed an examination of the patient and discussed their management with the physician Regional Sales Consultant. I have reviewed the Physician Regional Sales Consultant's notes and agree with the documented findings and plan of care
--- NOTE | 2017-05-13 13:08 | P.PN ---
Progress Note - Text Progress Note Date: 05/13/17 86-year-old female lethargic but opens eyes to verbal stimuli daughter at bedside was transferred from this facility May 02 to [facility] to be evaluated for possible plasmapheresis.. daughter stated the patient was not a candidate for plasmapheresis. Was at the hospital for a week was discharged last Saturday and the daughter stated that she was not able to care for her at home due to significant weakness essentially bedbound Patient recently underwent a transverse colectomy April 26 and was found to have cancer of the colon. Patient has significant swelling involving the left upper extremity left hand puffy. Surgical midline incision well approximated with every other staple in place currently is denying any abdominal pain no signs of infection. Daughter stated patient did have a bowel movement yesterday. Has an indwelling Concepcion catheter in place for urinary retention. Oncology to evaluate the patient and update the daughter on the pathology report every other staple removed no further surgical recommendations at this time we' ll sign off and re-eval as needed Progress note dictated for Dr. Sara escamilla on behalf of dr gu The above impression and plan of care have been discussed and directed by signing physician. Jalyn Mckeon nurse practitioner acting as scribe for signing physician.
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
[2017-05-13 16:55] LABS: Glucose,Whole Blood 124 mg/dL (75-99)
[2017-05-13 20:01] LABS: Glucose,Whole Blood 109 mg/dL (75-99)
[2017-05-13] MEDS: PANTOPRAZOLE 40 MG/10 ML VIAL IVP SCH (21:12)
[2017-05-14] MEDS: MORPHINE SULF 5MG/10ML VL IVP PRN ×4 (01:54→12:43)
[2017-05-14 06:37] LABS: Anisocytosis Slight; Basophils % (A) 0 %; Eosinophils # (A) 0.4 k/uL (0-0.7); Eosinophils % (A) 6 %; HCT 26.2 % (34.0-46.0); HGB 8.1 gm/dL (11.4-16.0); Hypochromasia Moderate; Lymphocytes # (A) 1.4 k/uL (1.0-4.8); Lymphocytes % (A) 19 %; MCH 24.8 pg (25.0-35.0); MCHC 30.8 g/dL (31.0-37.0); MCV 80.6 fL (80.0-100.0); Mean Platelet Volume 8.9; Monocytes # (A) 0.8 k/uL (0-1.0); Monocytes % (A) 11 %; Neutrophils # (A) 4.6 k/uL (1.3-7.7); Neutrophils % (A) 62 %; Platelet Count 494 k/uL (150-450); Poikilocytosis Slight; RBC 3.25 m/uL (3.80-5.40); RDW 16.8 % (11.5-15.5); WBC 7.5 k/uL (3.8-10.6)
[2017-05-14 06:49] LABS: Glucose,Whole Blood 100 mg/dL (75-99)
[2017-05-14] MEDS: INSULIN ASPART 100 UNIT/ML 1 ML 10 ML VIAL SQ SCH ×4 (06:51→20:59)
[2017-05-14 07:06] LABS: Anion Gap 8 mmol/L; Blood Urea Nitrogen 6 mg/dL (7-17); Calcium 8.2 mg/dL (8.4-10.2); Carbon Dioxide 29 mmol/L (22-30); Chloride 98 mmol/L (98-107); Glucose 98 mg/dL (74-99); Potassium 3.4 mmol/L (3.5-5.1); Sodium 135 mmol/L (137-145)
[2017-05-14] MEDS: FORMOTEROL FUMARATE 20 MCG/2 ML NEBU INHALATION SCH ×2 (07:27→19:47)
[2017-05-14] MEDS: BUDESONIDE 0.25 MG/2 ML NEBU INHALATION SCH ×2 (07:27→19:47)
[2017-05-14] MEDS: cefTRIAXone IN SWFI 1,000 MG/10 ML SYRINGE IVP SCH (08:23)
[2017-05-14] MEDS: DOCUSATE 100 MG CAP PO SCH (08:26)
[2017-05-14] MEDS: metroNIDAZOLE 500 MG TAB PO SCH ×3 (08:26→19:50)
[2017-05-14] MEDS: METOPROLOL TARTRATE 12.5 MG TAB PO SCH (08:26)
[2017-05-14] MEDS: DICYCLOMINE 20 MG TAB PO SCH (08:26)
[2017-05-14] MEDS: ENOXAPARIN 60 MG/0.6 ML SYRINGE SQ SCH ×2 (08:26→19:40)
[2017-05-14] MEDS: MONTELUKAST 10 MG TAB PO SCH (08:27)
[2017-05-14] MEDS: NYSTATIN 100,000 UNIT/ML SUSP 500,000 UNIT/5 ML CUP PO SCH ×4 (08:27→19:49)
[2017-05-14] MEDS: FLUCONAZOLE 100 MG TAB PO SCH (08:27)
[2017-05-14] MEDS: FUROSEMIDE 20 MG TAB PO SCH (08:28)
--- NOTE | 2017-05-14 08:53 | P.CN ---
Psychiatric Consult - . Consult date: 05/14/17 Consult:: 05/14/17 08:42 Patient was seen for a psych consult regarding her inability to make medical decisions. Patient recently had surgery for malignancy of: And she also developed UTI. Patient is 86 years old and will be 87 on fifth of this month. She is quite anemic and hyponatremic hypokalemic has several general medical conditions and is receiving small doses of opiates. She also has the order for Valium 5 mg at bedtime when necessary. Currently patient is quite confused and is not able to provide good history. She has some dysarthria and aphasia. She has difficulty in moving around even in the bed. She knows she is in the hospital but she cannot name the hospital. She knows her date of . But she cannot tell me anything about her recent surgery, the reason for surgery etc. She does not think she has any problem with her memory or confusion. She denies suicide and homicide thoughts. She has not made any statements suggestive of delusions or hallucinations. Assessment: Delirium secondary to UTI, multiple physical problems with metabolic disorder and probably from morphine. Patient is not able to make any medical or other financial decisions at this point. Suggestion: Avoid morphine and long acting benzodiazepines like Valium. Avoid medications with anticholinergic side effects including bentyl, morphine trazodone Benadryl etc. Continue management of her physical conditions including metabolic disorder.
[2017-05-14 12:10] LABS: Glucose,Whole Blood 144 mg/dL (75-99)
[2017-05-14] MEDS: PANTOPRAZOLE 40 MG/10 ML VIAL IVP SCH ×2 (12:49→19:40)
[2017-05-14] MEDS: FOLIC ACID 1 MG TAB PO SCH (12:50)
[2017-05-14] MEDS: POTASSIUM CHLORIDE ER 20 MEQ TAB.ER PO SCH (12:50)
[2017-05-14] MEDS ORDERED: POTASSIUM CHLORIDE ER 20 MEQ TAB.ER PO STA (12:51)
--- NOTE | 2017-05-14 13:01 | P.PN ---
Subjective Progress Note Date: 05/14/17 This is a 86-year-old female with very complex past medical history noted below who came into the emergency room brought in by her daughter as she was unable to take care of her. He should have had a prolonged hospitalization recently and underwent a transverse colectomy on was found to have underlying carcinoma of the colon. Patient was subsequently transferred to [facility] with suspicion of critical illness poly-neuropathy and was evaluated at [facility] but did not meet the criteria. She did not receive plasmapheresis. Patient was discharged home and her daughter told me that she was unable to take care of her at home. Patient is significantly weak and essentially bedbound. Her Concepcion catheter was discontinued prior to discharge and today she was found to have thousand mL of urine retention with catheter associated UTI. She is currently admitted to the hospital. She is lethargic this morning but she was easily arousable. She was only oriented to herself. 05/13/2017 patient is lying in bed. 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 She is awake and alert and orientated to 3. Reports that she has pain throughout her body. Ultram is not working. And morphine is making her sleep and confusing her. We'll add [place]. Also patient complaining of nausea and dry heaves. Zofran and Protonix were ordered. Awaiting hematology evaluation. Patient is having soft stools no diarrhea. Patient has Concepcion catheter for urinary retention. Denies any chest pain or shortness of breath. 05/14/2017 patient is lying in bed comfortably. She was seen by psychiatry. And likely her delirium is related to her UTI and morphine. They also reported the patient is not capable of making medical decisions at this time. Family and patient are awaiting meeting this afternoon with hospice for comfort measures only or palliative care. Objective - Vital Signs Vital signs: Vital Signs Temp 98.3 F 05/14/17 08:00 Pulse 107 H 05/14/17 08:00 Resp 18 05/14/17 08:00 BP 166/79 05/14/17 08:00 Pulse Ox 92 L 05/14/17 08:00 Intake & Output 05/13/17 05/14/17 05/14/17 18:59 06:59 18:59 Intake Total 690 Output Total 550 820 Balance 140 -820 Weight 58.96 kg Intake: Intake, IV Titration 200 Amount Potassium Chloride 10 meq 200 In Water For Injection 1 100ml.bag @ 100 mls/hr IVPB Q1H [facility] Rx#: [id number] Oral 240 Tube Feeding 250 Output: Urine 550 820 Other: Voiding Method Indwelling Catheter Indwelling Catheter # Voids 1 # Bowel Movements 1 - Exam Head normocephalic Neck supple Lungs clear to auscultation bilaterally no wheezing or crackles Heart regular rate and rhythm S1-S2, no rub or gallop Abdomen is soft nontender nondistended positive bowel sounds no hepatosplenomegaly Extremities no edema Neuro very sleepy. Able to open eyes and answer a few questions and then falls back to sleep. When asked to move her extremities. She falls back asleep before able to make these movements - Labs CBC & Chem 7: 05/14/17 06:08 05/14/17 06:08 Labs: Abnormal Lab Results - Last 24 Hours (Table) 05/13/17 05/13/17 05/13/17 Range/Units 16:07 16:44 19:59 RBC (3.80-5.40) m/uL Hgb (11.4-16.0) gm/dL Hct (34.0-46.0) % MCH (25.0-35.0) pg MCHC (31.0-37.0) g/dL RDW (11.5-15.5) % Plt Count (150-450) k/uL Sodium (137-145) mmol/L Potassium 3.4 L (3.5-5.1) mmol/L BUN (7-17) mg/dL Creatinine (0.52-1.04) mg/dL POC Glucose (mg/dL) 124 H 109 H (75-99) mg/dL Calcium (8.4-10.2) mg/dL 05/14/17 05/14/17 05/14/17 Range/Units 06:08 06:08 06:47 RBC 3.25 L (3.80-5.40) m/uL Hgb 8.1 L (11.4-16.0) gm/dL Hct 26.2 L (34.0-46.0) % MCH 24.8 L (25.0-35.0) pg MCHC 30.8 L (31.0-37.0) g/dL RDW 16.8 H (11.5-15.5) % Plt Count 494 H (150-450) k/uL Sodium 135 L (137-145) mmol/L Potassium 3.4 L (3.5-5.1) mmol/L BUN 6 L (7-17) mg/dL Creatinine 0.50 L (0.52-1.04) mg/dL POC Glucose (mg/dL) 100 H (75-99) mg/dL Calcium 8.2 L (8.4-10.2) mg/dL 05/14/17 Range/Units 12:04 RBC (3.80-5.40) m/uL Hgb (11.4-16.0) gm/dL Hct (34.0-46.0) % MCH (25.0-35.0) pg MCHC (31.0-37.0) g/dL RDW (11.5-15.5) % Plt Count (150-450) k/uL Sodium (137-145) mmol/L Potassium (3.5-5.1) mmol/L BUN (7-17) mg/dL Creatinine (0.52-1.04) mg/dL POC Glucose (mg/dL) 144 H (75-99) mg/dL Calcium (8.4-10.2) mg/dL Microbiology - Last 24 Hours (Table) 05/11/17 09:20 Blood Culture - Preliminary Blood No Growth after 72 hours 05/12/17 06:18 Blood Culture - Preliminary Blood No Growth after 48 hours 05/11/17 13:00 Urine Culture - Final Urine,Voided Assessment and Plan Assessment: 1. Catheter associated urinary tract infection currently on IV ceftriaxone. Urine culture shows contamination. Blood culture negative to date. 2. Urinary retention status post Concepcion catheter insertion with greater than 1000 mL of urine on presentation 3. Recently diagnosed with adenoneuroendocrine of the colon status post transverse colectomy: Patient seen by oncology and appreciate their recommendations 4. Severe physical and medical debility, PT/OT consultation 5. Underlying rheumatoid arthritis 6. Underlying COPD with no evidence of exacerbation 7. PICC line induced DVT of the left subclavian vein maintain on anticoagulation with Lovenox. Adjust Lovenox dose to 60 mg subcu every 12 hours 8. Severe sepsis without septic shock would continue gentle IV fluid hydration 9. Pain management: Add [place] 5/325 every 4 hours as needed 10. Essential hypertension with evidence of accelerated hypertension. Pain better controlled. 11. Hypokalemia patient receiving potassium supplement. magnesium 1.8 12. Nausea and dry heaves. Add Zofran and IV Protonix 13. Metabolic encephalopathy present on admission likely related to patient's UTI with sepsis 14. Delirium: Possibly related to UTI and morphine. Patient seen by psychiatry. Appreciate their recommendations. Also note that they reported patient is not able to make any medical or other financial decisions at this point There is a family meeting this afternoon scheduled with hospice to discuss comfort care or possibly palliative care. Will await family's final decision. Case discussed with patient's daughter this morning GI prophylaxis IV Protonix and DVT prophylaxis Lovenox Physical therapy I performed an examination of the patient and discussed their management with the physician Stroke Coordinator. I have reviewed the Physician Stroke Coordinator's notes and agree with the documented findings and plan of care
[2017-05-14] MEDS: MORPHINE ORAL SOLN 10 MG/5 ML CUP PO PRN ×2 (16:15→19:37)
[2017-05-14] MEDS: ONDANSETRON 4 MG/2 ML VIAL IVP PRN (16:16)
[2017-05-14 16:55] LABS: Glucose,Whole Blood 109 mg/dL (75-99)
[2017-05-14 20:45] LABS: Glucose,Whole Blood 123 mg/dL (75-99)
[2017-05-14] MEDS ORDERED: DIAZEPAM 5 MG TAB PO PRN (21:28)
[2017-05-14] MEDS: traMADol 50 MG TAB PO PRN (21:45)
[2017-05-15 00:12] VITALS: BP 191/75; TEMP 98.6
[2017-05-15 05:04] VITALS: PULSE 97
[2017-05-15] MEDS: INSULIN ASPART 100 UNIT/ML 1 ML 10 ML VIAL SQ SCH (05:51)
[2017-05-15] MEDS: FORMOTEROL FUMARATE 20 MCG/2 ML NEBU INHALATION SCH (08:28)
[2017-05-15] MEDS: BUDESONIDE 0.25 MG/2 ML NEBU INHALATION SCH (08:28)
[2017-05-15 09:20] VITALS: RESP 16
[2017-05-15] MEDS: ENOXAPARIN 60 MG/0.6 ML SYRINGE SQ SCH (10:10)
[2017-05-15] MEDS: cefTRIAXone IN SWFI 1,000 MG/10 ML SYRINGE IVP SCH (10:10)
[2017-05-15] MEDS: metroNIDAZOLE 500 MG TAB PO SCH (10:11)
[2017-05-15] MEDS: PANTOPRAZOLE 40 MG/10 ML VIAL IVP SCH (10:11)
[2017-05-15] MEDS: FLUCONAZOLE 100 MG TAB PO SCH (10:11)
[2017-05-15] MEDS: traMADol 50 MG TAB PO PRN (10:11)
[2017-05-15] MEDS: DOCUSATE 100 MG CAP PO SCH (10:30)
[2017-05-15] MEDS: FUROSEMIDE 20 MG TAB PO SCH (10:30)
[2017-05-15] MEDS: MONTELUKAST 10 MG TAB PO SCH (10:31)
[2017-05-15] MEDS: NYSTATIN 100,000 UNIT/ML SUSP 500,000 UNIT/5 ML CUP PO SCH (10:31)
[2017-05-15] MEDS: METOPROLOL TARTRATE 12.5 MG TAB PO SCH (10:31)
--- NOTE | 2017-05-15 10:42 | P.DS ---
Providers Date of admission: 05/11/17 11:17 Expected date of discharge: 05/15/17 Attending physician: Avi Montanez Consults: 05/11/17 15:34 Consult Physician Routine Consulting Provider: Javed Richter Consult Reason/Comments: colon cancer Do you want consulting provider notified?: Yes 05/11/17 16:18 Consult Physician Routine Consulting Provider: Luann Ruiz Consult Reason/Comments: post-op Do you want consulting provider notified?: Yes 05/13/17 15:10 Consult Physician Urgent Consulting Provider: Glenn Trevizo Consult Reason/Comments: does pt have ability to make medical decisions, ? need DPOA Do you want consulting provider notified?: Already Contacted Primary care physician: Avi Montanez [facility] Course: Diagnosis on discharge: 1. Catheter associated urinary tract infection currently on IV ceftriaxone. Urine culture shows contamination. Blood culture negative to date. 2. Urinary retention status post Concepcion catheter insertion with greater than 1000 mL of urine on presentation 3. Recently diagnosed with adenoneuroendocrine of the colon status post transverse colectomy: Patient seen by oncology and appreciate their recommendations 4. Severe physical and medical debility, PT/OT consultation done patient has severe weakness and it is unable to participate in therapy 5. Underlying rheumatoid arthritis 6. Underlying COPD with no evidence of exacerbation 7. PICC line induced DVT of the left subclavian vein maintain on anticoagulation with Lovenox. Adjust Lovenox dose to 60 mg subcu every 12 hours 8. Severe sepsis without septic shock would continue gentle IV fluid hydration 9. Pain management: Add Ludlow 5/325 every 4 hours as needed 10. Essential hypertension with evidence of accelerated hypertension. Pain better controlled. 11. Hypokalemia patient receiving potassium supplement. magnesium 1.8 12. Metabolic encephalopathy present on admission likely related to patient's UTI with sepsis 13. Delirium: Possibly related to UTI and morphine. Patient seen by psychiatry. Appreciate their recommendations. Also note that they reported patient is not able to make any medical or other financial decisions at this point Hospital course: This is a 86-year-old female with very complex past medical history noted below who came into the emergency room brought in by her daughter as she was unable to take care of her. He should have had a prolonged hospitalization recently and underwent a transverse colectomy on was found to have underlying carcinoma of the colon. Patient was subsequently transferred to [facility] with suspicion of critical illness poly-neuropathy and was evaluated at [facility] but did not meet the criteria. She did not receive plasmapheresis. Patient was discharged home and her daughter told me that she was unable to take care of her at home. Patient is significantly weak and essentially bedbound. Her Concepcion catheter was discontinued prior to discharge and today she was found to have thousand mL of urine retention with catheter associated UTI. She is currently admitted to the hospital. She is lethargic this morning but she was easily arousable. She was only oriented to herself. 05/13/2017 patient is lying in bed. 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 She is awake and alert and orientated to 3. Reports that she has pain throughout her body. Ultram is not working. And morphine is making her sleep and confusing her. We'll add Ludlow. Also patient complaining of nausea and dry heaves. Zofran and Protonix were ordered. Awaiting hematology evaluation. Patient is having soft stools no diarrhea. Patient has Concepcion catheter for urinary retention. Denies any chest pain or shortness of breath. 05/14/2017 patient is lying in bed comfortably. She was seen by psychiatry. And likely her delirium is related to her UTI and morphine. They also reported the patient is not capable of making medical decisions at this time. Family and patient are awaiting meeting this afternoon with hospice for comfort measures only or palliative care. 05/15/2017 patient somnolant responsive to stimuli,open eyes and shake head, non verbal at this time, decision made yesterday by Daughter to proceed with comfort care and hospice care, hospice met with patient and her daughter and plan is to transfer patient to her home today with hospice prescriptions for Roxanol and Ativan and atropine were given to hospice Patient Condition at Discharge: Good Plan - Discharge Summary New Discharge Prescriptions: No Action Montelukast [Singulair] 10 mg PO DAILY Folic Acid 1 mg PO DAILY Linagliptin/Metformin HCl [Jentadueto 2.5 mg-500 mg Tab] 1 tab PO DAILY Arformoterol Tartrate [Brovana] 15 mcg INHALATION RT-BID Metoprolol Tartrate [Lopressor] 12.5 mg PO DAILY #30 tab Glimepiride [Amaryl] 1 mg PO DAILY PRN PRN Reason: Blood sugar >120 Furosemide [Lasix] 20 mg PO DAILY Methotrexate Sodium [Methotrexate] 12.5 mg PO FR Budesonide [Pulmicort] 0.25 mg INHALATION RT-BID Acetaminophen Tab [Tylenol] 325 mg PO QID PRN PRN Reason: Pain Control Dicyclomine [Bentyl] 20 mg PO DAILY Enoxaparin [Lovenox] 80 mg SQ DAILY Discharge Medication List Folic Acid 1 mg PO DAILY 09/10/13 [History] Linagliptin/Metformin HCl [Jentadueto 2.5 mg-500 mg Tab] 1 tab PO DAILY [History] Montelukast [Singulair] 10 mg PO DAILY 09/10/13 [History] Arformoterol Tartrate [Brovana] 15 mcg INHALATION RT-BID 12/26/13 [History] Metoprolol Tartrate [Lopressor] 12.5 mg PO DAILY #30 tab 01/07/14 [Rx] Furosemide [Lasix] 20 mg PO DAILY 04/05/15 [History] Glimepiride [Amaryl] 1 mg PO DAILY PRN 04/05/15 [History] Methotrexate Sodium [Methotrexate] 12.5 mg PO FR 04/05/15 [History] Acetaminophen Tab [Tylenol] 325 mg PO QID PRN 03/18/17 [History] Budesonide [Pulmicort] 0.25 mg INHALATION RT-BID 03/18/17 [History] Dicyclomine [Bentyl] 20 mg PO DAILY 04/17/17 [History] Enoxaparin [Lovenox] 80 mg SQ DAILY 05/11/17 [History] Follow up Appointment(s)/Referral(s): [facility], [NON-STAFF] - As Needed Avi Montanez MD [Primary Care Provider] - 1-2 days
--- NOTE | 2017-05-15 10:46 | P.PN ---
Progress Note - Text Progress Note Date: 05/14/17 Note for family meeting: Family meeting done on 05/14/2017 included patient daughter Rosy Sapp, physician ssn/ssbn assistant navigator Geraldine Melendrez and myself Course of treatment and different medical issues discussed in details Progress so far reviewed Prognosis in view of metastatic cancer and all other comorbidities discussed Decision was made to proceed with comfort care only and hospice care Patient will be discharged home tomorrow on 05/15/2017 with hospice care at home CODE STATUS was changed in the hospital order setting Will continue to follow
[2017-05-15] MEDS: MORPHINE ORAL SOLN 10 MG/5 ML CUP PO PRN (11:55)
[2017-05-16] MEDS ORDERED: PANTOPRAZOLE 40 MG TABLET PO SCH (09:00)
[2017-05-17] MEDS ORDERED: METHOTREXATE SODIUM 2.5 MG TAB PO SCH (12:00)
== END 2017-05-15 12:33 | disposition hospice, inpatient (51) | DRG 698 ==
LOC: EC 08:37 → 4MS4W 11:17 → 6SEL 05-12 08:56
PROVIDERS: ADMIT Internal Medicine; ATTEND Internal Medicine
DX: T83.518A Infection and inflammatory reaction due to other urinary catheter, initial encounter (principal); R65.20 Severe sepsis without septic shock; G93.41 Metabolic encephalopathy; A41.9 Sepsis, unspecified organism; I82.622 Acute embolism and thrombosis of deep veins of left upper extremity; I82.B12 Acute embolism and thrombosis of left subclavian vein; C18.9 Malignant neoplasm of colon, unspecified; N39.0 Urinary tract infection, site not specified; K57.92 Diverticulitis of intestine, part unspecified, without perforation or abscess without bleeding; C7A.1 Malignant poorly differentiated neuroendocrine tumors; E87.1 Hypo-osmolality and hyponatremia; R47.01 Aphasia; J44.9 Chronic obstructive pulmonary disease, unspecified; M06.9 Rheumatoid arthritis, unspecified; H35.30 Unspecified macular degeneration; N13.9 Obstructive and reflux uropathy, unspecified; E66.9 Obesity, unspecified; I83.90 Asymptomatic varicose veins of unspecified lower extremity; K21.9 Gastro-esophageal reflux disease without esophagitis; H91.91 Unspecified hearing loss, right ear; E89.0 Postprocedural hypothyroidism; M19.90 Unspecified osteoarthritis, unspecified site; R53.1 Weakness; I10 Essential (primary) hypertension; E87.6 Hypokalemia; R11.0 Nausea; Z51.5 Encounter for palliative care; Z66 Do not resuscitate; E11.9 Type 2 diabetes mellitus without complications; D64.9 Anemia, unspecified; R47.1 Dysarthria and anarthria; T40.2X5A Adverse effect of other opioids, initial encounter; Y84.6 Urinary catheterization as the cause of abnormal reaction of the patient, or of later complication, without mention of misadventure at the time of the procedure; Z90.49 Acquired absence of other specified parts of digestive tract; Z85.038 Personal history of other malignant neoplasm of large intestine; Z68.25 Body mass index [BMI] 25.0-25.9, adult; Z88.0 Allergy status to penicillin; Z88.8 Allergy status to other drugs, medicaments and biological substances; Z88.1 Allergy status to other antibiotic agents; Z91.041 Radiographic dye allergy status; Z91.012 Allergy to eggs; Z91.040 Latex allergy status; Z79.899 Other long term (current) drug therapy; Z79.84 Long term (current) use of oral hypoglycemic drugs; Z79.51 Long term (current) use of inhaled steroids; Z87.891 Personal history of nicotine dependence; Z80.9 Family history of malignant neoplasm, unspecified; Z90.89 Acquired absence of other organs; Z90.710 Acquired absence of both cervix and uterus; Z98.41 Cataract extraction status, right eye; Z98.42 Cataract extraction status, left eye; Z86.19 Personal history of other infectious and parasitic diseases; Z86.718 Personal history of other venous thrombosis and embolism; Z86.711 Personal history of pulmonary embolism; Z87.01 Personal history of pneumonia (recurrent); Z87.19 Personal history of other diseases of the digestive system; Z87.820 Personal history of traumatic brain injury; Z74.01 Bed confinement status; Z79.01 Long term (current) use of anticoagulants; Z83.3 Family history of diabetes mellitus; Z99.3 Dependence on wheelchair
CPT/HCPCS: 36415; 70450; 71046; 80048; 80053; 81001; 82550; 82553; 83036; 83605; 83735; 84132; 84484; 85025; 85610; 85730; 87040; 87086; 93005; 96361; 96374; 99285